=== PATIENT | male | born 1950 | race Caucasian/White ===

== ENCOUNTER 2020-06-23 00:47 | Outpatient (CLI) | payer MEDICARE, SELFPAY ==
[2020-06-23 18:42] LABS: SARS-CoV-2 RNA PCR Negative
== END 2020-06-23 00:48 | disposition home or self-care (01) ==
LOC: ANHCOVIDDT 00:50
PROVIDERS: PCP Family Medicine; Visit Provider Internal Medicine Gastroenterology
DX: Z01.812 Encounter for preprocedural laboratory examination (principal); Z20.828 Contact with and (suspected) exposure to other viral communicable diseases
CPT/HCPCS: 87635; C9803; U0003

== ENCOUNTER 2020-06-25 02:02 | Day surgery (SDC) | payer MEDICARE, SELFPAY ==
[2020-06-17 14:07] VITALS: BMI 29.1
[2020-06-25 09:10] VITALS: BP 118/88; PULSE 55; RESP 18; TEMP 37.1; O2SAT 96
[2020-06-25] MEDS: LACTATED RINGERS 1,000 ML 150 ML IV CONT (09:23)
[2020-06-25 09:28] LABS: Glucose Point of Care 97 (65-105)
--- NOTE | 2020-06-25 09:38 | WPDGICN ---
Assessment and Plan Assessment and plan (1) History of colon polyps: Code(s): Z86.010 - Personal history of colonic polyps Status: Acute Assessment and Plan: Patient has a history of colon polyps. Last colonoscopy 2017. He has had large colon polyps recurring partial colon resection the past. Plan is for surveillance colonoscopy at this time perhaps every 3-5 years in the future. High-fiber diet advised. (2) Diarrhea: Code(s): R19.7 - Diarrhea, unspecified Status: Acute Assessment and Plan: Patient reports intermittent diarrhea off and on over the last 1 year. With no bleeding or weight loss. He denies associated abdominal pain. He has had no specific therapy at today. Plan is to encourage high-fiber diet. Further recommendations may be given after colonoscopy. If diarrhea were to return stool cultures may be beneficial at that time. GI Consult Note Consult date/time: 06/25/20 09:38 HPI: Carlos Ortiz is a 70 year old male seen in evaluation at the request of Dr Haynes. Patient has a history of tubular adenomatous colon polyps. He has a history of a colon resection for large colon polyp in 2017. He presents today for follow-up colonoscopy. He reports over the last 1 year has had intermittent diarrhea. When it occurred it would be soft with no bleeding no pain. Typically lasting for several days to a week. He he has had no recent stool cultures or evaluation or therapy for this. His family history is noncontributory. Review of Systems Review of Systems: All systems reviewed & are unremarkable except as noted in HPI and below PMFSH Surgical History Surgical History H/O arthroscopic knee surgery H/O hernia repair H/O partial resection of colon History of cardiac cath History of carpal tunnel release History of knee replacement Hx of cholecystectomy Family History Family History Father Hypertension Family history of throat cancer, Onset Age: 67 Patient's father is , Onset Age: 67 Sibling Hypertension, Onset Age: 39 Family history of primary malignant neoplasm of liver Family history of malignant neoplasm of breast in first degree relative, Onset Age: 47 Family history of throat cancer, Onset Age: 52 Family history of malignant neoplasm of breast Mother Hypertension Social History Social History Smoking packs per day: 1.5 Smoking cigarettes per day: 30.0 Years smoked: 35 Smoking pack-years: 52.50 Smoking status: Former smoker Tobacco type: cigarettes Smoking end date: 11/12/97 Alcohol intake: never Meds Home Medications and Allergies Home Medications Medication Instructions Recorded Confirmed Type hydrochlorothiazide 12.5 mg tablet 12.5 mg PO DAILY #90 tablet 10/10/19 06/25/20 Rx irbesartan 300 mg tablet 300 mg PO DAILY #90 tablet 10/24/19 06/25/20 Rx albuterol sulfate 90 mcg/actuation 2 inhalation INHALATION Q4H #18 gm 11/19/19 06/25/20 Rx aerosol inhaler nebulizers #1 each 12/11/19 06/25/20 Rx amlodipine 10 mg tablet 10 mg PO DAILY 01/09/20 06/25/20 History ipratropium 0.5 mg-albuterol 3 mg 3 ml INHALATION Q6H PRN #180 ml 03/24/20 06/25/20 Rx (2.5 mg base)/3 mL nebulization soln metformin 1,000 mg tablet 1,000 mg PO BID #60 tablet 04/23/20 06/25/20 Rx levothyroxine 50 mcg capsule 50 mcg PO DAILY #90 cap 04/26/20 06/25/20 Rx oxymetazoline 0.05 % nasal mist 2 spray NASAL Q12H PRN 05/10/20 06/25/20 History blood sugar diagnostic #100 each 05/18/20 06/25/20 Rx blood-glucose meter #1 each 05/18/20 06/25/20 Rx budesonide-formoterol HFA 160 2 puff INHALATION Q12H #6 gm 06/17/20 06/25/20 Rx mcg-4.5 mcg/actuation aerosol inhaler atorvastatin 20 mg tablet 20 mg PO DAILY #90 tablet 06/23/20 06/25/20 Rx Allergies Allergy/AdvReac Ty
--- NOTE | 2020-06-25 09:45 | WPDANESEPPF ---
Anes - Initial Pre Proc Eval Procedure: Operation Date: 06/25/20 10:00 Proposed Procedures p Colonoscopy - Vel Bruno MD Date/Time: 06/25/20 09:45 Surgeon: Vel Bruno MD Pre Op Diagnosis: Diarrhea/ Hx Colon Polyps Patient Data Age: 70 Gender: M Height: 5 ft 5 in Weight: 74.6 kg Last Vital Signs Temp 98.8 F 06/25/20 09:10 Pulse 55 L 06/25/20 09:10 Resp 18 06/25/20 09:10 BP 118/88 06/25/20 09:10 Pulse Ox 96 06/25/20 09:10 Allergies Allergy/AdvReac Type Severity Reaction Status Date / Time cephalexin Allergy Unknown Skin Verified 06/25/20 09:09 Reaction clarithromycin Allergy Unknown Skin Verified 06/25/20 09:09 Reaction lisinopril Allergy Unknown cough Verified 06/25/20 09:09 Penicillins Allergy Unknown Skin Verified 06/25/20 09:09 Reaction morphine AdvReac Intermediate Nausea and Verified 06/25/20 09:09 Vomiting Home Medications Medication Instructions Recorded Confirmed Type hydrochlorothiazide 12.5 mg tablet 12.5 mg PO DAILY #90 tablet 10/10/19 06/25/20 Rx irbesartan 300 mg tablet 300 mg PO DAILY #90 tablet 10/24/19 06/25/20 Rx albuterol sulfate 90 mcg/actuation 2 inhalation INHALATION Q4H #18 gm 11/19/19 06/25/20 Rx aerosol inhaler nebulizers #1 each 12/11/19 06/25/20 Rx amlodipine 10 mg tablet 10 mg PO DAILY 01/09/20 06/25/20 History ipratropium 0.5 mg-albuterol 3 mg 3 ml INHALATION Q6H PRN #180 ml 03/24/20 06/25/20 Rx (2.5 mg base)/3 mL nebulization soln metformin 1,000 mg tablet 1,000 mg PO BID #60 tablet 04/23/20 06/25/20 Rx levothyroxine 50 mcg capsule 50 mcg PO DAILY #90 cap 04/26/20 06/25/20 Rx oxymetazoline 0.05 % nasal mist 2 spray NASAL Q12H PRN 05/10/20 06/25/20 History blood sugar diagnostic #100 each 05/18/20 06/25/20 Rx blood-glucose meter #1 each 05/18/20 06/25/20 Rx budesonide-formoterol HFA 160 2 puff INHALATION Q12H #6 gm 06/17/20 06/25/20 Rx mcg-4.5 mcg/actuation aerosol inhaler atorvastatin 20 mg tablet 20 mg PO DAILY #90 tablet 06/23/20 06/25/20 Rx Laboratory Tests 06/25/20 09:26 POC Capillary Glucose 97 mg/dl mg/dl (65-105) Patient hx anesthesia problems: none Family hx anesthesia problems: none PMFSH Past Medical History Medical History (Updated 06/25/20 @ 09:45 by Richy Sam MD) COPD with asthma Essential (primary) hypertension Hypothyroidism (acquired) Obstructive sleep apnea (adult) (pediatric) Type 2 diabetes mellitus with unspecified complications Surgical History Surgical History H/O arthroscopic knee surgery H/O hernia repair H/O partial resection of colon History of cardiac cath History of carpal tunnel release History of knee replacement Hx of cholecystectomy Family History Family History Father Hypertension Family history of throat cancer, Onset Age: 67 Patient's father is , Onset Age: 67 Sibling Hypertension, Onset Age: 39 Family history of primary malignant neoplasm of liver Family history of malignant neoplasm of breast in first degree relative, Onset Age: 47 Family history of throat cancer, Onset Age: 52 Family history of malignant neoplasm of breast Mother Hypertension Social History Social History Smoking packs per day: 1.5 Smoking cigarettes per day: 30.0 Years smoked: 35 Smoking pack-years: 52.50 Smoking status: Former smoker Tobacco type: cigarettes Smoking end date: 11/12/97 Alcohol intake: never Anes - Eval Final PreProcedure Day of Procedure 06/25/20 09:45 Patient weight: normal Heart: regular rate and rhythm Lungs: clear to auscultation Airway: Mallampati scale class II Neurological: alert and oriented Last oral intake: >/= 8 hours ASA classification: III Emergent: no Anesthetic plan: proceed Anesthesia type and monito
[2020-06-25] MEDS: SIMETHICONE ORAL SUSPENSION 20 MG/0.3 ML 30 ML BOTTLE 0.6 ML IRRIGATION ×2 (09:55→09:56)
[2020-06-25 10:07] VITALS: BP 118/76; PULSE 63; RESP 14; O2SAT 96
[2020-06-25 10:17] VITALS: BP 148/78; PULSE 55; RESP 14; O2SAT 96
[2020-06-25 10:27] VITALS: BP 145/87; PULSE 77; RESP 14; O2SAT 99
== END 2020-06-25 10:40 | disposition home or self-care (01) ==
PROVIDERS: PCP Family Medicine; Visit Provider Internal Medicine Gastroenterology
PROC: 0DJD8ZZ Inspection of Lower Intestinal Tract, Via Natural or Artificial Opening Endoscopic (ICD-10-PCS; CPT 45378; principal; 2020-06-25 10:00)
DX: Z12.11 Encounter for screening for malignant neoplasm of colon (principal); D12.3 Benign neoplasm of transverse colon; K63.5 Polyp of colon; K64.8 Other hemorrhoids; R19.7 Diarrhea, unspecified; K57.30 Diverticulosis of large intestine without perforation or abscess without bleeding; J44.9 Chronic obstructive pulmonary disease, unspecified; I10 Essential (primary) hypertension; E03.9 Hypothyroidism, unspecified; G47.33 Obstructive sleep apnea (adult) (pediatric); E11.9 Type 2 diabetes mellitus without complications; Z79.84 Long term (current) use of oral hypoglycemic drugs; Z87.891 Personal history of nicotine dependence
CPT/HCPCS: 45385; 88305; J2704; J7120

== ENCOUNTER 2020-11-08 06:56 | Outpatient (NON) | payer MEDICARE, SELFPAY ==
[2020-11-08 17:11] LABS: SARS-CoV-2 RNA PCR Negative
== END 2020-11-08 06:57 ==
LOC: ANHCOVIDDT 06:58
PROVIDERS: PCP Family Medicine; Visit Provider Physician Assistant
DX: Z20.828 Contact with and (suspected) exposure to other viral communicable diseases (principal); R09.81 Nasal congestion
CPT/HCPCS: 87635; C9803; U0003

== ENCOUNTER 2020-11-17 09:02 | Outpatient (CLI) | payer MEDICARE, SELFPAY ==
--- NOTE | ~2020-11-17 | CT_ITS ---
EXAMINATION:CT lung screening DATE: 11/17/2020 09:29 INDICATION: Personal history of nicotine dependence. Smoker who quit 14 years ago with 52 pack year h istory. TECHNIQUE: Computed tomography (CT) of the chest was performed without intravenous contrast. Automate d exposure control and iterative reconstruction technique were employed. The dose-length product (DLP ) was 147.67 mGy-cm. COMPARISON: Chest CT 11/03/2019, 02/15/17, 02/10/16 FINDINGS: There is moderate emphysema. Calcified pulmonary nodules and calcified hilar and mediastina l lymph nodes are consistent with old granulomatous disease. There is recurrent partial collapse of l eft lung lower lobe. There is bronchiectasis in left lower lobe. No pleural effusion. The heart size is normal. There are coronary artery calcifications. No pericardial effusion. There is diffuse hepati c steatosis. There are changes of cholecystectomy. Calcifications in the liver and spleen are consist ent with old granulomatous disease. There is mild thoracic spondylosis. IMPRESSION: 1. Lung-RADS category 4A: Suspicious. Bronchoscopy is recommended for recurrent partial collapse of l eft lung lower lobe. Reviewed, dictated and finalized at location A. GER MATERIAL IMPRESSION: 1. Lung-RADS category 4A: Suspicious. Bronchoscopy is recommended for recurrent partial collapse of left lung lower lobe.
== END 2020-11-17 09:03 | disposition home or self-care (01) ==
PROVIDERS: PCP Family Medicine; Visit Provider Family Medicine
DX: Z12.2 Encounter for screening for malignant neoplasm of respiratory organs (principal); Z87.891 Personal history of nicotine dependence
CPT/HCPCS: 71271

== ENCOUNTER 2020-11-23 03:05 | Outpatient (CLI) | payer MEDICARE, SELFPAY ==
[2020-11-23 19:22] LABS: SARS-CoV-2 RNA PCR Negative
== END 2020-11-23 03:06 | disposition home or self-care (01) ==
LOC: ANHCOVIDDT 03:06
PROVIDERS: PCP Family Medicine; Visit Provider Internal Medicine Critical Care Medicine
DX: Z01.812 Encounter for preprocedural laboratory examination (principal); Z20.822 Contact with and (suspected) exposure to COVID-19
CPT/HCPCS: C9803; U0003; U0005

== ENCOUNTER 2020-11-26 02:11 | Day surgery (SDC) | payer MEDICARE, SELFPAY ==
[2020-11-19 16:26] VITALS: BMI 29.0
[2020-11-26] VITALS (10 sets, daily range): BP systolic 118–165; BP diastolic 67–81; PULSE 56–106; RESP 12–21; TEMP 36.2–37.1; O2SAT 95–100
--- NOTE | ~2020-11-26 | XR_ITS ---
EXAMINATION: XR chest 1V portable DATE: 11/26/2020 14:39 INDICATION: Shortness of breath. TECHNIQUE: A single frontal view of the chest was obtained. COMPARISON: Chest 2 views 11/19/2019, chest CT 11/17/2020 FINDINGS: Calcified lung nodules and calcified hilar and mediastinal lymph nodes are consistent with old granulomatous disease. There are mild airspace opacities in the lower lung zones. No pleural effu oliver or pneumothorax. The heart size is normal. IMPRESSION: 1. Mild airspace opacities in the lower lung zones, consistent with atelectasis versus pneumonia. Reviewed, dictated and finalized at location A. ERY CHARGER TESTER
--- NOTE | 2020-11-26 11:19 | WPDANESEPPF ---
Anes - Initial Pre Proc Eval Procedure: Operation Date: 11/26/20 12:30 Proposed Procedures p Flexible Bronchoscopy - Natasha Cloud MD Date/Time: 11/26/20 11:19 Surgeon: Natasha Cloud MD Pre Op Diagnosis: Recurrent Partial Collapse Of Left Lower Lung Lobe Patient Data Age: 70 Gender: M Height: 5 ft 5 in Weight: 79 kg Allergies Allergy/AdvReac Type Severity Reaction Status Date / Time Penicillins Allergy Unknown Skin Verified 11/26/20 12:02 Reaction morphine AdvReac Intermediate Nausea and Verified 11/26/20 12:02 Vomiting lisinopril AdvReac Unknown cough Verified 11/26/20 12:02 Home Medications Medication Instructions Recorded Confirmed Type albuterol sulfate 90 mcg/actuation 2 inhalation INHALATION Q4H #18 gm 11/19/19 11/19/20 Rx aerosol inhaler nebulizers #1 each 12/11/19 08/12/20 Rx ipratropium 0.5 mg-albuterol 3 mg 3 ml INHALATION Q6H PRN #180 ml 03/24/20 11/19/20 Rx (2.5 mg base)/3 mL nebulization soln levothyroxine 50 mcg capsule 50 mcg PO DAILY #90 cap 04/26/20 11/26/20 Rx oxymetazoline 0.05 % nasal mist 2 spray NASAL Q12H PRN 05/10/20 11/19/20 History blood sugar diagnostic #100 each 05/18/20 08/12/20 Rx blood-glucose meter #1 each 05/18/20 08/12/20 Rx atorvastatin 20 mg tablet 20 mg PO DAILY #90 tablet 06/23/20 11/19/20 Rx amlodipine 10 mg tablet 10 mg PO DAILY #90 tablet 08/16/20 11/19/20 Rx hydrochlorothiazide 12.5 mg tablet 12.5 mg PO DAILY #90 tablet 10/18/20 11/19/20 Rx irbesartan 300 mg tablet 300 mg PO DAILY #90 tablet 10/20/20 11/19/20 Rx metformin 1,000 mg tablet See Rx Instructions .ROUTE 10/22/20 11/19/20 Rx .COMPLEX #60 tablet sulfamethoxazole 800 1 tablet PO Q12H #20 tablet 11/19/20 11/19/20 Rx mg-trimethoprim 160 mg tablet budesonide-formoterol HFA 160 See Rx Instructions .ROUTE 11/22/20 Rx mcg-4.5 mcg/actuation aerosol .COMPLEX #10.2 g inhaler Patient hx anesthesia problems: none Family hx anesthesia problems: none PMFSH Past Medical History Medical History (Updated 11/19/20 @ 14:42 by Natasha Cloud MD) COPD with asthma Essential (primary) hypertension Hypothyroidism (acquired) Obstructive sleep apnea (adult) (pediatric) Type 2 diabetes mellitus with unspecified complications Surgical History Surgical History (Reviewed 07/15/20 @ 09:46 by Sheila Coe [facility]) H/O arthroscopic knee surgery H/O hernia repair H/O partial resection of colon History of cardiac cath History of carpal tunnel release History of knee replacement Hx of cholecystectomy Family History Family History (Reviewed 07/15/20 @ 09:46 by Sheila Coe [facility]) Father Hypertension Family history of throat cancer, Onset Age: 67 Patient's father is , Onset Age: 67 Sibling Hypertension, Onset Age: 39 Family history of primary malignant neoplasm of liver Family history of malignant neoplasm of breast in first degree relative, Onset Age: 47 Family history of throat cancer, Onset Age: 52 Family history of malignant neoplasm of breast Mother Hypertension Social History Social History (Reviewed 07/15/20 @ 09:46 by Sheila Coe [facility]) Smoking packs per day: 1.5 Smoking cigarettes per day: 30.0 Years smoked: 35 Smoking pack-years: 52.50 Smoking status: Never smoker Tobacco type: cigarettes Smoking end date: 11/12/97 Alcohol intake: never Substance use type: does not use Living arrangements: with family Spiritual care concerns: No Anes - Eval Final PreProcedure Day of Procedure 11/26/20 11:19 Patient weight: obese Heart: regular rate and rhythm Lungs: clear to auscultation Airway: Mallampati scale class II Neurological: alert and oriented Last oral intake: >/= 8 hours ASA classification: III Emergent: no Anesthetic plan: proceed Anesthesia type and monitoring: general ETT (or LMA) and standard monitoring Informed Consent: The patient's anesthetic plan and its attendant risks
--- NOTE | 2020-11-26 11:50 | ECG_ITS ---
Measurements Intervals [place] Rate: 63 P: 78 IN: 144 QRS: -21 QRSD: 108 T: 48 QT: 444 QTc: 455 Interpretive Statements SINUS RHYTHM INCOMPLETE RIGHT BUNDLE BRANCH BLOCK BORDERLINE R WAVE PROGRESSION, ANTERIOR LEADS BORDERLINE ST-T WAVE ABNORMALITY- HIGH LATERAL LEADS BASELINE ARTIFACT- I, II, III, AVR, V1-V3 BORDERLINE ECG Electronically Signed On 11-26-2020 13:07:03 SENIOR PRINCIPAL SOFTWARE ENGINEER by Aries Hogue D.O.
[2020-11-26 12:37] LABS: Glucose Point of Care 114 (65-105)
[2020-11-26] MEDS: LACTATED RINGERS 1,000 ML 150 ML IV CONT (12:37)
--- NOTE | 2020-11-26 12:51 | PM.CNPUL ---
Assessment and Plan Assessment and plan (1) Lung mass: Code(s): R91.8 - Other nonspecific abnormal finding of lung field Status: Acute Assessment and Plan: LLL recurrent collapse of the left lower lobe with left lower lobe bronchiectasis. This was found incidentally on a CT of the chest which was performed for his aortic aneurysm screening. Patient has not had fever, chills, weight loss, chest discomfort hemoptysis or difficulty swallowing. His normal weight is 177, was 180 most recently. He agrees with bronchoscopy to determine if there is an endobronchial mass that could be biopsied or brush. CT was reviewed and there are calcified lymph nodes in the mediastinum and subcarinal area so this will likely not be a good place to biopsy. He may need a PET scan after this bronchoscopy. (2) Chronic obstructive pulmonary disease, unspecified: Qualifiers: COPD type: unspecified COPD Qualified Code(s): J44.9 - Chronic obstructive pulmonary disease, unspecified Code(s): J44.9 - Chronic obstructive pulmonary disease, unspecified Status: Acute Assessment and Plan: His COPD is well controlled with Symbicort 2 puffs twice a day. He does not have frequent exacerbations. His main problem the sinus infections which he gets at least once per year and he is currently at the end of an infection. He was on a prednisone taper and antibiotics. History of Present Illness History of Present Illness Consult date: 11/26/20 Requesting physician: Oscar Haynes MD Reason for consult: abnormal CXR/CT Chief complaint: Recurrent Partial Collapse Of Left Lower Lung Lobe Narrative: This is an H&P prior to bronchoscopy. NEW: Carlos Ortiz is a 70 year old man with COPd, quit tobacco 15 years ago. His COPD is managed with Symbicort. He an annual CT of the chest for of aortic aneurysm. This year his CT showed an abnormality in the left lower lobe on 11/17/2020: There is moderate emphysema. Calcified pulmonary nodules and calcified hilar and mediastinal lymph nodes are consistent with old granulomatous disease. There is recurrent partial collapse of left lung lower lobe. There is bronchiectasis in left lower lobe. No pleural effusion. The heart size is normal. There are coronary artery calcifications. No pericardial effusion. There is diffuse hepatic steatosis. There are changes of cholecystectomy. Calcifications in the liver and spleen are consistent with old granulomatous disease. There is mild thoracic spondylosis. he denies any significant change in his weight. He has a sinus infection about once per year. He has started having 1 about 2 weeks ago, was on a prednisone taper and just finished an antibiotic yesterday. He does not have sputum production normally, only has secretions on coughing while he has a sinus infection. 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 He had some prior exposure to birds. He used to have recurrent bronchitis but since retiring has not had that any longer. He has not had pleuritic chest discomfort, hemoptysis, sputum production. I spoke with him about the risks and benefits of bronchoscopy. He agrees to proceed with the bronchoscopy for diagnosis of the left lower lobe collapse with suspected mass. Review of Systems Review of Systems: All systems reviewed & are unremarkable except as noted in HPI and below PMFSH Past Medical History Medical History COPD with asthma Essential (primary) hypertension Hypothyroidism (acquired) Obstructive sleep apnea (adult) (pediatric) Type 2 diabetes mellitus with unspecified complications Surgical History Surgical History H/O arthroscopic knee surgery H/O hernia repair H/O partial resection of colon History of cardiac c
[2020-11-26] MEDS: LIDOCAINE HCL 2% LOCAL INJ 20 ML VIAL 4 ML INFILTRATE (13:44)
--- NOTE | 2020-11-26 14:42 | SUR.PHASEII ---
Pt. continues to complain of nasal congestion, both nares. Pt. has bilateral expiratory wheezing. Dr. Cloud updated. Orders received for Chest xray and Nebulizer breathing treatment.
[2020-11-26] MEDS: ALBUTEROL SULFATE NEB 2.5 MG/0.5 ML INH INHALATION (15:02)
--- NOTE | 2020-11-26 15:05 | SUR.PHASEII ---
11/26/20 1500: RT at bedside for neb treatment.
== END 2020-11-26 15:31 | disposition home or self-care (01) ==
PROVIDERS: PCP Family Medicine; Visit Provider Internal Medicine Critical Care Medicine
PROC: 0BJ08ZZ Inspection of Tracheobronchial Tree, Via Natural or Artificial Opening Endoscopic (ICD-10-PCS; CPT 31622; principal; 2020-11-26 12:30)
DX: J98.11 Atelectasis (principal); Z79.51 Long term (current) use of inhaled steroids; J44.9 Chronic obstructive pulmonary disease, unspecified; E03.9 Hypothyroidism, unspecified; E11.9 Type 2 diabetes mellitus without complications; G47.33 Obstructive sleep apnea (adult) (pediatric); I10 Essential (primary) hypertension; Z96.649 Presence of unspecified artificial hip joint; E66.9 Obesity, unspecified; Z68.36 Body mass index [BMI] 36.0-36.9, adult; I45.10 Unspecified right bundle-branch block; F17.210 Nicotine dependence, cigarettes, uncomplicated
CPT/HCPCS: 31625; 31623; 71045; 88104; 88108; 88160; 88305; 93005; 94640; C9803; J0330; J2370; J2704; J7040; J7120; U0003; U0005

== ENCOUNTER 2020-12-23 09:36 | Outpatient (CLI) | payer MEDICARE, SELFPAY ==
--- NOTE | ~2020-12-23 | CT_ITS ---
EXAMINATION: CT sinus wo con DATE: 12/23/2020 09:58 INDICATION: Chronic sinusitis. TECHNIQUE: Computed tomography (CT) of the paranasal sinuses was performed without intravenous contra st. The dose-length product was 276.23 mGy-cm. Automated exposure control and iterative reconstructio n technique were employed. COMPARISON: CT dated 12/10/2018 FINDINGS: There is mild mucosal thickening of the ethmoid sinuses. The left ostiomeatal unit is parti ally occluded by soft tissue. There is leftward nasal septal deviation. No air-fluid levels. No mucop eriosteal reaction. There are small mastoid effusions. IMPRESSION: 1. Mild ethmoid sinus disease with partial occlusion left ostiomeatal unit. 2: Small mastoid effusions. Reviewed, dictated and finalized at location B. Y CATTLE FARM MANAGER
== END 2020-12-23 09:37 | disposition home or self-care (01) ==
PROVIDERS: PCP Family Medicine; Visit Provider Otolaryngology
DX: J32.9 Chronic sinusitis, unspecified (principal)
CPT/HCPCS: 70486

== ENCOUNTER 2021-01-25 09:56 | Outpatient (CLI) | payer MEDICARE, SELFPAY ==
--- NOTE | ~2021-01-25 | PE_ITS ---
EXAMINATION: PET skull to mid thigh DATE: 01/25/2021 12:01 INDICATION: Suspicious finding on prior screening chest CT with recurrent partial collapse of the lef t lower lobe. TECHNIQUE: Blood glucose level was 132 mg/dL. 12.463 mCi of 18-fluorodeoxyglucose (18-FDG) was admini stered i.v. Low dose computed tomography (CT) images were acquired from the base of the brain to the proximal thighs for attenuation correction and anatomic localization. Positron emission tomography (P ET) images were acquired in the same distribution beginning 58 minutes after injection. Images includ ing fused PET/CT images were reconstructed in axial, coronal, and sagittal planes. Automated exposure control technique was employed. The dose-length product was 570.28mGy-cm. COMPARISON: Chest CT dated 11/17/2020 FINDINGS: Head/neck: There is symmetric increased activity in the nasal and oral cavities, laryngeal muscles and ocular mu scles without CT correlate, likely physiologic. No pathologically enlarged cervical lymphadenopathy o r suspicious foci of increased FDG uptake in the visualized head or neck. Chest: Interval progression of now complete collapse of the left lower lobe with occlusion of the left lower lobe bronchus now beginning approximately at the origin. No discrete obstructing lesion or abnormal FDG uptake at the left lower lobe or left lower lobar bronchus. There are several scattered bilateral calcified pulmonary nodules along with numerous calcified mediastinal and bilateral hilar lymph node s consistent with old granulomatous disease. Mild discoid atelectasis in the right middle lobe. Incid entally noted azygos lobe and fissure. Mild to moderate bilateral paraseptal emphysema. No pleural ef fusion. Heart size is normal. Mild scattered atherosclerotic coronary artery calcifications. No peric ardial effusion. Atherosclerotic aorta with fusiform aneurysm of the proximal descending thoracic aor ta which measures up to 4.2 x 4.0 cm measured orthogonal to the axis flow on coronal and sagittal josi ges respectively. No pathologically enlarged or FDG avid thoracic lymphadenopathy. Abdomen/pelvis/proximal thighs: Physiologic renal accumulation and excretion of FDG activity in the kidneys, bladder and along portio ns of ureters. Diffuse hepatic steatosis. Normal degree and heterogenous pattern of increased uptake throughout the liver without radiologic correlate or dominant FDG avid lesion. Multiple splenic calci fications consistent with old granulomatous disease. The gallbladder, pancreas and bilateral adrenal glands are normal. Extensive scattered, in places prominent uptake throughout the bowels without radi ologic correlate, also likely physiologic. No other abnormal foci of increased FDG uptake or patholog ically enlarged lymphadenopathy in the abdomen, pelvis or proximal thighs. Musculoskeletal: Relatively symmetric synovial uptake at the bilateral shoulders. Additional asymmetric synovial uptak e at the bilateral trochanteric bursae, significantly more prominent on the left consistent with left trochanteric bursitis. No suspicious lytic, blastic or FDG avid bone lesions. IMPRESSION: 1. No obstructing lesion or abnormal FDG uptake at the opacified left lower lobe bronchus to suggest a malignant etiology for the now complete collapse of the left lower lobe. Given the multiple calcifi ed pulmonary nodules and numerous calcified bilateral hilar and mediastinal lymph nodes which may be due to mediastinal fibrosis. If not previously performed would recommend bronchoscopy for further david luation. 2. 4.2 x 4.0 cm fusiform aneurysm of the proximal descending thoracic aorta. 3. Mild to moderate emphysema. Reviewed, dictated and finalized at location B. IMPRESSION: 1. No obstru
[2021-01-25 10:37] LABS: Glucose Point of Care 132 (65-105)
== END 2021-01-25 09:57 | disposition home or self-care (01) ==
PROVIDERS: PCP Family Medicine; Visit Provider Nurse Practitioner Family
DX: R91.8 Other nonspecific abnormal finding of lung field (principal); Z51.81 Encounter for therapeutic drug level monitoring; Z79.899 Other long term (current) drug therapy
CPT/HCPCS: 78815; 82948; A9552

== ENCOUNTER 2021-08-30 07:20 | Outpatient (CLI) | payer MEDICARE, SELFPAY ==
--- NOTE | ~2021-08-30 | CT_ITS ---
EXAMINATION: CT diagnostic chest wo con DATE: 08/30/2021 07:54 INDICATION: Atelectasis and shortness of breath TECHNIQUE: Computed tomography (CT) of the chest was performed without intravenous contrast. The dose -length product was 270.15 mGy-cm. Automated exposure control and iterative reconstruction technique were employed. COMPARISON: CT dated 11/17/2020 FINDINGS: Multiple densely calcified mediastinal lymph nodes. There are calcified granulomas in the l iver and spleen. There are a few calcified pulmonary nodules bilaterally. No significant pleural or p ericardial effusion. Small hiatal hernia. No significant axillary lymphadenopathy. There is atheroscl erosis. There is a fusiform descending thoracic aortic aneurysm measuring 4.3 cm maximum dimension tr ansversely. There is improved left lower lobe atelectasis. There is left lower lobe bronchiectasis. M ild emphysema. IMPRESSION: 1. Improved left lower lobe atelectasis with underlying bronchiectasis. 2: Chronic granulomatous disease with densely calcified mediastinal and hilar lymph nodes. 3: Stable fusiform descending thoracic aortic aneurysm measuring 4.3 cm. Reviewed, dictated and finalized at location B. IMPRESSION: 1. Improved left lower lobe atelectasis with underlying bronchiectasis. 2: Chronic granulomatous disease with densely calcified mediastinal and hilar l ymph nodes. 3: Stable fusiform descending thoracic aortic aneurysm measuring 4.3 cm.
== END 2021-08-30 07:21 | disposition home or self-care (01) ==
LOC: ANHIMG 07:25
PROVIDERS: PCP Family Medicine; Visit Provider Internal Medicine Pulmonary Disease
DX: J98.11 Atelectasis (principal); I71.4 Abdominal aortic aneurysm, without rupture
CPT/HCPCS: 71250

== ENCOUNTER → 2021-12-23 03:45 | Outpatient (CLI) | payer MEDICARE, SELFPAY ==
[2021-12-23 17:17] LABS: SARS-CoV-2 RNA PCR Negative
== END ==
PROVIDERS: PCP Family Medicine; Visit Provider Physician Assistant
DX: R68.89 Other general symptoms and signs (principal); Z20.822 Contact with and (suspected) exposure to COVID-19
CPT/HCPCS: C9803; U0003; U0005

== ENCOUNTER 2022-08-07 09:33 | Outpatient (CLI) | payer MEDICARE, SELFPAY ==
--- NOTE | ~2022-08-07 | CT_ITS ---
EXAMINATION:CT diagnostic chest wo con DATE: 08/07/2022 10:03 INDICATION: Thoracic aortic aneurysm without rupture. TECHNIQUE: Computed tomography (CT) of the chest was performed without intravenous contrast. Automate d exposure control and iterative reconstruction technique were employed. The dose-length product (DLP ) was 249.85 mGy-cm. COMPARISON: Chest CT 08/30/2021 FINDINGS: There is mild emphysema. Calcified pulmonary nodules and calcified hilar and mediastinal ly mph nodes are consistent with old granulomatous disease. There are patchy airspace and groundglass op acities in left upper lobe. There is total collapse of left lower lobe. There is material in the left lower lobe bronchi. No pleural effusion. The heart size is normal. There are coronary artery calcifi cations. No pericardial effusion. The thoracic aorta measures 3.9 cm at the sinuses of Valsalva, 3.4 cm at the sinotubular junction, 4.0 cm in mid ascending aorta, 3.4 cm at the isthmus, and 3.9 cm in m id descending aorta. Calcifications in the liver and spleen are consistent with old granulomatous dis ease. There is diffuse hepatic steatosis. There are changes of cholecystectomy. There is mild thoraci c spondylosis. IMPRESSION: 1. Patchy airspace and groundglass opacities in left upper lobe, consistent with pneumonia. 2. Worsened total collapse of left lower lobe. Material in the left lower lobe bronchi is most likely mucus. Consider bronchoscopy. 3. Mild emphysema. 4. Ectasia of thoracic aorta measuring up to 4.0 cm. Reviewed, dictated and finalized at location A. IMPRESSION: 1. Patchy airspace and groundglass opacities in left upper lobe, consistent wit h pneumonia. 2. Worsened total collapse of left lower lobe. Material in the left lower lobe bronchi is most likely mucus. Consider bronchoscopy. 3. Mild emphysema. 4. Ectasia of thoracic aorta measuring up to 4.0 cm.
== END 2022-08-07 09:34 | disposition home or self-care (01) ==
PROVIDERS: PCP Emergency Medicine; Visit Provider Emergency Medicine
DX: I71.2 Thoracic aortic aneurysm, without rupture (principal); J43.9 Emphysema, unspecified; R91.8 Other nonspecific abnormal finding of lung field
CPT/HCPCS: 71250

== ENCOUNTER 2022-09-29 18:55 | Outpatient (NON) | payer MEDICARE, SELFPAY | END 2022-09-29 18:56 | disposition home or self-care (01) | LOC: ANHLAB 18:57 | PROVIDERS: PCP Emergency Medicine; Visit Provider Nurse Practitioner Family | DX: L02.512 Cutaneous abscess of left hand (principal) | CPT/HCPCS: 87070; 87077; 87186; 87205 ==

== ENCOUNTER 2023-06-15 07:35 | Outpatient (CLI) | payer MEDICARE, SELFPAY ==
--- NOTE | ~2023-06-15 | CT_ITS ---
Clinical Indication: Thoracic aortic aneurysm CT Scan of the Chest with Contrast: Technique: Contiguous sections were acquired throughout the chest after intravenous administration of 75 cc of Omnipaque 350. Dose reduction technique was used on this scan by utilizing automated exposu re control and iterative reconstruction technique. The dose-length product (DLP) was 299.59 mGy-cm. COMPARISON: 08/07/2022 Findings: There are numerous calcified mediastinal and hilar lymph nodes.. There is no filling defect in the pu lmonary arterial tree to suggest pulmonary embolus. Thoracic aorta measures up to maximum of 4 cm in diameter, essentially unchanged. There are atherosclerotic calcifications of the aorta There is no evidence of pleural or pericardial effusion. There is chronic left lower lobe atelectasis/collapse, unchanged. Calcified pulmonary granulomas are present. There is mild emphysema.. Images through the upper abdomen reveal calcified splenic granulomas. Impression: Ascending thoracic aorta again measures up to maximum of 4 cm in diameter, unchanged. Chronic left lower lobe atelectasis/collapse, unchanged. Mild emphysema. Evidence of prior granulomatous disease. Reviewed, dictated and finalized at [facility]. Impression: Ascending thoracic aorta again measures up to maximum of 4 cm in diameter, unch anged. Chronic left lower lobe atelectasis/collapse, unchanged. Mild emphysema. Evidence of prior granulomatous disease.
[2023-06-15 07:56] LABS: Estimated Glomerular Filt Rate > 60
== END 2023-06-15 07:36 | disposition home or self-care (01) ==
PROVIDERS: PCP Emergency Medicine; Visit Provider Emergency Medicine
DX: I71.20 Thoracic aortic aneurysm, without rupture, unspecified (principal); J43.9 Emphysema, unspecified; J98.11 Atelectasis
CPT/HCPCS: 71260; Q9967

== ENCOUNTER 2023-07-02 01:15 | Day surgery (SDC) | payer MEDICARE, SELFPAY ==
[2023-06-14 12:35] VITALS: BMI 31.5
--- NOTE | 2023-07-02 08:00 | WPDANESEPPF ---
Anes - Initial Pre Proc Eval Procedure: Operation Date: 07/02/23 09:00 Proposed Procedures p Colonoscopy - Vel Bruno MD Date/Time: 07/02/23 08:00 Surgeon: Vel Bruno MD Pre Op Diagnosis: hx of colon polyps Patient Data Age: 73 Gender: M Height: 1.65 m Weight: 81.3 kg Allergies Allergy/AdvReac Type Severity Reaction Status Date / Time Penicillins Allergy Unknown Skin Verified 07/02/23 07:41 Reaction lisinopril AdvReac Intermediate cough Verified 07/02/23 07:41 morphine AdvReac Intermediate Nausea and Verified 07/02/23 07:41 Vomiting Home Medications Medication Instructions Recorded Confirmed Type nebulizers #1 ea 12/11/19 05/18/23 Rx blood-glucose meter #1 ea 05/18/20 05/18/23 Rx lancets 30 gauge (OneTouch Delica See Rx Instructions .Route 07/31/22 05/18/23 Rx Plus Lancet) .COMPLEX #200 ea blood sugar diagnostic (OneTouch See Rx Instructions .Route 08/07/22 05/18/23 Rx Verio test strips) .COMPLEX #200 strips amlodipine 10 mg tablet 10 mg PO DAILY #90 tabs 10/17/22 06/14/23 Rx hydrochlorothiazide 25 mg tablet 25 mg PO DAILY #90 tabs 12/04/22 06/14/23 Rx glipizide 5 mg tablet, extended 5 mg PO DAILY #30 tabs 05/09/23 06/14/23 Rx release 24 hr sodium,potassium,mag sulfates 17.5 See Rx Instructions PO .COMPLEX 05/30/23 Rx gram-3.13 gram-1.6 gram oral soln #354 mL (Suprep Bowel Prep Kit) metoprolol tartrate 25 mg tablet 25 mg PO DAILY #90 tabs 06/11/23 06/14/23 Rx ipratropium 0.5 mg-albuterol 3 mg 3 ml inhalation Q6H PRN shortness 06/12/23 06/14/23 Rx (2.5 mg base)/3 mL nebulization of breath or wheezing #180 mL soln budesonide-formoterol HFA 160 2 inh inhalation Q12H 06/14/23 06/14/23 History mcg-4.5 mcg/actuation aerosol inhaler (Symbicort) irbesartan 300 mg tablet 300 mg PO DAILY 06/14/23 06/14/23 History levothyroxine 50 mcg tablet 50 mcg PO DAILY 06/14/23 06/14/23 History potassium chloride 20 mEq 20 meq PO DAILY 06/14/23 06/14/23 History tablet,extended release(part/cryst) (Klor-Con M) atorvastatin 20 mg tablet 20 mg PO DAILY #90 tabs 06/24/23 Rx Patient hx anesthesia problems: none Family hx anesthesia problems: none Results Review: All pre-operative results and documents have been reviewed as part of the pre-operative evaluation. [facility] Past Medical History Medical History Collapsed lung COPD with asthma CTS (carpal tunnel syndrome) Essential (primary) hypertension Hypothyroidism (acquired) Obstructive sleep apnea (adult) (pediatric) Type 2 diabetes mellitus with unspecified complications Surgical History Surgical History H/O arthroscopic knee surgery H/O hernia repair H/O partial resection of colon History of cardiac cath History of carpal tunnel release History of knee replacement Hx of cholecystectomy Family History Family History Father Hypertension Family history of throat cancer, Onset Age: 67 Patient's father is , Onset Age: 67 Sibling , recovered from throat cancer Hypertension, Onset Age: 39 Family history of primary malignant neoplasm of liver Family history of malignant neoplasm of breast in first degree relative, Onset Age: 47 Family history of throat cancer, Onset Age: 52 Family history of malignant neoplasm of breast Mother Hypertension Social History Social History Smoking packs per day: 1.5 Smoking cigarettes per day: 30.0 Years smoked: 35 Smoking pack-years: 52.50 Smoking status: Former smoker Tobacco type: cigarettes Smoking end date: 11/12/97 Alcohol intake: never Substance use type: does not use Lack of Transportation: No Lack of Food: Never True Current Housing: I Have Housing Concerned About Future Housing: No Difficu
[2023-07-02] MEDS: LACTATED RINGERS 1,000 ML 150 ML IV CONT (08:02)
--- NOTE | 2023-07-02 08:03 | PM.HPGS ---
History of Present Illness History of Present Illness Consent: Risks, benefits, and alternatives have been discussed and questions answered. Patient agrees to proceed with procedure. Chief complaint: hx of colon polyps Narrative: Carlos Ortiz is a 73 year old male Presents for screening colonoscopy. Patient's current weight appetite and bowel movements are normal. Patient denies abdominal pain. He has had no bleeding. Family history noncontributory. Patient does have a history of colon polyps in 2016 and did require surgical resection. Apparently this was benign. Patient reports current bowel habits are normal. Patient presents today for neoplasia screening. Review of Systems Review of Systems: Review of systems noncontributory. [facility] Past Medical History Medical History Collapsed lung COPD with asthma CTS (carpal tunnel syndrome) Essential (primary) hypertension Hypothyroidism (acquired) Obstructive sleep apnea (adult) (pediatric) Type 2 diabetes mellitus with unspecified complications Surgical History Surgical History H/O arthroscopic knee surgery H/O hernia repair H/O partial resection of colon History of cardiac cath History of carpal tunnel release History of knee replacement Hx of cholecystectomy Family History Family History Father Hypertension Family history of throat cancer, Onset Age: 67 Patient's father is , Onset Age: 67 Sibling , recovered from throat cancer Hypertension, Onset Age: 39 Family history of primary malignant neoplasm of liver Family history of malignant neoplasm of breast in first degree relative, Onset Age: 47 Family history of throat cancer, Onset Age: 52 Family history of malignant neoplasm of breast Mother Hypertension Social History Social History Smoking packs per day: 1.5 Smoking cigarettes per day: 30.0 Years smoked: 35 Smoking pack-years: 52.50 Smoking status: Former smoker Tobacco type: cigarettes Smoking end date: 11/12/97 Alcohol intake: never Substance use type: does not use Lack of Transportation: No Lack of Food: Never True Current Housing: I Have Housing Concerned About Future Housing: No Difficulty Paying Gas/Electric Bills: No Difficulty Paying for Meds: YES Currently Unemployed: No Education: Grade School Difficulty w/ Childcare or Family Care: No Living arrangements: with family Additional living arrangements comments: Occupation/Education: retired Spiritual care concerns: No Meds Home Medications and Allergies Home Medications Medication Instructions Recorded Confirmed Type nebulizers #1 ea 12/11/19 05/18/23 Rx blood-glucose meter #1 ea 05/18/20 05/18/23 Rx lancets 30 gauge (OneTouch Delica See Rx Instructions .Route 07/31/22 05/18/23 Rx Plus Lancet) .COMPLEX #200 ea blood sugar diagnostic (OneTouch See Rx Instructions .Route 08/07/22 05/18/23 Rx Verio test strips) .COMPLEX #200 strips amlodipine 10 mg tablet 10 mg PO DAILY #90 tabs 10/17/22 06/14/23 Rx hydrochlorothiazide 25 mg tablet 25 mg PO DAILY #90 tabs 12/04/22 06/14/23 Rx glipizide 5 mg tablet, extended 5 mg PO DAILY #30 tabs 05/09/23 06/14/23 Rx release 24 hr sodium,potassium,mag sulfates 17.5 See Rx Instructions PO .COMPLEX 05/30/23 Rx gram-3.13 gram-1.6 gram oral soln #354 mL (Suprep Bowel Prep Kit) metoprolol tartrate 25 mg tablet 25 mg PO DAILY #90 tabs 06/11/23 06/14/23 Rx ipratropium 0.5 mg-albuterol 3 mg 3 ml inhalation Q6H PRN shortness 06/12/23 06/14/23 Rx (2.5 mg base)/3 mL nebulization of breath or wheezing #180 mL soln budesonide-formoterol HFA 160 2 inh inhalation Q12H 06/14/23 06/14/23 History mcg-4.5 mcg/actuation aerosol inhaler (Symbico
[2023-07-02] MEDS: SIMETHICONE ORAL SUSPENSION 20 MG/0.3 ML 30 ML BOTTLE 0.6 ML IRRIGATION (08:50)
[2023-07-02 09:05] VITALS: BP 122/66; PULSE 65; RESP 19; O2SAT 97
--- NOTE | 2023-07-02 09:05 | SUR.OPER ---
DR RIOS AWARE ONLY 2 OF 3 POLYPS RETRIEVED. Kourtney ROQUE RN & Lashell CONLEY RN
[2023-07-02 09:15] VITALS: BP 123/80; PULSE 57; RESP 14; O2SAT 97
[2023-07-02 09:25] VITALS: BP 144/81; PULSE 56; RESP 15; O2SAT 96
[2023-07-03 14:17] LABS: Glucose Point of Care 120 mg/dl (65-105)
== END 2023-07-02 09:33 | disposition home or self-care (01) ==
PROVIDERS: PCP Emergency Medicine; Visit Provider Internal Medicine Gastroenterology
PROC: 0DJD8ZZ Inspection of Lower Intestinal Tract, Via Natural or Artificial Opening Endoscopic (ICD-10-PCS; CPT 45378; principal; 2023-07-02 09:00)
DX: Z12.11 Encounter for screening for malignant neoplasm of colon (principal); D12.3 Benign neoplasm of transverse colon; K63.5 Polyp of colon; K57.30 Diverticulosis of large intestine without perforation or abscess without bleeding; K64.8 Other hemorrhoids; Z98.0 Intestinal bypass and anastomosis status; Z90.49 Acquired absence of other specified parts of digestive tract; J44.9 Chronic obstructive pulmonary disease, unspecified; I10 Essential (primary) hypertension; E03.9 Hypothyroidism, unspecified; E11.9 Type 2 diabetes mellitus without complications; G47.33 Obstructive sleep apnea (adult) (pediatric); Z87.891 Personal history of nicotine dependence; Z79.84 Long term (current) use of oral hypoglycemic drugs; Z79.51 Long term (current) use of inhaled steroids
CPT/HCPCS: 45385; 82948; 88305; J7120

== ENCOUNTER → 2023-08-22 09:28 | Outpatient (CLI) | payer MEDICARE, SELFPAY ==
--- NOTE | ~2023-08-22 | XR_ITS ---
Left Shoulder Technique: AP and axillary views were obtained. Clinical History: Osteoarthritis Findings: No fracture or dislocation is seen. Osseous alignment is anatomic. There is mild degenerati ve change of the AC joint. There is minimal degenerative change of the glenohumeral joint. Soft tissu es are unremarkable. Impression: Mild degenerative changes, as above. Reviewed, dictated and finalized at location . Impression: Mild degenerative changes, as above.
== END ==
PROVIDERS: PCP Emergency Medicine; Visit Provider Emergency Medicine
DX: M19.012 Primary osteoarthritis, left shoulder (principal)
CPT/HCPCS: 73030

== ENCOUNTER 2024-02-15 11:33 | Emergency (ER) | payer MEDICARE, SELFPAY ==
--- NOTE | ~2024-02-15 | XR_ITS ---
EXAMINATION: XR foot LT min 3V DATE: 02/15/2024 13:00 INDICATION: Left foot injury and pain. TECHNIQUE: 4 views of left foot were obtained. COMPARISON: None. FINDINGS: Bone alignment is normal. No fracture. There is moderate osteoarthritis of first metatarsop halangeal joint and severe osteoarthritis of second metatarsophalangeal joint. There is mild osteoart hritis of some of the midfoot joints and interphalangeal joints. There are enthesophytes at the poste rior and plantar aspects of calcaneal tuberosity. IMPRESSION: 1. Polyarticular osteoarthritis. Reviewed, dictated and finalized at location A.
[2024-02-15 11:38] VITALS: BP 151/66; PULSE 74; RESP 18; TEMP 36.6; O2SAT 94
--- NOTE | 2024-02-15 13:21 | ED.LOWEXIN ---
HPI - Extremity Injury (Lower) General Chief Complaint: Extremity Injury, Lower Stated Complaint: Left foot pain Time Seen by Provider: 02/15/24 13:16 Source: patient Mode of arrival: ambulatory Limitations: no limitations History of Present Illness HPI Narrative: Carlos is a 73-year-old male patient presenting to the ER today with complaints of pain to the arch of his foot that started this morning. He reports when he stepped down this morning he felt a ripping sensation flash pop to the arch of his foot. States that has had a history of plantar fasciitis in the past. Related Data Allergies Allergy/AdvReac Type Severity Reaction Status Date / Time Penicillins Allergy Unknown Skin Verified 10/17/23 08:14 Reaction lisinopril AdvReac Intermediate cough Verified 10/17/23 08:14 morphine AdvReac Intermediate Nausea and Verified 10/17/23 08:14 Vomiting Review of Systems Review of Systems: Pertinent positives per HPI. Patient denies any fever, chills, rash, headache, visual changes, dizziness, cough, runny nose, sore throat, shortness of breath, chest pain, palpitations, nausea, vomiting, diarrhea, constipation, abdominal pain, or any urinary issues. [facility] Past Medical History Medical History Collapsed lung COPD with asthma CTS (carpal tunnel syndrome) Essential (primary) hypertension Hypothyroidism (acquired) Obstructive sleep apnea (adult) (pediatric) Type 2 diabetes mellitus with unspecified complications Surgical History Surgical History H/O arthroscopic knee surgery H/O hernia repair H/O partial resection of colon History of cardiac cath History of carpal tunnel release History of knee replacement Hx of cholecystectomy Family History Family History Father Hypertension Family history of throat cancer, Onset Age: 67 Patient's father is , Onset Age: 67 Sibling , recovered from throat cancer Hypertension, Onset Age: 39 Family history of primary malignant neoplasm of liver Family history of malignant neoplasm of breast in first degree relative, Onset Age: 47 Family history of throat cancer, Onset Age: 52 Family history of malignant neoplasm of breast Mother Hypertension Social History Social History (Reviewed 02/15/24 @ 13:28 by DIONNE Gray Smoking packs per day: 1.5 Smoking cigarettes per day: 30.0 Years smoked: 35 Smoking pack-years: 52.50 Smoking status: Former smoker Tobacco type: cigarettes Smoking end date: 11/12/97 Alcohol intake: never Substance use type: does not use Lack of Transportation: No Lack of Food: Never True Current Housing: I Have Housing Concerned About Future Housing: No Difficulty Paying Gas/Electric Bills: No Difficulty Paying for Meds: YES Currently Unemployed: No Education: Grade School Difficulty w/ Childcare or Family Care: No Living arrangements: with family Additional living arrangements comments: Occupation/Education: retired Spiritual care concerns: No Comments At the time of my signature, I reviewed and agree with the nursing past medical, surgical, social, and family history. There is no relevant family history pertinent to the patient complaint. Exam Narrative: General: Well-developed, well nourished, in no apparent distress Head: Normocephalic, atraumatic. Cardio: Regular rate and rhythm, s1 and s2 normal, no murmur appreciated. Resp: Clear to auscultation bilaterally, no rhonchi, rales, wheezing or rubs. Musculoskeletal: No deformity, tender to palpation over the arch of the foot, nontender to palpation over the heel or the mid foot, pain with dorsal flexion against resistance over the arch pain, no pain with plantar flexion, grossly normal range of motion, muscle strength s
[2024-02-15 13:37] VITALS: BP 150/70; PULSE 75; RESP 18; TEMP 36.5; O2SAT 96
== END 2024-02-15 13:43 | disposition home or self-care (01) ==
PROVIDERS: Emergency Provider Nurse Practitioner Family; PCP Emergency Medicine
DX: M72.2 Plantar fascial fibromatosis (principal); I10 Essential (primary) hypertension; E03.9 Hypothyroidism, unspecified; E11.9 Type 2 diabetes mellitus without complications; G47.33 Obstructive sleep apnea (adult) (pediatric); J44.89 Other specified chronic obstructive pulmonary disease; Z96.659 Presence of unspecified artificial knee joint; Z87.891 Personal history of nicotine dependence
CPT/HCPCS: 73630; 99283

== ENCOUNTER 2024-05-02 09:48 | Outpatient (CLI) | payer MEDICARE, SELFPAY ==
--- NOTE | ~2024-05-02 | XR_ITS ---
XR chest 2V 05/02/2024 10:02 Indication: Cough. COPD. Procedure: 2 view chest Comparison: Comparison to multiple prior studies sequentially, with oldest reviewed study dated 06/2013. Findings: There calcified granulomas of the lungs and mediastinum. Heart size normal. No focal air sp lynnette disease, pulmonary edema, pleural effusion or suspected pneumothorax. No acute osseous abnormalit y. Impression: 1: No acute cardiopulmonary disease. Reviewed, dictated and finalized at location B. Impression: 1: No acute cardiopulmonary disease.
== END 2024-05-02 09:49 | disposition home or self-care (01) ==
PROVIDERS: PCP Emergency Medicine; Visit Provider Nurse Practitioner Family
DX: R05.9 Cough, unspecified (principal)
CPT/HCPCS: 71046

== ENCOUNTER 2024-10-27 08:54 | Outpatient (CLI) | payer MEDICARE, SELFPAY ==
--- NOTE | ~2024-10-27 | CT_ITS ---
CT Scan of the Chest without Contrast: Clinical Indication: Lung cancer screening, nicotine dependence Technique: Contiguous sections were acquired throughout the chest without intravenous contrast. Dose reduction technique was used on this scan by utilizing automated exposure control and iterative recon struction technique. The dose-length product (DLP) was 159.70 mGy-cm. COMPARISON: 06/15/2023 Findings: Extensive calcified mediastinal and hilar lymph nodes are present. Mild coronary artery calcification present.. There is no evidence of pleural or pericardial effusion. There is mild upper lobe emphysema. Multiple calcified granulomas are present. There is left basilar scarring or atelectasis. 9 mm left basilar pulmonary nodule present (axial image 96). Images through the upper abdomen reveal stable small left adrenal nodule. Impression: Lung RADS 4A: Suspicious. 3 month follow-up screening CT advised. Reviewed, dictated and finalized at [facility]. [employer] Impression: Lung RADS 4A: Suspicious. 3 month follow-up screening CT advised.
--- OUTSIDE RECORDS SUMMARY | 2024-11-02 20:52 | XMS_ITS | Encounter Summary ---
Author Organization [facility] Address [address] [place] [address] Phone Care Team Providers Care Drilling Engineering Manager Name Role Phone Unknown, Notinfile Primary Care Provider Unavail able Liza Haynes MD Primary Care Provider [phone] Encounter Details Date Type Department Care Team (Latest Contact Info) Description 01/25/2021 Orders Only [facility] Scanning, Provider Social History Tobacco Use Types Packs/Day Years Used Date Smoking Tobacco: Former Sex and Gender Information Value Date Recorded Sex Assigned at Not on file 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 Gender Identity Not on file Sexual Orientation Not on file documented as of this encounter Plan of Treatment Not on file documented as of this encounter Procedures Procedure Name Priority Date/Time Associated Diagnosis Comments SCAN - RADIOLOGY/IMAGING 01/25/2021 documented in this encounter Results * SCAN - RADIOLOGY/IMAGING (01/25/2021) Anatomical Region Laterality Modality Other us Provider Scanning Final Result documented in this encounter Visit Diagnoses Not on filedocumented in this encounter Care Teams Drilling Engineering Manager Relationship Specialty Start Date End Date Unknown, Notinfsreekanth PCP - General 11/21/20 03/14/21 Liza Haynes MD [address] [place] [address] PCP - General 03/15/21 documented as of this encounter
--- OUTSIDE RECORDS SUMMARY | 2024-11-02 20:52 | XMS_ITS | Encounter Summary ---
Author Organization [facility] Address [address] [place] [address] Phone Care Team Providers Care Bleacher Sulfite Pulp Name Role Phone Unknown, Notinfile Primary Care Provider Unavail able Reason for Referral * Procedure (Routine) - Canceled Specialty Diagnoses / Procedures Referred By Misael castano Referred To Contact Diagnoses Atelectasis Procedures Bronchoscopy -[facility] Interventional Pulm; Bronchoscopy Ruperto Forde Chi, MD [address] [place] [address] Phone: tel: fax: [facility] (All Locations) Referral ID Status Reason Start Date Expiration Date V isits Requested Visits Authorized [id number] Canceled 03/08/2021 04/07/2022 1 1 Encounter Details Date Type Department Care Team (Late st Contact Info) Description 03/08/2021 Orders Only [facility] Pulmonary [address] [facility] Advanced Medicine 8th [place] [address] [place] [id number] Michele Martinez RMA Atelectasis (Primary Dx) Social History Tobacco Use Types Packs/Day Years Used Date Smoking Tobacco: Former Sex and Gender Information Value Date Recorded Sex Assigned at Not on file 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 Gender Identity Not on file Sexual Orientation Not on file documented as of this encounter Plan of Treatment Not on file documented as of this encounter Results * Bronchoscopy -[facility] Interventional Pulm; Bronchoscopy (03/18/2021 10:13 AM CDT) Anatomical Region Laterality Modality Other Narrative Procedure Note Ruperto Forde Chi, MD - 03/18/2021 10:13 AM CDT [facility] Interventional Pulmonary Patient Name: Carlos Ortiz Procedure Date: 03/18/2021 10:13 AM Date of : 1950 Admit Type: Outpatient Age: 70 Room: ROOM 1 Gender: Male Note Status: Finalized Procedure: Bronchoscopy, Aspiration of secretions,Endobronchial biopsy Indications: Atelectasis of the left lower lobe Providers: Ruperto Forde M.D. Referring MD: Dilan Berry M.D. Medicines: Lidocaine 1% applied to cords 10 mL, Lidocaine 1% subglottic space 20 mL, Midazolam 7 mg IV, Fentanyl 175 mcg IV Complications: No immediate complications Procedure: Pre-Anesthesia Assessment: - The risks and benefits of the procedure and the sedation options and risks were discussed with the patient. All questions were answered and informed consent was obtained. After obtaining informed consent, the Diagnostic Bronchoscope [id number] was introduced through the mouth, via laryngeal mask airway and advancedto the tracheobronchial tree of both lungs. Theprocedure was accomplished without difficulty. The patient tolerated the procedure well. Estimated Blood Loss: Estimated blood loss was minimal. Findings: 1. Airway inspection and therapeutic aspiration of secretions The laryngeal mask airway is in good position. The vocal cords appear normal. The subglottic space is normal. The trachea is of normal caliber. The carlos is sharp. The tracheobronchial tree was examinedto at least the first subsegmental level. Bronchial mucosa and anatomyon the right side is normal; there are no endobronchial lesions. Copious amounts of thick secretions were suctioned from the right and left bronchial trees. Within the left bronchial tree, copious amounts were suctioned from the superior basilar segment of the left lowerlobe. Some of the suctioned material was sent for culture. Left Lung: The left upper lobe was grossly normal in appearance.Within the superior basilar segment of the left lower lobe, the bronchi were all patent, though as above, copious secretions were suctioned. Some very mild nodularity of the basilar segments within the left lowerlobe was noted, though all segments were ultimately found to be grossly patent. A small band like piece of what appeared to be granulation tissue was noted in the distal left mainstem bronchus. Otherwise, noendobronchial lesions were identifed. 2. Endobronchial biopsy Endobronchial biopsies were performed in the left lower lobe at thearea of nodularity as well as in the distal left mainstem bronchus using a forceps and sent for histopathology examination. Two samples were obtained. Impression: - Copious thick secretions were suctioned from the bronchial tree, primarily from the left lowerlobe - No obvious endobronchial lesions or stenoticareas were identifed which would account for theatelectasis identifed on chest imaging - Endobronchial biopsies were performed within the left lower lobe Recommendation: - Await biopsy and culture results. Attending Participation: I was present and participated. Electronically signed by Dr. Forde Ruperto Forde M.D. 03/18/2021 11:34:48 AM Number of Addenda: 0 Note Initiated On: 03/18/2021 10:13 AM us Ruperto Forde MD BRONCH ORDERABLES Final Re sult documented in this encounter Visit Diagnoses Diagnosis Atelectasis- Primary Pulmonary collapse Atelectasis Pulmonary collapse documented in this encounter Care Teams Bleacher Sulfite Pulp Relationship Specialty Start Date End Date Unknown, Notinfile PCP - General 11/21/20 03/14/21 documented as of this encounter
--- OUTSIDE RECORDS SUMMARY | 2024-11-02 20:52 | XMS_ITS | Encounter Summary ---
Author Organization [facility] Address [address] [place] [address] Phone Care Team Providers Care Commercial Census Taker Name Role Phone Unknown, Sumanth Primary Care Provider Unavail able Encounter Details Date Type Department Care Team (Late st Contact Info) Description 02/18/2021 Telephone [facility] Pulmonary [address] 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 Pt will need a call with new date and time. Thanks. documented in this encounter Plan of Treatment Not on file documented as of this encounter Visit Diagnoses Not on filedocumented in this encounter Care Teams Commercial Census Taker Relationship Specialty Start Date End Date Unknown, Sumanth PCP - General 11/21/20 03/14/21 documented as of this encounter
--- OUTSIDE RECORDS SUMMARY | 2024-11-02 20:52 | XMS_ITS | Encounter Summary ---
Author Organization [facility] Address [address] [place] [address] Phone Care Team Providers Care Extension Service Agent Name Role Phone Unknown, Notinfile Primary Care Provider Unavail able Reason for Visit * Reason Onset Date Comments Unsuccessful Phone Call 1 02/24/[address] [facility] (3rd) time to get imaging sent over to our PACS system. Rep states that they will send JUANCHO. Will call patient with recommedations once we get imaging. Encounter Details Date Type Department Care Team (Late st Contact Info) Description 02/24/2021 Documentation [facility] Pulmonary [address] [facility] Advanced Medicine 8th [place] [address] [place] [address] Michele Martinez RMA Unsuccessful Phone Call 1 (Called [facility] (3rd) time to get imaging sent over to our PACS system. Rep states that they will send JUANCHO. Will call patient with recommedations once we get imaging. 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 (3rd) time to get imaging sent over to our PACS system. Rep states that they will send JUANCHO. Will call patient with recommedations once we get imaging documented in this encounter Plan of Treatment Not on file documented as of this encounter Visit Diagnoses Not on filedocumented in this encounter Care Teams Extension Service Agent Relationship Specialty Start Date End Date Unknown, Notinfile PCP - General 11/21/20 03/14/21 documented as of this encounter
--- OUTSIDE RECORDS SUMMARY | 2024-11-02 20:52 | XMS_ITS | CONTINUITY OF CARE DOCUMENT ---
Author Name chad bonilla Address Unknown Organization [facility] Office Address [address] [place] [address] [address] [place] [address] Phone [phone] Care Team Providers Care National Park Ranger Name Role Phone YULISA BEASLEY MD Unavailable [phone] YULISA BEASLEY MD Unavailable [phone] INSURANCE PROVIDERS Payer name Policy type / Coverage type [place] red democrat [place] [employer] [facility] Commercial insurance co [facility] [id number]
--- OUTSIDE RECORDS SUMMARY | 2024-11-02 20:52 | XMS_ITS | Clinical Summary ---
Author Organization [facility] Address [address] [place] [address] Care Team Providers Care Tier Lift Truck Operator Name Role Phone Liza Haynes MD Primary Care Provider Allergies Active Allergy Reactions Criticality Noted Date Comments Penicillins Unknown 11/21/2020 Medications amLODIPine (NORVASC) 10 mg tablet Take 10 mg by mouth daily 1 Active atorvastatin (LIPITOR) 20 mg tablet Take 20 mg by mouth daily 0 Active Symbicort 160-4.5 mcg/actuation inhaler INHALE 2 PUFFS PO Q 12 H 0 Active hydroCHLOROthia zide (HYDRODIURIL) 12.5 mg tablet Take 12.5 mg by mouth daily 0 Active metFORMIN (GLUCOPHAGE) 1,000 mg tablet Take 1,000 mg by mouth 2 (two) times a day 0 Active sulfamethoxazol e-trimethoprim (BACTRIM DS) 800-160 mg per tablet 1 Active irbesartan (AVAPRO) 300 mg tablet Take 300 mg by mouth nightly Active levothyroxine (SYNTHROID) 50 mcg tablet Take 50 mcg by mouth sinker puller before breakfast Active Active Problems Problem Noted Date Diagnosed Date Atelectasis 03/08/2021 Surgical History Surgery Date Site/Laterality Comments ABDOMINAL SURGERY COLON SURGERY HERNIA REPAIR umbilical JOINT REPLACEMENT right knee Medical History Medical History Date Comments AAA (abdominal aortic aneurysm) (HCC) Diabetes mellitus (HCC) Hypertension COPD (chronic obstructive pulmonary disease) (HC C) Cancer (CMS/HCC) (HCC) left leg Thyroid disease Sleep apnea uses CPAP Social History Tobacco Use Types Packs/Day Years Used Date Smoking Tobacco: Former Cigarettes Q uit: 1999 Smokeless Tobacco: Never Tobacco Cessation:Counseling Given: No AUDIT-C Answer Date Recorded Q1: How often do you have a drink containing alc ohol? 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 Gender Identity Not on file Sexual Orientation Not on file Obstetrics History Last Filed Vital Signs Vital Sign Reading Time Taken Comments Blood Pressure 133/66 03/18/2021 12:10 PM CDT Pulse 65 03/18/2021 12:10 PM CDT Temperature 36.6 ??C (97.8 ??F) 03/18/2021 9:09 AM CD T Respiratory Rate 12 03/18/2021 12:10 PM CDT Oxygen Saturation 92% 03/18/2021 12:10 PM CDT Inhaled Oxygen Concentration - - Weight 78 kg (172 lb) 03/18/2021 8:52 AM CDT Height 165.1 cm (5' 5 ) 03/18/2021 8:52 AM CDT Body Mass Index 28.62 03/18/2021 8:52 AM CDT Plan of Treatment Not on file Insurance [employer] HMO [facility] Address: [facility] [address] [place] [address] Care Teams Tier Lift Truck Operator Relationship Specialty Start Date End Date Liza Haynes MD [address] [place] [address] PCP - General 03/15/21
--- OUTSIDE RECORDS SUMMARY | 2024-11-02 20:52 | XMS_ITS | Encounter Summary ---
Author Organization [facility] Address [address] [place] [address] Phone Care Team Providers Care Assembly Machine Tender Name Role Phone Unknown, Notinisha Primary Care Provider Unavail able Encounter Details Date Type Department Care Team (Late st Contact Info) Description 03/07/2021 Telephone [facility] [address] [facility] 8th [place] [address] [place] [address] Michele Martinez RMA Social History Tobacco Use Types Packs/Day Years Used Date Smoking Tobacco: Former Sex and Gender Information Value Date Recorded Sex Assigned at Not on file 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 documented in this encounter Plan of Treatment Not on file documented as of this encounter Visit Diagnoses Not on filedocumented in this encounter Care Teams Assembly Machine Tender Relationship Specialty Start Date End Date Unknown, Sumanth PCP - General 11/21/20 03/14/21 documented as of this encounter
--- OUTSIDE RECORDS SUMMARY | 2024-11-02 20:52 | XMS_ITS | Encounter Summary ---
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 Gender Identity Not on file Sexual Orientation Not on file documented as of this encounter Plan of Treatment Not on file documented as of this encounter Procedures Procedure Name Priority Date/Time Associated Diagnosis Comments SCAN - PATHOLOGY 02/14/2021 10:58 AM CDT documented in this encounter Results * SCAN - PATHOLOGY (02/14/2021 10:58 AM CDT) us Provider Scanning Edited Result - Final documented in this encounter Visit Diagnoses Not on filedocumented in this encounter Care Teams Photographer'S Assistant Relationship Specialty Start Date End Date UnknownSumanth PCP - General 11/21/20 03/14/21 documented as of this encounter
--- OUTSIDE RECORDS SUMMARY | 2024-11-02 20:52 | XMS_ITS | Encounter Summary ---
Author Organization [facility] Address [address] [place] [address] Phone Care Team Providers Care Muleser Name Role Phone Unknown, Notinfile Primary Care Provider Unavail able Reason for Visit * Consultation (Routine) - Closed Specialty Diagnoses / Procedures Referred By Misael castano Referred To Contact Pulmonary Disease / Pulmonology Diagnoses Fibrosing mediastinitis Yannick Caceres MD Phone: tel: fax: Ruperto Forde Chi, MD [address] [place] [address] Phone: tel: fax: Referral ID Status Reason Start Date Expiration Date V isits Requested Visits Authorized [id number] Closed Specialty Services Required 02/16/2021 03/01/2021 3 3 Encounter Details Date Type Department Care Team (Latest Contact Info) Description 02/22/2021 8:40 AM CDT Office Visit [facility] [facility] Pulmonary [address] [facility] 8th [place] [address] [place] [address] Dilan Berry MD [address] [place] [address] Fibrosing mediastinitis Social History Tobacco Use Types Packs/Day Years Used Date Smoking Tobacco: Former AUDIT-C Answer Date Recorded Q1: How often do you have a drink containing alc ohol? 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 Gender Identity Not on file Sexual Orientation Not on file documented as of this encounter Last Filed Vital Signs Vital Sign Reading Time Taken Comments Blood Pressure 158/75 02/22/2021 8:22 AM CDT Pulse 78 02/22/2021 8:22 AM CDT Temperature 36.8 ??C (98.2 ??F) 02/22/2021 8:22 AM CD T Respiratory Rate - - Oxygen Saturation 94% 02/22/2021 8:22 AM CDT Inhaled Oxygen Concentration - - Weight 80.6 kg (177 lb 9.6 oz) 02/22/2021 8:22 A M CDT Height 167.6 cm (5' 6 ) 02/22/2021 8:22 AM CDT Body Mass Index 28.67 02/22/2021 8:22 AM CDT documented in this encounter Progress Notes * Ruth Carrillo MD - 02/22/2021 8:40 AM CDT Interventional Pul[facility] Subjective/Objective REASON FOR CONSULTATION: Recurrent left lower lobe collapse HISTORY OF PRESENT ILLNESS: Mr. Ortiz is a 70 y.o. male with history of hypertension, hyperlipidemia, an allergic rhinosinusitis, thoracic aortic aneurysm, and remote tobacco use who presents for evaluation of abnormal imaging,left-sided chest discomfort and increased shortness of breath. He has a 30 pack-year history of tobacco use but quit in 2000. He does not have significant symptoms of respiratory disease prior to approximately 4 months ago, when he had onset of left-sided chest discomfort while on vacation contacting. He says completely notes he has had progressive increase incough and exertional shortness of breath. 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 There is no endobronchial lesion noted and both transbronchial biopsies, brushings and cytology on BAL fluid returned benign. He subsequently underwent PET imaging that did not show any PET avid lesions that could be responsible for the left lower lobe collapse that was still seen. He has lived in this part [place] the [place] his entire life. 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 He has no known history of coronary disease and denies chest pain, orthopnea or lower extremity swelling. He uses symbicort inhaler daily but does not use albuterol daily. Recentlyhe was referred to ENT for severe sinus congestion and is being treated for allergic rhinosinusitiswith nasal steroid inhaler and Zyrtec. PAST MEDICAL HISTORY: 1. Hypertension 2. Thoracic aortic aneurysm 3. Diabetes mellitus 2 4. History of tobacco use (30 pack year) 5. Allergic rhinosinusitis ALLERGIES: Allergies Allergen Reactions ??? Penicillins Unknown MEDICATIONS: Current Outpatient Medications: ??? amLODIPine (NORVASC) 10 mg tablet, Take 10 mg by mouth daily, Disp: , Rfl: ??? atorvastatin (LIPITOR) 20 mg tablet, Take 20 mg by mouth daily, Disp: , Rfl: ??? hydroCHLOROthiazide (HYDRODIURIL) 12.5 mg tablet, Take 12.5 mg by mouth daily, Disp: , Rfl: ??? metFORMIN (GLUCOPHAGE) 1,000 mg tablet, Take 1,000 mg by mouth 2 (two) times a day, Disp: , Rfl: ??? sulfamethoxazole-trimethoprim (BACTRIM DS) 800-160 mg per tablet, , Disp: , Rfl: ??? Symbicort 160-4.5 mcg/actuation inhaler, INHALE 2 PUFFS PO Q 12 H, Disp: , Rfl: FAMILY HISTORY: Notable for 2 brothers both with liver malignancy. Father with likely emphysema. Otherwise no known pulmonary disease SOCIAL HISTORY: . 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 REVIEW OF SYSTEMS: All systems reviewed and otherwise negative other than per HPI. PHYSICAL EXAM: Vitals BP 158/75 Pulse 78 Temp 36.8 ??C (98.2 ??F) (Oral) Ht 167.6 cm (5' 6 ) Wt 80.6 kg (177 lb 9.6 oz) SpO2 94% BMI 28.67 kg/m?? GEN: NAD HEENT: anicteric, MMM NECK: supple CV: NRRR, no LE edema RESP: bilateral scattered expiratory wheeze, decreased bs bilateral bases GI: Soft, nontender NEURO: A&Ox3, no focal deficits EXT: no clubbing SKIN: no rash on exposed areas DATA: Chest radiograph: Streaky opacities in the left lower lung likely represent atelectasis or scarring. Biapical hazy opacities likely represent pleural- parenchymal thickening/scarring. Multiple scattered calcified granulomas are seen throughout both lungs, in addition to multiple calcified mediastinal and hilar lymph nodes. Lab Results Component Value Date SODIUM 142 11/21/2020 POTASSIUM 3.0 (L) 11/21/2020 CO2 30 11/21/2020 CHLORIDE 102 11/21/2020 BUNSER 8 11/21/2020 CREATININE 1.27 11/21/2020 GLUCOSE 141 11/21/2020 CALCIUM 9.5 11/21/2020 ALT 33 11/21/2020 AST 30 11/21/2020 ALKPHOS 77 11/21/2020 BILITOT 1.1 11/21/2020 Lab Results Component Value Date WBC 5.4 11/21/2020 HGB 14.4 11/21/2020 HCT 44.3 11/21/2020 MCV 87.2 11/21/2020 LABPLAT 162 11/21/2020 Assessment/Plan IMPRESSION: 1. Recurrent left lower lobe atelectasis 2. Left-sided chest pain, non-exertional 3. Dyspnea on exertion 4. Chronic granulomatous disease 5. History of 30 pack year tobacco use. RECOMMENDATIONS: 1. Plan to request outside imaging to evaluate if there is any anatomical indication for repeat bronchoscopy with biopsies or other abnormality to suggest need for repeat imaging. 2. Shortness of breath likely multifactorial in setting of possible emphysema/COPD and allergic rhinosinusitis. 3. Follow-up visit timing and additional testing to be determined after review of cross-sectioning imaging. Cosigned by Dilan Berry MD at 02/23/2021 9:42 AM CDT Associated attestation - Dlian Berry MD - 02/23/2021 9:42 AM CDT I have seen and examined the patient. I agree with the findings and plan of care as documented in the resident/fellow's note and as discussed with the resident/fellow. My total encounter time on 02/22/2021 was 45 minutes which was spent in the activities documented in the note. This includes time spent prior to the visit and after the visit in direct care of the patient. This time does not includetime spent in any separately reportable services. documented in this encounter Plan of Treatment Not on file documented as of this encounter Visit Diagnoses Diagnosis Fibrosing mediastinitis Mediastinitis documented in this encounter Orders Outpatient Referral Count Last Ordered Date Fir st Ordered Date AMB REFERRAL TO PULMONOLOGY 1 02/22/2021 documented in this encounter Care Teams Muleser Relationship Specialty Start Date End Date Unknown, Notinfile PCP - General 11/21/20 03/14/21 documented as of this encounter
--- OUTSIDE RECORDS SUMMARY | 2024-11-02 20:52 | XMS_ITS | Referral Summary ---
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
--- OUTSIDE RECORDS SUMMARY | 2024-11-02 20:52 | XMS_ITS | Encounter Summary ---
Author Organization [facility] Address [address] [place] [address] Phone Care Team Providers Care Early Childhood Education Specialist Name Role Phone Unknown, Notinfsreekanth Primary Care Provider Unavail able Encounter Details Date Type Department Care Team (Late st Contact Info) Description 02/23/2021 Telephone [facility] Pulmonary [address] [facility] 8th [place] [address] [place] [address] Michele Martinez RMA Social History Tobacco Use Types Packs/Day Years Used Date Smoking Tobacco: Former Sex and Gender Information Value Date Recorded Sex Assigned at Not on file 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 Instructed that we were unable to get imaging and if he could possibly go and pick them up and drop them off or mail them to us. Pt states that he will speak with his and getback with me. documented in this encounter Plan of Treatment Not on file documented as of this encounter Visit Diagnoses Not on filedocumented in this encounter Care Teams Early Childhood Education Specialist Relationship Specialty Start Date End Date Unknown, Sumanth PCP - General 11/21/20 03/14/21 documented as of this encounter
--- OUTSIDE RECORDS SUMMARY | 2024-11-02 20:52 | XMS_ITS | Encounter Summary ---
Author Organization [facility] Healthcare Address [address] [place] [address] Care Team Providers Care Fine Unhairer Name Role Phone Liza Haynes MD Primary Care Provider [phone] Reason for Referral * Procedure (Routine) - Canceled Specialty Diagnoses / Procedures Referred By Misael castano Referred To Contact Diagnoses Atelectasis Procedures Bronchoscopy -[facility] Interventional Pulm; Bronchoscopy Ruperto Forde Chi, MD [address] [place] [address] Phone: tel: fax: [facility] (All Locations) Referral ID Status Reason Start Date Expiration Date V isits Requested Visits Authorized [id number] Canceled 03/08/2021 04/07/2022 1 1 Reason for Visit * Reason Comments Bronchoscopy * Procedure (Routine) - Canceled Specialty Diagnoses / Procedures Referred By Misael castano Referred To Contact Diagnoses Atelectasis Procedures Bronchoscopy -[facility] Interventional Pulm; Bronchoscopy Ruperto Forde Chi, MD [address] [place] [address] Phone: tel: fax: [facility] (All Locations) Referral ID Status Reason Start Date Expiration Date V isits Requested Visits Authorized [id number] Canceled 03/08/2021 04/07/2022 1 1 Encounter Details Date Type Department Care Team (Latest Contact Info) Description 03/18/2021 8:12 AM CDT - 03/18/2021 11:59 PM CDT Hospital Encounter [facility] Interventional Pulmonology [address] [place] [address] Ruperto Forde Chi, MD [address] [place] [address] Atelectasis Discharge Disposition: Discharge to home or self care Social History Tobacco Use Types Packs/Day Years [...] on file 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 The sedation medicine you received today can stay in your body for up to 24 hours You may have: ?? Short-term memory loss, such as loss of memory from the procedure or things that happen shortly afterwards. ?? Feeling drowsy or sleepy ?? Feeling dizzy or lightheaded ?? Nausea (sick to your stomach) ?? Headache For the next 24 hours after your procedure ?? Do NOT drive a car or operate heavy machinery. You will need someone to drive you home today ?? Do NOT drink alcohol ?? Do NOT smoke ?? Do NOT make important decisions or sign any legal papers ?? Do NOT stay by yourself. Stay with a responsible adult tonight ?? Do NOT bathe or shower until tomorrow ?? Be careful when standing, walking, changing positions, or using steps ?? Slowly ease into regular activities. You may resume work or exercise as directed by your doctor. ?? When you start eating, try liquids first and slowly progress to a light meal ?? You may resume your current medications as diected by your doctor The following symptoms are common 24 to 48 hours after a bronchoscopy ??? You may cough up small amounts of dark red, old blood ??? Your throat may be sore for 2 or more days. Try soups, Jell-O, and ice-cream until it feels better ??? You may develop a fever. Use Tylenol (acetaminophen) as directed on the bottle or as directed by your primary care provider for fever. Please call the [facility] Interventional Pulmonology Department at , Sunday through Sunday 8:30am to 4:30pm Or, go to the nearest emergemcy department if you have. ??? Fever that lasts more than 2 days or is over 100 degrees Fahrenheit ??? Any shortness of breath ??? Chest pain or tightness in the chest ??? Coughing up large amounts of blood meaning more than 1-2 teaspoons If you had fluid or tissue samples sent today for testing, you should receive a call from our medical team about your results. Please call if you have not been contacted within 5 business days. If this is an emergency, call [phone]. If you are unable to speak to the staff during normal business hours, please call and ask for the Family Coach stone setter apprentice. I have received and understand these instructions and my questions were answered. / / ____: Date Time Signature of Patient OR Person Authorized to Sign/Relationship Printed Name / / ____: Date Time Nurse Signature Printed Name documented in this encounter Medications at Time of Discharge amLODIPine (NORVASC) 10 mg tablet Take 10 mg by mouth daily 11/12/2020 atorvastatin (LIPITOR) 20 mg tablet Take 20 mg by mouth daily 09/23/2020 hydroCHLOROthiaz sterling (HYDRODIURIL) 12.5 mg tablet Take 12.5 mg by mouth daily 10/18/2020 irbesartan (AVAPRO) 300 mg tablet Take 300 mg by mouth nightly levothyroxine (SYNTHROID) 50 mcg tablet Take 50 mcg by mouth executive asst before breakfast metFORMIN (GLUCOPHAGE) 1,000 mg tablet Take 1,000 mg by mouth 2 (two) times a day 10/22/2020 sulfamethoxazole -trimethoprim (BACTRIM DS) 800-160 mg per tablet 11/19/2020 Symbicort 160-4.5 mcg/actuation inhaler INHALE 2 PUFFS PO Q 12 H 10/14/2020 documented as of this encounter Discharge Disposition Disposition Code Departure Means Destination Discharge to home or self care documented in this encounter Progress Notes * Concepcion Deng RN - 03/18/2021 10:00 AM CDT patient contacted at 03/17/2021 for a diagnostic at 03/18/21. I asked the patient the following screening questions prior to the pre-procedure instructions: 1. In the past 10 days have you had any of the following symptoms? Fever, Cough, Shortness of Breath, Sore Throat, Loss of Taste and/or Smell, Diarrhea, or Vomiting? No 2. Have you traveled within the past 10 days? No 3. Have you had a known exposure to someone with coronavirus within the past 10 days? No 4. Do you live or work in a congregate living facility such as a assisted living or [facility] or longterm? No 5. Are you currently waiting on the results of a COVID test? No Pre-procedure instructions: 1. Instructed the patient to arrive at [facility] Admitting/Registration Office on [facility] at 03/18/21 at 0900 2. If the patient uses home oxygen, they are to bring enough home oxygen supply to get themselves to and from [facility]. 3. Patient stated that they do use a CPAP or BIPAP device. Instructed patient, if they use a CPAP or BIPAP, to bring in their device or bring documentation of their CPAP/BIPAP settings with them to their appointment. 4. The patient will need a tractor driver teamster or will need to arrange their own transportation home after theirprocedure. Emphasized that departmental staff will confirm transportation prior to the procedure. Further emphasized that the patient will not be able to drive themselves home after their procedure if they receive any sedation and/or opioids. Instructed patient/family that if a transportation service is used for this appointment that the patient/family need to provide the Interventional Pulmonology staff with the name and the phone number of the transportation service used. 5. Confirmed that the patient does have some one who will stay with them for at least 24 hours postdischarge. Emphasized that, for their safety, the patient may have to be admitted for 23 hours postprocedure if they do not have some one who will stay with them for at least 24 hours post discharge. 6. The patient will need to bring a list of their current home medications including all herbal andall non-prescription/over the counter medications. 7. Confirmed that the patient does not take anticoagulants. If the patient stated they do take anticoagulants, 8. Patient stated that they are diabetic. If insulin dependent diabetic, the patient may take 1/2 of their PM insulin dose the evening prior to their procedure. If non-insulin dependent, they are to hold their oral diabetic medications the day of their procedure. The patient is also to check their f wes stick blood glucose the morning of their procedure if they are diabetic. 9. Confirmed that the patient and their family are familiar on the location of the [facility] Admitting Office for pre-procedure registration and any lab work that may be ordered. Discussed that the patient is not to go to the [facility] for their appointment. Confirmed they are aware of what time to arrive at the [facility] Admitting Office. 10. I reviewed the following [facility] Visitor Policy: A. Each patient is only allowed one visitor for an outpatient procedure/appointment.If the patient is admitted, no visitors will be allowed in the inpatient areas. B. Visitors will be screened upon arrival to the hospital with the aforementioned coronavirus questions. Any yes answer to questions will result in the visitor being denied entrance to this facility. C. All visitors are expected to remain in the Surgical Registration and Waiting Area the entire time they are waiting on the patient and will not be allowed in the procedure area. D. All visitors are expected to follow posted hand hygeine protocols. E. Instructed patient that effective 03/17/20 all patients and visitors must wear a face covering upon entrance to [facility]. If you or your visitors do not have a face covering upon arrival, one will be provided during the screening process. F. patient verbalized understanding of visitor policy and verbalized understanding that failure to comply with aforementioned policy or if their visitor/family does not pass the coronavirus screeningquestions, the visitor/family will be asked to leave the hospital immediately. 11 patient verbalized understanding that they will call and notify us if they are having any fever, cough, shortness of breath, sore throat, lost of taste or smell, diarrhea, vomiting,or are waiting on a COVID test result between the time of this call and the time of their procedure. 12. patient verbalized confirmation and understanding of above instructions & I answered all questions from the patient/family. 13. Call ended 03/17/21 at 1000 * Concepcion Deng RN - 03/18/2021 10:00 AM CDT Bronchoscopy performed. Therapeutic aspiration and LLL endobronchial biopsy performed. See providernote. Amount of sedation given: 175mcg fentanyl and 7mg versed. Amount of fluids given: 225mls NSPatient able to open eyes and follow commands. LMA out at 1122. No xray needed per MD Forde. Report given to Lashell Green RN documented in this encounter Procedure Notes * Ruperto Forde Chi, MD - 03/18/2021 10:13 AM CDTAssociated Order(s): BRONCHOSCOPY [facility] Interventional Pulmonary Patient Name: Carmella Garcia Procedure Date: 03/18/2021 10:13 AM Date of : 1950 Admit Type: Outpatient Age: 70 Room: ROOM 1 Gender: Male Note Status: Finalized Procedure: Bronchoscopy, Aspiration of secretions, Endobronchial biopsy Indications: Atelectasis of the left lower [...] After obtaining informed consent, the Diagnostic Bronchoscope [id number] was introduced through the mouth, via laryngeal mask airway and advanced to the tracheobronchial tree of both lungs. The procedure was accomplished without difficulty. The patient tolerated the procedure well. Estimated Blood Loss: Estimated blood loss was minimal. Findings: 1. Airway inspection and therapeutic aspiration of secretions The laryngeal mask airway is in good position. The vocal cords appear normal. The subglottic space is normal. The trachea is of normal caliber. The carlos is sharp. The tracheobronchial tree was examined to at least the first subsegmental level. Bronchial mucosa and anatomy on the right side is normal; there are no endobronchial lesions. Copious amounts of thick secretions were suctioned from the right and left bronchial trees. Within the left bronchial tree, copious amounts were suctioned from the superior basilar segment of the left lower lobe. Some of the suctioned material was sent for culture. Left Lung: The left upper lobe was grossly normal in appearance. Within the superior basilar segment of the left lower lobe, the bronchi were all patent, though as above, copious secretions were suctioned. Some very mild nodularity of the basilar segments within the left lower lobe was noted, though all segments were ultimately found to be grossly patent. A small band like piece of what appeared to be granulation tissue was noted in the distal left mainstem bronchus. Otherwise, no endobronchial lesions were identifed. 2. Endobronchial biopsy Endobronchial biopsies were performed in the left lower lobe at the area of nodularity as well as in the distal left mainstem bronchus using a forceps and sent for histopathology examination. Two samples were obtained. Impression: - Copious thick secretions were suctioned from the bronchial tree, primarily from the left lower lobe - No obvious endobronchial lesions or stenotic areas were identifed which would account for the atelectasis identifed on chest imaging - Endobronchial biopsies were performed within the left lower lobe Recommendation: - Await biopsy and culture results. Attending Participation: I was present and participated. Electronically signed by Dr. Forde Ruperto Forde M.D. 03/18/2021 11:34:48 AM Number of Addenda: 0 Note Initiated On: 03/18/2021 10:13 AM documented in this encounter Nursing Notes * Jacinta Tony RN - 03/18/2021 11:53 AM CDT Report received from Rojas DE LUNA. VS per flow sheet * Rojas Alfaro RN - 03/18/2021 11:43 AM CDT Patient provided with water post procedure. Tolerated swallowing well. documented in this encounter Miscellaneous Notes * Sedation Documentation - Thomas Bradford MD - 03/18/2021 10:00 AM CDT Pre-Procedure/Pre-Sedation Assessment Vitals: 03/18/21 1045 BP: 166/72 Pulse: 54 Resp: 12 Temp: SpO2: 99% Planned Procedure: Bronchoscopy Reason for Procedure: Lung Mass/LAD The patient has been NPO for the appropriate amount of time. Past medical history per consultation/office notes. Prescribed use of blood thinner: NO Prescribed use of antiplatelet agent: NO History of thrombocytopenia or bleeding disorder: NO Physical Exam: General: No acute distress Airway Mallampati Score: 2 HEENT: NC/AT, MMM, conjunctiva pink, sclera clear CV: RRR, normal S1 and S2, no M/R/G; JVD flat LUNGS: LCTAB, normal work of breathing GI: soft, NT/ND, BS+ EXT: warm; no clubbing, cyanosis, or edema SKIN: no rashes NEURO: AOx4 Labs (if pertinent). 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 Patient has tolerated sedation in the past without complication. Post Procedure Monitoring Plan: Recovery Cosigned by Ruperto Forde Chi, MD at 03/28/2021 11:04 AM CDT documented in this encounter Plan of Treatment Not on file documented as of this encounter Procedures Procedure Name Priority Date/Time Associated Diagnosis Comments AEROBIC CULTURE AND GRAM STAIN Routine 03/18/2021 11:31 AM CDT MYCOLOGY (FUNGAL) CULTURE Routine 03/18/2021 11:31 AM CDT MYCOBACTERIOLOGY AFB CULTURE AND ACID-FAST STAIN Routine 03/18/2021 11:31 AM CDT SURGICAL PATHOLOGY Routine 03/18/2021 11 :20 AM CDT BRONCHOSCOPY Routine 03/18/2021 10:13 AM CDT Atelectasis documented in this encounter Results * (ABNORMAL) Mycology (fungal) culture Bronchial washing (03/18/2021 11:31 AM CDT) Report Final Report: Rare Yeast Kelsey pneumonia is very rare and requires a histopathological diagnosis. ??The recovery of these organisms in routine culture, in most cases, only represents overgrowth of the organism secondary to antimicrobial therapy. Please contact the microbiology laboratory at [phone] if identification or susceptibility testing is clinically indicated. (.) [facility] Organism YEAST [facility] Bronchial washing 03/18/2021 11:31 AM CDT 03/18/2021 1:30 PM CDT [facility]ative [facility] - 04/15/2021 8:11 AM CDT Collection date/time has been modified to:03/18/2021 11:31. Previous Collection date/time: 11/12/2020 11:31. Testing performed by [facility] Microbiology Laboratory ([phone]). us Ruperto Forde MD LAB MICROBIOLOGY - GENERAL ORDERABLES Final Result [facility] Department [place] [address] * Mycobacteriology (AFB) culture and acid-fast stain Bronchial washing Bronchus main stem (111:31 AM CDT) Direct Specimen Exam Stain: No Acid-fast bacilli seen [facility] Report Final Report: No growth of acid-fast bacilli [facility] Bronchial washing (Bronchus main stem) 03/18/2021 11:31 AM CDT 03/18/2021 1:30 PM CDT Narrative [facility] - 05/15/2021 10:42 AM CDT Testing performed by [facility]biology [facility] ([phone]). us Ruperto Forde MD LAB MICROBIOLOGY - GENERAL ORDERABLES Final Result Performing Organization Address [facility] de Phone Number [facility] Department [place] [address] * Aerobic culture and gram stain Bronchial washing Bronchus main stem (03/18/2021 11:31 AM CDT) Direct Specimen Exam Stain: Cytospin Gram stain shows: Rare polymorphonuclear leukocytes seen. Few squamous epithelial cells seen. Rare mixed bacterial maral seen on Gram stain. [facility] Report Final Report: Growth indicates upper respiratory maral. [facility] Organism GROWTH INDICATES UPPER RESPIRATORY MARAL. [facility] Bronchial washing (Bronchus main stem) 03/18/2021 11:31 AM CDT 03/18/2021 1:30 PM CDT Narrative [facility] - 03/20/2021 8:55 AM CDT Testing performed by [facility] ([phone]) Specimens submitted from normally sterile body sites will have all bacterial morphotypes identified. ??Specimens that contain grossly mixed maral and/or are from body sites that are not normally sterile will be examined for Staphylococcus aureus, Pseudomonas aeruginosa, beta-hemolytic strep, vancomycin-resistant Enterococcus and fungus. ??If any of these are isolated, the organism will be reported. Current interpretive data was last revised on 2017. Ruperto Forde MD LAB MICROBIOLOGY - GENERAL ORDERABLES Final Result Performing Organization Address [facility] de Phone Number [facility] Department [place] [address] * Surgical pathology (03/18/2021 11:20 AM CDT) Tissue (Bronchus biopsy) 03/18/2021 11:20 AM CDT 03/18/2021 1:29 PM CDT Narrative PATHOLOGY [facility] - 03/22/2021 1:14 PM CDT EPIC results best viewed via link to PDF [facility] Pathology [facility] [place] [address] SURGICAL PATHOLOGY REPORT FINAL Patient Name: ?? CARMELLA GARCIA Gender: ??M : ??1950 (Age: 70) Address: ??[address] [place], [place] ??[address] Hospital #: ??[id number] Taken:03/18/2021 Received:03/18/2021 Reported: 03/22/2021 Patient Type: [facility] SDS ?? Service: Pulmonary Location: [facility] Physician(s): ??Yi Nazario M.D. Diagnosis: Lung, left lower lobe, endobronchial biopsy ? - Bronchial mucosa with increased eosinophils and thickened basement membrane ? - GMS stain negative for fungal organisms ? - Negative for malignancy amxw/03/20/2021 18:59 By this signature, I attest that the above diagnosis is based upon my personal examination of the slides(and/or other material indicated in the diagnosis). Maria Victoria Tena MD PhD Report Electronically Reviewed and Signed Out By ??Maria Victoria Tena MD PhD 03/22/2021 13:14:40 Microscopic Description and Comment: Microscopic examination substantiates the above cited diagnosis. The GMS stain was performed with proper controls. Samantha Yarbrough M.D., PhD History: The patient is a 70-year-old man with a history of smoking who presents with left lower lobe atelectasis. ??Operative procedure: Endobronchial biopsy Specimen(s) Received: A: Left lower lobe Gross Description: Received in formalin, labeled with the patient's name and EBBX LLL tissue are two negron-yellow soft tissue fragments measuring 0.2 cm each in greatest dimension. ??Filtered and labeled A1. ??Jar 0. axxm/03/18/2021 16:20 PA(s): AJI Zel[facility] By this signature, I attest that the above diagnosis is based upon my personal examination of the slides(and/or other material). Addenda/Procedures The performance characteristics of some immunohistochemical stains, fluorescence in-situ hybridization tests and immunophenotyping by flow cytometry cited in this report (if any) were determined by the Surgical Pathology Department at [facility] as part of an ongoing quality control expert program and in compliance with federally mandated regulations drawn from the Clinical Laboratory Improvement Act of 1988 (CLIA '88). ??Some of these tests rely on the use of analyte specific reagents and are subject to specific labeling requirements by the US Food and Drug Administration. ??Such diagnostic tests may only be performed in a facility that is certified by the Department of Health and Human Services as a high complexity laboratory under CLIA '88. ??The FDA has determined that such clearance or approval is not necessary. ??This test is used for clinical purposes. ??It should not be regarded as investigational or for research. ??Nevertheless, federal rules concerning the medical use of analyte specific reagents require that the following disclaimer be attached to the report: This test was developed and its performance characteristics determined by the Surgical Pathology Department of [facility]. ??It has not been cleared or approved by the U. S. Food and Drug Administration. IMAGES AND SCANNED DOCUMENTS, IF INCLUDED, ONLY VIEWABLE IN PDF VERSION OF REPORT us Ruperto Forde MD LAB PATHOLOGY ORDERABLES F inal Result PATHOLOGY [facility] [address] Floor [place], [place] [phone] * Bronchoscopy -[facility] Interventional Pulm; Bronchoscopy (03/18/2021 10:13 AM CDT) Anatomical Region Laterality Modality Other Narrative Procedure Note Ruperto Forde Chi, MD - 03/18/2021 10:13 AM CDT [facility] Interventional Pulmonary Patient Name: Carmella Garcia Procedure Date: 03/18/2021 10:13 AM Date of [...] After obtaining informed consent, the Diagnostic Bronchoscope [id number] was introduced through the mouth, via laryngeal [...] 0 Note Initiated On: 03/18/2021 10:13 AM Ruperto Forde MD BRONCH ORDERABLES Final Re sult documented in this encounter Visit Diagnoses Diagnosis Atelectasis Pulmonary collapse documented in this encounter Administered Medications Inactive Administered Medications - up to 3 most recent administrations Medication Order MAR Action Action Date Dose Rate Site fentaNYL (SUBLIMAZE) preservative free injection 50 mcg 50 mcg, intravenous, Every 5 min PRN, 1st line for pain, Starting on Sun03/18/21 at 1049 Given 03/18/2021 11:13 AM CDT 25 mcg Given 03/18/2021 11:01 AM CDT 50 mcg Given 03/18/2021 10:57 AM CDT 50 mcg midazolam (VERSED) 1 mg/mL injection 2 mg 2 mg, intravenous, Every 5 min PRN, sedation, Starting on Sun03/18/21 at 1049 Given 03/18/2021 11:13 AM CDT 1 mg Given 03/18/2021 11:01 AM CDT 2 mg Given 03/18/2021 10:57 AM CDT 2 mg sodium chloride 0.9% infusion Code/trauma/sedation continuous med, Starting on Sun03/18/21 at 1025 New Bag 03/18/2021 10:25 AM CDT 30 mL/hr 30 mL/hr documented in this encounter Historical Medications * This list may reflect changes made after this encounter. levothyroxine (SYNTHROID) 50 mcg tablet Take 50 mcg by mouth executive asst before breakfast irbesartan (AVAPRO) 300 mg tablet Take 300 mg by mouth nightly added in this encounter Care Teams Fine Unhairer Relationship Specialty Start Date End Date Liza Haynes MD [address] [place] [address] PCP - General 03/15/21 documented as of this encounter
--- OUTSIDE RECORDS SUMMARY | 2024-11-02 20:52 | XMS_ITS | Encounter Summary ---
Author Organization [facility] Address [address] [place] [address] Phone Care Team Providers Care Farm Crops Teacher Name Role Phone Unknown, Notinfile Primary Care Provider Unavail able Liza Haynes MD Primary Care Provider [phone] Encounter Details Date Type Department Care Team (Latest Contact Info) Description 12/23/2020 Orders Only [facility] Scanning, Provider Social History Tobacco Use Types Packs/Day Years Used Date Smoking Tobacco: Former Sex and Gender Information Value Date Recorded Sex Assigned at Not on file Legal 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 Gender Identity Not on file Sexual Orientation Not on file documented as of this encounter Plan of Treatment Not on file documented as of this encounter Procedures Procedure Name Priority Date/Time Associated Diagnosis Comments SCAN - RADIOLOGY/IMAGING 12/23/2020 documented in this encounter Results * SCAN - RADIOLOGY/IMAGING (12/23/2020) Anatomical Region Laterality Modality Other us Provider Scanning Final Result documented in this encounter Visit Diagnoses Not on filedocumented in this encounter Care Teams Farm Crops Teacher Relationship Specialty Start Date End Date Unknown, Notinfsreekanth PCP - General 11/21/20 03/14/21 Liza Haynes MD [address] [place] [address] PCP - General 03/15/21 documented as of this encounter
--- OUTSIDE RECORDS SUMMARY | 2024-11-02 20:53 | XMS_ITS | Encounter Summary ---
Author Organization [facility] Address [address] [place] [address] Phone Care Team Providers Care Fire Hydrant Mechanic Name Role Phone Unknown, Notinfile Primary Care Provider Unavail able Liza Haynes MD Primary Care Provider [phone] Encounter Details Date Type Department Care Team (Latest Contact Info) Description 11/03/2019 Orders Only [facility] Scanning, Provider Social History Tobacco Use Types Packs/Day Years Used Date Smoking Tobacco: Never Assessed Sex and Gender Information Value Date Recorded Sex Assigned at Not on file Legal 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 Gender Identity Not on file Sexual Orientation Not on file documented as of this encounter Plan of Treatment Not on file documented as of this encounter Procedures Procedure Name Priority Date/Time Associated Diagnosis Comments SCAN - RADIOLOGY/IMAGING 11/03/2019 documented in this encounter Results * SCAN - RADIOLOGY/IMAGING (11/03/2019) Anatomical Region Laterality Modality Other us Provider Scanning Final Result documented in this encounter Visit Diagnoses Not on filedocumented in this encounter Additional Health Concerns Infection Onset Date Last Indicated Resolved Time COVID: Suspected 11/21/2020 11/21/2020 11/22/2020 2:21 AM SCREEN MAKING TECHNICIAN Respiratory Infection (BONI), contact + droplet Comment:Automatically added due to negative COVID-19 result. Patient classified as Low Risk for COVID-19 and has one negative COVID-19 test. Patient meets criteria for COVID-19 isolation discontinuation Maribell Marmolejo RN 11/24/2020 11/22/2020 11/22/2020 11/24/2020 7:39 AM SCREEN MAKING TECHNICIAN documented as of this encounter Care Teams Fire Hydrant Mechanic Relationship Specialty Start Date End Date Unknown, Notinfile PCP - General 11/21/20 03/14/21 Liza Haynes MD [address] [place] [address] PCP - General 03/15/21 documented as of this encounter
--- OUTSIDE RECORDS SUMMARY | 2024-11-02 20:53 | XMS_ITS | Encounter Summary ---
Author Organization [facility] Address [address] [place] [address] Phone Care Team Providers Care Water Supply Engineer Name Role Phone Unknown, Notinfile Primary Care Provider Unavail able Liza Haynes MD Primary Care Provider [phone] Encounter Details Date Type Department Care Team (Latest Contact Info) Description 11/17/2020 Orders Only [facility] Scanning, Provider Social History Tobacco Use Types Packs/Day Years Used Date Smoking Tobacco: Never Assessed Sex and Gender Information Value Date Recorded Sex Assigned at Not on file 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 Gender Identity Not on file Sexual Orientation Not on file documented as of this encounter Plan of Treatment Not on file documented as of this encounter Procedures Procedure Name Priority Date/Time Associated Diagnosis Comments SCAN - RADIOLOGY/IMAGING 11/17/2020 documented in this encounter Results * SCAN - RADIOLOGY/IMAGING (11/17/2020) Anatomical Region Laterality Modality Other Provider Scanning Final Result documented in this encounter Visit Diagnoses Not on filedocumented in this encounter Additional Health Concerns Infection Onset Date Last Indicated Resolved Time COVID: Suspected 11/21/2020 11/21/2020 11/22/2020 2:21 AM INSTRUMENT ASSEMBLER Respiratory Infection (BONI), contact + droplet Comment:Automatically added due to negative COVID-19 result. Patient classified as Low Risk for COVID-19 and has one negative COVID-19 test. Patient meets criteria for COVID-19 isolation discontinuation Maribell Marmolejo RN 11/24/2020 11/22/2020 11/22/2020 11/24/2020 7:39 AM INSTRUMENT ASSEMBLER documented as of this encounter Care Teams Water Supply Engineer Relationship Specialty Start Date End Date Unknown, Notinfile PCP - General 11/21/20 03/14/21 Liza Haynes MD [address] [place] [place] [address] PCP - General 03/15/21 documented as of this encounter
--- OUTSIDE RECORDS SUMMARY | 2024-11-02 20:53 | XMS_ITS | Encounter Summary ---
Author Organization [facility] Healthcare Address [address] [place] [address] Care Team Providers Care Mounter Hand Name Role Phone Unknown, Notinfile Primary Care Provider Unavail able Reason for Visit * Reason Comments Shortness of Breath Encounter Details Date Type Department Care Team (Late st Contact Info) Description 11/21/2020 11:33 AM AVIONICS ELECTRONICS TECHNICIAN - 11/21/2020 2:09 PM AVIONICS ELECTRONICS TECHNICIAN Emergency [facility] [address] [place] [address] Lilibeth Beth MD [address] [facility] [address] [place] [address] Shortness of breath (Primary Dx) Discharge Disposition: Discharge to home or self care Social History Tobacco Use Types Packs/Day Years Used Date Smoking Tobacco: Former Sex and Gender Information Value Date Recorded Sex Assigned at Not on file Legal Sex Male 11:16 AM AVIONICS ELECTRONICS TECHNICIAN Gender Identity Not on file Sexual Orientation Not on file documented as of this encounter Last Filed Vital Signs Vital Sign Reading Time Taken Comments Blood Pressure 143/79 11/21/2020 1:30 PM AVIONICS ELECTRONICS TECHNICIAN Pulse 64 11/21/2020 1:30 PM AVIONICS ELECTRONICS TECHNICIAN Temperature 36.5 ??C (97.7 ??F) 11/21/2020 11:[address] Respiratory Rate 11 11/21/2020 1:30 PM AVIONICS ELECTRONICS TECHNICIAN Oxygen Saturation 94% 11/21/2020 1:30 PM AVIONICS ELECTRONICS TECHNICIAN Inhaled Oxygen Concentration - - Weight 80.3 kg (177 lb) 11/21/2020 11:27 AM AVIONICS ELECTRONICS TECHNICIAN Height 167.6 cm (5' 6 ) 11/21/2020 11:27 AM AVIONICS ELECTRONICS TECHNICIAN Body Mass Index 28.57 11/21/2020 11:27 AM AVIONICS ELECTRONICS TECHNICIAN documented in this encounter Discharge Diagnoses Diagnosis Chronic obstructive pulmonary disease, unspecified (HCC) - CHRONIC OBSTRUCTIVE PULMONARY DISEASE, UNSPECIFIED Contact with and (suspected) exposure to covid-19 - CONTACT WITH AND (SUSPECTED) EXPOSURE TO COVID-19 Personal history of nicotine dependence - PERSONAL HISTORY OF NICOTINE DEPENDENCE Type 2 diabetes mellitus without complications (CMS/HCC) (HCC) - TYPE 2 DIABETES MELLITUS WITHOUT COMPLICATIONS Essential (primary) hypertension - ESSENTIAL (PRIMARY) HYPERTENSION Unspecified essential hypertension terminal 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 Your being followed up with physicians for a bronchoscope which is a camera test of your airways on . Please ensure you follow-up with this. If they find a suspicious mass or lesion, please have them refer you to physicians at [facility] if you would like to be seen here. If you have any severe worsening shortness of breath, chest pain, high fevers, coughing up blood, or any other concerning symptoms please return to the closest emergency department. NICS ELECTRONICS TECHNICIAN NICS ELECTRONICS TECHNICIAN * Attachments The following attachments cannot be sent through Care Everywhere. * Shortness of Breath (Laydown Machine Operator) (Yi) documented in this encounter Medications at Time of Discharge amLODIPine (NORVASC) 10 mg tablet Take 10 mg by mouth daily 11/12/2020 atorvastatin (LIPITOR) 20 mg tablet Take 20 mg by mouth daily 09/23/2020 hydroCHLOROthiazi de (HYDRODIURIL) 12.5 mg tablet Take 12.5 mg by mouth daily 10/18/2020 metFORMIN (GLUCOPHAGE) 1,000 mg tablet Take 1,000 mg by mouth 2 (two) times a day 10/22/2020 sulfamethoxazole- trimethoprim (BACTRIM DS) 800-160 mg per tablet 11/19/2020 Symbicort 160-4.5 mcg/actuation inhaler INHALE 2 PUFFS PO Q 12 H 10/14/2020 documented as of this encounter Discharge Disposition Disposition Code Departure Means Destination Discharge to home or self care documented in this encounter ED Notes * Lilibeth Beth MD - 11/21/2020 2:09 PM CST HPI Chief Complaint Patient presents with ??? Shortness of Breath HPI Carlos Ortiz is a 70 y.o. male w/ PMH of Hypertension, COPD who p/w worsening shortness of breath.Patient states he has had chronically worsening shortness of breath with cough and sinus drainage. Denies fevers or chills. Denies loss of taste or smell. No chest pain. No abdominal pain, nausea or vomiting. Uses inhalers p.r.n.. Patient states he feels the symptoms are stable however his feels as they are worsening. Patient had a screening CT scan on the , was told he has intermittent collapse of his long and is due to have a camera test of his lung on . 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 Past Medical History: Diagnosis Date ??? AAA (abdominal aortic aneurysm) ([facility]) ??? Cancer ([facility]) ??? COPD (chronic obstructive pulmonary disease) ([facility]) ??? Diabetes mellitus ([facility]) ??? Hypertension History reviewed. No pertinent surgical history. History reviewed. No pertinent family history. Social History Tobacco Use ??? Smoking status: Former Smoker Substance Use Topics ??? Alcohol use: Not on file ??? Drug use: Not on file Social History Social History Narrative ??? Not on file MEDS & ALLERGIES: No current facility-administered medications on file prior to encounter. Current Outpatient Medications on File Prior to Encounter Medication Sig Dispense Refill ??? amLODIPine (NORVASC) 10 mg tablet Take 10 mg by mouth daily ??? atorvastatin (LIPITOR) 20 mg tablet Take 20 mg by mouth daily ??? hydroCHLOROthiazide (HYDRODIURIL) 12.5 mg tablet Take 12.5 mg by mouth daily ??? metFORMIN (GLUCOPHAGE) 1,000 mg tablet Take 1,000 mg by mouth 2 (two) times a day ??? sulfamethoxazole-trimethoprim (BACTRIM DS) 800-160 mg per tablet ??? Symbicort 160-4.5 mcg/actuation inhaler INHALE 2 PUFFS PO Q 12 H Allergies Allergen Reactions ??? Penicillins Unknown Review of Systems REVIEW OF SYSTEMS: ROS: Denies fevers. All others negative except as mentioned in the HPI Physical Exam Vitals: 11/21/20 1330 BP: 143/79 Pulse: 64 Resp: 11 Temp: SpO2: 94% Physical Exam - CONSTITUTIONAL: Well-developed, well-nourished. - HEAD: Normocephalic, atraumatic. - EYES: EOMI, no conjunctival injection. - CARDS: Regular rate and rhythm, no murmurs appreciated. - RESP: Breath sounds clear b/l. Breathing unlabored. - ABD: Soft, non-tender w/o guarding or rebound. - EXT: no lower extremity edema. no obvious deformities - SKIN: Warm and dry. No rashes. - NEURO: Alert, CN intact. Motor grossly intact w no focal abnormality Clinical lab tests: reviewed Tests in the radiology section of CPT??: reviewed Nursing notes reviewed MDM MDM Carlos Ortiz is a 70 y.o. male with above PMH p/w progressively worsening shortness of breath withintermittent cough and sinus congestion. Vitals within normal limits, lungs clear on exam saturating well on room air. Has reportedly lung collapse on outside hospital CT scan. Was due to get what sounds like a bronchoscopy this . Has good breath sounds does not appear to have a pneumothorax. Will send labs and obtain chest x-ray to eval for other etiologies of shortness of breath including pulmonary, cardiac etiologies. Will work to obtain outside hospital imaging. If workup unremarkable, plan to have patient continue follow-up with his current pulmonology doctors for bronchoscopy, and if malignancy is detected, would be able to be seen by our oncologists here via referral. Huey Galindo MD Portions of the record may have been created with voice recognition software. Occasional wrong-word or '[id number]' substitutions may have occurred due to the inherent limitations of voice recognition software. Read the chart carefully and recognize, using context, where substitutions have occurred. Attending Summary of Care ED Course as of Nov 21 1616 Time: 11/21 1222 Comment: Call to [facility], will try to fax over recent reports By: Huey Galindo MD Time: 11/21 1242 Comment: [facility] CT report - chest CT 11/17/20 Mod emphysema, calcified pulm nodules and calcified hilar/mediastinal lymph nodes c/w granulomatousdisease, recurrent partial collapse of lower lobe collapse, no pleural effusion. Impression: category 4A suspicious, bronchoscopy is recommended, for recurrent partial collapse of left lung lower lobe By: Huey Galindo MD Time: 11/21 1336 Comment: ED workup with mild hypokalemia otherwise unremarkable. Reviewing outside imaging, patientis to be worked up as an outpatient for possible bronchogenic obstruction. He scheduled to have a bronchoscopy on . We have discussed workup for possible obstructive lesion with differentials including a cancerous lesion. It is unlikely that we would be able to get him more rapid outpatientbronchoscoped from the ED, encourage continue follow-up with his current scheduled appointment and if the biopsy does come back concerning for underlying malignancy or other lesion requiring further workup and he wishes to be seen by physicians at [facility], he can be referred by his treating physician. Patient was agreeable with this plan. I have given him strict return precautions. All questions were answered, okay for discharge By: Huey Galindo MD Time: 11/21 1357 Comment: Attending MDM: 70M with hx DM, HTN, COPD, AAA p/w concern for lung obstruction. He is being worked up outpatient through [facility] but presented here today for a 2nd opinion and 's concern that he was breathing differently, though patient comfortable and reports feeling at baseline. He is set-up for bronch this week at [place]. Discussed that we will evaluate for acute pathology such as PNA, PTX, ACS that could be making dyspnea worse or require intervention. If no acute process, will give follow-up resources but [facility] further oncologic or pulmonologic treatment as needed. Patient in agreement. Dispo pending diagnostics. By: Lilibeth Beth MD 1. Shortness of breath Huey Galindo MD Resident 11/21/20 1550 I have seen and examined the patient on 11/21/2020. I agree with the findings and plan of care as documented in the resident's note. Lilibeth Beth MD 11/21/20 1617 NICS ELECTRONICS TECHNICIAN NICS ELECTRONICS TECHNICIAN * Sheila Saleh RN - 11/21/2020 11:33 AM CST Bed: [facility] Expected date: Expected time: Means of arrival: Car Comments: Sheila Saleh RN 11/21/20 1133 NICS ELECTRONICS TECHNICIAN * Florida Woodward RN - 11/21/2020 11:32 AM CST Pt reports to ED with SOB, reports he has a partially collapsed left lung. Pt scheduled for bronchoscopy on 11/25/2020 but is having worsening SOB and increased work of breathing. NICS ELECTRONICS TECHNICIAN documented in this encounter Miscellaneous Notes * Result Encounter Note - Berta Benitez RN - 11/21/2020 2:09 PM AVIONICS ELECTRONICS TECHNICIAN Results negative, will notify patient by phone call or mychart, if active. NICS ELECTRONICS TECHNICIAN * ED Procedure Note - Lilibeth Beth MD - 11/21/2020 11:44 AM AVIONICS ELECTRONICS TECHNICIAN Associated Order(s): ECG 12 lead Procedure ECG 12 lead Date/Time: 11/21/2020 11:44 AM Performed by: Lilibeth Beth MD Authorized by: Lilibeth Beth MD Rate: ECG rate: 82 ECG rate assessment: normal Rhythm: Rhythm: sinus rhythm Ectopy: Ectopy: none QRS: QRS axis: Normal QRS intervals: Normal Conduction: Conduction: abnormal Abnormal conduction: incomplete RBBB and LAFB ST segments: ST segments: Normal Previous ECG: Previous ECG: Unavailable Interpretation: Interpretation: non-specific Recommended Follow-up: Recommended follow up: further workup in the ED Note: Reason for EKG: Shortness of breath Lilibeth Beth MD 11/21/20 1145 Lilibeth Beth MD 12/16/203 NICS ELECTRONICS TECHNICIAN NICS ELECTRONICS TECHNICIAN documented in this encounter Plan of Treatment Not on file documented as of this encounter Procedures Procedure Name Priority Date/Time Associated Diagnosis Comments XR CHEST 1 VIEW ED 11/21/2020 12:12 PM AVIONICS ELECTRONICS TECHNICIAN TROPONIN I HIGH-SENSITIVITY Routine 11/21/2020 11:49 AM AVIONICS ELECTRONICS TECHNICIAN COVID-19 CORONAVIRUS RNA Routine 11/21/2020 11:49 AM AVIONICS ELECTRONICS TECHNICIAN DIFFERENTIAL AUTO STAT 11/21/2020 11: 49 AM AVIONICS ELECTRONICS TECHNICIAN PRO B-TYPE NATRIURETIC PEPTIDE STAT 11/21/2020 11:49 AM AVIONICS ELECTRONICS TECHNICIAN CBC WITH AUTO DIFFERENTIAL STAT 11/21/2020 11:49 AM AVIONICS ELECTRONICS TECHNICIAN APTT STAT 11/21/2020 11:49 AM AVIONICS ELECTRONICS TECHNICIAN PROTIME-INR STAT 11/21/2020 11:49 AM AVIONICS ELECTRONICS TECHNICIAN COMPREHENSIVE METABOLIC PANEL STAT 11/21/2020 11:49 AM AVIONICS ELECTRONICS TECHNICIAN ECG 12-LEAD STAT 11/21/2020 11:44 AM AVIONICS ELECTRONICS TECHNICIAN POCT GLUCOSE DEVICE Routine 11/21/2020 1 1:27 AM AVIONICS ELECTRONICS TECHNICIAN documented in this encounter Results * XR Chest 1 Vw Portable (11/21/2020 12:12 PM AVIONICS ELECTRONICS TECHNICIAN) Anatomical Region Laterality Modality Body, Chest N/A Computed Radiogr aphy 11/21/2020 12:5 7 PM AVIONICS ELECTRONICS TECHNICIAN Impressions 11/21/2020 1:03 PM AVIONICS ELECTRONICS TECHNICIAN No prior exam is available for comparison. Streaky opacities in the left lower lung likely represent atelectasis or scarring. Biapical hazy opacities likely represent pleural-parenchymal thickening/scarring. No focal consolidation or pulmonary edema. No pneumothorax or pleural effusion. Multiple scattered calcified granulomas are seen throughout both lungs, in addition to multiple calcified mediastinal and hilar lymph nodes. Cardiac size and mediastinal contours are normal. Dictated by: Nori Mallory M.D. The radiology attending physician has personally reviewed this study, and had reviewed and/or edited this written report and agrees with it. Electronically signed by: Guanakito Butt M.D. Narrative 11/21/2020 1:03 PM AVIONICS ELECTRONICS TECHNICIAN EXAMINATION: 1 view chest radiograph Procedure Note Guanakito Butt MD - 11/21/2020 EXAMINATION: 1 view chest radiograph IMPRESSION: No prior exam is available for comparison. Streaky opacities in the left lower lung likely represent atelectasis or scarring. Biapical hazy opacities likely represent pleural-parenchymal thickening/scarring. No focal consolidation or pulmonary edema. No pneumothorax or pleural effusion. Multiple scattered calcified granulomas are seen throughout both lungs, in addition to multiple calcified mediastinal and hilar lymph nodes. Cardiac size and mediastinal contours are normal. Dictated by: Nori Mallory M.D. The radiology attending physician has personally reviewed this study, and had reviewed and/or edited this written report and agrees with it. Electronically signed by: Guanakito Butt M.D. us Huey Galindo MD IMG XR PROCEDURES Final Resu lt * Differential, auto (11/21/2020 11:49 AM AVIONICS ELECTRONICS TECHNICIAN) Neutrophil abs 3.5 1.7 - 6.5 K/cumm [facility] Imm gran abs 0.0 0.0 - 0.1 K/cumm [facility] Lymphocyte abs 1.2 0.8 - 3.3 K/cumm [facility] Monocyte abs 0.5 0.2 - 0.8 K/cumm [facility] Eosinophil abs 0.2 0.0 - 0.5 K/cumm [facility] Basophil abs 0.0 0.0 - 0.1 K/cumm [facility] Neutrophil pct 65.1 % [facility] Comment: Interpretive Data Percent cell count reference ranges are not reported, since discordance with absolute values may lead to misinterpretation of CBC data. Current Interpretive Data was last revised on 2018. Imm gran pct 0.2 % [facility] Comment: Interpretive Data Percent cell count reference ranges are not reported, since discordance with absolute values may lead to misinterpretation of CBC data. Current Interpretive Data was last revised on 2018. Lymphocyte pct 21.4 % [facility] Comment: Interpretive Data Percent cell count reference ranges are not reported, since discordance with absolute values may lead to misinterpretation of CBC data. Current Interpretive Data was last revised on 2018. Monocyte pct 9.2 % [facility] Comment: Interpretive Data Percent cell count reference ranges are not reported, since discordance with absolute values may lead to misinterpretation of CBC data. Current Interpretive Data was last revised on 2018. Eosinophil pct 3.7 % [facility] Comment: Interpretive Data Percent cell count reference ranges are not reported, since discordance with absolute values may lead to misinterpretation of CBC data. Current Interpretive Data was last revised on 2018. Basophil pct 0.4 % [facility] Comment: Interpretive Data Percent cell count reference ranges are not reported, since discordance with absolute values may lead to misinterpretation of CBC data. Current Interpretive Data was last revised on 2018. Blood specimen (specimen) 11/21/2020 11:49 AM AVIONICS ELECTRONICS TECHNICIAN 11/21/2020 11:56 AM AVIONICS ELECTRONICS TECHNICIAN us Huey Galindo MD LAB BLOOD ORDERABLES Final R esult [facility] Department [place] [address] * COVID-19 Coronavirus RNA Nasopharyngeal (11/21/2020 11:49 AM AVIONICS ELECTRONICS TECHNICIAN) COVID-19 RNA Not Detected [facility] Comment: Interpretive Data Testing performed at [facility] Molecular Infectious Disease Laboratory. The 2018-Novel Coronavirus Assay (COVID-19) Real Time RT-PCR assay is for in vitro diagnostic use under FDA emergency use authorization only. A negative RT-PCR result does not preclude infection with COVID-19 and should not be used as the sole basis for treatment or other patient management decisions. Additional sample types have been validated according to CLIA regulations. ?? Current Interpretive Data was last revised on 2020. First COVID-19 test? Unknown [facility] Employeed in healthcare? No [facility] status? No [facility] Group care resident? No [facility] Hospitalized? No [facility] Is patient in ICU? No [facility] Symptomatic as defined by CDC? Yes [facility] Nasopharyngeal 11/21/2020 11 :49 AM AVIONICS ELECTRONICS TECHNICIAN 11/21/2020 3:18 PM AVIONICS ELECTRONICS TECHNICIAN Narrative [facility] - 11/22/2020 2:20 AM AVIONICS ELECTRONICS TECHNICIAN What is the reason for testing?->Likely to be discharged Date of symptom onset->11/19/20 us Huey Galindo MD LAB MICROBIOLOGY - GENERAL O RDERABLES Final Result Performing Organization Address [facility] de Phone Number [facility] [place] [address] * Troponin I high-sensitivity (11/21/2020 11:49 AM AVIONICS ELECTRONICS TECHNICIAN) Trop I hs 10 <=35 ng/L [facility] Comment: Interpretive Data For further hscTnI resources including the diagnostic algorithm and an aid in interpretation, copy and paste this link: https://bjab.testcatalog.org/show/[email or web address] Current Interpretive Data last revised 2020. Blood specimen (specimen) 11/21/2020 11:49 AM AVIONICS ELECTRONICS TECHNICIAN 11/21/2020 11:56 AM AVIONICS ELECTRONICS TECHNICIAN Narrative [facility] - 11/21/2020 12:32 PM AVIONICS ELECTRONICS TECHNICIAN THE COLLECTION LOCATION IS [address] us Huey Galindo MD LAB BLOOD ORDERABLES Final R esult Performing Organization Address [facility] de Phone Number [facility] Department [place] [address] * aPTT (11/21/2020 11:49 AM AVIONICS ELECTRONICS TECHNICIAN) aPTT 30 25 - 37 sec [facility] Comment: Interpretive data Heparin therapeutic range: 60-90 seconds Range based on correlation with therapeutic heparin activity range of 0.3-0.7 units/ml. Current interpretive data was last revised on 2019. Blood specimen (specimen) 11/21/2020 11:49 AM AVIONICS ELECTRONICS TECHNICIAN 11/21/2020 12:04 PM AVIONICS ELECTRONICS TECHNICIAN Narrative [facility] - 11/21/2020 12:26 PM AVIONICS ELECTRONICS TECHNICIAN THE [facility] COLLECTION LOCATION IS [address] Huey Galindo MD LAB BLOOD ORDERABLES Final R esult Performing Organization Address [facility] Co de Phone Number [facility] [place] [address] * Protime-INR (11/21/2020 11:49 AM AVIONICS ELECTRONICS TECHNICIAN) PT 11.4 8.6 - 13.0 sec [facility] INR 1.1 0.8 - 1.2 [facility] Comment: Interpretive data Oral anticoagulant therapeutic ranges: Venous thromboembolism prophylaxis or treatment: 2.0-3.0 CARDIOLOGY Standard range: 2.0-3.0 High-intensity range: 2.5-3.5 Refer to indication-specific guidelines for appropriate target ranges for prosthetic heart valve replacement. Current interpretive data was last revised on 2019. Blood specimen (specimen) 11/21/2020 11:49 AM AVIONICS ELECTRONICS TECHNICIAN 11/21/2020 12:04 PM AVIONICS ELECTRONICS TECHNICIAN Narrative [facility] - 11/21/2020 12:26 PM AVIONICS ELECTRONICS TECHNICIAN THE [facility] COLLECTION LOCATION IS [address] Huey Galindo MD LAB BLOOD ORDERABLES Final R esult Performing Organization Address [facility] de Phone Number [facility] [place] [address] * Pro B-type natriuretic peptide (11/21/2020 11:49 AM AVIONICS ELECTRONICS TECHNICIAN) NT-proBNP <50 <=300 pg/mL [facility] Comment: Interpretive Comments: A. Dyspnea in Acute Care Setting All Ages: ?< 300 pg/ml, acute heart failure unlikely. < 50 yrs: ?300 - 450 pg/ml, further investigation warranted. ? > 450 pg/ml, acute heart failure likely. 50 - 74 yrs: ? 300 - 900 pg/ml, further investigation warranted. ? > 900 pg/ml, acute heart failure likely . > or = 75 yrs: ? 450 - 1800 pg/ml, further investigation warranted. ? > 1800 pg/ml, acute heart failure likely. B. Non-acute Setting < 75 yrs ? < 125 pg/ml, rules out heart failure. ? > or = 125 pg/ml, further investigation warranted. > or = 75 yrs ?< 450 pg/ml, rules out heart failure. ? > or = 450 pg/ml, further investigation warranted. - Knowledge of each individual patient's NT-proBNP range may be more useful than using similar cut-points for every patient. Please note that marked elevations in NT-proBNP levels may be observed in state other than Left Ventricular Congestive Failure, including: acute coronary syndromes, right heart strain/failure (including pulmonary embolism and cor pulmonale), critical illness, renal failure, as well as advanced age. - References: 1. Ayaka UREÑA et.al. Eur Heart J. 2006:27:330-337. 2. Tara RW, Andrew AM. J. AM Kim Cardiol: Cardiovasc Imag. 2009;2: 216- 225. Interpretive Data Last Revised Date: 2018. Blood specimen (specimen) 11/21/2020 11:49 AM AVIONICS ELECTRONICS TECHNICIAN 11/21/2020 11:56 AM AVIONICS ELECTRONICS TECHNICIAN Narrative [facility] - 11/21/2020 2:13 PM AVIONICS ELECTRONICS TECHNICIAN THE COLLECTION LOCATION IS [address] us Huey Galindo MD LAB BLOOD ORDERABLES Final R esult [facility] Department of Laboratories [place], [place] [id number] * (ABNORMAL) Comprehensive metabolic panel (11/21/2020 11:49 AM AVIONICS ELECTRONICS TECHNICIAN) Sodium 142 135 - 145 mmol/L [facility] Potassium, pl 3.0(L) 3.3 - 4.9 mmol/L [facility] Chloride 102 97 - 110 mmol/L [facility] CO2 30 22 - 32 mmol/L [facility] Anion gap 10 2 - 15 mmol/L [facility] BUN 8 8 - 25 mg/dL [facility] Creatinine 1.27 0.80 - 1.30 mg/dL [facility] Glucose 141 70 - 199 mg/dL [facility] Comment: Interpretive Data Fasting glucose >/= 126 mg/dl is diagnostic for diabetes. ?? Fasting is defined as no caloric intake for at least 8 hours. Fasting glucose between 100 mg/dl to 125 mg/dl is diagnostic of prediabetes. In a patient with classic symptoms of hyperglycemia or hyperglycemic crisis, a random glucose >/= 200 mg/dl is diagnostic for diabetes. In the absence of unequivocal hyperglycemia, results should be confirmed by repeat testing. The classification and Diagnosis of Diabetes Diabetes Care 2017;40 (Suppl. 1):S11. Current interpretive data was last revised 2017. Calcium 9.5 8.5 - 10.3 mg/dL [facility] Bilirubin, total 1.1 0.1 - 1.2 mg/dL [facility] Protein, pl 7.2 6.5 - 8.5 g/dL [facility] Albumin 4.6 3.5 - 5.0 g/dL [facility] Alk phos 77 40 - 130 Units/L [facility] ALT 33 7 - 55 Units/L [facility] AST 30 10 - 50 Units/L [facility] Blood specimen (specimen) 11/21/2020 11:49 AM AVIONICS ELECTRONICS TECHNICIAN 11/21/2020 11:56 AM AVIONICS ELECTRONICS TECHNICIAN Narrative [facility] - 11/21/2020 12:22 PM AVIONICS ELECTRONICS TECHNICIAN THE COLLECTION LOCATION IS [address] us Huey Galindo MD LAB BLOOD ORDERABLES Final R esult [facility] [place] [address] * CBC with auto differential (11/21/2020 11:49 AM AVIONICS ELECTRONICS TECHNICIAN) [facility] WBC 5.4 3.8 - 9.9 K/cumm [facility] Hgb 14.4 13.0 - 17.5 g/dL [facility] Hct 44.3 38.9 - 50.3 % [facility] Plt 162 150 - 400 K/cumm [facility] MPV 10.5 9.1 - 12.3 fL [facility] RBC 5.08 4.30 - 5.80 M/cumm [facility] MCV 87.2 81.3 - 96.4 fL [facility] MCH 28.3 27.1 - 33.3 pg [facility] MCHC 32.5 32.3 - 35.7 g/dL [facility] RDW CV 14.2 11.1 - 14.9 % [facility] RDW SD 45.5 35.7 - 48.1 fL [facility] NRBC abs 0.00 0.00 - 0.01 K/cumm [facility] Blood specimen (specimen) 11/21/2020 11:49 AM AVIONICS ELECTRONICS TECHNICIAN 11/21/2020 11:56 AM AVIONICS ELECTRONICS TECHNICIAN Narrative [facility] - 11/21/2020 12:03 PM AVIONICS ELECTRONICS TECHNICIAN THE COLLECTION LOCATION IS [address] us Huey Galindo MD LAB BLOOD ORDERABLES Final R esult [facility] Department [place] [address] * ECG 12-LEAD (11/21/2020 11:44 AM AVIONICS ELECTRONICS TECHNICIAN) Narrative [facility] - 11/21/2020 11:44 AM AVIONICS ELECTRONICS TECHNICIAN Lilibeth Beth MD ? 12/16/2020 ??9:23 PM ECG 12 lead Date/Time: 11/21/2020 11:44 AM Performed by: Lilibeth Beth MD Authorized by: Lilibeth Beth MD Rate: ??ECG rate: ??82 ??ECG rate assessment: normal ?? Rhythm: ??Rhythm: sinus rhythm ?? Ectopy: ??Ectopy: none ?? QRS: ??QRS axis: ??Normal ??QRS intervals: ??Normal Conduction: ??Conduction: abnormal ?Abnormal conduction: incomplete RBBB and LAFB ?? ST segments: ??ST segments: ??Normal Previous ECG: ??Previous ECG: ??Unavailable Interpretation: ??Interpretation: non-specific ?? Recommended Follow-up: ??Recommended follow up: further workup in the ED ?? us Lilibeth Beth MD ECG ORDERABLES Edited Re sult - Final Performing Organization Address [facility] Co de Phone Number [facility] * POCT glucose (11/21/2020 11:27 AM AVIONICS ELECTRONICS TECHNICIAN) [facility] Glucose, POC 127 70 - 199 mg/dL [facility] Blood specimen (specimen) 11/21/2020 11:27 AM AVIONICS ELECTRONICS TECHNICIAN 11/21/2020 11:27 AM AVIONICS ELECTRONICS TECHNICIAN Notinfile Unknown LAB POCT ORDERABLES - DEVICE F inal Result Performing Organization Address [facility] Phone Number [facility] [place] [address] documented in this encounter Visit Diagnoses Diagnosis Shortness of breath- Primary documented in this encounter Historical Medications * This list may reflect changes made after this encounter. sulfamethoxazole- trimethoprim (BACTRIM DS) 800-160 mg per tablet 11/19/2020 metFORMIN (GLUCOPHAGE) 1,000 mg tablet Take 1,000 mg by mouth 2 (two) times a day 10/22/2020 hydroCHLOROthiazi de (HYDRODIURIL) 12.5 mg tablet Take 12.5 mg by mouth daily 10/18/2020 Symbicort 160-4.5 mcg/actuation inhaler INHALE 2 PUFFS PO Q 12 H 10/14/2020 atorvastatin (LIPITOR) 20 mg tablet Take 20 mg by mouth daily 09/23/2020 amLODIPine (NORVASC) 10 mg tablet Take 10 mg by mouth daily 11/12/2020 added in this encounter Orders Lab Orders Without Results Count Last Ordered D ate First Ordered Date POCT GLUCOSE DEVICE 1 11/21/2020 documented in this encounter Additional Health Concerns Infection Onset Date Last Indicated Resolved Time COVID: Suspected 11/21/2020 11/21/2020 11/22/2020 2:21 AM AVIONICS ELECTRONICS TECHNICIAN documented as of this encounter Care Teams Mounter Hand Relationship Specialty Start Date End Date Unknown, Notinfile PCP - General 11/21/20 03/14/21 documented as of this encounter
--- OUTSIDE RECORDS SUMMARY | 2024-11-02 20:53 | XMS_ITS | Encounter Summary ---
Author Organization [facility] Address [address] [place] [address] Phone Care Team Providers Care Cotton Jammer Name Role Phone Unknown, Notinfile Primary Care Provider Unavail able Liza Haynes MD Primary Care Provider [phone] Encounter Details Date Type Department Care Team (Latest Contact Info) Description 05/10/2016 Orders Only [facility] Scanning, Provider Social History Tobacco Use Types Packs/Day Years Used Date Smoking Tobacco: Never Assessed Sex and Gender Information Value Date Recorded Sex Assigned at Not on file Legal Sex Male 11:16 AM AERIAL SPRAYER Gender Identity Not on file Sexual Orientation Not on file documented as of this encounter Plan of Treatment Not on file documented as of this encounter Procedures Procedure Name Priority Date/Time Associated Diagnosis Comments PULMONARY - RESULT SCAN 05/10/2016 documented in this encounter Results * PULMONARY - RESULT SCAN (05/10/2016) Anatomical Region Laterality Modality Other us Provider Scanning Final Result documented in this encounter Visit Diagnoses Not on filedocumented in this encounter Additional Health Concerns Infection Onset Date Last Indicated Resolved Time COVID: Suspected 11/21/2020 11/21/2020 11/22/2020 2:21 AM AERIAL SPRAYER Respiratory Infection (BONI), contact + droplet Comment:Automatically added due to negative COVID-19 result. Patient classified as Low Risk for COVID-19 and has one negative COVID-19 test. Patient meets criteria for COVID-19 isolation discontinuation Maribell Marmolejo RN 11/24/2020 11/22/2020 11/22/2020 11/24/2020 7:39 AM AERIAL SPRAYER documented as of this encounter Care Teams Cotton Jammer Relationship Specialty Start Date End Date Unknown, Notinfile PCP - General 11/21/20 03/14/21 Liza Haynes MD [address] [place] [address] PCP - General 03/15/21 documented as of this encounter
--- OUTSIDE RECORDS SUMMARY | 2024-11-02 20:53 | XMS_ITS | Encounter Summary ---
Author Organization [facility] Address [address] [place] [address] Phone Care Team Providers Care Strip Picker Name Role Phone Unknown, Notinfile Primary Care Provider Unavail able Liza Haynes MD Primary Care Provider [phone] Encounter Details Date Type Department Care Team (Latest Contact Info) Description 12/10/2018 Orders Only [facility] Scanning, Provider Social History Tobacco Use Types Packs/Day Years Used Date Smoking Tobacco: Never Assessed Sex and Gender Information Value Date Recorded Sex Assigned at Not on file Legal Sex Male 11:16 AM HELICOPTER MECHANIC Gender Identity Not on file Sexual Orientation Not on file documented as of this encounter Plan of Treatment Not on file documented as of this encounter Procedures Procedure Name Priority Date/Time Associated Diagnosis Comments SCAN - RADIOLOGY/IMAGING 12/10/2018 documented in this encounter Results * SCAN - RADIOLOGY/IMAGING (12/10/2018) Anatomical Region Laterality Modality Other us Provider Scanning Final Result documented in this encounter Visit Diagnoses Not on filedocumented in this encounter Additional Health Concerns Infection Onset Date Last Indicated Resolved Time COVID: Suspected 11/21/2020 11/21/2020 11/22/2020 2:21 AM HELICOPTER MECHANIC Respiratory Infection (BONI), contact + droplet Comment:Automatically added due to negative COVID-19 result. Patient classified as Low Risk for COVID-19 and has one negative COVID-19 test. Patient meets criteria for COVID-19 isolation discontinuation Maribell Marmolejo RN 11/24/2020 11/22/2020 11/22/2020 11/24/2020 7:39 AM HELICOPTER MECHANIC documented as of this encounter Care Teams Strip Picker Relationship Specialty Start Date End Date Unknown, Notinfile PCP - General 11/21/20 03/14/21 Liza Haynes MD [address] [place] [address] PCP - General 03/15/21 documented as of this encounter
--- OUTSIDE RECORDS SUMMARY | 2024-11-02 20:53 | XMS_ITS | Encounter Summary ---
Author Organization [facility] Healthcare Address [address] [place] [address] Care Team Providers Care Exceptional Needs Teacher Name Role Phone Unknown, Notinfile Primary Care Provider Unavail able Reason for Visit * Reason Onset Date Comments Test Results 11/22/2020 Encounter Details Date Type Department Care Team (Late st Contact Info) Description 11/22/2020 Telephone [facility] HealthCare/ Physicians [address] [place] [address] Berta Benitez RN Test Results Social History Tobacco Use Types Packs/Day Years Used Date Smoking Tobacco: Former Sex and Gender Information Value Date Recorded Sex Assigned at Not on file Legal Sex Male 11:16 AM HOSTEL PARENT Gender Identity Not on file Sexual Orientation Not on file documented as of this encounter Miscellaneous Notes * Telephone Encounter - Berta Benitez RN - 11/22/2020 8:47 AM HOSTEL PARENT Unsuccessful attempt made to contact patient regarding Negative COVID-19 results. Phone number is disconnected. Will send letter to patients address on file. EL PARENT documented in this encounter Plan of Treatment Not on file documented as of this encounter Visit Diagnoses Not on filedocumented in this encounter Additional Health Concerns Infection Onset Date Last Indicated Resolved Time COVID: Suspected 11/21/2020 11/21/2020 11/22/2020 2:21 AM HOSTEL PARENT Respiratory Infection (BONI), contact + droplet Comment:Automatically added due to negative COVID-19 result. Patient classified as Low Risk for COVID-19 and has one negative COVID-19 test. Patient meets criteria for COVID-19 isolation discontinuation Maribell Marmolejo RN 11/24/2020 11/22/2020 11/22/2020 11/24/2020 7:39 AM HOSTEL PARENT documented as of this encounter Care Teams Exceptional Needs Teacher Relationship Specialty Start Date End Date Unknown, Notinfile PCP - General 11/21/20 03/14/21 documented as of this encounter
--- OUTSIDE RECORDS SUMMARY | 2024-11-02 20:53 | XMS_ITS | Encounter Summary ---
Author Organization [facility] Address [address] [place] [address] Phone Care Team Providers Care Slot Supervisor Name Role Phone Unknown, Notinfile Primary Care Provider Unavail able Liza Haynes MD Primary Care Provider [phone] Encounter Details Date Type Department Care Team (Latest Contact Info) Description 08/22/2019 Orders Only [facility] Scanning, Provider Social History Tobacco Use Types Packs/Day Years Used Date Smoking Tobacco: Never Assessed Sex and Gender Information Value Date Recorded Sex Assigned at Not on file Legal Sex Male 11:16 AM STUDENT SUCCESS ADVISOR Gender Identity Not on file Sexual Orientation Not on file documented as of this encounter Plan of Treatment Not on file documented as of this encounter Procedures Procedure Name Priority Date/Time Associated Diagnosis Comments SCAN - RADIOLOGY/IMAGING 08/22/2019 documented in this encounter Results * SCAN - RADIOLOGY/IMAGING (08/22/2019) Anatomical Region Laterality Modality Other us Provider Scanning Final Result documented in this encounter Visit Diagnoses Not on filedocumented in this encounter Additional Health Concerns Infection Onset Date Last Indicated Resolved Time COVID: Suspected 11/21/2020 11/21/2020 11/22/2020 2:21 AM STUDENT SUCCESS ADVISOR Respiratory Infection (BONI), contact + droplet Comment:Automatically added due to negative COVID-19 result. Patient classified as Low Risk for COVID-19 and has one negative COVID-19 test. Patient meets criteria for COVID-19 isolation discontinuation Maribell Marmolejo RN 11/24/2020 11/22/2020 11/22/2020 11/24/2020 7:39 AM STUDENT SUCCESS ADVISOR documented as of this encounter Care Teams Slot Supervisor Relationship Specialty Start Date End Date Unknown, Notinfile PCP - General 11/21/20 03/14/21 Liza Haynes MD [address] [place] [address] PCP - General 03/15/21 documented as of this encounter
--- OUTSIDE RECORDS SUMMARY | 2024-11-02 20:53 | XMS_ITS | Encounter Summary ---
Author Organization [facility] Address [address] [place] [address] Phone Care Team Providers Care Truck Rental Clerk Name Role Phone Unknown, Notinfile Primary Care Provider Unavail able Liza Haynes MD Primary Care Provider [phone] Encounter Details Date Type Department Care Team (Latest Contact Info) Description 11/19/2019 Orders Only [facility] Scanning, Provider Social History Tobacco Use Types Packs/Day Years Used Date Smoking Tobacco: Never Assessed Sex and Gender Information Value Date Recorded Sex Assigned at Not on file Legal Sex Male 11:16 AM SLICE CUTTING MACHINE OPERATOR Gender Identity Not on file Sexual Orientation Not on file documented as of this encounter Plan of Treatment Not on file documented as of this encounter Procedures Procedure Name Priority Date/Time Associated Diagnosis Comments SCAN - RADIOLOGY/IMAGING 11/19/2019 documented in this encounter Results * SCAN - RADIOLOGY/IMAGING (11/19/2019) Anatomical Region Laterality Modality Other us Provider Scanning Final Result documented in this encounter Visit Diagnoses Not on filedocumented in this encounter Additional Health Concerns Infection Onset Date Last Indicated Resolved Time COVID: Suspected 11/21/2020 11/21/2020 11/22/2020 2:21 AM SLICE CUTTING MACHINE OPERATOR Respiratory Infection (BONI), contact + droplet Comment:Automatically added due to negative COVID-19 result. Patient classified as Low Risk for COVID-19 and has one negative COVID-19 test. Patient meets criteria for COVID-19 isolation discontinuation Maribell Marmolejo RN 11/24/2020 11/22/2020 11/22/2020 11/24/2020 7:39 AM SLICE CUTTING MACHINE OPERATOR documented as of this encounter Care Teams Truck Rental Clerk Relationship Specialty Start Date End Date Unknown, Notinfile PCP - General 11/21/20 03/14/21 Liza Haynes MD [address] [place] [address] PCP - General 03/15/21 documented as of this encounter
--- OUTSIDE RECORDS SUMMARY | 2024-11-02 20:55 | XMS_ITS | Continuity of Care Document ---
Author Organization [facility] Address [address] [place] [address] Phone Care Team Providers Care Montessori Lead Teacher Name Role Phone Arcadio Zepeda MD Unavailable [...] OFFICE/OUTPAT IENT VISIT EST [facility] , [address] [facility] [address], [place], [address], tel:[phone] [facility] right knee (chief complaint) Knee joint replacement Feb-2 2-201 [address] [place], [place], [id number] . tel:[phone] Referring Provider: Oscar Oconnell, [address], [place], [address] . tel:[phone] OFFICE/OUTPAT IENT VISIT EST [facility] , [address] [facility] [address] [facility], [place], [address], [place] [phone] [facility] bilateral knee (chief complaint) Hypertension, UnspecifiedOs teoarthrosis, unspecified whether generalized or localized, involving lower legKnee joint replacement [address]. [address], [place], [place], [id number] . tel: [phone] Family History Family Member Type Diagnosis Age At Onset Problem (finding) Family history of Cance r Payers Payer name Insurance type Covered libertarian ID Authoriza tion(s) No Information Social History [...]
== END 2024-10-27 08:55 | disposition home or self-care (01) ==
PROVIDERS: PCP Internal Medicine; Visit Provider Nurse Practitioner Family
DX: Z12.2 Encounter for screening for malignant neoplasm of respiratory organs (principal); Z87.891 Personal history of nicotine dependence
CPT/HCPCS: 71271

== ENCOUNTER 2024-11-14 08:00 | Outpatient (CLI) | payer MEDICARE, SELFPAY ==
--- NOTE | ~2024-11-14 | CT_ITS ---
Clinical Indication: Pulmonary nodule CT Scan of the Chest with Contrast: Technique: Contiguous sections were acquired throughout the chest after intravenous administration of 75 cc of Omnipaque 350. Dose reduction technique was used on this scan by utilizing automated exposu re control and iterative reconstruction technique. The dose-length product (DLP) was 278.14 mGy-cm. COMPARISON: 10/27/2024 Findings: Extensive calcified mediastinal/hilar lymphadenopathy present. There is no filling defect in the pulm onary arterial tree to suggest pulmonary embolus. There is no evidence of aortic dissection or aneury sm. There is no evidence of pleural or pericardial effusion. Stable 9 mm left basilar pulmonary nodule, possibly impacted airway. There is discoid scarring or ate lectasis left lower lobe. Stable emphysematous change in the upper lobes. Images through the upper abdomen reveal diffuse hepatic steatosis. Impression: Stable 9 mm left basilar pulmonary nodule. Continued follow up to document two-years stability recomm ended. Stable probable emphysematous change. Reviewed, dictated and finalized at [facility]. RTMENT MGR Impression: Stable 9 mm left basilar pulmonary nodule. Continued follow up to document two- years stability recommended. Stable probable emphysematous change.
== END 2024-11-14 08:01 | disposition home or self-care (01) ==
PROVIDERS: PCP Internal Medicine; Visit Provider Internal Medicine
DX: R91.1 Solitary pulmonary nodule (principal)
CPT/HCPCS: 71260; Q9967

== ENCOUNTER 2024-11-18 07:48 | Outpatient (CLI) | payer MEDICARE, SELFPAY ==
[2024-11-18 08:12] LABS: Basophils Percent Auto 0.7 % (0.2-1.2); Eosinophils Absolute Auto 0.2 K/mm3 (0-0.3); Eosinophils Percent Auto 4.1 % (0-4.4); Hematocrit 44.1 % (42.0-52.0); Hemoglobin 14.8 g/dL (14.0-18.0); Immature Granulocyte Absolute 0.02 K/mm3 (0.00-0.031); Immature Granulocyte Percent A 0.5 % (0-0.5); Lymphocytes Absolute Auto 1.29 K/mm3 (0.9-3.2); Lymphocytes Percent Auto 29.5 % (18.3-44.2); Mean Corpuscular HGB Conc 33.6 g/dl (32-36); Mean Corpuscular Hemoglobin 29.5 pg (26-34); Mean Platelet Volume 9.7 fl (7.4-10.4); Monocytes Absolute Auto 0.4 K/mm3 (0.1-0.6); Monocytes Percent Auto 9.1 % (2.6-8.5); Neutrophils Absolute Auto 2.5 K/mm3 (1.3-6.7); Neutrophils Percent Auto 56.1 % (45.5-73.1); Platelet Count Result 153 k/mm3 (150-375); Red Blood Count 5.01 M/mm3 (4.6-6.20); Red Cell Distribution Width 14.6 % (11.5-14.5); White Blood Count 4.4 K/mm3 (4.5-10.0)
--- NOTE | 2024-11-18 15:19 | WPDPFTINT ---
PFT Procedure Performed PFT Procedure Performed Plethysmography (Lung Vol) Diffusing Cap (DLCO) Flow Vol Loop Spirometry w/o Bronchodil PFT Interpretation This is a pulmonary function test with spirometry, plethysmography and diffusing capacity. The test was performed and results interpreted in accordance with the 2019 and 2005 ATS/ERS Task Force guidelines respectively using the Global Lung Function Initiative-2012 reference equations. Patient demonstrated good effort and cooperation. Reproducibility criteria were met. The quality of the spirometry maneuver was Grade A. Findings: Spirometry: There is decreased maximal expiratory airflow at low lung volumes with concave expiratory flow tracing. The contour the inspiratory flow tracing is normal. The FVC is 3.39 L, 99% predicted. The FEV1 is 2.14 L, 82% predicted. The FEV1: FVC ratio 63%. Plethysmography: The total lung capacity is 5.93 L, 98% predicted. The functional residual capacity is 3.00 L, 95% predicted. The residual volume is 1.97 L, 87% predicted. Diffusing capacity: The diffusing capacity unadjusted for hemoglobin and carboxyhemoglobin is 17.3, 75% predicted. The diffusing capacity adjusted for alveolar volume is 3.66, 89% predicted. In comparison to prior pulmonary function testing on 03/17/2016, the pre bronchodilator FVC is unchanged from 3.33 L to 3.39 L. The pre bronchodilator FEV1 is unchanged from 2.26 L to 2.14 L. The total lung capacity is unchanged from 5.51 L to 5.93 L. The functional residual capacity is increased from 2.33 L to 3.00 L. The residual volume is unchanged from 1.75 L to 1.97 L. The diffusing capacity unadjusted for hemoglobin and carboxyhemoglobin is unchanged from 17.2 to 17.3. The diffusing capacity adjusted for alveolar volume is unchanged from 3.57 to 3.66. Impression: The spirometry is normal without evidence of an obstructive abnormality. The lung volumes are normal. The diffusing capacity is normal. In comparison to previous pulmonary function testing on 03/17/2016 there has been a greater than anticipated time dependent increase in the functional residual capacity with no significant change in the FVC, FEV1, total lung capacity, residual volume or diffusing capacity. Clinical correlation is recommended.
--- OUTSIDE RECORDS SUMMARY | 2024-11-24 18:09 | XMS_ITS | CONTINUITY OF CARE DOCUMENT ---
Author Name chad bonilla Address Unknown Organization [facility] Office Address [address] [place] [address] [address] [place] [address] Phone [phone] Care Team Providers Care District Representative Name Role Phone YULISA BEASLEY MD Unavailable [phone] YULISA BEASLEY MD Unavailable [phone] INSURANCE PROVIDERS Payer name Policy type / Coverage type [place] red green party ID [employer] [facility] Commercial insurance [facility] [id number]
--- OUTSIDE RECORDS SUMMARY | 2024-11-24 18:10 | XMS_ITS | Encounter Summary ---
Author Organization [facility] Address [address] [place] [address] Phone Care Team Providers Care Filing Clerk Name Role Phone Unknown, Sumanth Primary Care Provider Unavail able Encounter Details Date Type Department Care Team (Latest Contact Info) Description 02/14/2021 Orders Only [facility] Scanning, Provider Social History Tobacco Use Types Packs/Day Years Used Date Smoking Tobacco: Former Sex and Gender Information Value Date Recorded Sex Assigned at Not on file Legal Sex Male 11:16 AM CERTIFIED RESIDENTIAL MEDICATION AIDE Gender Identity Not on file Sexual [...] on filedocumented in this encounter Care Teams Filing Clerk Relationship Specialty Start Date End Date UnknownSumanth PCP - General 11/21/20 03/14/21 documented as of this encounter
--- OUTSIDE RECORDS SUMMARY | 2024-11-24 18:10 | XMS_ITS | Encounter Summary ---
Author Organization [facility] Address [address] [place] [address] Phone Care Team Providers Care Motorcycle Tester Name Role Phone Unknown, Sumanth Primary Care Provider Unavail able Encounter Details Date Type Department Care Team (Late st Contact Info) Description 02/18/2021 Telephone [facility] Pulmonary [address] [place] [address] [place] [address] Edwin Dodd CPhT Social History Tobacco Use Types Packs/Day Years Used Date Smoking Tobacco: Former Sex and Gender Information Value Date Recorded Sex Assigned at Not on file Legal Sex Male 11:16 AM UNLOAD ASSOCIATE Gender Identity Not on file Sexual Orientation [...] on filedocumented in this encounter Care Teams Motorcycle Tester Relationship Specialty Start Date End Date Unknown, Sumanth PCP - General 11/21/20 03/14/21 documented as of this encounter
--- OUTSIDE RECORDS SUMMARY | 2024-11-24 18:10 | XMS_ITS | Continuity of Care Document ---
Author Organization [facility] Address [address] [facility] [address] [place] [address] Phone Care Team Providers Care Battery Mechanic Name Role Phone Arcadio Zepeda MD Unavailable [...] OFFICE/OUTPAT IENT VISIT EST [facility] , [address] [facility] [address], [place], [address], tel:[phone] [facility] right knee (chief complaint) Knee joint replacement Feb-2 2-201 3 Kately[address]. [address] [facility] [address] [place], [place], [id number] . tel:[phone] Referring Provider: Oscar Oconnell, [address], [place], [address] . tel:[phone] OFFICE/OUTPAT IENT VISIT EST [facility] , [address] [facility] [address], [place], [address], [place] [phone] [facility] bilateral knee (chief complaint) Hypertension, UnspecifiedOs teoarthrosis, unspecified whether generalized or localized, involving lower legKnee joint replacement 2 Kately[address]. [address], [place], [place], [id number] . tel: [phone] Family History Family Member Type Diagnosis Age At Onset Problem (finding) Family history of Cance r Payers Payer name Insurance type Covered republican ID Authoriza tion(s) No Information Social History [...]
--- OUTSIDE RECORDS SUMMARY | 2024-11-24 18:10 | XMS_ITS | Encounter Summary ---
Author Organization [facility] Healthcare Address [address] [place] [address] Care Team Providers Care Flight Crew Ordnanceman Name Role Phone Unknown, Notinfile Primary Care Provider Unavail able Reason for Visit * Reason Comments Shortness of Breath Encounter Details Date Type Department Care Team (Late st Contact Info) Description 11/21/2020 11:33 AM BOX SEALING INSPECTOR - 11/21/2020 2:09 PM BOX SEALING INSPECTOR Emergency [facility] Emergency Department [address] [place] [address] Lilibeth Beth MD [address] [facility] [address] [place] [address] Shortness of breath (Primary Dx) Discharge Disposition: Discharge to home or self care Social History Tobacco Use Types Packs/Day Years Used Date Smoking Tobacco: Former Sex and Gender Information Value Date Recorded Sex Assigned at Not on file Legal Sex Male 11:16 AM BOX SEALING INSPECTOR Gender Identity Not on file Sexual Orientation Not on file documented as of this encounter Last Filed Vital Signs Vital Sign Reading Time Taken Comments Blood Pressure 143/79 11/21/2020 1:30 PM BOX SEALING INSPECTOR Pulse 64 11/21/2020 1:30 PM BOX SEALING INSPECTOR Temperature 36.5 ??C (97.7 ??F) 11/21/2020 11:[address] Respiratory Rate 11 11/21/2020 1:30 PM BOX SEALING INSPECTOR Oxygen Saturation 94% 11/21/2020 1:30 PM BOX SEALING INSPECTOR Inhaled Oxygen Concentration - - Weight 80.3 kg (177 lb) 11/21/2020 11:27 AM BOX SEALING INSPECTOR Height 167.6 cm (5' 6 ) 11/21/2020 11:27 AM BOX SEALING INSPECTOR Body Mass Index 28.57 11/21/2020 11:27 AM BOX SEALING INSPECTOR documented in this encounter Discharge Diagnoses Diagnosis [...] - ESSENTIAL (PRIMARY) HYPERTENSION Unspecified essential hypertension 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 Your being followed up with physicians for a bronchoscope which is a camera test of your airways on . Please ensure you follow-up with this. If they find a suspicious mass or lesion, please have them refer you to physicians at [facility] if you would like to be seen here. If you have any severe worsening shortness of breath, chest pain, high fevers, coughing up blood, or any other concerning symptoms please return to the closest emergency department. SEALING INSPECTOR SEALING INSPECTOR * Attachments The following attachments cannot be sent through Care Everywhere. 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 Past Medical History: Diagnosis Date ??? AAA (abdominal aortic aneurysm) ([facility]) ??? Cancer ([facility]) ??? COPD (chronic obstructive pulmonary disease) ([facility]) ??? Diabetes mellitus ([facility]) ??? Hypertension History reviewed. No pertinent surgical [...] with voice recognition software. Occasional wrong-word or '[id number]' substitutions may have occurred due to the inherent limitations of voice recognition software. Read the chart carefully and recognize, using context, where substitutions have occurred. Attending Summary of Care ED Course as of Nov 21 1616 Time: 11/21 1222 Comment: Call to [facility], will try to fax over recent reports By: Huey Galindo MD Time: 11/21 1242 Comment: [facility] CT report - chest CT 11/17/20 Mod emphysema, calcified pulm nodules and calcified hilar/mediastinal lymph nodes c/w granulomatousdisease, recurrent partial collapse of lower lobe collapse, no pleural effusion. Impression: category 4A suspicious, bronchoscopy is recommended, for recurrent partial collapse of left lung lower lobe By: Huey Galindo MD Time: 11/21 7016 Comment: ED workup with mild hypokalemia otherwise [...] to be seen by physicians at [facility], he can be referred by his treating physician. Patient was agreeable with this plan. I have given him strict return precautions. All questions were answered, okay for discharge By: Huey Galindo MD Time: 11/21 1357 Comment: Attending MDM: 70M with hx DM, HTN, COPD, AAA p/w concern for lung obstruction. He is being worked up outpatient through [facility] but presented here today for a 2nd opinion and 's concern that he was breathing differently, though patient comfortable and reports feeling at baseline. He is set-up for bronch this week at [facility]. Discussed that we will evaluate for acute pathology such as PNA, PTX, ACS that could be making dyspnea worse or require intervention. If no acute process, will give follow-up resources but [facility] further oncologic or pulmonologic treatment as needed. Patient in agreement. Dispo pending diagnostics. By: Lilibeth Beth MD 1. Shortness of breath Huey Galindo MD Resident 11/21/20 1550 I have seen and examined the patient on 11/21/2020. I agree with the findings and plan of care as documented in the resident's note. Lilibeth Beth MD 11/21/20 1617 SEALING INSPECTOR SEALING INSPECTOR * Sheila Saleh RN - 11/21/2020 11:33 AM CST Bed: [facility] Expected date: Expected time: Means of arrival: Car Comments: Sheila Saleh RN 11/21/20 1133 SEALING INSPECTOR * Florida Woodward RN - 11/21/2020 11:32 AM CST Pt reports to ED with SOB, reports he has a partially collapsed left lung. Pt scheduled for bronchoscopy on 11/25/2020 but is having worsening SOB and increased work of breathing. SEALING INSPECTOR documented in this encounter Miscellaneous Notes * Result Encounter Note - Berta Benitez RN - 11/21/2020 2:09 PM BOX SEALING INSPECTOR Results negative, will notify patient by phone call or mychart, if active. SEALING INSPECTOR * ED Procedure Note - Lilibeth Beth MD - 11/21/2020 11:44 AM BOX SEALING INSPECTOR Associated Order(s): ECG 12 lead Procedure ECG [...] MD 11/21/20 1145 Lilibeth Beth MD 12/16/203 SEALING INSPECTOR SEALING INSPECTOR documented in this encounter Plan of Treatment Not on file documented as of this encounter Procedures Procedure Name Priority Date/Time Associated Diagnosis Comments XR CHEST 1 VIEW ED 11/21/2020 12:12 PM BOX SEALING INSPECTOR TROPONIN I HIGH-SENSITIVITY Routine 11/21/2020 11:49 AM BOX SEALING INSPECTOR COVID-19 CORONAVIRUS RNA Routine 11/21/2020 11:49 AM BOX SEALING INSPECTOR DIFFERENTIAL AUTO STAT 11/21/2020 11: 49 AM BOX SEALING INSPECTOR PRO B-TYPE NATRIURETIC PEPTIDE STAT 11/21/2020 11:49 AM BOX SEALING INSPECTOR CBC WITH AUTO DIFFERENTIAL STAT 11/21/2020 11:49 AM BOX SEALING INSPECTOR APTT STAT 11/21/2020 11:49 AM BOX SEALING INSPECTOR PROTIME-INR STAT 11/21/2020 11:49 AM BOX SEALING INSPECTOR COMPREHENSIVE METABOLIC PANEL STAT 11/21/2020 11:49 AM BOX SEALING INSPECTOR ECG 12-LEAD STAT 11/21/2020 11:44 AM BOX SEALING INSPECTOR POCT GLUCOSE DEVICE Routine 11/21/2020 1 1:27 AM BOX SEALING INSPECTOR documented in this encounter Results * XR Chest 1 Vw Portable (11/21/2020 12:12 PM BOX SEALING INSPECTOR) Anatomical Region Laterality Modality Body, Chest N/A Computed Radiogr aphy 11/21/2020 12:5 7 PM BOX SEALING INSPECTOR Impressions 11/21/2020 1:03 PM BOX SEALING INSPECTOR No prior exam is available for comparison. [...] Guanakito Butt M.D. Narrative 11/21/2020 1:03 PM BOX SEALING INSPECTOR EXAMINATION: 1 view chest radiograph Procedure Note [...] lt * Differential, auto (11/21/2020 11:49 AM BOX SEALING INSPECTOR) Neutrophil abs 3.5 1.7 - 6.5 K/cumm [facility] Imm gran abs 0.0 0.0 - 0.1 K/cumm [facility] Lymphocyte abs 1.2 0.8 - 3.3 K/cumm [facility] Monocyte abs 0.5 0.2 - 0.8 K/cumm [facility] Eosinophil abs 0.2 0.0 - 0.5 K/cumm [facility] Basophil abs 0.0 0.0 - 0.1 K/cumm [facility] Neutrophil pct 65.1 % [facility] Comment: Interpretive Data Percent cell count reference ranges are not reported, since discordance with absolute values may lead to misinterpretation of CBC data. Current Interpretive Data was last revised on 2018. Imm gran pct 0.2 % [facility] Comment: Interpretive Data Percent cell count reference ranges are not reported, since discordance with absolute values may lead to misinterpretation of CBC data. Current Interpretive Data was last revised on 2018. Lymphocyte pct 21.4 % [facility] Comment: Interpretive Data Percent cell count reference ranges are not reported, since discordance with absolute values may lead to misinterpretation of CBC data. Current Interpretive Data was last revised on 2018. Monocyte pct 9.2 % [facility] Comment: Interpretive Data Percent cell count reference ranges are not reported, since discordance with absolute values may lead to misinterpretation of CBC data. Current Interpretive Data was last revised on 2018. Eosinophil pct 3.7 % [facility] Comment: Interpretive Data Percent cell count reference ranges are not reported, since discordance with absolute values may lead to misinterpretation of CBC data. Current Interpretive Data was last revised on 2018. Basophil pct 0.4 % [facility] Comment: Interpretive Data Percent cell count reference ranges are not reported, since discordance with absolute values may lead to misinterpretation of CBC data. Current Interpretive Data was last revised on 2018. Blood specimen (specimen) 11/21/2020 11:49 AM BOX SEALING INSPECTOR 11/21/2020 11:56 AM BOX SEALING INSPECTOR us Huey Galindo MD LAB BLOOD ORDERABLES Final R esult [facility] Department [place] [address] * COVID-19 Coronavirus RNA Nasopharyngeal (11/21/2020 11:49 AM BOX SEALING INSPECTOR) COVID-19 RNA Not Detected [facility] Comment: Interpretive Data Testing performed at [facility] Infectious Disease [facility]. The 2018-Novel Coronavirus [...] revised on 2020. First COVID-19 test? Unknown [facility] Employeed in healthcare? No [facility] status? No [facility] Group care resident? No [facility] Hospitalized? No [facility] Is patient in ICU? No [facility] Symptomatic as defined by CDC? Yes [facility] Nasopharyngeal 11/21/2020 11 :49 AM BOX SEALING INSPECTOR 11/21/2020 3:18 PM BOX SEALING INSPECTOR Narrative [facility] - 11/22/2020 2:20 AM BOX SEALING INSPECTOR What is the reason for testing?->Likely to be discharged Date of symptom onset->11/19/20 us Huey Galindo MD LAB MICROBIOLOGY - GENERAL O RDERABLES Final Result Performing Organization Address [facility] de Phone Number [facility] [place] [address] * Troponin I high-sensitivity (11/21/2020 11:49 AM BOX SEALING INSPECTOR) Trop I hs 10 <=35 ng/L [facility] Comment: Interpretive Data For further hscTnI resources including the diagnostic algorithm and an aid in interpretation, copy and paste this link: https://bjab.testcatalog.org/show/hsTrop-1 Current Interpretive Data last revised 2020. Blood specimen (specimen) 11/21/2020 11:49 AM BOX SEALING INSPECTOR 11/21/2020 11:56 AM BOX SEALING INSPECTOR Narrative [facility] - 11/21/2020 12:32 PM BOX SEALING INSPECTOR THE COLLECTION LOCATION IS [address] us Huey Galindo MD LAB BLOOD ORDERABLES Final R esult Performing Organization Address [facility] de Phone Number [facility] Department [place] [address] * aPTT (11/21/2020 11:49 AM BOX SEALING INSPECTOR) aPTT 30 25 - 37 sec [facility] Comment: Interpretive data Heparin therapeutic range: 60-90 seconds Range based on correlation with therapeutic heparin activity range of 0.3-0.7 units/ml. Current interpretive data was last revised on 2019. Blood specimen (specimen) 11/21/2020 11:49 AM BOX SEALING INSPECTOR 11/21/2020 12:04 PM BOX SEALING INSPECTOR Narrative [facility] - 11/21/2020 12:26 PM BOX SEALING INSPECTOR THE [facility] COLLECTION LOCATION IS [address] Huey Galindo MD LAB BLOOD ORDERABLES Final R esult Performing Organization Address [facility] Co de Phone Number [facility] [place] [address] * Protime-INR (11/21/2020 11:49 AM BOX SEALING INSPECTOR) PT 11.4 8.6 - 13.0 sec [facility] INR 1.1 0.8 - 1.2 [facility] Comment: Interpretive data Oral anticoagulant therapeutic ranges: Venous thromboembolism prophylaxis or treatment: 2.0-3.0 CARDIOLOGY Standard range: 2.0-3.0 High-intensity range: 2.5-3.5 Refer to indication-specific guidelines for appropriate target ranges for prosthetic heart valve replacement. Current interpretive data was last revised on 2019. Blood specimen (specimen) 11/21/2020 11:49 AM BOX SEALING INSPECTOR 11/21/2020 12:04 PM BOX SEALING INSPECTOR Narrative [facility] - 11/21/2020 12:26 PM BOX SEALING INSPECTOR THE [facility] COLLECTION LOCATION IS [address] Huey Galindo MD LAB BLOOD ORDERABLES Final R esult Performing Organization Address [facility] de Phone Number [facility] [place] [employer] [place] [address] * Pro B-type natriuretic peptide (11/21/2020 11:49 AM BOX SEALING INSPECTOR) NT-proBNP <50 <=300 pg/mL [facility] Comment: Interpretive Comments: A. Dyspnea in [...] 2018. Blood specimen (specimen) 11/21/2020 11:49 AM BOX SEALING INSPECTOR 11/21/2020 11:56 AM BOX SEALING INSPECTOR Narrative [facility] - 11/21/2020 2:13 PM BOX SEALING INSPECTOR THE COLLECTION LOCATION IS [address] us Huey Galindo MD LAB BLOOD ORDERABLES Final R esult [facility] Department of Laboratories [place], [place] [id number] * (ABNORMAL) Comprehensive metabolic panel (11/21/2020 11:49 AM BOX SEALING INSPECTOR) Sodium 142 135 - 145 mmol/L [facility] Potassium, pl 3.0(L) 3.3 - 4.9 mmol/L [facility] Chloride 102 97 - 110 mmol/L [facility] CO2 30 22 - 32 mmol/L [facility] Anion gap 10 2 - 15 mmol/L [facility] BUN 8 8 - 25 mg/dL [facility] Creatinine 1.27 0.80 - 1.30 mg/dL [facility] Glucose 141 70 - 199 mg/dL [facility] Comment: Interpretive Data Fasting glucose >/= [...] 2017. Calcium 9.5 8.5 - 10.3 mg/dL [facility] Bilirubin, total 1.1 0.1 - 1.2 mg/dL [facility] Protein, pl 7.2 6.5 - 8.5 g/dL [facility] Albumin 4.6 3.5 - 5.0 g/dL [facility] Alk phos 77 40 - 130 Units/L [facility] ALT 33 7 - 55 Units/L [facility] AST 30 10 - 50 Units/L [facility] Blood specimen (specimen) 11/21/2020 11:49 AM BOX SEALING INSPECTOR 11/21/2020 11:56 AM BOX SEALING INSPECTOR Narrative [facility] - 11/21/2020 12:22 PM BOX SEALING INSPECTOR THE COLLECTION LOCATION IS [address] us Huey Galindo MD LAB BLOOD ORDERABLES Final R esult [facility] Department [place] [address] * CBC with auto differential (11/21/2020 11:49 AM BOX SEALING INSPECTOR) [facility] WBC 5.4 3.8 - 9.9 K/cumm [facility] Hgb 14.4 13.0 - 17.5 g/dL [facility] Hct 44.3 38.9 - 50.3 % [facility] Plt 162 150 - 400 K/cumm [facility] MPV 10.5 9.1 - 12.3 fL [facility] RBC 5.08 4.30 - 5.80 M/cumm [facility] MCV 87.2 81.3 - 96.4 fL [facility] MCH 28.3 27.1 - 33.3 pg [facility] MCHC 32.5 32.3 - 35.7 g/dL [facility] RDW CV 14.2 11.1 - 14.9 % [facility] RDW SD 45.5 35.7 - 48.1 fL [facility] NRBC abs 0.00 0.00 - 0.01 K/cumm [facility] Blood specimen (specimen) 11/21/2020 11:49 AM BOX SEALING INSPECTOR 11/21/2020 11:56 AM BOX SEALING INSPECTOR Narrative [facility] - 11/21/2020 12:03 PM BOX SEALING INSPECTOR THE COLLECTION LOCATION IS [address] us Huey Galindo MD LAB BLOOD ORDERABLES Final R esult [facility] Department [place] [address] * ECG 12-LEAD (11/21/2020 11:44 AM BOX SEALING INSPECTOR) Narrative [facility] - 11/21/2020 11:44 AM BOX SEALING INSPECTOR Lilibeth Beth MD ? 12/16/2020 ??9:23 PM [...] Re sult - Final Performing Organization Address [facility] Co de Phone Number [facility] * POCT glucose (11/21/2020 11:27 AM BOX SEALING INSPECTOR) [facility] Glucose, POC 127 70 - 199 mg/dL [facility] Blood specimen (specimen) 11/21/2020 11:27 AM BOX SEALING INSPECTOR 11/21/2020 11:27 AM BOX SEALING INSPECTOR Notinfile Unknown LAB POCT ORDERABLES - DEVICE F inal Result Performing Organization Address [facility] Phone Number [facility] Department [place] [address] documented in this encounter Visit Diagnoses Diagnosis [...] COVID: Suspected 11/21/2020 11/21/2020 11/22/2020 2:21 AM BOX SEALING INSPECTOR documented as of this encounter Care Teams Flight Crew Ordnanceman Relationship Specialty Start Date End Date Unknown, Notinfile PCP - General 11/21/20 03/14/21 documented as of this encounter
--- OUTSIDE RECORDS SUMMARY | 2024-11-24 18:10 | XMS_ITS | Encounter Summary ---
Author Organization [facility] Address [address] [place] [address] Phone Care Team Providers Care Medical Coding Auditor Name Role Phone Unknown, Notinisha Primary Care Provider Unavail able Encounter Details Date Type Department Care Team (Late st Contact Info) Description 03/07/2021 Telephone [facility] Pulmonary [address] [facility] [address] [place] [address] [place] [address] Michele Martinez RMA Social History Tobacco Use Types Packs/Day Years Used Date Smoking Tobacco: Former Sex and Gender Information Value Date Recorded Sex Assigned at Not on file Legal Sex Male 11:16 AM PRODUCT 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 documented in this encounter Plan of Treatment Not on file documented as of this encounter Visit Diagnoses Not on filedocumented in this encounter Care Teams Medical Coding Auditor Relationship Specialty Start Date End Date Unknown, Sumanth PCP - General 11/21/20 03/14/21 documented as of this encounter
--- OUTSIDE RECORDS SUMMARY | 2024-11-24 18:10 | XMS_ITS | Clinical Summary ---
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
--- OUTSIDE RECORDS SUMMARY | 2024-11-24 18:10 | XMS_ITS | Encounter Summary ---
Author Organization [facility] Healthcare Address [address] [place] [address] Care Team Providers Care Analytical Consultant Name Role Phone Liza Haynes MD Primary Care Provider [phone] Reason for Referral * Procedure (Routine) - Canceled Specialty Diagnoses / Procedures Referred By Misael castano Referred To Contact Diagnoses Atelectasis Procedures Bronchoscopy -[facility] Interventional Pulm; Bronchoscopy Ruperto Forde Chi, MD [address] [place] [address] Phone: tel: fax: [facility] (All Locations) Referral ID Status Reason Start Date Expiration Date V isits Requested Visits Authorized [id number] Canceled 03/08/2021 04/07/2022 1 1 Reason for Visit * Reason Comments Bronchoscopy * Procedure (Routine) - Canceled Specialty Diagnoses / Procedures Referred By Misael castano Referred To Contact Diagnoses Atelectasis Procedures Bronchoscopy -[facility] Interventional Pulm; Bronchoscopy Ruperto Forde Chi, MD [address] [place] [address] Phone: tel: fax: [facility] (All Locations) Referral ID Status Reason Start Date Expiration Date V isits Requested Visits Authorized [id number] Canceled 03/08/2021 04/07/2022 1 1 Encounter Details Date Type Department Care Team (Latest Contact Info) Description 03/18/2021 8:12 AM CDT - 03/18/2021 11:59 PM CDT Hospital Encounter [facility] Interventional Pulmonology [address] [place] [address] Ruperto Forde Chi, MD [address] [place] [address] Atelectasis Discharge Disposition: Discharge to home or [...] on file Legal 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 Please call the [facility] Interventional Pulmonology Department at , Sunday through [...] days. If this is an emergency, call [phone]. If you are unable to speak to the staff during normal business hours, please call and ask for the Courtroom Reporter stone polisher. I have received and understand these instructions [...] mcg tablet Take 50 mcg by mouth ground service equipment mechanic before breakfast metFORMIN (GLUCOPHAGE) 1,000 mg tablet [...] such as a assisted [facility] or shelter? No 5. Are you currently waiting on the results of a COVID test? No Pre-procedure instructions: 1. Instructed the patient to arrive at [facility] Admitting/Registration Office on [facility] at 03/18/21 at 0900 2. If the patient uses home oxygen, they are to bring enough home oxygen supply to get themselves to and from [facility]. 3. Patient stated that they do use a CPAP or BIPAP device. Instructed patient, if they use a CPAP or BIPAP, to bring in their device or bring documentation of their CPAP/BIPAP settings with them to their appointment. 4. The patient will need a mechanic welder truck driver or will need to arrange their own [...] are familiar on the location of the [facility] Admitting Office for pre-procedure registration and any lab work that may be ordered. Discussed that the patient is not to go to the [facility] for their appointment. Confirmed they are aware of what time to arrive at the [facility] Admitting Office. 10. I reviewed the following [facility] Visitor Policy: A. Each patient is only [...] wear a face covering upon entrance to [facility]. If you or your visitors do not [...] - 03/18/2021 10:13 AM CDTAssociated Order(s): BRONCHOSCOPY [facility] Interventional Pulmonary Patient Name: Carmella Garcia Procedure [...] After obtaining informed consent, the Diagnostic Bronchoscope [id number] was introduced through the mouth, via laryngeal [...] sedation Informed Consent: Benefits, risks, alternatives discussed; patient/call center support representative accepts/agrees tosedation/anesthesia plan and to the [...] therapy. Please contact the microbiology laboratory at [phone] if identification or susceptibility testing is clinically indicated. (.) [facility] Organism [facility] Bronchial washing 03/18/2021 11:31 AM CDT 03/18/2021 1:30 PM CDT Narrative [facility] - 04/15/2021 8:11 AM CDT Collection date/time has been modified to:03/18/2021 11:31. Previous Collection date/time: 11/12/2020 11:31. Testing performed by [facility] Microbiology Laboratory ([phone]). us Ruperto Forde MD LAB MICROBIOLOGY - GENERAL ORDERABLES Final Result [facility] Department [place] [address] * Mycobacteriology (AFB) culture and acid-fast stain Bronchial washing Bronchus main stem (111:31 AM CDT) Direct Specimen Exam Stain: No Acid-fast bacilli seen [facility] Report Final Report: No growth of acid-fast bacilli [facility] Bronchial washing (Bronchus main stem) 03/18/2021 11:31 AM CDT 03/18/2021 1:30 PM CDT Narrative JOAQUIM [facility] - 05/15/2021 10:42 AM CDT Testing performed by [facility] Microbiology Laboratory ([phone]). us Ruperto Forde MD LAB MICROBIOLOGY - GENERAL ORDERABLES Final Result Performing Organization Address [facility] de Phone Number [facility] Department [place] [address] * Aerobic culture and gram stain Bronchial washing Bronchus main stem (03/18/2021 11:31 AM CDT) Direct Specimen Exam Stain: Cytospin Gram stain shows: Rare polymorphonuclear leukocytes seen. Few squamous epithelial cells seen. Rare mixed bacterial maral seen on Gram stain. [facility] Report Final Report: Growth indicates upper respiratory maral. [facility] Organism GROWTH INDICATES UPPER RESPIRATORY MARAL. [facility] Bronchial washing (Bronchus main stem) 03/18/2021 11:31 AM CDT 03/18/2021 1:30 PM CDT Narrative [facility] - 03/20/2021 8:55 AM CDT Testing performed by [facility] Microbiology Laboratory ([phone]) Specimens submitted from normally sterile body sites [...] GENERAL ORDERABLES Final Result Performing Organization Address [facility] de Phone Number [facility] Department [place] [address] * Surgical pathology (03/18/2021 11:20 AM CDT) Tissue (Bronchus biopsy) 03/18/2021 11:20 AM CDT 03/18/2021 1:29 PM CDT Narrative PATHOLOGY [facility] - 03/22/2021 1:14 PM CDT EPIC results best viewed via link to PDF [facility] [place] [address] SURGICAL PATHOLOGY REPORT FINAL Patient Name: ?? CARMELLA GARCIA Gender: ??M : ??1950 (Age: 70) Address: ??[address] [place], [place] ??[address] Hospital #: ??[id number] Taken:03/18/2021 Received:03/18/2021 Reported: 03/22/2021 Patient Type: [facility] SDS ?? Service: Pulmonary Location: [facility] Physician(s): ??Yi Nazario M.D. Diagnosis: Lung, [...] labeled A1. ??Jar 0. axxm/03/18/2021 16:20 PA(s): [facility] Zel[facility] By this signature, I attest that the above diagnosis is based upon my personal examination of the slides(and/or other material). Addenda/Procedures The performance characteristics of some immunohistochemical stains, fluorescence in-situ hybridization tests and immunophenotyping by flow cytometry cited in this report (if any) were determined by the Surgical Pathology Department at [facility] as part of an ongoing quality assurance/r&d lab technician program and in compliance with federally mandated [...] determined by the Surgical Pathology Department of [facility]. ??It has not been cleared or approved by the U. S. Food and Drug Administration. IMAGES AND SCANNED DOCUMENTS, IF INCLUDED, ONLY VIEWABLE IN PDF VERSION OF REPORT us Ruperto Forde MD LAB PATHOLOGY ORDERABLES F inal Result PATHOLOGY [facility] 3rd Floor [place], [place] [phone] * Bronchoscopy -[facility] Interventional Pulm; Bronchoscopy (03/18/2021 10:13 AM CDT) Anatomical Region Laterality Modality Other Narrative Procedure Note Ruperto Forde Chi, MD - 03/18/2021 10:13 AM CDT [facility] Interventional Pulmonary Patient Name: Carmella Garcia Procedure [...] After obtaining informed consent, the Diagnostic Bronchoscope [id number] was introduced through the mouth, via laryngeal [...] mcg tablet Take 50 mcg by mouth ground service equipment mechanic before breakfast irbesartan (AVAPRO) 300 mg tablet Take 300 mg by mouth nightly added in this encounter Care Teams Analytical Consultant Relationship Specialty Start Date End Date Liza Haynes MD [address] [place] [address] PCP - General 03/15/21 documented as of this encounter
--- OUTSIDE RECORDS SUMMARY | 2024-11-24 18:10 | XMS_ITS | Encounter Summary ---
Author Organization [facility] Address [address] [place] [address] Phone Care Team Providers Care Cell Manager Name Role Phone Unknown, Notinfile Primary Care Provider Unavail able Liza Haynes MD Primary Care Provider [phone] Encounter Details Date Type Department Care Team (Latest Contact Info) Description 12/23/2020 Orders Only [facility] Scanning, Provider Social History Tobacco Use Types Packs/Day Years Used Date Smoking Tobacco: Former Sex and Gender Information Value Date Recorded Sex Assigned at Not on file 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
--- OUTSIDE RECORDS SUMMARY | 2024-11-24 18:10 | XMS_ITS | Referral Summary ---
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
--- OUTSIDE RECORDS SUMMARY | 2024-11-24 18:10 | XMS_ITS | Encounter Summary ---
Author Organization [facility] Address [address] [place] [address] Phone Care Team Providers Care Botany Technician Name Role Phone Unknown, Notinfsreekanth Primary Care Provider Unavail able Encounter Details Date Type Department Care Team (Late st Contact Info) Description 02/23/2021 Telephone [facility] Pulmonary [address] [facility] 8[address] [place] [address] [place] [address] Michele Martinez RMA Social History Tobacco Use Types Packs/Day Years Used Date Smoking Tobacco: Former Sex and Gender Information Value Date Recorded Sex Assigned at Not on file 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
--- OUTSIDE RECORDS SUMMARY | 2024-11-24 18:10 | XMS_ITS | Encounter Summary ---
Author Organization [facility] Address [address] [place] [address] Phone Care Team Providers Care Dispute Resolution Specialist Name Role Phone Unknown, Notinfile Primary Care Provider Unavail able Liza Haynes MD Primary Care Provider [phone] Encounter Details Date Type Department Care Team (Latest Contact Info) Description 11/26/2020 Orders Only [facility] Scanning, Provider Social History Tobacco Use Types Packs/Day Years Used Date Smoking Tobacco: Former Sex and Gender Information Value Date Recorded Sex Assigned at Not on file 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 Gender Identity Not on file Sexual Orientation Not on file documented as of this encounter Plan of Treatment Not on file documented as of this encounter Procedures Procedure Name Priority Date/Time Associated Diagnosis Comments SCAN - RADIOLOGY/IMAGING 11/26/2020 documented in this encounter Results * SCAN - RADIOLOGY/IMAGING (11/26/2020) Anatomical Region Laterality Modality Other us Provider Scanning Final Result documented in this encounter Visit Diagnoses Not on filedocumented in this encounter Care Teams Dispute Resolution Specialist Relationship Specialty Start Date End Date Unknown, Notinfsreekanth PCP - General 11/21/20 03/14/21 Liza Haynes MD [address] [place] [address] PCP - General 03/15/21 documented as of this encounter
--- OUTSIDE RECORDS SUMMARY | 2024-11-24 18:10 | XMS_ITS | Encounter Summary ---
Author Organization [facility] Address [address] [place] [address] Phone Care Team Providers Care Planning Management It Specialist Name Role Phone Unknown, Notinfile Primary Care Provider Unavail able Liza Haynes MD Primary Care Provider [phone] Encounter Details Date Type Department Care Team (Latest Contact Info) Description 11/19/2019 Orders Only [facility] Scanning, Provider Social History Tobacco Use Types Packs/Day Years Used Date Smoking Tobacco: Never Assessed Sex and Gender Information Value Date Recorded Sex Assigned at Not on file 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 Patient classified as Low Risk for COVID-19 and has one negative COVID-19 test. Patient meets criteria for COVID-19 isolation discontinuation Maribell Marmolejo RN 11/24/2020 11/22/2020 11/22/2020 11/24/2020 7:39 AM DISC PAD KNOCKOUT WORKER documented as of this encounter Care Teams Planning Management It Specialist Relationship Specialty Start Date End Date Unknown, Notinfile PCP - General 11/21/20 03/14/21 Liza Haynes MD [address] [place] [address] PCP - General 03/15/21 documented as of this encounter
--- OUTSIDE RECORDS SUMMARY | 2024-11-24 18:10 | XMS_ITS | Encounter Summary ---
Author Organization [facility] Healthcare Address [address] [place] [address] Care Team Providers Care Production Service Manager Name Role Phone Unknown, Notinfile Primary Care Provider Unavail able Reason for Visit * Reason Onset Date Comments Test Results 11/22/2020 Encounter Details Date Type Department Care Team (Late st Contact Info) Description 11/22/2020 Telephone [facility] HealthCare/ Physicians [address] [place] [address] Berta Benitez RN Test Results Social History Tobacco Use Types Packs/Day Years Used Date Smoking Tobacco: Former Sex and Gender Information Value Date Recorded Sex Assigned at Not on file Legal Sex Male 11:16 AM CHECK PILOT Gender Identity Not on file Sexual Orientation Not on file documented as of this encounter Miscellaneous Notes * Telephone Encounter - Berta Benitez RN - 11/22/2020 8:47 AM CHECK PILOT Unsuccessful attempt made to contact patient regarding Negative COVID-19 results. Phone number is disconnected. Will send letter to patients address on file. K PILOT documented in this encounter Plan of Treatment Not on file documented as of this encounter Visit Diagnoses Not on filedocumented in this encounter Additional Health Concerns Infection Onset Date Last Indicated Resolved Time COVID: Suspected 11/21/2020 11/21/2020 11/22/2020 2:21 AM CHECK PILOT Respiratory Infection (BONI), contact + droplet Comment:Automatically added due to negative COVID-19 result. Patient classified as Low Risk for COVID-19 and has one negative COVID-19 test. Patient meets criteria for COVID-19 isolation discontinuation Maribell Marmolejo RN 11/24/2020 11/22/2020 11/22/2020 11/24/2020 7:39 AM CHECK PILOT documented as of this encounter Care Teams Production Service Manager Relationship Specialty Start Date End Date Unknown, Notinfile PCP - General 11/21/20 03/14/21 documented as of this encounter
--- OUTSIDE RECORDS SUMMARY | 2024-11-24 18:10 | XMS_ITS | Encounter Summary ---
Author Organization [facility] Address [address] [place] [address] Phone Care Team Providers Care Library Cataloging Technician Name Role Phone Unknown, Notinfile Primary Care Provider Unavail able Reason for Visit * Reason Onset Date Comments Unsuccessful Phone Call 1 02/24/2021 Called [facility] (3rd) time to get imaging sent over to our PACS system. Rep states that they will send JUANCHO. Will call patient with recommedations once we get imaging. Encounter Details Date Type Department Care Team (Late st Contact Info) Description 02/24/2021 Documentation [facility] Pulmonary [address] [facility] 8th [place] [address] [place] [address] Michele Martinez RMA Unsuccessful Phone Call 1 (Called [facility] (3rd) time to get imaging sent over to our PACS system. Rep states that they will send JUANCHO. Will call patient with recommedations once we get imaging. 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 (3rd) time to get imaging sent over to our PACS system. Rep states that they will send JUANCHO. Will call patient with recommedations once we get imaging documented in this encounter Plan of Treatment Not on file documented as of this encounter Visit Diagnoses Not on filedocumented in this encounter Care Teams Library Cataloging Technician Relationship Specialty Start Date End Date Unknown, Notinfile PCP - General 11/21/20 03/14/21 documented as of this encounter
--- OUTSIDE RECORDS SUMMARY | 2024-11-24 18:10 | XMS_ITS | Encounter Summary ---
Author Organization [facility] Address [address] [place] [address] Phone Care Team Providers Care Beveling Machine Operator Name Role Phone Unknown, Notinfile Primary Care Provider Unavail able Liza Haynes MD Primary Care Provider [phone] Encounter Details Date Type Department Care Team (Latest Contact Info) Description 11/17/2020 Orders Only [facility] Scanning, Provider Social History Tobacco Use Types Packs/Day Years Used Date Smoking Tobacco: Never Assessed Sex and Gender Information Value Date Recorded Sex Assigned at Not on file Legal Sex Male 11:16 AM 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 Patient classified as Low Risk for COVID-19 and has one negative COVID-19 test. Patient meets criteria for COVID-19 isolation discontinuation Maribell Marmolejo RN 11/24/2020 11/22/2020 11/22/2020 11/24/2020 7:39 AM CONFERENCE CENTER COORDINATOR documented as of this encounter Care Teams Beveling Machine Operator Relationship Specialty Start Date End Date Unknown, Notinfile PCP - General 11/21/20 03/14/21 Liza Haynes MD [address] [place] [address] PCP - General 03/15/21 documented as of this encounter
--- OUTSIDE RECORDS SUMMARY | 2024-11-24 18:10 | XMS_ITS | Encounter Summary ---
Author Organization [facility] Address [address] [place] [address] Phone Care Team Providers Care Page Technician Name Role Phone Unknown, Notinfile Primary Care Provider Unavail able Reason for Referral * Procedure (Routine) - Canceled Specialty Diagnoses / Procedures Referred By Misael castano Referred To Contact Diagnoses Atelectasis Procedures Bronchoscopy -[facility] Interventional Pulm; Bronchoscopy Ruperto Forde Chi, MD [address] [place] [address] Phone: tel: fax: [facility] (All Locations) Referral ID Status Reason Start Date Expiration Date V isits Requested Visits Authorized [id number] Canceled 03/08/2021 04/07/2022 1 1 Encounter Details Date Type Department Care Team (Late st Contact Info) Description 03/08/2021 Orders Only [facility] Pulmonary [address] [facility] 8th [place] [address] [place] [address] Michele Martinez RMA Atelectasis (Primary Dx) Social History Tobacco Use Types Packs/Day Years Used Date Smoking Tobacco: Former Sex and Gender Information Value Date Recorded Sex Assigned at Not on file 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 Gender Identity Not on file Sexual Orientation Not on file documented as of this encounter Plan of Treatment Not on file documented as of this encounter Results * Bronchoscopy -[facility] Interventional Pulm; Bronchoscopy (03/18/2021 10:13 AM CDT) Anatomical Region Laterality Modality Other Narrative Procedure Note Ruperto Forde Chi, MD - 03/18/2021 10:13 AM CDT [facility] Interventional Pulmonary Patient Name: Carlos Ortiz Procedure [...] After obtaining informed consent, the Diagnostic Bronchoscope [id number] was introduced through the mouth, via laryngeal [...] collapse documented in this encounter Care Teams Page Technician Relationship Specialty Start Date End Date Unknown, Notinfile PCP - General 11/21/20 03/14/21 documented as of this encounter
--- OUTSIDE RECORDS SUMMARY | 2024-11-24 18:10 | XMS_ITS | Encounter Summary ---
Author Organization [facility] Address [address] [place] [address] Phone Care Team Providers Care Axle Bearing Polisher Name Role Phone Unknown, Notinfile Primary Care Provider Unavail able Liza Haynes MD Primary Care Provider [phone] Encounter Details Date Type Department Care Team (Latest Contact Info) Description 01/25/2021 Orders Only [facility] Scanning, Provider Social History Tobacco Use Types Packs/Day Years Used Date Smoking Tobacco: Former Sex and Gender Information Value Date Recorded Sex Assigned at Not on file Legal Sex Male 11:16 AM MEDICAL ADVISOR Gender Identity Not on file Sexual [...] on filedocumented in this encounter Care Teams Axle Bearing Polisher Relationship Specialty Start Date End Date Unknown, Notinfsreekanth PCP - General 11/21/20 03/14/21 Liza Haynes MD [address] [place] [place] [address] PCP - General 03/15/21 documented as of this encounter
--- OUTSIDE RECORDS SUMMARY | 2024-11-24 18:10 | XMS_ITS | Encounter Summary ---
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 Yannick Caceres MD Phone: tel: fax: Ruperto Forde Chi, MD [address] [place] [address] Phone: tel: fax: Referral ID Status Reason Start Date Expiration Date V isits Requested Visits Authorized [id number] Closed Specialty Services Required 02/16/2021 03/01/2021 3 3 Encounter Details Date Type Department Care Team (Latest Contact Info) Description 02/22/2021 8:40 AM CDT Office Visit [facility] [address] [facility] [address]th [place] [address] [place] [address] Dilan Berry MD [address] [place] [address] Fibrosing mediastinitis Social History Tobacco [...] on file Legal Sex Male 11: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 REVIEW OF SYSTEMS: All systems reviewed [...] 02/23/2021 9:42 AM CDT Associated attestation - Dilan Berry MD - 02/23/2021 9:42 AM CDT [...] 02/22/2021 documented in this encounter Care Teams Railroad Switchman Relationship Specialty Start Date End Date Unknown, Notinfile PCP - General 11/21/20 03/14/21 documented as of this encounter
--- OUTSIDE RECORDS SUMMARY | 2024-11-24 18:11 | XMS_ITS | Encounter Summary ---
Author Organization [facility] Address [address] [place] [address] Phone Care Team Providers Care Naphthol Soaping Machine Operator Name Role Phone Unknown, Notinfile Primary Care Provider Unavail able Liza Haynes MD Primary Care Provider [phone] Encounter Details Date Type Department Care Team (Latest Contact Info) Description 08/22/2019 Orders Only [facility] Scanning, Provider Social History Tobacco Use Types Packs/Day Years Used Date Smoking Tobacco: Never Assessed Sex and Gender Information Value Date Recorded Sex Assigned at Not on file Legal Sex Male 11:16 AM CIRCULAR SAWYER HELPER Gender Identity Not on file Sexual [...] COVID: Suspected 11/21/2020 11/21/2020 11/22/2020 2:21 AM CIRCULAR SAWYER HELPER Respiratory Infection (BONI), contact + droplet Comment:Automatically added due to negative COVID-19 result. Patient classified as Low Risk for COVID-19 and has one negative COVID-19 test. Patient meets criteria for COVID-19 isolation discontinuation Maribell Marmolejo RN 11/24/2020 11/22/2020 11/22/2020 11/24/2020 7:39 AM CIRCULAR SAWYER HELPER documented as of this encounter Care Teams Naphthol Soaping Machine Operator Relationship Specialty Start Date End Date Unknown, Notinfile PCP - General 11/21/20 03/14/21 Liza Haynes MD [address] [place] [address] PCP - General 03/15/21 documented as of this encounter
--- OUTSIDE RECORDS SUMMARY | 2024-11-24 18:11 | XMS_ITS | Encounter Summary ---
Author Organization [facility] Address [address] [place] [address] Phone Care Team Providers Care Route Specialist Name Role Phone Unknown, Notinfile Primary Care Provider Unavail able Liza Haynes MD Primary Care Provider Encounter Details Date Type Department Care Team (Latest Contact Info) Description 11/03/2019 Orders Only [facility] Scanning, Provider Social History Tobacco Use Types Packs/Day Years Used Date Smoking Tobacco: Never Assessed Sex and Gender Information Value Date Recorded Sex Assigned at Not on file Legal Sex Male 11:16 AM INTEGRATION AIDE Gender Identity Not on file Sexual [...] COVID: Suspected 11/21/2020 11/21/2020 11/22/2020 2:21 AM INTEGRATION AIDE Respiratory Infection (BONI), contact + droplet Comment:Automatically added due to negative COVID-19 result. Patient classified as Low Risk for COVID-19 and has one negative COVID-19 test. Patient meets criteria for COVID-19 isolation discontinuation Maribell Marmolejo RN 11/24/2020 11/22/2020 11/22/2020 11/24/2020 7:39 AM INTEGRATION AIDE documented as of this encounter Care Teams Route Specialist Relationship Specialty Start Date End Date Unknown, Notinfile PCP - General 11/21/20 03/14/21 Liza Haynes MD [address] [place] [address] PCP - General 03/15/21 documented as of this encounter
--- OUTSIDE RECORDS SUMMARY | 2024-11-24 18:11 | XMS_ITS | Encounter Summary ---
Author Organization [facility] Address [address] [place] [address] Phone Care Team Providers Care Eye Glass Frame Polisher Name Role Phone Unknown, Notinfile Primary Care Provider Unavail able Liza Haynes MD Primary Care Provider [phone] Encounter Details Date Type Department Care Team (Latest Contact Info) Description 05/10/2016 Orders Only [facility] Scanning, Provider Social History Tobacco Use Types Packs/Day Years Used Date Smoking Tobacco: Never Assessed Sex and Gender Information Value Date Recorded Sex Assigned at Not on file Legal Sex Male 11:16 AM FILM PROCESSING UTILITY WORKER Gender Identity Not on file Sexual [...] COVID: Suspected 11/21/2020 11/21/2020 11/22/2020 2:21 AM FILM PROCESSING UTILITY WORKER Respiratory Infection (BONI), contact + droplet Comment:Automatically added due to negative COVID-19 result. Patient classified as Low Risk for COVID-19 and has one negative COVID-19 test. Patient meets criteria for COVID-19 isolation discontinuation Maribell Marmolejo RN 11/24/2020 11/22/2020 11/22/2020 11/24/2020 7:39 AM FILM PROCESSING UTILITY WORKER documented as of this encounter Care Teams Eye Glass Frame Polisher Relationship Specialty Start Date End Date Unknown, Notinfile PCP - General 11/21/20 03/14/21 Liza Haynes MD [address] [place] [address] PCP - General 03/15/21 documented as of this encounter
--- OUTSIDE RECORDS SUMMARY | 2024-11-24 18:11 | XMS_ITS | Encounter Summary ---
Author Organization [facility] Address [address] [place] [address] Phone Care Team Providers Care Driver Sales Name Role Phone Unknown, Notinfile Primary Care Provider Unavail able Liza Haynes MD Primary Care Provider [phone] Encounter Details Date Type Department Care Team (Latest Contact Info) Description 12/10/2018 Orders Only [facility] Scanning, Provider Social History Tobacco Use Types Packs/Day Years Used Date Smoking Tobacco: Never Assessed Sex and Gender Information Value Date Recorded Sex Assigned at Not on file Legal Sex Male 11:16 AM FIELD STAFF Gender Identity Not on file Sexual Orientation [...] COVID: Suspected 11/21/2020 11/21/2020 11/22/2020 2:21 AM FIELD STAFF Respiratory Infection (BONI), contact + droplet Comment:Automatically added due to negative COVID-19 result. Patient classified as Low Risk for COVID-19 and has one negative COVID-19 test. Patient meets criteria for COVID-19 isolation discontinuation Maribell Marmolejo RN 11/24/2020 11/22/2020 11/22/2020 11/24/2020 7:39 AM FIELD STAFF documented as of this encounter Care Teams Driver Sales Relationship Specialty Start Date End Date Unknown, Notinfile PCP - General 11/21/20 03/14/21 Liza Haynes MD [address] [place] [address] PCP - General 03/15/21 documented as of this encounter
== END 2024-11-18 07:49 | disposition home or self-care (01) ==
PROVIDERS: PCP Internal Medicine; Visit Provider Internal Medicine
DX: J44.9 Chronic obstructive pulmonary disease, unspecified (principal); E11.8 Type 2 diabetes mellitus with unspecified complications; E11.65 Type 2 diabetes mellitus with hyperglycemia; E03.9 Hypothyroidism, unspecified; I10 Essential (primary) hypertension; R91.1 Solitary pulmonary nodule
CPT/HCPCS: 36415; 85025; 94375; 94726; 94729

== ENCOUNTER 2025-03-06 09:46 | Emergency (ER) | payer MEDICARE, SELFPAY ==
[2025-03-06 09:55] VITALS: BP 123/70; PULSE 67; RESP 16; TEMP 36.1; O2SAT 96
--- NOTE | 2025-03-06 09:55 | ED_ITS ---
HPI - URI/Sore Throat General Chief Complaint: Upper Respiratory Infection Stated Complaint: SINUS Time Seen by Provider: 03/06/25 10:07 Source: patient and RN notes reviewed Mode of arrival: ambulatory Limitations: no limitations History of Present Illness HPI Narrative: 74-year-old male with history of COPD presents with concern for nasal congestion and postnasal drainage for 1 day. He denies fever, body aches, chills, sweats. Reports his cough has increased because of the drainage. He has been using his regular inhaler. He last used yesterday. MD elicited complaint: nasal congestion Related Data Allergies Allergy/AdvReac Type Severity Reaction Status Date / Time Penicillins Allergy Unknown Skin Verified 03/06/25 09:55 Reaction lisinopril AdvReac Intermediate cough Verified 03/06/25 09:55 morphine AdvReac Intermediate Nausea and Verified 03/06/25 09:55 Vomiting Review of Systems Review of Systems: CONSTITUTIONAL: Denies malaise, chills, sweats, or fever. EYES: Denies visual changes, redness, or discharge. ENT: Reports rhinorrhea, congestion. Denies otalgia and sore throat. CARDIOVASCULAR: Denies chest pain, palpitations, or edema. RESPIRATORY: Reports cough. Denies dyspnea. GASTROINTESTINAL: Denies abdominal pain, nausea, vomiting, diarrhea SKIN: Denies rash or itching. MUSCULOSKELETAL: Denies myalgia. NEUROLOGIC: Denies headache. All systems reviewed & are unremarkable except as noted in HPI and below PMFSH Past Medical History Medical History (Updated 03/06/25 @ 10:17 by Cindy Merrill NP) Chronic sinusitis Nodule of lower lobe of left lung Collapsed lung CTS (carpal tunnel syndrome) COPD with asthma Essential (primary) hypertension Hypothyroidism (acquired) Obstructive sleep apnea (adult) (pediatric) Type 2 diabetes mellitus with unspecified complications Surgical History Surgical History Hx of cholecystectomy History of carpal tunnel release H/O hernia repair H/O arthroscopic knee surgery History of knee replacement H/O partial resection of colon History of cardiac cath Family History Family History Father Hypertension Family history of throat cancer, Onset Age: 67 Patient's father is , Onset Age: 67 Sibling , recovered from throat cancer Hypertension, Onset Age: 39 Family history of primary malignant neoplasm of liver Family history of malignant neoplasm of breast in first degree relative, Onset Age: 47 Family history of throat cancer, Onset Age: 52 Family history of malignant neoplasm of breast Mother Hypertension Social History Social History Smoking packs per day: 1.5 Smoking cigarettes per day: 30.0 Years smoked: 35 Smoking pack-years: 52.50 Smoking status: Former smoker Tobacco type: cigarettes Smoking end date: 11/12/97 Alcohol intake: never Substance use type: does not use Lack of Transportation: No Lack of Food: Never True Current Housing: I Have Housing Concerned About Future Housing: No Difficulty Paying Gas/Electric Bills: No Difficulty Paying for Meds: YES Currently Unemployed: No Education: Grade School Difficulty w/ Childcare or Family Care: No Living arrangements: with family Additional living arrangements comments: Occupation/Education: retired Spiritual care concerns: No Comments At time of signature, agree with nursing past medical, surgical, social and family history. There is no relevant family history pertinent to the presenting complaint Exam Narrative: GENERAL: Well-appearing, well-nourished, and in no acute distress. HEAD: Normocephalic EYES: PERRLA, conjunctivae clear ENT: Nares clear, turbinates edematous and erythematous, clear discharge. Mucous membranes moist. TM pearly sands with dull light reflex bilaterally, chronic TM disruption on the right side; no tragal tenderness. Oropharynx not erythematous without lesions. Tonsils not enlarged and without exudate, no drooling, no hoarseness, no trismus, uvula midline. NECK: Supple. No lymphadenopathy CHEST: Mild scattered wheeze, otherwise Clear to auscultation, breath sounds equal. No wheezing, rhonchi, rales, or stridor. No respiratory distress, speaks in full sentences. Cough noted HEART: Regular rate and rhythm. No murmur heard. SKIN: Warm, dry, no rash. NEURO: Alert and oriented x3. PSYCH: Normal mood and affect Course Course Emergency Course: Patient is aware of diagnosis, understands and agrees to treatment plan. Anticipatory guidance given. Patient agrees to follow-up as directed and is aware of reasons to seek care at the emergency department. Portions of this record may have been created with voice recognition software Level of Care: Express Care Visit Vital Signs Vital signs: Reviewed. MDM - URI/Sore Throat MDM Narrative Medical decision making narrative: Differential diagnosis considered: Dawkins virus, strep pharyngitis, allergic rhinitis, upper respiratory tract infection, sinusitis, rhinosinusitis, nasopharyngitis. viral pharyngitis, otitis media, otitis externa, pneumonia, bronchitis, viral cough syndrome, viral syndrome, and influenza. Exam findings show no acute concerns or changes; patient is non-toxic appearing and is in no distress. Patient is appropriate for outpatient treatment and follow-up. Lab Data Attestation: I reviewed the patient's lab results. Critical Care Time Critical Care Time Critical Care Time: No Discharge Plan Discharge Clinical Impression: Upper respiratory infection with cough and congestion Patient Disposition: Home Condition: Stable Instructions: Upper Respiratory Infection (ED) Additional Instructions: Take medications as prescribed Viral illness may last between 7-21 days; antibiotics do not cure viral illness and are NOT recommended at this time. Recommend antihistamine such as Benadryl at night time and Zyrtec or Wilda during the day Use inhaler as needed for cough, wheezing, shortness of breath or chest tightness. Also, recommend symptomatic treatment includes: rest, fluids, and increase humidity of the air at home. Recommend Acetaminophen as directed on the bottle to reduce fever, pain, headache. Avoid smoking/second-hand smoke. Please schedule a follow-up visit with your personal physician for further evaluation and treatment within 3-5days.If your symptoms persist, change or worsen significantly before you can contact your personal physician then please, without delay, go to the emergency department for further evaluation. Patient Language: Bulgarian Prescriptions: New methylprednisolone [Medrol (Raul)] 4 mg tablets,dose pack See Rx Instructions .ROUTE .COMPLEX Qty: 21 0RF Rx Instructions: orally per package directions ipratropium bromide 21 mcg (0.03 %) spray,non-aerosol 2 spray NASAL TID PRN (Reason: nasal drainage) Qty: 30 0RF Rx Instructions: administer into each nostril No Action potassium chloride [Klor-Con M20] 20 mEq tablet,ER particles/crystals 20 meq PO BID Qty: 180 2RF metoprolol tartrate 25 mg tablet 25 mg PO DAILY Qty: 180 1RF pravastatin 20 mg tablet 20 mg PO DAILY Qty: 90 2RF glipizide 2.5 mg tablet extended release 24hr 2.5 mg PO DAILY Qty: 90 1RF Rx Instructions: Take with the 5 mg dose once daily (DME) blood-glucose meter Kit See Rx Instructions .ROUTE .MEDSUPPLY Qty: 1 0RF Rx Instructions: one touch glucose meter test twice daily ipratropium-albuterol 0.5 mg-3 mg(2.5 mg base)/3 mL solution for nebulization 3 ml INHALATION Q6H PRN (Reason: shortness of breath or wheezing) Qty: 180 3RF OneTouch Verio test strips Strip See Rx Instructions .ROUTE .COMPLEX Qty: 200 3RF Dose Instruction: TEST TWICE DAILY Rx Instructions: TEST TWICE DAILY lancets [OneTouch Delica Plus Lancet] 30 gauge misc See Rx Instructions .ROUTE .COMPLEX Qty: 200 3RF Dose Instruction: TEST TWICE DAILY Rx Instructions: TEST TWICE DAILY spironolactone 25 mg tablet See Rx Instructions .ROUTE .COMPLEX Qty: 90 1RF Dose Instruction: TAKE 1 TABLET BY MOUTH EVERY DAY Rx Instructions: TAKE 1 TABLET BY MOUTH EVERY DAY levothyroxine 50 mcg tablet See Rx Instructions .ROUTE .COMPLEX Qty: 90 1RF Dose Instruction: TAKE 1 TABLET BY MOUTH EVERY DAY Rx Instructions: TAKE 1 TABLET BY MOUTH EVERY DAY glipizide 5 mg tablet extended release 24hr See Rx Instructions .ROUTE .COMPLEX Qty: 90 1RF Dose Instruction: TAKE 1 TABLET BY MOUTH EVERY DAY WITH FOOD Rx Instructions: TAKE 1 TABLET BY MOUTH EVERY DAY WITH FOOD irbesartan 300 mg tablet See Rx Instructions .ROUTE .COMPLEX Qty: 90 1RF Dose Instruction: TAKE 1 TABLET BY MOUTH EVERY DAY Rx Instructions: TAKE 1 TABLET BY MOUTH EVERY DAY amlodipine 10 mg tablet See Rx Instructions .ROUTE .COMPLEX Qty: 90 1RF Dose Instruction: TAKE 1 TABLET BY MOUTH EVERY DAY Rx Instructions: TAKE 1 TABLET BY MOUTH EVERY DAY budesonide-formoterol [Symbicort] 160-4.5 mcg/actuation HFA aerosol inhaler 2 inh inhalation Q12H Qty: 10.2 2RF Rx Instructions: INHALE 2 PUFFS BY MOUTH EVERY 12 HOURS Follow-up/Referrals: Nghia Reed DO [Primary Care Provider] - Time of Disposition: 10:18
== END 2025-03-06 10:30 | disposition home or self-care (01) ==
PROVIDERS: Emergency Provider Nurse Practitioner; PCP Internal Medicine
DX: J06.9 Acute upper respiratory infection, unspecified (principal); J44.9 Chronic obstructive pulmonary disease, unspecified; E11.9 Type 2 diabetes mellitus without complications; E03.9 Hypothyroidism, unspecified; I10 Essential (primary) hypertension; Z87.891 Personal history of nicotine dependence
CPT/HCPCS: 99213; G0463

== ENCOUNTER 2025-03-20 08:41 | Outpatient (CLI) | payer MEDICARE, SELFPAY ==
--- OUTSIDE RECORDS SUMMARY | 2025-03-20 08:44 | XMS_ITS | Encounter Summary ---
Author Organization [facility] Address [address] [place] [address] Phone Care Team Providers Care Horizontal Drill Operator Name Role Phone Unknown, Notinfile Primary Care Provider Unavail able Liza Haynes MD Primary Care Provider [phone] Encounter Details Date Type Department Care Team (Latest Contact Info) Description 11/19/2019 Orders Only [facility] Scanning, Provider Social History Tobacco Use Types Packs/Day Years Used Date Smoking Tobacco: Never Assessed Sex and Gender Information Value Date Recorded Sex Assigned at Not on file Legal Sex Male 11:16 AM UROLOGIST MD Gender Identity Not on file Sexual Orientation [...] COVID: Suspected 11/21/2020 11/21/2020 11/22/2020 2:21 AM UROLOGIST MD Respiratory Infection (BONI), contact + droplet Comment:Automatically added due to negative COVID-19 result. Patient classified as Low Risk for COVID-19 and has one negative COVID-19 test. Patient meets criteria for COVID-19 isolation discontinuation Maribell Marmolejo RN 11/24/2020 11/22/2020 11/22/2020 11/24/2020 7:39 AM UROLOGIST MD documented as of this encounter Care Teams Horizontal Drill Operator Relationship Specialty Start Date End Date Unknown, Notinfile PCP - General 11/21/20 03/14/21 Liza Haynes MD [address] [place] [address] PCP - General 03/15/21 documented as of this encounter
--- OUTSIDE RECORDS SUMMARY | 2025-03-20 08:44 | XMS_ITS | Encounter Summary ---
Author Organization [facility] Address [address] [place] [address] Phone Care Team Providers Care Associate Chief Nurse Name Role Phone Unknown, Notinfile Primary Care Provider Unavail able Liza Haynes MD Primary Care Provider [phone] Encounter Details Date Type Department Care Team (Latest Contact Info) Description 05/10/2016 Orders Only [facility] Scanning, Provider Social History Tobacco Use Types Packs/Day Years Used Date Smoking Tobacco: Never Assessed Sex and Gender Information Value Date Recorded Sex Assigned at Not on file Legal Sex Male 11:16 AM BALANCE AND HAIRSPRING ASSEMBLER Gender Identity Not on file Sexual [...] COVID: Suspected 11/21/2020 11/21/2020 11/22/2020 2:21 AM BALANCE AND HAIRSPRING ASSEMBLER Respiratory Infection (BONI), contact + droplet Comment:Automatically added due to negative COVID-19 result. Patient classified as Low Risk for COVID-19 and has one negative COVID-19 test. Patient meets criteria for COVID-19 isolation discontinuation Maribell Marmolejo RN 11/24/2020 11/22/2020 11/22/2020 11/24/2020 7:39 AM BALANCE AND HAIRSPRING ASSEMBLER documented as of this encounter Care Teams Associate Chief Nurse Relationship Specialty Start Date End Date Unknown, Notinfile PCP - General 11/21/20 03/14/21 Liza Haynes MD [address] [place] [address] PCP - General 03/15/21 documented as of this encounter
--- OUTSIDE RECORDS SUMMARY | 2025-03-20 08:44 | XMS_ITS | Encounter Summary ---
Author Organization [facility] Address [address] [place] [address] Phone Care Team Providers Care Liquor Inspector Name Role Phone Unknown, Notinfile Primary Care Provider Unavail able Liza Haynes MD Primary Care Provider [phone] Encounter Details Date Type Department Care Team (Latest Contact Info) Description 12/10/2018 Orders Only [facility] Scanning, Provider Social History Tobacco Use Types Packs/Day Years Used Date Smoking Tobacco: Never Assessed Sex and Gender Information Value Date Recorded Sex Assigned at Not on file Legal Sex Male 11:16 AM CLOTH BLEACHING SUPERVISOR Gender Identity Not on file Sexual [...] COVID: Suspected 11/21/2020 11/21/2020 11/22/2020 2:21 AM CLOTH BLEACHING SUPERVISOR Respiratory Infection (BONI), contact + droplet Comment:Automatically added due to negative COVID-19 result. Patient classified as Low Risk for COVID-19 and has one negative COVID-19 test. Patient meets criteria for COVID-19 isolation discontinuation Maribell Marmolejo RN 11/24/2020 11/22/2020 11/22/2020 11/24/2020 7:39 AM CLOTH BLEACHING SUPERVISOR documented as of this encounter Care Teams Liquor Inspector Relationship Specialty Start Date End Date Unknown, Notinfile PCP - General 11/21/20 03/14/21 Liza Haynes MD [address] [place] [address] PCP - General 03/15/21 documented as of this encounter
--- OUTSIDE RECORDS SUMMARY | 2025-03-20 08:44 | XMS_ITS | Encounter Summary ---
Author Organization [facility] Address [address] [place] [address] Phone Care Team Providers Care Implementation Coordinator Name Role Phone Unknown, Notinfile Primary Care Provider Unavail able Liza Haynes MD Primary Care Provider [phone] Encounter Details Date Type Department Care Team (Latest Contact Info) Description 01/25/2021 Orders Only [facility] Scanning, Provider Social History Tobacco Use Types Packs/Day Years Used Date Smoking Tobacco: Former Sex and Gender Information Value Date Recorded Sex Assigned at Not on file Legal Sex Male 11:16 AM CREDIT CARD CONTROL CLERK Gender Identity Not on file Sexual Orientation [...] on filedocumented in this encounter Care Teams Implementation Coordinator Relationship Specialty Start Date End Date Unknown, Notinfsreekanth PCP - General 11/21/20 03/14/21 Liza Haynes MD [address] [place] [address] PCP - General 03/15/21 documented as of this encounter
--- OUTSIDE RECORDS SUMMARY | 2025-03-20 08:44 | XMS_ITS | Encounter Summary ---
Author Organization [facility] Address [address] [place] [address] Phone Care Team Providers Care Company Secretary Name Role Phone Unknown, Notinfile Primary Care Provider Unavail able Liza Haynes MD Primary Care Provider [phone] Encounter Details Date Type Department Care Team (Latest Contact Info) Description 12/23/2020 Orders Only [facility] Scanning, Provider Social History Tobacco Use Types Packs/Day Years Used Date Smoking Tobacco: Former Sex and Gender Information Value Date Recorded Sex Assigned at Not on file Legal Sex Male 11:16 AM CITY DETECTIVE Gender Identity Not on file Sexual Orientation [...] on filedocumented in this encounter Care Teams Company Secretary Relationship Specialty Start Date End Date Unknown, Notinfsreekanth PCP - General 11/21/20 03/14/21 Liza Haynes MD [address] [place] [address] PCP - General 03/15/21 documented as of this encounter
--- OUTSIDE RECORDS SUMMARY | 2025-03-20 08:44 | XMS_ITS | Encounter Summary ---
Author Organization [facility] Address [address] [place] [address] Phone Care Team Providers Care Teachers Assistant Name Role Phone Unknown, Notinfile Primary Care Provider Unavail able Liza Haynes MD Primary Care Provider [phone] Encounter Details Date Type Department Care Team (Latest Contact Info) Description 08/22/2019 Orders Only [facility] Scanning, Provider Social History Tobacco Use Types Packs/Day Years Used Date Smoking Tobacco: Never Assessed Sex and Gender Information Value Date Recorded Sex Assigned at Not on file Legal Sex Male 11:16 AM ADVERTISING ASSISTANT Gender Identity Not on file Sexual [...] COVID: Suspected 11/21/2020 11/21/2020 11/22/2020 2:21 AM ADVERTISING ASSISTANT Respiratory Infection (BONI), contact + droplet Comment:Automatically added due to negative COVID-19 result. Patient classified as Low Risk for COVID-19 and has one negative COVID-19 test. Patient meets criteria for COVID-19 isolation discontinuation Maribell Marmolejo RN 11/24/2020 11/22/2020 11/22/2020 11/24/2020 7:39 AM ADVERTISING ASSISTANT documented as of this encounter Care Teams Teachers Assistant Relationship Specialty Start Date End Date Unknown, Notinfile PCP - General 11/21/20 03/14/21 Liza Haynes MD [address] [place] [address] PCP - General 03/15/21 documented as of this encounter
--- OUTSIDE RECORDS SUMMARY | 2025-03-20 08:44 | XMS_ITS | Encounter Summary ---
Author Organization [facility] Address [address] [place] [address] Phone Care Team Providers Care Firewall Engineer Name Role Phone Unknown, Notinfile Primary Care Provider Unavail able Liza Haynes MD Primary Care Provider [phone] Encounter Details Date Type Department Care Team (Latest Contact Info) Description 11/03/2019 Orders Only [facility] Scanning, Provider Social History Tobacco Use Types Packs/Day Years Used Date Smoking Tobacco: Never Assessed Sex and Gender Information Value Date Recorded Sex Assigned at Not on file Legal Sex Male 11:16 AM WASTEWATER SUPERINTENDENT Gender Identity Not on file Sexual Orientation [...] COVID: Suspected 11/21/2020 11/21/2020 11/22/2020 2:21 AM WASTEWATER SUPERINTENDENT Respiratory Infection (BONI), contact + droplet Comment:Automatically added due to negative COVID-19 result. Patient classified as Low Risk for COVID-19 and has one negative COVID-19 test. Patient meets criteria for COVID-19 isolation discontinuation Maribell Marmolejo RN 11/24/2020 11/22/2020 11/22/2020 11/24/2020 7:39 AM WASTEWATER SUPERINTENDENT documented as of this encounter Care Teams Firewall Engineer Relationship Specialty Start Date End Date Unknown, Notinfile PCP - General 11/21/20 03/14/21 Liza Haynes MD [address] [place] [address] PCP - General 03/15/21 documented as of this encounter
--- OUTSIDE RECORDS SUMMARY | 2025-03-20 08:44 | XMS_ITS | CONTINUITY OF CARE DOCUMENT ---
Author Name chad bonilla Address Unknown Organization [facility] Office Address [address] [place] [address] [address] [place] [address] Phone [phone] Care Team Providers Care Garbage Collection Supervisor Name Role Phone YULISA BEASLEY MD Unavailable [phone] YULISA BEASLEY MD Unavailable [phone] INSURANCE PROVIDERS Payer name Policy type / Coverage type [place] red republican ID [facility] Commercial insurance co [facility] [id number]
--- OUTSIDE RECORDS SUMMARY | 2025-03-20 08:44 | XMS_ITS | Encounter Summary ---
Author Organization [facility] Address [address] [place] [address] Phone Care Team Providers Care Laster Hand Name Role Phone Unknown, Notinfile Primary Care Provider Unavail able Liza Haynes MD Primary Care Provider [phone] Encounter Details Date Type Department Care Team (Latest Contact Info) Description 11/17/2020 Orders Only [facility] Scanning, Provider Social History Tobacco Use Types Packs/Day Years Used Date Smoking Tobacco: Never Assessed Sex and Gender Information Value Date Recorded Sex Assigned at Not on file Legal Sex Male 11:16 AM SOCIAL SCIENTIST Gender Identity Not on file Sexual Orientation [...] COVID: Suspected 11/21/2020 11/21/2020 11/22/2020 2:21 AM SOCIAL SCIENTIST Respiratory Infection (BONI), contact + droplet Comment:Automatically added due to negative COVID-19 result. Patient classified as Low Risk for COVID-19 and has one negative COVID-19 test. Patient meets criteria for COVID-19 isolation discontinuation Maribell Marmolejo RN 11/24/2020 11/22/2020 11/22/2020 11/24/2020 7:39 AM SOCIAL SCIENTIST documented as of this encounter Care Teams Laster Hand Relationship Specialty Start Date End Date Unknown, Notinfile PCP - General 11/21/20 03/14/21 Liza Haynes MD [address] [place] [address] PCP - General 03/15/21 documented as of this encounter
--- OUTSIDE RECORDS SUMMARY | 2025-03-20 08:44 | XMS_ITS | Continuity of Care Document ---
Author Organization [facility] Address [address] [place] [address] Phone Care Team Providers Care Rotor Balancer Name Role Phone Arcadio Zepeda MD Unavailable [...] OFFICE/OUTPAT IENT VISIT EST [facility] , [address] [facility], [place], [address], tel:[phone] [facility] right knee (chief complaint) Knee joint replacement Feb-2 2-201 [address] [facility] [address] [place], [place], [address] . tel:[phone] Referring Provider: Oscar Oconnell, [address], [place], [address] . tel:[phone] OFFICE/OUTPAT IENT VISIT EST [facility] , [address] [facility] [address], [place], [address], [place] [phone] [facility] bilateral knee (chief complaint) Hypertension, UnspecifiedOs teoarthrosis, unspecified whether generalized or localized, involving lower legKnee joint replacement [address], [place], [place], [address] . tel: [phone] Family History Family Member Type Diagnosis Age [...]
--- OUTSIDE RECORDS SUMMARY | 2025-03-20 08:45 | XMS_ITS | Encounter Summary ---
Author Organization [facility] Address [address] [place] [address] Phone Care Team Providers Care Therapeutic Consultant Name Role Phone Unknown, Notinfile Primary Care Provider Unavail able Liza Haynes MD Primary Care Provider [phone] Encounter Details Date Type Department Care Team (Latest Contact Info) Description 11/26/2020 Orders Only [facility] Scanning, Provider Social History Tobacco Use Types Packs/Day Years Used Date Smoking Tobacco: Former Sex and Gender Information Value Date Recorded Sex Assigned at Not on file Legal Sex Male 11:16 AM SKEIN 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
--- OUTSIDE RECORDS SUMMARY | 2025-03-20 08:45 | XMS_ITS | Patient Health Record ---
Author Organization [facility] Address [address] [place], [place] [address] Care Team Providers Care Dyno Technician Name Role Phone [place] GIANG Oscar Primary Care Provider [address] [phone] ALLERGIES Allergen (clinical drug ingredient) Drug/Non Drug Allergy documented on EMR Reaction Allergy Type Onset Date Status Penicillin Unknown Drug Allergy Active REASON FOR REFERRAL No Information SOCIAL HISTORY Tobacco Use: Social History Observation Description Date Details (start date - stop date) Former Smoker NA - NA Sex Assigned At : Social History Observation Description Sex Assigned At Unknown Tobacco Use/Smoking Question Answer Notes Are you a former smoker PROBLEMS Problem Type ICD Code Onset Dates Problem Status W/U Status Risk SNOMED Code Notes Problem Diabetes (E11.9) Active confirmed Type II diabetes mellitus without complication (229187086) Problem Primary osteoarthritis of left knee (M17.12) Active confirmed 219098861548368 Problem History of arthroplasty of right knee (Z96.651) Active confirmed History of arthroplasty of right knee (5619952979536629) PLAN OF TREATMENT Pending Test Test Name Order Date X ray : Knee, left 4 views 05/02/2023 X ray : Knee, left 3 views 12/13/2021 Insurance Providers Payer Name Payer Address Payer Phone Subscriber Number Group Number Insured Name Patient Relationship to Insured Coverage Start Date Coverage End Date [facility] [address] [address] [place] [address] [id number] Shagufta Ortiz Self - patient is the insured MEDICATIONS ADMINISTERED Medication Instructions Date of Administration Dosage Notes Betamethasone/ sodium phosphate 6mg 01/24/2022 Betamethasone/ sodium phosphate 6mg 10/02/2022 Betamethasone/ sodium phosphate 6mg 01/31/2024 MEDICAL (GENERAL) HISTORY Medical History History ICD Code Diabetes E11.9 Lung Disease Surgical History Surgery Date(Month/Year)
--- OUTSIDE RECORDS SUMMARY | 2025-03-20 08:45 | XMS_ITS | Referral Summary ---
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 Gender Identity Not on file Sexual Orientation Not on file Last Filed Vital Signs Vital Sign Reading Time Taken Comments Blood Pressure 133/66 03/18/2021 12:10 PM CDT Pulse 65 03/18/2021 12:10 PM CDT Temperature 36.6 C (97.8 F) 03/18/2021 9:09 AM CDT Respiratory Rate 12 03/18/2021 12:10 PM CDT Oxygen Saturation 92% 03/18/2021 12:10 PM CDT Inhaled Oxygen Concentration - - Weight 78 kg (172 lb) 03/18/2021 8:52 AM CDT Height 165.1 cm (5' 5 ) 03/18/2021 8:52 AM CDT Body Mass Index 28.62 03/18/2021 8:52 AM CDT Plan of Treatment Not on file Insurance MDCR HMO REF Care Teams Wheel Truing Machine Tender Relationship Specialty Start Date End Date Liza Haynes MD [address] [place] [address] [facility] - General 03/15/21
--- OUTSIDE RECORDS SUMMARY | 2025-03-20 08:45 | XMS_ITS | Clinical Summary ---
Author Organization [facility] Address [address] [place] [address] Care Team Providers Care Service Desk Technician Name Role Phone Liza Haynes MD Primary Care Provider [phone] Allergies Active Allergy Reactions Criticality Noted Date [...] mcg tablet Take 50 mcg by mouth ui application developer before breakfast Active Active Problems Problem Noted Date Diagnosed Date Atelectasis 03/08/2021 Surgical History Surgery Date Site/Laterality Comments ABDOMINAL SURGERY COLON SURGERY HERNIA REPAIR umbilical JOINT REPLACEMENT right knee Medical History Medical History Date Comments AAA (abdominal aortic aneurysm) Diabetes mellitus (HCC) Hypertension COPD (chronic obstructive pulmonary disease) (HC C) Cancer (HCC) left leg Thyroid disease Sleep apnea [...] on file Legal Sex Male 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 MEDICARE Address: [facility] [address] [place] [address] Care Teams Service Desk Technician Relationship Specialty Start Date End Date Liza Haynes MD [address] [place] [address] PCP - General 03/15/21
--- OUTSIDE RECORDS SUMMARY | 2025-03-20 08:45 | XMS_ITS ---
Author Organization [facility] Orthopedics [facility] Address [address] [place], [place] [address] Care Team Providers Care Neuroscience Specialist Name Role Phone Burt Haynes MDneth Primary Care Provider [address] [phone] ALLERGIES Allergen (clinical drug ingredient) Drug/Non Drug Allergy documented on EMR Reaction Allergy Type Onset Date Status Penicillin Unknown Drug Allergy Active REASON FOR VISIT L knee inj, LARISSA: Betamethasone Left knee SOCIAL HISTORY Tobacco Use: Social History Observation Description Date Details (start date - stop date) Former Smoker NA - NA Sex Assigned At : Social History Observation Description Sex Assigned At Unknown Tobacco Use/Smoking Question Answer Notes Are you a former smoker VITAL SIGNS BMI 29.95 kg/m2 01/31/2024 Blood pressure systolic 135 mm Hg 01/31/20 24 Blood pressure diastolic 70 mm Hg 024 Height 65 in 01/31/2024 Weight 180 lbs 01/31/2024 Encounters Encounter Location Date Provider Diagnosis [facility] [address] [place], [place] [address] 01/31/[address] Primary osteoarthritis of left knee M17.12 ASSESSMENTS Encounter Date Diagnosis Assessment Notes Treatment Notes Treatment Clinical Notes 01/31/2024 Primary osteoarthritis of left knee (ICD-10 - M17.12) PLAN OF TREATMENT Next Appt Details Follow Up: prn, Reason: MEDICATIONS ADMINISTERED Medication Instructions Date of Administration Dosage Notes Betamethasone/ sodium phosphate 6mg 01/31/2024 Procedure Notes * Category Sub-Category Detail Notes Injection - Knee Location: left knee Dosage: 6mg of Betamethasone and 2cc of 0.5% bupivacaine Prep: The risks and benefi ts of cortisone injection was described to the patient in detail. The patient agreed to proceed. A sterile prep was performed and the joint was injected Post Procedure: Patient tolerated pr ocedure well. There were no complications. Patient was told if they experienced any soreness or swelling to put ice on the affected area
== END 2025-03-20 08:42 | disposition home or self-care (01) ==
LOC: ANHAUDIO 08:42
PROVIDERS: PCP Internal Medicine; Visit Provider Otolaryngology
DX: H90.71 Mixed conductive and sensorineural hearing loss, unilateral, right ear, with unrestricted hearing on the contralateral side (principal); H72.91 Unspecified perforation of tympanic membrane, right ear
CPT/HCPCS: 92557; 92567

== ENCOUNTER 2025-06-07 10:47 | Emergency (ER) | payer MEDICARE, SELFPAY ==
[2025-06-07] VITALS (7 sets, daily range): BP systolic 134–142; BP diastolic 70–82; PULSE 56–75; RESP 13–18; TEMP 36.6; O2SAT 94–95
--- NOTE | ~2025-06-07 | XR_ITS ---
EXAMINATION: XR chest 1V portable Exam Date/Time: 06/07/2025 12:55 CDT HISTORY: dizziness, neuro; vision issues Comparison: 05/02/2024; CT chest 11/14/2024. RESULT: Lines, tubes, and devices: None. Lungs and pleura: Left lower lobe scar/atelectasis. The known left lower lobe pulmonary nodule is no t well visualized in this study. Azygos lobe. Granulomatous calcifications. Cardiomediastinal silhouette: Stable. Extensive granulomatous calcifications Other: No acute osseous or upper abdominal finding. IMPRESSION: No acute cardiopulmonary process. Prior recommendation for left lower lobe nodule follow-up unchanged . Reviewed, dictated and finalized at location K. IMPRESSION: No acute cardiopulmonary process. Prior recommendation for left lower lobe nodu le follow-up unchanged.
--- NOTE | ~2025-06-07 | CT_ITS ---
EXAMINATION: CT brain wo con DATE: 06/07/2025 13:35 INDICATION: eye pain,balance/dizzy/lighthead; diplopia/blurred . TECHNIQUE: Computed tomography (CT) of the head was performed without intravenous contrast. The mA wa s adjusted according to patient size. Iterative reconstruction technique was employed. The dose-lengt h product was 605.33 mGy-cm. COMPARISON: 12/10/2018; MRI brain 12/11/2018; MRA brain 12/12/2018. FINDINGS: No acute intracranial hemorrhage or extra-axial fluid collection. No hydrocephalus, mass, or herniation. No acute ischemic infarct. Unremarkable dural venous sinus attenuation. No acute osseous abnormality. Bilateral mastoid fluid, the remaining aerated spaces are clear. Mild atrophy and chronic white matter change. Atherosclerotic intracranial calcification. Bilateral l ens replacements. IMPRESSION: No acute intracranial process. Reviewed, dictated and finalized at location K.
--- NOTE | ~2025-06-07 | CT_ITS ---
EXAMINATION: CTA brain carotid DATE: 06/07/2025 13:45 INDICATION: eye pain,balance/dizzy/lighthead; diplopia/blurred TECHNIQUE: Computed tomographic angiography (CTA) of the head and neck was performed with 100 mL Omni paque-350 intravenous contrast. Automated exposure control and iterative reconstruction technique wer e employed. The dose-length product was 1194.11 mGy-cm. Maximum intensity projection and volume rende red 3D-reconstructions were created by the technologist on a separate workstation. COMPARISON: CT brain, same date; MRI brain 12/11/2018; MRA brain 12/12/2018. FINDINGS: CTA HEAD: No large vessel occlusion, aneurysm, high flow vascular malformation, nidus or extravasation. Symmetr ic parenchymal enhancement. Patent cerebral veins. CTA NECK: Aortic arch and proximal great vessels: Normal arch anatomy. Atherosclerotic calcifications at the vi sualized aortic arch and proximal great vessels. Right common carotid, carotid bifurcation, and internal carotid artery: Calcified atherosclerotic stefan que at the carotid bifurcation.There is 0% stenosis of the proximal right internal carotid artery rel ative to normal distal artery lumen diameter (NASCET criteria). Left common carotid, carotid bifurcation, and internal carotid artery: Calcified atherosclerotic plaq ue at the carotid bifurcation.There is 0% stenosis of the proximal left internal carotid artery relat laexa to normal distal artery lumen diameter (NASCET criteria). Vertebral arteries: No significant plaque or stenosis. Vertebral arteries co-dominant. Other findings: Dilation of the descending thoracic aorta measuring up to 4.0 cm. Dilated central pul monary arteries as can be seen with pulmonary hypertension. Numerous pulmonary granulomas and calcifi ed mediastinal lymph nodes. Azygos lobe. Paraseptal emphysematous change. Cervical spine degenerative disc disease and facet arthropathy. Multilevel severe lower cervical spinal canal narrowing secondar y to degenerative changes. IMPRESSION: No large vessel intracranial occlusion, high-grade intracranial stenosis, or aneurysm. No carotid or vertebral artery occlusion, dissection, or significant stenosis. 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 Paraseptal emphysema. Multilevel severe lower cervical spinal canal narrowing secondary to degenerative changes. Reviewed, dictated and finalized at location K. IMPRESSION: No large vessel intracranial occlusion, high-grade intracranial stenosis, or an eurysm. No carotid or vertebral artery occlusion, dissection, or significant stenosis. 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 Paraseptal emphysema. Multilevel severe lower cervical spinal canal narrowing secondary to degenerati ve changes.
--- OUTSIDE RECORDS SUMMARY | 2025-06-07 10:50 | XMS_ITS | Encounter Summary ---
Author Organization [facility] Address [address] [place] [address] Phone Care Team Providers Care Insurance Healthcare Representative Name Role Phone Unknown, Notinfile Primary Care Provider Unavail able Liza Haynes MD Primary Care Provider [phone] Encounter Details Date Type Department Care Team (Latest Contact Info) Description 12/23/2020 Orders Only [facility] Scanning, Provider Social History Tobacco Use Types Packs/Day Years Used Date Smoking Tobacco: Former Sex and Gender Information Value Date Recorded Sex Assigned at Not on file Legal Sex Male 11:16 AM DOG DAY CARE ATTENDANT Gender Identity Not on file Sexual Orientation [...] on filedocumented in this encounter Care Teams Insurance Healthcare Representative Relationship Specialty Start Date End Date Unknown, Notinfsreekanth PCP - General 11/21/20 03/14/21 Liza Haynes MD [address] [place] [address] PCP - General 03/15/21 documented as of this encounter
--- OUTSIDE RECORDS SUMMARY | 2025-06-07 10:50 | XMS_ITS | Clinical Summary ---
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
--- OUTSIDE RECORDS SUMMARY | 2025-06-07 10:50 | XMS_ITS ---
Author Organization [facility] Orthopedics [facility] Address [address] [place], [place] [address] Care Team Providers Care Assembly Hand Name Role Phone Burt Haynes MDneth Primary Care Provider [phone] [phone] ALLERGIES Allergen (clinical drug ingredient) Drug/Non Drug [...] 01/31/2024 Encounters Encounter Location Date Provider Diagnosis [facility] Orthoped[facility] [address] [place], [place] [address] 01/31/[address] Primary osteoarthritis of left [...]
--- OUTSIDE RECORDS SUMMARY | 2025-06-07 10:50 | XMS_ITS | Patient Health Record ---
Author Organization [facility] Orthopedics [facility] Address [address] [place], [place] [address] Care Team Providers Care Job Foreman Name Role Phone Dallas GIANG Oscar Primary Care Provider [address] [phone] ALLERGIES Allergen (clinical drug ingredient) Drug/Non Drug [...] Code Notes Problem Diabetes (E11.9) Active confirmed Problem Primary osteoarthritis of left knee (M17.12) Active confirmed 387953237856014 Problem History of arthroplasty of right knee (Z96.651) Active confirmed History of arthroplasty of right knee ([id number]) PLAN OF TREATMENT Pending Test Test Name Order Date X ray : Knee, left 4 views 05/02/2023 X ray : Knee, left 3 views 12/13/2021 Insurance Providers Payer Name Payer Address Payer Phone Subscriber Number Group Number Insured Name Patient Relationship to Insured Coverage Start Date Coverage End Date [facility] [address] [address] [place] [address] [id number] Shagufta Ortiz Self - patient is the insured MEDICATIONS ADMINISTERED Medication Instructions Date of Administration Dosage Notes Betamethasone/ sodium phosphate 6mg 01/24/2022 Betamethasone/ sodium phosphate 6mg 10/02/2022 Betamethasone/ sodium phosphate 6mg 01/31/2024 MEDICAL (GENERAL) HISTORY Medical History History ICD Code Diabetes E11.9 Lung Disease Surgical History Surgery Date(Month/Year)
--- OUTSIDE RECORDS SUMMARY | 2025-06-07 10:50 | XMS_ITS | Continuity of Care Document ---
Author Organization [facility] Address [address] [place] [address] Phone Care Team Providers Care Vibrating Screen Operator Name Role Phone Arcadio Zepeda MD Unavailable Unavailable Allergies, Adverse Reactions, Alerts Substance Reaction Status Criticality Penicillins Active No Information Medications Medication Instructions Dosage Effective Dates (start - stop) Status Comments METFORMIN HCL (unknown strength) Not Available - Active LISINOPRIL (unknown strength) Not Available - Active ATENOLOL (unknown strength) Not Available - Active Procedures [...] OFFICE/OUTPAT IENT VISIT EST [facility] , [address] [facility] [address], [place], [address], tel:[phone] [facility] right knee (chief complaint) Knee joint replacement Feb-2 2-201 [address] [place], [place], [address] . tel:[phone] Referring Provider: Oscar Oconnell, [address], [place], [address] . tel:[phone] OFFICE/OUTPAT IENT VISIT EST [facility] , [address], [place], [address], [place] [phone] [facility] bilateral knee (chief complaint) Hypertension, UnspecifiedOs teoarthrosis, unspecified whether generalized or localized, involving lower legKnee joint replacement [address]. [address], [place], [place], [address] . tel: [phone] Family History Family Member Type Diagnosis Age [...]
--- OUTSIDE RECORDS SUMMARY | 2025-06-07 10:50 | XMS_ITS | Encounter Summary ---
Author Organization [facility] Address [address] [place] [address] Phone Care Team Providers Care Damper Worker Name Role Phone Unknown, Notinfile Primary Care Provider Unavail able Liza Haynes MD Primary Care Provider [phone] Encounter Details Date Type Department Care Team (Latest Contact Info) Description 11/26/2020 Orders Only [facility] Scanning, Provider Social History Tobacco Use Types Packs/Day Years Used Date Smoking Tobacco: Former Sex and Gender Information Value Date Recorded Sex Assigned at Not on file Legal Sex Male 11: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
--- OUTSIDE RECORDS SUMMARY | 2025-06-07 10:50 | XMS_ITS | Encounter Summary ---
Author Organization [facility] Address [address] [place] [address] Phone Care Team Providers Care Medical Imaging Director Name Role Phone Unknown, Notinfile Primary Care Provider Unavail able Liza Haynes MD Primary Care Provider [phone] Encounter Details Date Type Department Care Team (Latest Contact Info) Description 08/22/2019 Orders Only [facility] Scanning, Provider Social History Tobacco Use Types Packs/Day Years Used Date Smoking Tobacco: Never Assessed Sex and Gender Information Value Date Recorded Sex Assigned at Not on file Legal Sex Male 11:16 AM CABLE OPERATOR Gender Identity Not on file Sexual [...] COVID: Suspected 11/21/2020 11/21/2020 11/22/2020 2:21 AM CABLE OPERATOR Respiratory Infection (BONI), contact + droplet Comment:Automatically added due to negative COVID-19 result. Patient classified as Low Risk for COVID-19 and has one negative COVID-19 test. Patient meets criteria for COVID-19 isolation discontinuation Maribell Marmolejo RN 11/24/2020 11/22/2020 11/22/2020 11/24/2020 7:39 AM CABLE OPERATOR documented as of this encounter Care Teams Medical Imaging Director Relationship Specialty Start Date End Date Unknown, Notinfile PCP - General 11/21/20 03/14/21 Liza Haynes MD [address] [place] [address] PCP - General 03/15/21 documented as of this encounter
--- OUTSIDE RECORDS SUMMARY | 2025-06-07 10:50 | XMS_ITS | Encounter Summary ---
Author Organization [facility] Address [address] [place] [address] Phone Care Team Providers Care Service Desk Agent Name Role Phone Unknown, Notinfile Primary Care Provider Unavail able Liza Haynes MD Primary Care Provider [phone] Encounter Details Date Type Department Care Team (Latest Contact Info) Description 11/03/2019 Orders Only [facility] Scanning, Provider Social History Tobacco Use Types Packs/Day Years Used Date Smoking Tobacco: Never Assessed Sex and Gender Information Value Date Recorded Sex Assigned at Not on file Legal Sex Male 11:16 AM LAPPING MACHINE TENDER Gender Identity Not on file Sexual Orientation [...] COVID: Suspected 11/21/2020 11/21/2020 11/22/2020 2:21 AM LAPPING MACHINE TENDER Respiratory Infection (BONI), contact + droplet Comment:Automatically added due to negative COVID-19 result. Patient classified as Low Risk for COVID-19 and has one negative COVID-19 test. Patient meets criteria for COVID-19 isolation discontinuation Maribell Marmolejo RN 11/24/2020 11/22/2020 11/22/2020 11/24/2020 7:39 AM LAPPING MACHINE TENDER documented as of this encounter Care Teams Service Desk Agent Relationship Specialty Start Date End Date Unknown, Notinfile PCP - General 11/21/20 03/14/21 Liza Haynes MD [address] [place] [address] PCP - General 03/15/21 documented as of this encounter
--- OUTSIDE RECORDS SUMMARY | 2025-06-07 10:50 | XMS_ITS | Encounter Summary ---
Author Organization [facility] Address [address] [place] [address] Phone Care Team Providers Care Prevention Coordinator Name Role Phone Unknown, Notinfile Primary Care Provider Unavail able Liza Haynes MD Primary Care Provider [phone] Encounter Details Date Type Department Care Team (Latest Contact Info) Description 12/10/2018 Orders Only [facility] Scanning, Provider Social History Tobacco Use Types Packs/Day Years Used Date Smoking Tobacco: Never Assessed Sex and Gender Information Value Date Recorded Sex Assigned at Not on file Legal Sex Male 11:16 AM MACHINE II ENGRAVER Gender Identity Not on file Sexual Orientation [...] COVID: Suspected 11/21/2020 11/21/2020 11/22/2020 2:21 AM MACHINE II ENGRAVER Respiratory Infection (BONI), contact + droplet Comment:Automatically added due to negative COVID-19 result. Patient classified as Low Risk for COVID-19 and has one negative COVID-19 test. Patient meets criteria for COVID-19 isolation discontinuation Maribell Marmolejo RN 11/24/2020 11/22/2020 11/22/2020 11/24/2020 7:39 AM MACHINE II ENGRAVER documented as of this encounter Care Teams Prevention Coordinator Relationship Specialty Start Date End Date Unknown, Notinfile PCP - General 11/21/20 03/14/21 Liza Haynes MD [address] [place] [address] PCP - General 03/15/21 documented as of this encounter
--- OUTSIDE RECORDS SUMMARY | 2025-06-07 10:50 | XMS_ITS | Referral Summary ---
Author Organization [facility] Address [address] [place] [address] Care Team Providers Care Software Quality Tester Name Role Phone Liza Haynes MD Primary Care Provider [phone] Allergies Active Allergy Reactions Criticality Noted Date [...] tablet Take 50 mcg by mouth early education teacher before breakfast Active Active Problems Problem Noted [...] file Legal Sex Male 11:16 AM SALES CONTRACTOR Gender Identity Not on file Sexual Orientation [...] file Insurance MDCR HMO REF Care Teams Software Quality Tester Relationship Specialty Start Date End Date Liza Haynes MD [address] [place] [address] [facility] - General 03/15/21
--- OUTSIDE RECORDS SUMMARY | 2025-06-07 10:50 | XMS_ITS | Encounter Summary ---
Author Organization [facility] Address [address] [place] [address] Phone Care Team Providers Care Waste Handling Technician Name Role Phone Unknown, Notinfile Primary Care Provider Unavail able Liza Haynes MD Primary Care Provider [phone] Encounter Details Date Type Department Care Team (Latest Contact Info) Description 05/10/2016 Orders Only [facility] Scanning, Provider Social History Tobacco Use Types Packs/Day Years Used Date Smoking Tobacco: Never Assessed Sex and Gender Information Value Date Recorded Sex Assigned at Not on file Legal Sex Male 11:16 AM HONING MACHINE SET UP OPERATOR TOOL Gender Identity Not on file Sexual Orientation [...] COVID: Suspected 11/21/2020 11/21/2020 11/22/2020 2:21 AM HONING MACHINE SET UP OPERATOR TOOL Respiratory Infection (BONI), contact + droplet Comment:Automatically added due to negative COVID-19 result. Patient classified as Low Risk for COVID-19 and has one negative COVID-19 test. Patient meets criteria for COVID-19 isolation discontinuation Maribell Marmolejo RN 11/24/2020 11/22/2020 11/22/2020 11/24/2020 7:39 AM HONING MACHINE SET UP OPERATOR TOOL documented as of this encounter Care Teams Waste Handling Technician Relationship Specialty Start Date End Date Unknown, Notinfile PCP - General 11/21/20 03/14/21 Liza Haynes MD [address] [place] [address] PCP - General 03/15/21 documented as of this encounter
--- OUTSIDE RECORDS SUMMARY | 2025-06-07 10:50 | XMS_ITS | Encounter Summary ---
Author Organization [facility] Address [address] [place] [address] Phone Care Team Providers Care Law Tutor Name Role Phone Unknown, Notinfile Primary Care Provider Unavail able Liza Haynes MD Primary Care Provider [phone] Encounter Details Date Type Department Care Team (Latest Contact Info) Description 01/25/2021 Orders Only [facility] Scanning, Provider Social History Tobacco Use Types Packs/Day Years Used Date Smoking Tobacco: Former Sex and Gender Information Value Date Recorded Sex Assigned at Not on file Legal Sex Male 11:16 AM BRUSH OPERATOR Gender Identity Not on file Sexual [...] on filedocumented in this encounter Care Teams Law Tutor Relationship Specialty Start Date End Date Unknown, Notinfsreekanth PCP - General 11/21/20 03/14/21 Liza Haynes MD [address] [place] [address] PCP - General 03/15/21 documented as of this encounter
--- OUTSIDE RECORDS SUMMARY | 2025-06-07 10:50 | XMS_ITS | Encounter Summary ---
Author Organization [facility] Address [address] [place] [address] Phone Care Team Providers Care Transport Operations Inspector Name Role Phone Unknown, Notinfile Primary Care Provider Unavail able Liza Haynes MD Primary Care Provider [phone] Encounter Details Date Type Department Care Team (Latest Contact Info) Description 11/19/2019 Orders Only [facility] Scanning, Provider Social History Tobacco Use Types Packs/Day Years Used Date Smoking Tobacco: Never Assessed Sex and Gender Information Value Date Recorded Sex Assigned at Not on file Legal Sex Male 11:16 AM METAL CUTTER Gender Identity Not on file Sexual Orientation [...] COVID: Suspected 11/21/2020 11/21/2020 11/22/2020 2:21 AM METAL CUTTER Respiratory Infection (BONI), contact + droplet Comment:Automatically added due to negative COVID-19 result. Patient classified as Low Risk for COVID-19 and has one negative COVID-19 test. Patient meets criteria for COVID-19 isolation discontinuation Maribell Marmolejo RN 11/24/2020 11/22/2020 11/22/2020 11/24/2020 7:39 AM METAL CUTTER documented as of this encounter Care Teams Transport Operations Inspector Relationship Specialty Start Date End Date Unknown, Notinfile PCP - General 11/21/20 03/14/21 Liza Haynes MD [address] [place] [address] PCP - General 03/15/21 documented as of this encounter
--- OUTSIDE RECORDS SUMMARY | 2025-06-07 10:50 | XMS_ITS | Encounter Summary ---
Author Organization [facility] Address [address] [place] [address] Phone Care Team Providers Care Millwright Name Role Phone Unknown, Notinfile Primary Care Provider Unavail able Liza Haynes MD Primary Care Provider [phone] Encounter Details Date Type Department Care Team (Latest Contact Info) Description 11/17/2020 Orders Only [facility] Scanning, Provider Social History Tobacco Use Types Packs/Day Years Used Date Smoking Tobacco: Never Assessed Sex and Gender Information Value Date Recorded Sex Assigned at Not on file Legal Sex Male 11:16 AM CASTING ROOM HELPER Gender Identity Not on file Sexual [...] COVID: Suspected 11/21/2020 11/21/2020 11/22/2020 2:21 AM CASTING ROOM HELPER Respiratory Infection (BONI), contact + droplet Comment:Automatically added due to negative COVID-19 result. Patient classified as Low Risk for COVID-19 and has one negative COVID-19 test. Patient meets criteria for COVID-19 isolation discontinuation Maribell Marmolejo RN 11/24/2020 11/22/2020 11/22/2020 11/24/2020 7:39 AM CASTING ROOM HELPER documented as of this encounter Care Teams Millwright Relationship Specialty Start Date End Date Unknown, Notinfile PCP - General 11/21/20 03/14/21 Liza Haynes MD [address] [place] [address] PCP - General 03/15/21 documented as of this encounter
--- OUTSIDE RECORDS SUMMARY | 2025-06-07 11:30 | XMS_ITS | Encounter Summary ---
Author Organization [facility] Address [address] [place] [address] Phone Care Team Providers Care Basketball Referee Name Role Phone Unknown, Notinfile Primary Care Provider Unavail able Liza Haynes MD Primary Care Provider [phone] Encounter Details Date Type Department Care Team (Latest Contact Info) Description 11/19/2019 Orders Only [facility] Scanning, Provider Social History Tobacco Use Types Packs/Day Years Used Date Smoking Tobacco: Never Assessed Sex and Gender Information Value Date Recorded Sex Assigned at Not on file Legal Sex Male 11:16 AM INSPECTOR MULTIFOCAL LENS Gender Identity Not on file Sexual Orientation [...] COVID: Suspected 11/21/2020 11/21/2020 11/22/2020 2:21 AM INSPECTOR MULTIFOCAL LENS Respiratory Infection (BONI), contact + droplet Comment:Automatically added due to negative COVID-19 result. Patient classified as Low Risk for COVID-19 and has one negative COVID-19 test. Patient meets criteria for COVID-19 isolation discontinuation Maribell Marmolejo RN 11/24/2020 11/22/2020 11/22/2020 11/24/2020 7:39 AM INSPECTOR MULTIFOCAL LENS documented as of this encounter Care Teams Basketball Referee Relationship Specialty Start Date End Date Unknown, Notinfile PCP - General 11/21/20 03/14/21 Liza Haynes MD [address] [place] [address] PCP - General 03/15/21 documented as of this encounter
--- OUTSIDE RECORDS SUMMARY | 2025-06-07 11:30 | XMS_ITS | Encounter Summary ---
Author Organization [facility] Address [address] [place] [address] Phone Care Team Providers Care Unionmelt Operator Name Role Phone Unknown, Notinfile Primary Care Provider Unavail able Liza Haynes MD Primary Care Provider [phone] Encounter Details Date Type Department Care Team (Latest Contact Info) Description 11/03/2019 Orders Only [facility] Scanning, Provider Social History Tobacco Use Types Packs/Day Years Used Date Smoking Tobacco: Never Assessed Sex and Gender Information Value Date Recorded Sex Assigned at Not on file Legal Sex Male 11:16 AM FURNACE FILLER Gender Identity Not on file Sexual Orientation [...] COVID: Suspected 11/21/2020 11/21/2020 11/22/2020 2:21 AM FURNACE FILLER Respiratory Infection (BONI), contact + droplet Comment:Automatically added due to negative COVID-19 result. Patient classified as Low Risk for COVID-19 and has one negative COVID-19 test. Patient meets criteria for COVID-19 isolation discontinuation Maribell Marmolejo RN 11/24/2020 11/22/2020 11/22/2020 11/24/2020 7:39 AM FURNACE FILLER documented as of this encounter Care Teams Unionmelt Operator Relationship Specialty Start Date End Date Unknown, Notinfile PCP - General 11/21/20 03/14/21 Liza Haynes MD [address] [place] [address] PCP - General 03/15/21 documented as of this encounter
--- OUTSIDE RECORDS SUMMARY | 2025-06-07 11:30 | XMS_ITS | Encounter Summary ---
Author Organization [facility] Address [address] [place] [address] Phone Care Team Providers Care Manager Production Name Role Phone Unknown, Notinfile Primary Care Provider Unavail able Liza Haynes MD Primary Care Provider [phone] Encounter Details Date Type Department Care Team (Latest Contact Info) Description 05/10/2016 Orders Only [facility] Scanning, Provider Social History Tobacco Use Types Packs/Day Years Used Date Smoking Tobacco: Never Assessed Sex and Gender Information Value Date Recorded Sex Assigned at Not on file Legal Sex Male 11:16 AM PARTY DIRECTOR Gender Identity Not on file Sexual [...] COVID: Suspected 11/21/2020 11/21/2020 11/22/2020 2:21 AM PARTY DIRECTOR Respiratory Infection (BONI), contact + droplet Comment:Automatically added due to negative COVID-19 result. Patient classified as Low Risk for COVID-19 and has one negative COVID-19 test. Patient meets criteria for COVID-19 isolation discontinuation Maribell Marmolejo RN 11/24/2020 11/22/2020 11/22/2020 11/24/2020 7:39 AM PARTY DIRECTOR documented as of this encounter Care Teams Manager Production Relationship Specialty Start Date End Date Unknown, Notinfile PCP - General 11/21/20 03/14/21 Liza Haynes MD [address] [place] [address] PCP - General 03/15/21 documented as of this encounter
--- OUTSIDE RECORDS SUMMARY | 2025-06-07 11:30 | XMS_ITS | Encounter Summary ---
Author Organization [facility] Address [address] [place] [address] Phone Care Team Providers Care Management Department Chair Name Role Phone Unknown, Notinfile Primary Care Provider Unavail able Liza Haynes MD Primary Care Provider [phone] Encounter Details Date Type Department Care Team (Latest Contact Info) Description 08/22/2019 Orders Only [facility] Scanning, Provider Social History Tobacco Use Types Packs/Day Years Used Date Smoking Tobacco: Never Assessed Sex and Gender Information Value Date Recorded Sex Assigned at Not on file Legal Sex Male 11:16 AM METAL CASKET ASSEMBLER Gender Identity Not on file Sexual [...] Suspected 11/21/2020 11/21/2020 11/22/2020 2:21 AM METAL CASKET ASSEMBLER Respiratory Infection (BONI), contact + droplet Comment:Automatically added due to negative COVID-19 result. Patient classified as Low Risk for COVID-19 and has one negative COVID-19 test. Patient meets criteria for COVID-19 isolation discontinuation Maribell Marmolejo RN 11/24/2020 11/22/2020 11/22/2020 11/24/2020 7:39 AM METAL CASKET ASSEMBLER documented as of this encounter Care Teams Management Department Chair Relationship Specialty Start Date End Date Unknown, Notinfile PCP - General 11/21/20 03/14/21 Liza Haynes MD [address] [place] [address] PCP - General 03/15/21 documented as of this encounter
--- OUTSIDE RECORDS SUMMARY | 2025-06-07 11:30 | XMS_ITS | Encounter Summary ---
Author Organization [facility] Address [address] [place] [address] Phone Care Team Providers Care Circular Gang Saw Operator Name Role Phone Unknown, Notinfile Primary Care Provider Unavail able Liza Haynes MD Primary Care Provider [phone] Encounter Details Date Type Department Care Team (Latest Contact Info) Description 01/25/2021 Orders Only [facility] Scanning, Provider Social History Tobacco Use Types Packs/Day Years Used Date Smoking Tobacco: Former Sex and Gender Information Value Date Recorded Sex Assigned at Not on file Legal Sex Male 11:16 AM DRAMA TEACHER Gender Identity Not on file Sexual Orientation [...] on filedocumented in this encounter Care Teams Circular Gang Saw Operator Relationship Specialty Start Date End Date Unknown, Notinfsreekanth PCP - General 11/21/20 03/14/21 Liza Haynes MD [address] [place] [address] PCP - General 03/15/21 documented as of this encounter
--- OUTSIDE RECORDS SUMMARY | 2025-06-07 11:30 | XMS_ITS | Encounter Summary ---
Author Organization [facility] Address [address] [place] [address] Phone Care Team Providers Care Material Reprocessing Associate Name Role Phone Unknown, Notinfile Primary Care Provider Unavail able Liza Haynes MD Primary Care Provider [phone] Encounter Details Date Type Department Care Team (Latest Contact Info) Description 11/17/2020 Orders Only [facility] Scanning, Provider Social History Tobacco Use Types Packs/Day Years Used Date Smoking Tobacco: Never Assessed Sex and Gender Information Value Date Recorded Sex Assigned at Not on file Legal Sex Male 11:16 AM DISTRIBUTION CENTER ADMINISTRATOR Gender Identity Not on file Sexual Orientation [...] COVID: Suspected 11/21/2020 11/21/2020 11/22/2020 2:21 AM DISTRIBUTION CENTER ADMINISTRATOR Respiratory Infection (BONI), contact + droplet Comment:Automatically added due to negative COVID-19 result. Patient classified as Low Risk for COVID-19 and has one negative COVID-19 test. Patient meets criteria for COVID-19 isolation discontinuation Maribell Marmolejo RN 11/24/2020 11/22/2020 11/22/2020 11/24/2020 7:39 AM DISTRIBUTION CENTER ADMINISTRATOR documented as of this encounter Care Teams Material Reprocessing Associate Relationship Specialty Start Date End Date Unknown, Notinfile PCP - General 11/21/20 03/14/21 Liza Haynes MD [address] [place] [address] PCP - General 03/15/21 documented as of this encounter
--- OUTSIDE RECORDS SUMMARY | 2025-06-07 11:30 | XMS_ITS | Clinical Summary ---
Author Organization [facility] Address [address] [place] [address] Care Team Providers Care Environmental Services Coordinator Name Role Phone Liza Haynes MD Primary Care Provider [phone] Allergies Active Allergy Reactions Criticality Noted Date [...] mcg tablet Take 50 mcg by mouth phlebotomist medical lab assistant before breakfast Active Active Problems Problem [...] on file Legal Sex Male 11:16 AM TECHNICIAN SUPPORT ASSOCIATION Gender Identity Not on file Sexual Orientation [...] file Insurance R HMO REF Care Teams Environmental Services Coordinator Relationship Specialty Start Date End Date Liza Haynes MD [address] [place] [address] PCP - General 03/15/21
--- OUTSIDE RECORDS SUMMARY | 2025-06-07 11:30 | XMS_ITS | Encounter Summary ---
Author Organization [facility] Address [address] [place] [address] Phone Care Team Providers Care Cyber Software Engineer Name Role Phone Unknown, Notinfile Primary Care Provider Unavail able Liza Haynes MD Primary Care Provider [phone] Encounter Details Date Type Department Care Team (Latest Contact Info) Description 12/10/2018 Orders Only [facility] Scanning, Provider Social History Tobacco Use Types Packs/Day Years Used Date Smoking Tobacco: Never Assessed Sex and Gender Information Value Date Recorded Sex Assigned at Not on file Legal Sex Male 11:16 AM DIRECTOR OF ACQUISITIONS Gender Identity Not on file Sexual Orientation [...] COVID: Suspected 11/21/2020 11/21/2020 11/22/2020 2:21 AM DIRECTOR OF ACQUISITIONS Respiratory Infection (BONI), contact + droplet Comment:Automatically added due to negative COVID-19 result. Patient classified as Low Risk for COVID-19 and has one negative COVID-19 test. Patient meets criteria for COVID-19 isolation discontinuation Maribell Marmolejo RN 11/24/2020 11/22/2020 11/22/2020 11/24/2020 7:39 AM DIRECTOR OF ACQUISITIONS documented as of this encounter Care Teams Cyber Software Engineer Relationship Specialty Start Date End Date Unknown, Notinfile PCP - General 11/21/20 03/14/21 Liza Haynes MD [address] [place] [address] PCP - General 03/15/21 documented as of this encounter
--- OUTSIDE RECORDS SUMMARY | 2025-06-07 11:30 | XMS_ITS | Referral Summary ---
Author Organization [facility] Address [address] [place] [address] Care Team Providers Care Inlayer Name Role Phone Liza Haynes MD Primary Care Provider [phone] Allergies Active Allergy Reactions Criticality Noted Date [...] mcg tablet Take 50 mcg by mouth oil mixer before breakfast Active Active Problems Problem Noted [...] on file Legal Sex Male 11:16 AM SCENE PAINTER Gender Identity Not on file Sexual Orientation [...] Not on file Insurance MDCR HMO REF [facility] MEDIC[facility] Address: [facility] [address] [place] [address] Care Teams Inlayer Relationship Specialty Start Date End Date Liza Haynes MD [address] [place] [place] [address] [facility] - General 03/15/21
--- OUTSIDE RECORDS SUMMARY | 2025-06-07 11:30 | XMS_ITS | Encounter Summary ---
Author Organization [facility] Address [address] [place] [address] Phone Care Team Providers Care Knot Tier Name Role Phone Unknown, Notinfile Primary Care Provider Unavail able Liza Haynes MD Primary Care Provider [phone] Encounter Details Date Type Department Care Team (Latest Contact Info) Description 12/23/2020 Orders Only [facility] Scanning, Provider Social History Tobacco Use Types Packs/Day Years Used Date Smoking Tobacco: Former Sex and Gender Information Value Date Recorded Sex Assigned at Not on file Legal Sex Male 11:16 AM COMPLIANCE SPECIALIST Gender Identity Not on file Sexual Orientation [...] on filedocumented in this encounter Care Teams Knot Tier Relationship Specialty Start Date End Date Unknown, Notinfsreekanth PCP - General 11/21/20 03/14/21 Liza Haynes MD [address] [place] [address] PCP - General 03/15/21 documented as of this encounter
--- OUTSIDE RECORDS SUMMARY | 2025-06-07 11:30 | XMS_ITS | Encounter Summary ---
Author Organization [facility] Address [address] [place] [address] Phone Care Team Providers Care Placement Assistant Name Role Phone Unknown, Notinfile Primary Care Provider Unavail able Liza Haynes MD Primary Care Provider [phone] Encounter Details Date Type Department Care Team (Latest Contact Info) Description 11/26/2020 Orders Only [facility] Scanning, Provider Social History Tobacco Use Types Packs/Day Years Used Date Smoking Tobacco: Former Sex and Gender Information Value Date Recorded Sex Assigned at Not on file Legal Sex Male 11:16 AM COACH PROFESSIONAL ATHLETES Gender Identity Not on file Sexual Orientation [...] on filedocumented in this encounter Care Teams Placement Assistant Relationship Specialty Start Date End Date Unknown, Notinfsreekanth PCP - General 11/21/20 03/14/21 Liza Haynes MD [address] [place] [address] PCP - General 03/15/21 documented as of this encounter
--- OUTSIDE RECORDS SUMMARY | 2025-06-07 11:30 | XMS_ITS | Continuity of Care Document ---
Author Organization [facility] Address [address] [facility] [address] [place] [address] Phone Care Team Providers Care Wire Spinner Name Role Phone Arcadio Zepeda MD Unavailable [...] OFFICE/OUTPAT IENT VISIT EST [facility] , [address] [facility] [address], [place], [address], tel:[phone] [facility] right knee (chief complaint) Knee joint replacement Feb-2 2-201 3 Katelyn Ervin. [address] [facility] [address] [place], [place], [id number] . tel:[phone] Referring Provider: Oscar Oconnell, [address], [place], [address] . tel:[phone] OFFICE/OUTPAT IENT VISIT EST [facility] , [address] [facility] [address], [place], [address], [place] [phone] [facility] bilateral knee (chief complaint) Hypertension, UnspecifiedOs teoarthrosis, unspecified whether generalized or localized, involving lower legKnee joint replacement 2 Katelyn Ervin. [address], [place], [place], [id number] . tel: [phone] Family History Family Member Type Diagnosis Age At Onset Problem (finding) Family history of Cance r Payers Payer name Insurance type Covered green party ID Authoriza tion(s) No Information Social [...]
--- NOTE | 2025-06-07 11:45 | ECG_ITS ---
Test Date: 2025-06-07 12:36:58 Measurements Intervals Red Level Rate: 64 P: 84 TN: 167 QRS: -42 QRSD: 106 T: 64 QT: 406 QTc: 421 Interpretive Statements SINUS RHYTHM LEFT AXIS DEVIATION [QRS AXIS < -30] No previous ECG available for comparison Electronically Signed On 06-07-2025 18:00:53 CDT by Donnell Simpson M.D.
--- NOTE | 2025-06-07 12:05 | ED.DIZZY ---
HPI - Dizziness General Chief Complaint: Dizziness Stated Complaint: eye pain, balance issues Time Seen by Provider: 06/07/25 11:23 Source: patient and family Mode of arrival: ambulatory Limitations: no limitations History of Present Illness HPI Narrative: Patient presents with report of a frontal headache. Was initially reported that patient had eye pain however he denies this only pressure around his forehead. Denies any temporal pain. No unilateral symptoms such as paresthesias or motor weakness. No slurred speech. His noticed issue balance earlier this morning. He states he was slightly dizzy lightheaded. Patient states the center of his vision was fine but he experienced some blurred peripheral vision. Was initially reported that he was having double vision in triage note however he denies this. He states he experienced something slightly from when he has all the years before. He had complete resolution after that. His symptoms started at 8:00 a.m. around breakfast but he had been up before that, did not wake up with these symptoms. Possible TIA approximately 10 years ago. No lingering neurological deficits. Non insulin-dependent type 2 diabetes mellitus. Watery eyes. Denies neck pain or limitations with range of movement. No fevers chills. Not on anticoagulation. Mild photophobia. No phonophobia. He wears prescription glasses at baseline although not currently wearing them. These are prescribed by an warehouse puller/threat analyst and he does note that he needs to see them again. Due for an ear procedure soon for an issue with his eardrum, otherwise no acute hearing changes. Denies tinnitus or ear pain. Denies family member with similar symptoms or concern for CO poisoning/exposure. Related Data Home Medications ?Medication ?Instructions ?Recorded ?Confirmed ?Last Taken ?Type hydrochlorothiazide 25 mg tablet 25 mg PO DAILY 03/09/25 05/18/25 Unknown History Allergies Allergy/AdvReac Type Severity Reaction Status Date / Time Penicillins Allergy Unknown Skin Verified 05/18/25 09:34 Reaction lisinopril AdvReac Intermediate cough Verified 05/18/25 09:34 morphine AdvReac Intermediate Nausea and Verified 05/18/25 09:34 Vomiting PMFSH Past Medical History Medical History Palsy Chronic sinusitis Nodule of lower lobe of left lung Collapsed lung CTS (carpal tunnel syndrome) COPD with asthma Essential (primary) hypertension Hypothyroidism (acquired) Obstructive sleep apnea (adult) (pediatric) Type 2 diabetes mellitus with unspecified complications Surgical History Surgical History Hx of cholecystectomy History of carpal tunnel release H/O hernia repair H/O arthroscopic knee surgery History of knee replacement H/O partial resection of colon History of cardiac cath Family History Family History Father Hypertension Family history of throat cancer, Onset Age: 67 Patient's father is , Onset Age: 67 Sibling , recovered from throat cancer Hypertension, Onset Age: 39 Family history of primary malignant neoplasm of liver Family history of malignant neoplasm of breast in first degree relative, Onset Age: 47 Family history of throat cancer, Onset Age: 52 Family history of malignant neoplasm of breast Mother Hypertension Social History Social History (Updated 06/07/25 @ 13:03 by Madelaine Limon MD) Social History: Smoking packs per day: 1.5 Smoking cigarettes per day: 30.0 Years smoked: 35 Smoking pack-years: 52.50 Smoking status: Former smoker Tobacco type: cigarettes Smoking end date: 11/12/97 Alcohol intake: never Substance use type: does not use Lack of Transportation: No Lack of Food: Never True Current Housing: I Have Housing Concerned About Future Housing: No Difficulty Paying Gas/Electric Bills: No Difficulty Paying for Meds: YES Currently Unemployed: No Education: Grade School Difficulty w/ Childcare or Family Care: No Living arrangements: with family Additional living arrangements comments: Occupation/Education: retired Spiritual care concerns: No Exam Narrative: GENERAL: Well-appearing, well-nourished, and in no acute distress. HEAD: Normocephalic, atraumatic. EYES: Non injected, non icteric. Extraocular movements intact. PERRL. No gaze palsy. Mild photophobia and tearing. Visual acuity 20/50 R and 20/70 L with glasses. ENT: Nares clear, no rhinorrhea or epistaxis. Gross auditory acuity intact. Bilateral tympanic membranes visualized without effusion bulging or erythema. NECK: Supple. No meningismus. CHEST: Speaking in full sentences. No respiratory distress. HEART: Regular rate and rhythm. . ABDOMEN: Soft, nondistended. No rigidity or guarding. Not peritoneal EXTREMITIES: Normal range of motion. No lower extremity edema. SKIN: Warm, dry, no rash. NEURO: No focal deficits. Alert and oriented. Answering questions. Following commands. Normal speech without aphasia or dysarthria. Ambulates with steady gait. No gaze palsy. No extinction. No ataxia on [id number]. Sensation intact to gross touch throughout. PSYCH: Normal mood and affect. Course Vital Signs Vital signs: Vital Signs Temperature 97.9 F 06/07/25 11:09 Temperature 97.9 F 06/07/25 11:09 Pulse Rate 75 06/07/25 14:32 Respiratory Rate 13 06/07/25 14:44 Blood Pressure 138/77 06/07/25 14:32 Pulse Oximetry 95 06/07/25 14:45 MDM - Dizziness MDM Narrative Medical decision making narrative: This is a 75 year old male who presents to the emergency department with concern for frontal headache and some dizziness/lightheaded and transient blurred peripheral vision. Last known well is 0800. The patient is protecting their airway which is patent. An IV is established by nursing staff blood work sent to the lab for evaluation. An EKG will be performed. NIHSS was evaluated per below. The patient was transported to CT scan for evaluation of acute intracranial bleed. In the emergency department he is afebrile with vital signs notable for bradycardia and borderline SpO2. After obtaining the patient's history and performing a physical exam, the headache is most likely due to benign etiology. The extensive neurological examination is non-focal, there are no high-risk features on history, vital signs are stable, and the patient is non-toxic appearing. The Ddx for the patient's headache is tension headache, migraine, or other headache of non-emergent etiology. Although migrane and cluster are typically unilateral. Unlikely SAH: headache is non-thunderclap. Unlikely subdural/epidural hematoma: no history of trauma, no anticoagulation Unlikely meningitis: afebrile, no meningismus, mild photophobia Unlikely temporal arteritis: No tenderness in temporal area Unlikely acute angle glaucoma: PERRL, no eye pain Unlikely carbon monoxide poisoning: no other house members with similar symptoms NIHSS Level Of consciousness:0 Month and age:0 Follows commands:0 Gaze palsy:0 Visual oliveros:0 Facial palsy:0 Left arm motor drift:0 Right arm motor drift:0 Left leg motor drift:0 Right leg motor drift:0 Limb ataxia:0 Sensation:0 Aphasia:0 Dysarthria:0 Extinction:0 Total: 0 DIFFERENTIAL DIAGNOSES Considered Stroke (CVA / TIA) as well as mimics including but not limited to: migraines, hypoglycemia, seizures/Andrew's paralysis, sepsis/severe infections in patients with prior strokes (e.g. recrudescence), syncope, brain masses, transient global amnesia, panic attack/hyperventilation, and conversion disorders. Does not sound like sulma vertigo but considered differential: Central causes: infection ( encephalitis, meningitis, cerebritis); vertebrobasilar arterial insufficiency, subclavian steal syndrome, cerebellar or brainstem hemorrhage or infarction, vertebrobasilar migraine, trauma ( temporal bone fracture, post concussive syndrome); tumor (brainstem or cerebellum); MS; temporal lobe epilepsy Peripheral causes: Foreign body, cerumen impaction, acute otitis media, labyrinthitis, benign paroxysmal positional vertigo, Meniere's disease, vestibular neuronitis, perilymphatic fistula, trauma, motion sickness, acoustic neuroma, ototoxic medications Will give meclizine and acetaminophen to start. He appears to have an SAMIR. 1 L IV fluids ordered. CT as below. Ortho stats are reviewed and acceptable. Labs are reviewed and acceptable including thyroid. Ketorolac, benadryl; compazine were ordered as well as oxygen to treat this patient's headache however on reassessment he states the head pressure is already gone. Initial plan was to discharged with strict return precautions and instructions; already has a previously scheduled appointment with his PCP this week. We discussed the incidental findings on him imaging and he states he was aware of both. Patient now complaining of diplopia whereas he had stated earlier this was not the case. I did reassess him at bedside. He states if he closes either eye this goes away but, with far away vision, when both eyes open, he sees a double image. DIFFERENTIAL DIAGNOSIS Diplopia <del>Monocular</del> <del>(1</del> <del>eye</del> <del>only,</del> <del>continues</del> <del>when</del> <del>other</del> <del>eye</del> <del>covered)</del> <del>=</del> <del>Astigmatism,</del> <del>cataracts,</del> <del>lens</del> <del>dislocation</del> Binocular (misalignment stops if other eye covered) = Entrapment, CN palsy, intracranial mass effect, thyroid disease, microvascular disease I did discuss with Dr Shoemaker, neurologist who concurred that reasonable to be admitted for MRI if patient desired versus follow up outpatient. Shared decision making with patient and both options presented to him. Ultimately, patient would like to be discharged and already has follow up with PCP this week who will be able to review note/labs/imaging/documentation). Also advised he follow up with optometry/ophthalmology as he states he has a new prescription but did not get new glasses. He was given strict ED return precautions and he verifies understanding. Also spoke with patient's family who was concerned he was leaving AMA but advised that this is not the case. Lab Data Attestation: I reviewed the patient's lab results. Lab results narrative: CBC unremarkable 06/07/25 12:36 06/07/25 12:36 Labs: Lab Results 06/07/25 06/07/25 Range/Units 12:20 12:36 WBC 6.2 (4.5-10.0) K/mm3 RBC 5.10 (4.6-6.20) M/mm3 Hgb 14.9 (14.0-18.0) g/dL Hct 44.5 (42.0-52.0) % MCV 87.3 (80-100) fl MCH 29.2 (26-34) pg MCHC 33.5 (32-36) g/dl RDW 14.3 (11.5-14.5) % Plt Count 156 (150-375) k/mm3 MPV 9.3 (7.4-10.4) fl Immature Gran % (Auto) 0.5 (0-0.5) % Neut % (Auto) 66.5 (45.5-73.1) % Lymph % (Auto) 20.6 (18.3-44.2) % Preble % (Auto) 8.4 (2.6-8.5) % Eos % (Auto) 3.4 (0-4.4) % Baso % (Auto) 0.6 (0.2-1.2) % Lymph # (Auto) 1.28 (0.9-3.2) K/mm3 Preble # (Auto) 0.5 (0.1-0.6) K/mm3 Eos # (Auto) 0.2 (0-0.3) K/mm3 Baso # (Auto) 0.0 (0.0-0.1) K/mm3 Abs Immat Gran (auto) 0.03 (0.00-0.031) K/mm3 Absolute Neuts (auto) 4.1 (1.3-6.7) K/mm3 Absolute Nucleated RBC 0.000 (0.0-0.012) K/mm3 Nucleated RBC % 0.0 (0.0-0.2) % ESR 12 (0-20) mm/hr Sodium 135 L (137-145) mmol/L Potassium 3.6 (3.4-5.0) mmol/L Chloride 100 (98-107) mmol/L Carbon Dioxide 27 (22-30) mmol/L Anion Gap 8 (4-12) mmol/L BUN 17 (9-20) mg/dL Creatinine 1.44 H (0.7-1.3) mg/dL Estim Creat Clear Calc Not Reportable Estimated GFR 48 L (59 - ) Glucose 116 H (65-110) mg/dL Calcium 9.7 (8.4-10.2) mg/dL Total Bilirubin 1.6 H (0.2-1.3) mg/dL AST 45 (17-59) U/L ALT 57 H (6-50) U/L Alkaline Phosphatase 65 (38-126) U/L Troponin I < 0.012 (0.000-0.034) ng/mL C-Reactive Protein < 0.5 (<1.0) mg/dL Total Protein 8.0 (6.3-8.2) g/dL Albumin 4.6 (3.5-5.1) g/dL TSH 4.120 (0.465-4.680) uIU/mL Urine Color Yellow (Yellow) Urine Appearance Clear (Clear) Urine pH 7.0 (5.0-9.0) Ur Specific [place] 1.013 (1.001-1.035) Urine Protein Negative (Negative) mg/dL Urine Glucose (UA) 3+ H (Negative) mg/dL Urine Ketones Negative (Negative) mg/dL Ur Blood (Man) Negative (Negative) Urine Nitrate Negative (Negative) Urine Bilirubin Negative (Negative) Urine Urobilinogen 0.2 (<2.0) mg/dL Leukocyte Esterase Rfl Negative (Negative) CLAUDETTE/UL Urine Opiates Screen Negative (Negative) Urine Methadone Screen Negative (Negative) Ur Barbiturates Screen Negative (Negative) Ur Phencyclidine Scrn Negative (Negative) Ur Amphetamine Screen Negative (Negative) U Benzodiazepines Scrn Negative (Negative) Urine Cocaine Screen Negative (Negative) U Cannabinoids Screen Negative (Negative) Imaging Data Radiologist's impression: Impressions Chest X-Ray 06/07/25 13:08 IMPRESSION: No acute cardiopulmonary process. Prior recommendation for left lower lobe nodule follow-up unchanged. Head CT 06/07/25 13:40 IMPRESSION: No acute intracranial process. Head/Neck CTA 06/07/25 13:50 IMPRESSION: No large vessel intracranial occlusion, high-grade intracranial stenosis, or aneurysm. No carotid or vertebral artery occlusion, dissection, or significant stenosis. 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 Paraseptal emphysema. Multilevel severe lower cervical spinal canal narrowing secondary to degenerative changes. ECG Data EKG #1: Attestation: I personally reviewed and interpreted this ECG as follows: ECG completion date: 06/07/25 ECG completion time: 12:36 Interpretation: Normal sinus rhythm at a rate of 64 beats per minute ME interval 167. QRS 106. QT/QTC 406/416. Poor R-wave progression across the precordial leads. Left axis deviation (QRS is positive with dominant R wave in Lead I; QRS is negative with dominant S wave in leads II, III, and aVF). No T-wave inversions. Incomplete RBBB given QRS less [id number]; RSR' M-shaped pattern in V1-V3; wide, slurred S wave in lateral leads (I, aVL, V5-6). Discharge Plan Discharge Clinical Impression: Frontal headache, Glucosuria, Left lower lobe pulmonary nodule, SAMIR (acute kidney injury), Aneurysm of descending thoracic aorta without rupture, Blurred vision, Paraseptal emphysema, Diplopia, Watery eyes Patient Disposition: Home Condition: Stable Instructions: Antibiotic Form, Acute Kidney Injury (DC), Emphysema (DC), Acute Headache (ED), Blurred Vision (ED), Pulmonary Nodules (ED), Diplopia (ED), Descending Thoracic Aortic Aneurysm (DC) Additional Instructions: Keep your upcoming appointment already scheduled for this week with your primary care physician. Also recommend you see your warehouse puller/threat analyst since you say you are due for an appointment. Return to the emergency department with any new, worsening or unmanaged symptoms. Acetaminophen/Tylenol (maximum 4000 mg per day) is safe to take for pain relief. Patient Language: Telugu Prescriptions: New acetaminophen 500 mg capsule 1,000 mg PO Q6H PRN (Reason: pain) Qty: 30 0RF No Action methylprednisolone [Medrol (Raul)] 4 mg tablets,dose pack See Rx Instructions .ROUTE .COMPLEX Qty: 21 0RF Rx Instructions: orally per package directions ipratropium bromide 21 mcg (0.03 %) spray,non-aerosol 2 spray NASAL TID PRN (Reason: nasal drainage) Qty: 30 0RF Rx Instructions: administer into each nostril potassium chloride [Klor-Con M20] 20 mEq tablet,ER particles/crystals 20 meq PO BID Qty: 180 2RF pravastatin 20 mg tablet 20 mg PO DAILY Qty: 90 2RF fluticasone propionate 50 mcg/actuation spray,suspension 1 spray intranasal DAILY 30 Days Qty: 16 2RF Rx Instructions: administer into each nostril glipizide 2.5 mg tablet extended release 24hr 2.5 mg PO DAILY Qty: 90 1RF Rx Instructions: Take with the 5 mg dose once daily hydrochlorothiazide 25 mg tablet 25 mg PO DAILY (DME) blood-glucose meter Kit See Rx Instructions .ROUTE .MEDSUPPLY Qty: 1 0RF Rx Instructions: one touch glucose meter test twice daily ipratropium-albuterol 0.5 mg-3 mg(2.5 mg base)/3 mL solution for nebulization 3 ml INHALATION Q6H PRN (Reason: shortness of breath or wheezing) Qty: 180 3RF OneTouch Verio test strips Strip See Rx Instructions .ROUTE .COMPLEX Qty: 200 3RF Dose Instruction: TEST TWICE DAILY Rx Instructions: TEST TWICE DAILY lancets [OneTouch Delica Plus Lancet] 30 gauge misc See Rx Instructions .ROUTE .COMPLEX Qty: 200 3RF Dose Instruction: TEST TWICE DAILY Rx Instructions: TEST TWICE DAILY glipizide 5 mg tablet extended release 24hr See Rx Instructions .ROUTE .COMPLEX Qty: 90 1RF Dose Instruction: TAKE 1 TABLET BY MOUTH EVERY DAY WITH FOOD Rx Instructions: TAKE 1 TABLET BY MOUTH EVERY DAY WITH FOOD irbesartan 300 mg tablet See Rx Instructions .ROUTE .COMPLEX Qty: 90 1RF Dose Instruction: TAKE 1 TABLET BY MOUTH EVERY DAY Rx Instructions: TAKE 1 TABLET BY MOUTH EVERY DAY amlodipine 10 mg tablet See Rx Instructions .ROUTE .COMPLEX Qty: 90 1RF Dose Instruction: TAKE 1 TABLET BY MOUTH EVERY DAY Rx Instructions: TAKE 1 TABLET BY MOUTH EVERY DAY budesonide-formoterol [Symbicort] 160-4.5 mcg/actuation HFA aerosol inhaler 2 inh inhalation Q12H Qty: 10.2 2RF Rx Instructions: INHALE 2 PUFFS BY MOUTH EVERY 12 HOURS spironolactone 25 mg tablet See Rx Instructions .ROUTE .COMPLEX Qty: 90 1RF Dose Instruction: TAKE 1 TABLET BY MOUTH EVERY DAY Rx Instructions: TAKE 1 TABLET BY MOUTH EVERY DAY metoprolol tartrate 25 mg tablet 25 mg PO DAILY Qty: 180 1RF levothyroxine 50 mcg tablet See Rx Instructions .ROUTE .COMPLEX Qty: 90 1RF Dose Instruction: TAKE 1 TABLET BY MOUTH EVERY DAY Rx Instructions: TAKE 1 TABLET BY MOUTH EVERY DAY Follow-up/Referrals: Nghia Reed, [Primary Care Provider] - Stand Alone Forms: Work/School Release IP Time of Disposition: 14:59
[2025-06-07 12:28] LABS: Add Urine Microscopic? NO; Appearance Urine Clear (Clear); Glucose Urine UA 3+ mg/dL (Negative); Leukocyte Esterase Ur Negative LEU/UL (Negative); Nitrate Urine Negative (Negative); Specific Grav Ur 1.013 (1.001-1.035)
[2025-06-07 12:43] LABS: Hematocrit 44.5 % (42.0-52.0); Hemoglobin 14.9 g/dL (14.0-18.0); Immature Granulocyte Percent A 0.5 % (0-0.5); Lymphocytes Absolute Auto 1.28 K/mm3 (0.9-3.2); Mean Corpuscular HGB Conc 33.5 g/dl (32-36); Mean Corpuscular Hemoglobin 29.2 pg (26-34); Mean Corpuscular Volume 87.3 fl (80-100); Nucleated Red Blood Cells Absolute Auto 0.000 K/mm3 (0.0-0.012); Nucleated Red Blood Cells Perc 0.0 % (0.0-0.2); Platelet Count Result 156 k/mm3 (150-375); Red Blood Count 5.10 M/mm3 (4.6-6.20); White Blood Count 6.2 K/mm3 (4.5-10.0)
[2025-06-07 12:51] LABS: Cannabinoid Screen Urine Negative (Negative)
[2025-06-07] MEDS: MECLIZINE HCL 25 MG TABLET PO (12:53)
[2025-06-07] MEDS: ACETAMINOPHEN 500 MG TABLET 1000 MG PO (12:53)
[2025-06-07 13:07] LABS: Alanine Aminotransferase 57 U/L (6-50); Albumin Level 4.6 g/dL (3.5-5.1); Alkaline Phosphatase 65 U/L (38-126); Aspartate Amino Transferase 45 U/L (17-59); Bilirubin,Total 1.6 mg/dL (0.2-1.3); Blood Urea Nitrogen 17 mg/dL (9-20); Calcium 9.7 mg/dL (8.4-10.2); Carbon Dioxide 27 mmol/L (22-30); Estimated Glomerular Filt Rate 48; Glucose 116 mg/dL (65-110); Potassium 3.6 mmol/L (3.4-5.0); Sodium 135 mmol/L (137-145); Total Protein 8.0 g/dL (6.3-8.2)
[2025-06-07 13:15] LABS: Anion Gap 8 mmol/L (4-12); Chloride 100 mmol/L (98-107)
[2025-06-07 13:18] LABS: Troponin I < 0.012 ng/mL (0.000-0.034)
[2025-06-07 13:31] LABS: CRP < 0.5 mg/dL (<1.0)
--- NOTE | 2025-06-07 14:47 | PC.NURSE ---
patient and family have questions about a patient update. dr cadena notified and at bedside at this time
[2025-06-07 16:05] LABS: Thyroid Stimulating Hormone 4.120 uIU/mL (0.465-4.680)
== END 2025-06-07 17:10 | disposition home or self-care (01) ==
PROVIDERS: Emergency Provider Student in an Organized Health Care Education/Training Program; PCP Internal Medicine
DX: N17.9 Acute kidney failure, unspecified (principal); R51.9 Headache, unspecified; R81 Glycosuria; R91.1 Solitary pulmonary nodule; I71.9 Aortic aneurysm of unspecified site, without rupture; H53.8 Other visual disturbances; J43.8 Other emphysema; Z87.891 Personal history of nicotine dependence; H53.2 Diplopia; Z79.899 Other long term (current) drug therapy
CPT/HCPCS: 36415; 70450; 70496; 70498; 71045; 80053; 80307; 81003; 84443; 84484; 85025; 85652; 86140; 93005; 99284; A9270; J7030; Q9967

== ENCOUNTER 2025-06-08 12:09 | Observation (INO) | payer MEDICARE, SELFPAY ==
--- NOTE | ~2025-06-08 | MR_ITS ---
EXAMINATION: MR brain/brain stem wo/w con DATE: 06/09/2025 12:07 INDICATION: Diplopia TECHNIQUE: Magnetic resonance imaging (MRI) of the brain and brainstem was performed without and with 17 mL Multihance intravenous contrast. Sequences included sagittal and axial T1-weighted SE, axial d iffusion-weighted FS SE, axial 3D SWAN, axial T2-weighted FLAIR, and axial T2-weighted FSE. Postcontr ast axial and coronal T1-weighted SE was obtained. Apparent diffusion coefficient (ADC) maps were cre ated. COMPARISON: Brain MR dated 12/11/[address] CT angiogram dated 06/07/2025 FINDINGS: There are no areas of restricted diffusion to suggest acute infarction. 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 No acute intracranial hemorrhage o r abnormal intracranial mass lesion. There are scattered areas of nonspecific increased T2-weighted s ignal intensity in the cerebral white matter, predominantly involving the deep and periventricular wh ite matter. There are no intraparenchymal signal abnormalities seen on the other pulse sequences. The ventricles are symmetric and normal in size. There are no abnormal extra-axial fluid collections. Fl ow voids are seen in the cerebral arteries on the T2-weighted sequences consistent with their expecte d patency. Mild mucoperiosteal thickening at the bilateral ethmoid sinuses. Visualized orbits and sof t tissues are unremarkable. There are no areas of abnormal enhancement on the post contrast images. IMPRESSION: 1. Unchanged small T2 hyperintense lesion in the left frontal lobe with prominent susceptibility tono fact most consistent with a cavernous malformation. No acute intracranial process. 2. Mild scattered nonspecific white matter T2 hyperintensity which is within normal limits for age an d likely sequela of chronic small vessel ischemic disease. Reviewed, dictated and finalized at location A. IMPRESSION: 1. Unchanged small T2 hyperintense lesion in the left frontal lobe with promine nt susceptibility artifact most consistent with a cavernous malformation. No ac niru intracranial process. 2. Mild scattered nonspecific white matter T2 hyperintensity which is within no rmal limits for age and likely sequela of chronic small vessel ischemic disease .
--- OUTSIDE RECORDS SUMMARY | 2025-06-08 12:11 | XMS_ITS | Encounter Summary ---
Author Organization [facility] Address [address] [place] [address] Phone Care Team Providers Care Materials And Processes Manager Name Role Phone Unknown, Notinfile Primary Care Provider Unavail able Liza Haynes MD Primary Care Provider [phone] Encounter Details Date Type Department Care Team (Latest Contact Info) Description 11/19/2019 Orders Only [facility] Scanning, Provider Social History Tobacco Use Types Packs/Day Years Used Date Smoking Tobacco: Never Assessed Sex and Gender Information Value Date Recorded Sex Assigned at Not on file Legal Sex Male 11:16 AM GRINDER HAND Gender Identity Not on file Sexual Orientation [...] COVID: Suspected 11/21/2020 11/21/2020 11/22/2020 2:21 AM GRINDER HAND Respiratory Infection (BONI), contact + droplet Comment:Automatically added due to negative COVID-19 result. Patient classified as Low Risk for COVID-19 and has one negative COVID-19 test. Patient meets criteria for COVID-19 isolation discontinuation Maribell Marmolejo RN 11/24/2020 11/22/2020 11/22/2020 11/24/2020 7:39 AM GRINDER HAND documented as of this encounter Care Teams Materials And Processes Manager Relationship Specialty Start Date End Date Unknown, Notinfile PCP - General 11/21/20 03/14/21 Liza Haynes MD [address] [place] [address] PCP - General 03/15/21 documented as of this encounter
--- OUTSIDE RECORDS SUMMARY | 2025-06-08 12:11 | XMS_ITS | Encounter Summary ---
Author Organization [facility] Address [address] [place] [address] Phone Care Team Providers Care Fuel Cell Repairer Name Role Phone Unknown, Notinfile Primary Care Provider Unavail able Liza Haynes MD Primary Care Provider [phone] Encounter Details Date Type Department Care Team (Latest Contact Info) Description 01/25/2021 Orders Only [facility] Scanning, Provider Social History Tobacco Use Types Packs/Day Years Used Date Smoking Tobacco: Former Sex and Gender Information Value Date Recorded Sex Assigned at Not on file Legal Sex Male 11:16 AM MANAGER FRENCH Gender Identity Not on file Sexual Orientation [...] on filedocumented in this encounter Care Teams Fuel Cell Repairer Relationship Specialty Start Date End Date Unknown, Notinfsreekanth PCP - General 11/21/20 03/14/21 Liza Haynes MD [address] [place] [address] PCP - General 03/15/21 documented as of this encounter
--- OUTSIDE RECORDS SUMMARY | 2025-06-08 12:11 | XMS_ITS | Encounter Summary ---
Author Organization [facility] Address [address] [place] [address] Phone Care Team Providers Care Golf Ball Cover Treater Name Role Phone Unknown, Notinfile Primary Care Provider Unavail able Liza Haynes MD Primary Care Provider [phone] Encounter Details Date Type Department Care Team (Latest Contact Info) Description 08/22/2019 Orders Only [facility] Scanning, Provider Social History Tobacco Use Types Packs/Day Years Used Date Smoking Tobacco: Never Assessed Sex and Gender Information Value Date Recorded Sex Assigned at Not on file Legal Sex Male 11:16 AM DIRECTOR OF COUNTERINTELLIGENCE Gender Identity Not on file Sexual Orientation [...] 11/21/2020 11/21/2020 11/22/2020 2:21 AM DIRECTOR OF COUNTERINTELLIGENCE Respiratory Infection (BONI), contact + droplet Comment:Automatically added due to negative COVID-19 result. Patient classified as Low Risk for COVID-19 and has one negative COVID-19 test. Patient meets criteria for COVID-19 isolation discontinuation Maribell Marmolejo RN 11/24/2020 11/22/2020 11/22/2020 11/24/2020 7:39 AM DIRECTOR OF COUNTERINTELLIGENCE documented as of this encounter Care Teams Golf Ball Cover Treater Relationship Specialty Start Date End Date Unknown, Notinfile PCP - General 11/21/20 03/14/21 Liza Haynes MD [address] [place] [address] PCP - General 03/15/21 documented as of this encounter
--- OUTSIDE RECORDS SUMMARY | 2025-06-08 12:11 | XMS_ITS | Encounter Summary ---
Author Organization [facility] Address [address] [place] [address] Phone Care Team Providers Care Criminal Legal Assistant Name Role Phone Unknown, Notinfile Primary Care Provider Unavail able Liza Haynes MD Primary Care Provider [phone] Encounter Details Date Type Department Care Team (Latest Contact Info) Description 12/23/2020 Orders Only [facility] Scanning, Provider Social History Tobacco Use Types Packs/Day Years Used Date Smoking Tobacco: Former Sex and Gender Information Value Date Recorded Sex Assigned at Not on file Legal Sex Male 11:16 AM ACCREDITATION SPECIALIST Gender Identity Not on file Sexual [...] on filedocumented in this encounter Care Teams Criminal Legal Assistant Relationship Specialty Start Date End Date Unknown, Notinfsreekanth PCP - General 11/21/20 03/14/21 Liza Haynes MD [address] [place] [address] PCP - General 03/15/21 documented as of this encounter
--- OUTSIDE RECORDS SUMMARY | 2025-06-08 12:11 | XMS_ITS | Referral Summary ---
Author Organization [facility] Address [address] [place] [address] Care Team Providers Care Belt Sander Name Role Phone Liza Haynes MD Primary Care Provider [phone] Allergies Active Allergy Reactions Criticality Noted Date [...] mcg tablet Take 50 mcg by mouth child watch attendant before breakfast Active Active Problems Problem Noted [...] on file Legal Sex Male 11:16 AM BLASTING CONTRACT MAN Gender Identity Not on file Sexual Orientation [...] on file Insurance [employer] HMO REF [facility] MEDIC[facility] Address: [facility] [address] [place] [address] Care Teams Belt Sander Relationship Specialty Start Date End Date Liza Haynes MD [address] [place] [address] [facility] - General 03/15/21
--- OUTSIDE RECORDS SUMMARY | 2025-06-08 12:11 | XMS_ITS ---
Author Organization [facility] Address [address] [place], [place] [address] Care Team Providers Care Embedded Systems Designer Name Role Phone Burt Haynes MDneth Primary Care Provider [address] [phone] ALLERGIES Allergen (clinical drug ingredient) Drug/Non Drug [...] 01/31/2024 Encounters Encounter Location Date Provider Diagnosis [facility] [address] [place], [place] [id number] 01/31/[address] Primary osteoarthritis of left [...]
--- OUTSIDE RECORDS SUMMARY | 2025-06-08 12:11 | XMS_ITS | Encounter Summary ---
Author Organization [facility] Address [address] [place] [address] Phone Care Team Providers Care Underground Drill Operator Name Role Phone Unknown, Notinfile Primary Care Provider Unavail able Liza Haynes MD Primary Care Provider [phone] Encounter Details Date Type Department Care Team (Latest Contact Info) Description 05/10/2016 Orders Only [facility] Scanning, Provider Social History Tobacco Use Types Packs/Day Years Used Date Smoking Tobacco: Never Assessed Sex and Gender Information Value Date Recorded Sex Assigned at Not on file Legal Sex Male 11:16 AM WHIPPED TOPPING MIXER Gender Identity Not on file Sexual Orientation [...] COVID: Suspected 11/21/2020 11/21/2020 11/22/2020 2:21 AM WHIPPED TOPPING MIXER Respiratory Infection (BONI), contact + droplet Comment:Automatically added due to negative COVID-19 result. Patient classified as Low Risk for COVID-19 and has one negative COVID-19 test. Patient meets criteria for COVID-19 isolation discontinuation Maribell Marmolejo RN 11/24/2020 11/22/2020 11/22/2020 11/24/2020 7:39 AM WHIPPED TOPPING MIXER documented as of this encounter Care Teams Underground Drill Operator Relationship Specialty Start Date End Date Unknown, Notinfile PCP - General 11/21/20 03/14/21 Liza Haynes MD [address] [place] [address] PCP - General 03/15/21 documented as of this encounter
--- OUTSIDE RECORDS SUMMARY | 2025-06-08 12:11 | XMS_ITS | Encounter Summary ---
Author Organization [facility] Address [address] [place] [address] Phone Care Team Providers Care Rehabilitation Consultant Name Role Phone Unknown, Notinfile Primary Care Provider Unavail able Liza Haynes MD Primary Care Provider [phone] Encounter Details Date Type Department Care Team (Latest Contact Info) Description 11/03/2019 Orders Only [facility] Scanning, Provider Social History Tobacco Use Types Packs/Day Years Used Date Smoking Tobacco: Never Assessed Sex and Gender Information Value Date Recorded Sex Assigned at Not on file Legal Sex Male 11:16 AM STEEL FABRICATING SUPERVISOR Gender Identity Not on file Sexual [...] COVID: Suspected 11/21/2020 11/21/2020 11/22/2020 2:21 AM STEEL FABRICATING SUPERVISOR Respiratory Infection (BONI), contact + droplet Comment:Automatically added due to negative COVID-19 result. Patient classified as Low Risk for COVID-19 and has one negative COVID-19 test. Patient meets criteria for COVID-19 isolation discontinuation Maribell Marmolejo RN 11/24/2020 11/22/2020 11/22/2020 11/24/2020 7:39 AM STEEL FABRICATING SUPERVISOR documented as of this encounter Care Teams Rehabilitation Consultant Relationship Specialty Start Date End Date Unknown, Notinfile PCP - General 11/21/20 03/14/21 Liza Haynes MD [address] [place] [address] PCP - General 03/15/21 documented as of this encounter
--- OUTSIDE RECORDS SUMMARY | 2025-06-08 12:11 | XMS_ITS | Continuity of Care Document ---
Author Organization [facility] Address [address] [place] [address] Phone Care Team Providers Care Construction Area Manager Name Role Phone Arcadio Zepeda MD Unavailable [...] OFFICE/OUTPAT IENT VISIT EST [facility] , [address] [facility] [address], [place], [address], tel:[phone] [facility] right knee (chief complaint) Knee joint replacement Feb-2 2-201 [address] [address] [facility] [address] [place], [place], [address] . tel:[phone] Referring Provider: Oscar Oconnell, [address], [place], [address] . tel:[phone] OFFICE/OUTPAT IENT VISIT EST [facility] , [address] [facility] [address], [place], [address], [place] [phone] [facility] bilateral knee (chief complaint) Hypertension, UnspecifiedOs teoarthrosis, unspecified whether generalized or localized, involving lower legKnee joint replacement [address], [place], [place], [id number] . tel: [phone] Family History Family Member Type Diagnosis Age [...]
--- OUTSIDE RECORDS SUMMARY | 2025-06-08 12:11 | XMS_ITS | Encounter Summary ---
Author Organization [facility] Address [address] [place] [address] Phone Care Team Providers Care Fiberglass Boat Maker Name Role Phone Unknown, Notinfile Primary Care Provider Unavail able Liza Haynes MD Primary Care Provider [phone] Encounter Details Date Type Department Care Team (Latest Contact Info) Description 11/26/2020 Orders Only [facility] Scanning, Provider Social History Tobacco Use Types Packs/Day Years Used Date Smoking Tobacco: Former Sex and Gender Information Value Date Recorded Sex Assigned at Not on file Legal Sex Male 11:16 AM ASSEMBLY AND PACKING SUPERVISOR Gender Identity Not on file Sexual [...] on filedocumented in this encounter Care Teams Fiberglass Boat Maker Relationship Specialty Start Date End Date Unknown, Notinfsreekanth PCP - General 11/21/20 03/14/21 Liza Haynes MD [address] [place] [address] PCP - General 03/15/21 documented as of this encounter
--- OUTSIDE RECORDS SUMMARY | 2025-06-08 12:11 | XMS_ITS | Encounter Summary ---
Author Organization [facility] Address [address] [place] [address] Phone Care Team Providers Care Crew Car Driver Name Role Phone Unknown, Notinfile Primary Care Provider Unavail able Liza Haynes MD Primary Care Provider [phone] Encounter Details Date Type Department Care Team (Latest Contact Info) Description 11/17/2020 Orders Only [facility] Scanning, Provider Social History Tobacco Use Types Packs/Day Years Used Date Smoking Tobacco: Never Assessed Sex and Gender Information Value Date Recorded Sex Assigned at Not on file Legal Sex Male 11:16 AM HOSPITAL SALES REPRESENTATIVE Gender Identity Not on file Sexual Orientation [...] COVID: Suspected 11/21/2020 11/21/2020 11/22/2020 2:21 AM HOSPITAL SALES REPRESENTATIVE Respiratory Infection (BONI), contact + droplet Comment:Automatically added due to negative COVID-19 result. Patient classified as Low Risk for COVID-19 and has one negative COVID-19 test. Patient meets criteria for COVID-19 isolation discontinuation Maribell Marmolejo RN 11/24/2020 11/22/2020 11/22/2020 11/24/2020 7:39 AM HOSPITAL SALES REPRESENTATIVE documented as of this encounter Care Teams Crew Car Driver Relationship Specialty Start Date End Date Unknown, Notinfile PCP - General 11/21/20 03/14/21 Liza Haynes MD [address] [place] [address] PCP - General 03/15/21 documented as of this encounter
--- OUTSIDE RECORDS SUMMARY | 2025-06-08 12:11 | XMS_ITS | Patient Health Record ---
Author Organization [facility] Address [address] [place], [place] [address] Care Team Providers Care Field Horticultural Specialty Grower Name Role Phone [place] GIANG Oscar Primary Care Provider [address] [phone] ALLERGIES Allergen (clinical drug ingredient) Drug/Non Drug [...] osteoarthritis of left knee (M17.12) Active confirmed [id number] Problem History of arthroplasty of right knee (Z96.651) Active confirmed History of arthroplasty of right knee ([id number]) PLAN OF TREATMENT Pending Test Test Name Order Date X ray : Knee, left 4 views 05/02/2023 X ray : Knee, left 3 views 12/13/2021 Insurance Providers Payer Name Payer Address Payer Phone Subscriber Number Group Number Insured Name Patient Relationship to Insured Coverage Start Date Coverage End Date [facility] [address] [address] [place] [address] [id number] Shagufta Ortiz Self - patient is the insured MEDICATIONS ADMINISTERED Medication Instructions Date of Administration Dosage Notes Betamethasone/ sodium phosphate 6mg 01/24/2022 Betamethasone/ sodium phosphate 6mg 10/02/2022 Betamethasone/ sodium phosphate 6mg 01/31/2024 MEDICAL (GENERAL) HISTORY Medical History History ICD Code Diabetes E11.9 Lung Disease Surgical History Surgery Date(Month/Year)
--- OUTSIDE RECORDS SUMMARY | 2025-06-08 12:11 | XMS_ITS | Clinical Summary ---
Author Organization [facility] Address [address] [place] [address] Care Team Providers Care Splunk Consultant Name Role Phone Liza Haynes MD Primary Care Provider [phone] Allergies Active Allergy Reactions Criticality Noted Date [...] mcg tablet Take 50 mcg by mouth legal referee before breakfast Active Active Problems Problem Noted [...] on file Legal Sex Male 11:16 AM SMALL EQUIPMENT OPERATOR Gender Identity Not on file Sexual [...] Not on file Insurance R HMO [facility] MEDIC[facility] Address: [facility] [address] [place] [address] Care Teams Splunk Consultant Relationship Specialty Start Date End Date Liza Haynes MD [address] [place] [address] PCP - General 03/15/21
--- OUTSIDE RECORDS SUMMARY | 2025-06-08 12:11 | XMS_ITS | Encounter Summary ---
Author Organization [facility] Address [address] [place] [address] Phone Care Team Providers Care Chain Machine Operator Name Role Phone Unknown, Notinfile Primary Care Provider Unavail able Liza Haynes MD Primary Care Provider [phone] Encounter Details Date Type Department Care Team (Latest Contact Info) Description 12/10/2018 Orders Only [facility] Scanning, Provider Social History Tobacco Use Types Packs/Day Years Used Date Smoking Tobacco: Never Assessed Sex and Gender Information Value Date Recorded Sex Assigned at Not on file Legal Sex Male 11:16 AM HOT DIE PRESS OPERATOR Gender Identity Not on file Sexual [...] COVID: Suspected 11/21/2020 11/21/2020 11/22/2020 2:21 AM HOT DIE PRESS OPERATOR Respiratory Infection (BONI), contact + droplet Comment:Automatically added due to negative COVID-19 result. Patient classified as Low Risk for COVID-19 and has one negative COVID-19 test. Patient meets criteria for COVID-19 isolation discontinuation Maribell Marmolejo RN 11/24/2020 11/22/2020 11/22/2020 11/24/2020 7:39 AM HOT DIE PRESS OPERATOR documented as of this encounter Care Teams Chain Machine Operator Relationship Specialty Start Date End Date Unknown, Notinfile PCP - General 11/21/20 03/14/21 Liza Haynes MD [address] [place] [address] PCP - General 03/15/21 documented as of this encounter
[2025-06-08 12:48] VITALS: BP 127/68; PULSE 64; RESP 20; TEMP 36.7; O2SAT 96
--- OUTSIDE RECORDS SUMMARY | 2025-06-08 14:23 | XMS_ITS | Encounter Summary ---
Author Organization [facility] Address [address] [place] [address] Phone Care Team Providers Care Mentally Retarded Teacher Name Role Phone Unknown, Notinfile Primary Care Provider Unavail able Liza Haynes MD Primary Care Provider [phone] Encounter Details Date Type Department Care Team (Latest Contact Info) Description 08/22/2019 Orders Only [facility] Scanning, Provider Social History Tobacco Use Types Packs/Day Years Used Date Smoking Tobacco: Never Assessed Sex and Gender Information Value Date Recorded Sex Assigned at Not on file Legal Sex Male 11:16 AM HEAD MEN'S GOLF COACH Gender Identity Not on file Sexual Orientation [...] COVID: Suspected 11/21/2020 11/21/2020 11/22/2020 2:21 AM HEAD MEN'S GOLF COACH Respiratory Infection (BONI), contact + droplet Comment:Automatically added due to negative COVID-19 result. Patient classified as Low Risk for COVID-19 and has one negative COVID-19 test. Patient meets criteria for COVID-19 isolation discontinuation Maribell Marmolejo RN 11/24/2020 11/22/2020 11/22/2020 11/24/2020 7:39 AM HEAD MEN'S GOLF COACH documented as of this encounter Care Teams Mentally Retarded Teacher Relationship Specialty Start Date End Date Unknown, Notinfile PCP - General 11/21/20 03/14/21 Liza Haynes MD [address] [place] [address] PCP - General 03/15/21 documented as of this encounter
--- OUTSIDE RECORDS SUMMARY | 2025-06-08 14:23 | XMS_ITS | Encounter Summary ---
Author Organization [facility] Address [address] [place] [address] Phone Care Team Providers Care Pocket And Pulley Machine Operator Name Role Phone Unknown, Notinfile Primary Care Provider Unavail able Liza Haynes MD Primary Care Provider [phone] Encounter Details Date Type Department Care Team (Latest Contact Info) Description 11/26/2020 Orders Only [facility] Scanning, Provider Social History Tobacco Use Types Packs/Day Years Used Date Smoking Tobacco: Former Sex and Gender Information Value Date Recorded Sex Assigned at Not on file Legal Sex Male 11:16 AM LEATHER STRIPPING MACHINE OPERATOR Gender Identity Not on file [...] on filedocumented in this encounter Care Teams Pocket And Pulley Machine Operator Relationship Specialty Start Date End Date Unknown, Notinfsreekanth PCP - General 11/21/20 03/14/21 Liza Haynes MD [address] [place] [address] PCP - General 03/15/21 documented as of this encounter
--- OUTSIDE RECORDS SUMMARY | 2025-06-08 14:23 | XMS_ITS | Encounter Summary ---
Author Organization [facility] Address [address] [place] [address] Phone Care Team Providers Care Testing Analyst Name Role Phone Unknown, Notinfile Primary Care Provider Unavail able Liza Haynes MD Primary Care Provider [phone] Encounter Details Date Type Department Care Team (Latest Contact Info) Description 11/03/2019 Orders Only [facility] Scanning, Provider Social History Tobacco Use Types Packs/Day Years Used Date Smoking Tobacco: Never Assessed Sex and Gender Information Value Date Recorded Sex Assigned at Not on file Legal Sex Male 11:16 AM PRESS SERVICE READER Gender Identity Not on file Sexual Orientation [...] COVID: Suspected 11/21/2020 11/21/2020 11/22/2020 2:21 AM PRESS SERVICE READER Respiratory Infection (BONI), contact + droplet Comment:Automatically added due to negative COVID-19 result. Patient classified as Low Risk for COVID-19 and has one negative COVID-19 test. Patient meets criteria for COVID-19 isolation discontinuation Maribell Marmolejo RN 11/24/2020 11/22/2020 11/22/2020 11/24/2020 7:39 AM PRESS SERVICE READER documented as of this encounter Care Teams Testing Analyst Relationship Specialty Start Date End Date Unknown, Notinfile PCP - General 11/21/20 03/14/21 Liza Haynes MD [address] [place] [address] PCP - General 03/15/21 documented as of this encounter
--- OUTSIDE RECORDS SUMMARY | 2025-06-08 14:23 | XMS_ITS | Encounter Summary ---
Author Organization [facility] Address [address] [place] [address] Phone Care Team Providers Care Perinatal Coordinator Name Role Phone Unknown, Notinfile Primary Care Provider Unavail able Liza Haynes MD Primary Care Provider [phone] Encounter Details Date Type Department Care Team (Latest Contact Info) Description 12/10/2018 Orders Only [facility] Scanning, Provider Social History Tobacco Use Types Packs/Day Years Used Date Smoking Tobacco: Never Assessed Sex and Gender Information Value Date Recorded Sex Assigned at Not on file Legal Sex Male 11:16 AM BOX SEALING MACHINE CATCHER Gender Identity Not on file Sexual Orientation [...] 11/21/2020 11/21/2020 11/22/2020 2:21 AM BOX SEALING MACHINE CATCHER Respiratory Infection (BONI), contact + droplet Comment:Automatically added due to negative COVID-19 result. Patient classified as Low Risk for COVID-19 and has one negative COVID-19 test. Patient meets criteria for COVID-19 isolation discontinuation Maribell Marmolejo RN 11/24/2020 11/22/2020 11/22/2020 11/24/2020 7:39 AM BOX SEALING MACHINE CATCHER documented as of this encounter Care Teams Perinatal Coordinator Relationship Specialty Start Date End Date Unknown, Notinfile PCP - General 11/21/20 03/14/21 Liza Haynes MD [address] [place] [address] PCP - General 03/15/21 documented as of this encounter
--- OUTSIDE RECORDS SUMMARY | 2025-06-08 14:23 | XMS_ITS | Encounter Summary ---
Author Organization [facility] Address [address] [place] [address] Phone Care Team Providers Care Social Media Manager Name Role Phone Unknown, Notinfile Primary Care Provider Unavail able Liza Haynes MD Primary Care Provider [phone] Encounter Details Date Type Department Care Team (Latest Contact Info) Description 12/23/2020 Orders Only [facility] Scanning, Provider Social History Tobacco Use Types Packs/Day Years Used Date Smoking Tobacco: Former Sex and Gender Information Value Date Recorded Sex Assigned at Not on file Legal Sex Male 11:16 AM BALL FRINGE MACHINE OPERATOR Gender Identity Not on file [...] on filedocumented in this encounter Care Teams Social Media Manager Relationship Specialty Start Date End Date Unknown, Notinfsreekanth PCP - General 11/21/20 03/14/21 Liza Haynes MD [address] [place] [address] PCP - General 03/15/21 documented as of this encounter
--- OUTSIDE RECORDS SUMMARY | 2025-06-08 14:23 | XMS_ITS | Encounter Summary ---
Author Organization [facility] Address [address] [place] [address] Phone Care Team Providers Care Plc Engineer Name Role Phone Unknown, Notinfile Primary Care Provider Unavail able Liza Haynes MD Primary Care Provider [phone] Encounter Details Date Type Department Care Team (Latest Contact Info) Description 11/19/2019 Orders Only [facility] Scanning, Provider Social History Tobacco Use Types Packs/Day Years Used Date Smoking Tobacco: Never Assessed Sex and Gender Information Value Date Recorded Sex Assigned at Not on file Legal Sex Male 11:16 AM SHADE BANDER Gender Identity Not on file Sexual Orientation [...] COVID: Suspected 11/21/2020 11/21/2020 11/22/2020 2:21 AM SHADE BANDER Respiratory Infection (BONI), contact + droplet Comment:Automatically added due to negative COVID-19 result. Patient classified as Low Risk for COVID-19 and has one negative COVID-19 test. Patient meets criteria for COVID-19 isolation discontinuation Maribell Marmolejo RN 11/24/2020 11/22/2020 11/22/2020 11/24/2020 7:39 AM SHADE BANDER documented as of this encounter Care Teams Plc Engineer Relationship Specialty Start Date End Date Unknown, Notinfile PCP - General 11/21/20 03/14/21 Liza Haynes MD [address] [place] [address] PCP - General 03/15/21 documented as of this encounter
--- OUTSIDE RECORDS SUMMARY | 2025-06-08 14:23 | XMS_ITS | Encounter Summary ---
Author Organization [facility] Address [address] [place] [address] Phone Care Team Providers Care Administrative Manager Name Role Phone Unknown, Notinfile Primary Care Provider Unavail able Liza Haynes MD Primary Care Provider [phone] Encounter Details Date Type Department Care Team (Latest Contact Info) Description 11/17/2020 Orders Only [facility] Scanning, Provider Social History Tobacco Use Types Packs/Day Years Used Date Smoking Tobacco: Never Assessed Sex and Gender Information Value Date Recorded Sex Assigned at Not on file Legal Sex Male 11:16 AM MEAT CUTTER APPRENTICE Gender Identity Not on file Sexual Orientation [...] COVID: Suspected 11/21/2020 11/21/2020 11/22/2020 2:21 AM MEAT CUTTER APPRENTICE Respiratory Infection (BONI), contact + droplet Comment:Automatically added due to negative COVID-19 result. Patient classified as Low Risk for COVID-19 and has one negative COVID-19 test. Patient meets criteria for COVID-19 isolation discontinuation Maribell Marmolejo RN 11/24/2020 11/22/2020 11/22/2020 11/24/2020 7:39 AM MEAT CUTTER APPRENTICE documented as of this encounter Care Teams Administrative Manager Relationship Specialty Start Date End Date Unknown, Notinfile PCP - General 11/21/20 03/14/21 Liza Haynes MD [address] [place] [address] PCP - General 03/15/21 documented as of this encounter
--- OUTSIDE RECORDS SUMMARY | 2025-06-08 14:23 | XMS_ITS | Encounter Summary ---
Author Organization [facility] Address [address] [place] [address] Phone Care Team Providers Care Outside Repairer Special Name Role Phone Unknown, Notinfile Primary Care Provider Unavail able Liza Haynes MD Primary Care Provider [phone] Encounter Details Date Type Department Care Team (Latest Contact Info) Description 05/10/2016 Orders Only [facility] Scanning, Provider Social History Tobacco Use Types Packs/Day Years Used Date Smoking Tobacco: Never Assessed Sex and Gender Information Value Date Recorded Sex Assigned at Not on file 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 Patient classified as Low Risk for COVID-19 and has one negative COVID-19 test. Patient meets criteria for COVID-19 isolation discontinuation Maribell Marmolejo RN 11/24/2020 11/22/2020 11/22/2020 11/24/2020 7:39 AM ENGRAVER SEALS documented as of this encounter Care Teams Outside Repairer Special Relationship Specialty Start Date End Date Unknown, Notinfile PCP - General 11/21/20 03/14/21 Liza Haynes MD [address] [place] [address] PCP - General 03/15/21 documented as of this encounter
--- OUTSIDE RECORDS SUMMARY | 2025-06-08 14:23 | XMS_ITS | Continuity of Care Document ---
Author Organization [facility] Address [address] [place] [address] Phone Care Team Providers Care Skein Yarn Dyer Name Role Phone Arcadio Zepeda MD Unavailable [...] OFFICE/OUTPAT IENT VISIT EST [facility] , [address] [facility] [address], [place], [address], tel:[phone] [facility] right knee (chief complaint) Knee joint replacement Feb-2 2-201 [address] [place], [place], [address] . tel:[phone] Referring Provider: Oscar Oconnell, [address], [place], [address] . tel:[phone] OFFICE/OUTPAT IENT VISIT EST [facility] , [address] [facility] [address], [place], [address], [place] [phone] [facility] bilateral knee (chief complaint) Hypertension, UnspecifiedOs teoarthrosis, unspecified whether generalized or localized, involving lower legKnee joint replacement [address]. [address], [place], [place], [id number] . tel: [phone] Family History Family Member Type Diagnosis Age [...]
--- OUTSIDE RECORDS SUMMARY | 2025-06-08 14:23 | XMS_ITS | Clinical Summary ---
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
--- OUTSIDE RECORDS SUMMARY | 2025-06-08 14:23 | XMS_ITS | Encounter Summary ---
Author Organization [facility] Address [address] [place] [address] Phone Care Team Providers Care Dictaphone Technician Name Role Phone Unknown, Notinfile Primary Care Provider Unavail able Liza Haynes MD Primary Care Provider [phone] Encounter Details Date Type Department Care Team (Latest Contact Info) Description 01/25/2021 Orders Only [facility] Scanning, Provider Social History Tobacco Use Types Packs/Day Years Used Date Smoking Tobacco: Former Sex and Gender Information Value Date Recorded Sex Assigned at Not on file 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
--- OUTSIDE RECORDS SUMMARY | 2025-06-08 14:23 | XMS_ITS | Referral Summary ---
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
--- NOTE | 2025-06-08 14:34 | ED_ITS ---
HPI - Eye Problem General Chief complaint: Eye Problems <Ashley Nieves APRN - Last Filed: 06/08/25 14:36> Stated complaint: double vision <Ashley Nieves APRN - Last Filed: 06/08/25 14:36> Time Seen by Provider: 06/08/25 14:35 <Ashley Nieves APRN - Last Filed: 06/08/25 14:36> Focused HPI: Patient is a 75-year-old male who presents to the ER with complaints of diplopia. He reports he was seen in the ER yesterday for ?shading over my eyes.It was advised patient remain in the hospital for further evaluation and treatment. Patient left AMA. This morning when he woke up he reports he is seeing double and that diplopia becomes worse the further away he is looking. Patient reports he has an appointment set up with Ophthalmology on , and 3 days. He endorses history of diabetes, high blood pressure, and COPD. GENERAL: Well-appearing, well-nourished, and in no acute distress. HEAD: Normocephalic, atraumatic. CHEST: Clear to auscultation. ?No respiratory distress. HEART: Regular rate and rhythm.? NEURO: ?Alert and oriented x3. Patient screened in triage and initial orders placed.? ?Additional care and disposition to be based upon?diagnostic testing and treatment. <Ashley Nieves APRN - Last Filed: 06/08/25 14:36> Related Data Home medications: Home Medications ?Medication ?Instructions ?Recorded ?Confirmed ?Last Taken ?Type glipizide 2.5 mg tablet, extended 2.5 mg PO PRN Increased Glucose 06/08/25 06/08/25 Unknown History release 24 hr <Ashley Nieves APRN - Last Filed: 06/08/25 14:36> Allergies/adverse reactions: Allergies Allergy/AdvReac Type Severity Reaction Status Date / Time Penicillins Allergy Unknown Skin Verified 06/08/25 19:56 Reaction lisinopril AdvReac Intermediate cough Verified 06/08/25 19:56 morphine AdvReac Intermediate Nausea and Verified 06/08/25 19:56 Vomiting <Ashley Nieves APRN - Last Filed: 06/08/25 14:36> Review of Systems 2 Review of Systems: All systems reviewed & are unremarkable except as noted in HPI and below <Krista Venegas PA-C - Last Filed: 06/09/25 02:40> [facility] Past Medical History Medical History: Medical History Palsy Chronic sinusitis Nodule of lower lobe of left lung Collapsed lung CTS (carpal tunnel syndrome) COPD with asthma Essential (primary) hypertension Hypothyroidism (acquired) Obstructive sleep apnea (adult) (pediatric) Type 2 diabetes mellitus with unspecified complications <Ashley Nieves, HOME THEATER EXPERT - Last Filed: 06/08/25 14:36> Surgical History Surgical History: Surgical History Hx of cholecystectomy History of carpal tunnel release H/O hernia repair H/O arthroscopic knee surgery History of knee replacement H/O partial resection of colon History of cardiac cath <Ashley Nieves, HOME THEATER EXPERT - Last Filed: 06/08/25 14:36> Family History Family History: Family History Father Hypertension Family history of throat cancer, Onset Age: 67 Patient's father is , Onset Age: 67 Sibling , recovered from throat cancer Hypertension, Onset Age: 39 Family history of primary malignant neoplasm of liver Family history of malignant neoplasm of breast in first degree relative, Onset Age: 47 Family history of throat cancer, Onset Age: 52 Family history of malignant neoplasm of breast Mother Hypertension <Ashley Nieves, HOME THEATER EXPERT - Last Filed: 06/08/25 14:36> Social History Social History: Social History (Updated 06/07/25 @ 13:03 by Madelaine Limon MD) Social History: Smoking packs per day: 1.5 Smoking cigarettes per day: 30.0 Years smoked: 35 Smoking pack-years: 52.50 Smoking status: Never smoker Tobacco type: cigarettes Smoking end date: 11/12/97 Alcohol intake: never Substance use: never Substance use type: does not use Lack of Transportation: No Lack of Food: Never True Current Housing: I Have Housing Concerned About Future Housing: No Difficulty Paying Gas/Electric Bills: No Difficulty Paying for Meds: No Currently Unemployed: No Education: Grade School Difficulty w/ Childcare or Family Care: No Living arrangements: with family Additional living arrangements comments: Occupation/Education: retired Spiritual care concerns: No <Ashley Hair Nieves APRN - Last Filed: 06/08/25 14:36> Exam 2 Narrative: GENERAL: Well-appearing, well-nourished, and in no acute distress. HEAD: Normocephalic, atraumatic. EYES: PERRLA and EOMI. ENT: Nares clear, no rhinorrhea or epistaxis. Mucous membranes moist. Oropharynx without tonsillar hypertrophy exudate or other lesions. Bilateral TMs pearly sands non-bulging NECK: Supple. No adenopathy or masses. No carotid bruits or JVD CHEST: Clear to auscultation. No respiratory distress. No wheezes rales or rhonchi HEART: Regular rate and rhythm. No murmur heard. Normal peripheral pulses. ABDOMEN: Soft, nontender, nondistended, normal active bowel sounds. EXTREMITIES: Normal range of motion. No edema. Strength equal in bilateral upper and lower extremities (5/5) SKIN: Warm, dry, no rash. NEURO: No focal deficits. Alert and oriented x3. Cranial nerves 2-12 grossly intact. Normal finger to nose. Normal heel to jesus. horizontal nystagmus PSYCH: Normal mood and affect <Krista Venegas PA-C - Last Filed: 06/09/25 02:40> Course Consultations Consultation #1: Spoke with hospitalist about patient and workup who accepts admission < Krista Venegas PA-C - Last Filed: 06/09/25 02:40> Date: 06/08/25 <Krista Venegas PA-C - Last Filed: 06/09/25 02:40> Vital Signs Vital signs: Vital Signs Temperature 98.0 F 06/08/25 12:48 Pulse Rate 64 06/08/25 12:48 Respiratory Rate 20 06/08/25 12:48 Blood Pressure 127/68 06/08/25 12:48 Pulse Oximetry 96 06/08/25 12:48 Oxygen Delivery Room Air 06/08/25 12:48 Temperature 97.3 F L 06/08/25 19:55 Pulse Rate 55 L 06/09/25 00:00 Respiratory Rate 18 06/08/25 19:55 Blood Pressure 141/65 H 06/08/25 19:55 Pulse Oximetry 93 06/08/25 19:55 Oxygen Delivery Room Air 06/08/25 20:00 <Ashleymatthew Nieves, HOME THEATER EXPERT - Last Filed: 06/08/25 14:36> Vital Signs Temperature 98.0 F 06/08/25 12:48 Pulse Rate 64 06/08/25 12:48 Respiratory Rate 20 06/08/25 12:48 Blood Pressure 127/68 06/08/25 12:48 Pulse Oximetry 96 06/08/25 12:48 Oxygen Delivery Room Air 06/08/25 12:48 Temperature 97.3 F L 06/08/25 19:55 Pulse Rate 55 L 06/09/25 00:00 Respiratory Rate 18 06/08/25 19:55 Blood Pressure 141/65 H 06/08/25 19:55 Pulse Oximetry 93 06/08/25 19:55 Oxygen Delivery Room Air 06/08/25 20:00 <Krista Venegas PA-C - Last Filed: 06/09/25 02:40> MDM - Eye Problem MDM Narrative Medical decision making narrative: Patient presents the emergency department for diplopia ongoing since yesterday. Was seen in the ER and advised to stay for further evaluation with MRI. Did not want to be admitted at that time. Woke up again with diplopia today and presented for further evaluation. spoke with hospitalist about patient and workup who accepts admission. Will place consult for Neurology < Krista Venegas PA-C - Last Filed: 06/09/25 02:40> Differential Diagnosis Differential diagnosis: Likely other (cranial nerve palsy) <Krista Venegas PA-C - Last Filed: 06/09/25 02:40> Medical Records Attestation: I reviewed the patient's medical records. <Krista Venegas PA-C - Last Filed: 06/09/25 02:40> Medical records narrative: CTA head/neck: IMPRESSION: No large vessel intracranial occlusion, high-grade intracranial stenosis, or aneurysm. No carotid or vertebral artery occlusion, dissection, or significant stenosis. 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 Paraseptal emphysema. Multilevel severe lower cervical spinal canal narrowing secondary to degenerative changes. <Krista Venegas PA-C - Last Filed: 06/09/25 02:40> Lab Data Attestation: I reviewed the patient's lab results. <Krista Venegas PA-C - Last Filed: 06/09/25 02:40> Result diagrams: 06/08/25 14:36 06/08/25 14:36 <Ashley Nieves APRN - Last Filed: 06/08/25 14:36> Labs: Lab Results 06/08/25 Range/Units 14:36 WBC 6.2 (4.5-10.0) K/mm3 RBC 5.08 (4.6-6.20) M/mm3 Hgb 14.6 (14.0-18.0) g/dL Hct 44.3 (42.0-52.0) % MCV 87.2 (80-100) fl MCH 28.7 (26-34) pg MCHC 33.0 (32-36) g/dl RDW 14.3 (11.5-14.5) % Plt Count 152 (150-375) k/mm3 MPV 9.4 (7.4-10.4) fl Immature Gran % (Auto) 0.3 (0-0.5) % Neut % (Auto) 64.4 (45.5-73.1) % Lymph % (Auto) 23.7 (18.3-44.2) % [place] % (Auto) 7.9 (2.6-8.5) % Eos % (Auto) 3.1 (0-4.4) % Baso % (Auto) 0.6 (0.2-1.2) % Lymph # (Auto) 1.47 (0.9-3.2) K/mm3 [place] # (Auto) 0.5 (0.1-0.6) K/mm3 Eos # (Auto) 0.2 (0-0.3) K/mm3 Baso # (Auto) 0.0 (0.0-0.1) K/mm3 Abs Immat Gran (auto) 0.02 (0.00-0.031) K/mm3 Absolute Neuts (auto) 4.0 (1.3-6.7) K/mm3 Absolute Nucleated RBC 0.000 (0.0-0.012) K/mm3 Nucleated RBC % 0.0 (0.0-0.2) % PT 13.7 (11.1-14.7) Seconds INR 1.0 APTT 28.5 (22.3-36.8) Seconds Sodium 136 L (137-145) mmol/L Potassium 3.6 (3.4-5.0) mmol/L Chloride 101 (98-107) mmol/L Carbon Dioxide 24 (22-30) mmol/L Anion Gap 11 (4-12) mmol/L BUN 19 (9-20) mg/dL Creatinine 1.08 (0.7-1.3) mg/dL Estim Creat Clear Calc 54 ml/min Estimated GFR > 60 (59 - ) Glucose 132 H (65-110) mg/dL Calcium 10.0 (8.4-10.2) mg/dL Total Bilirubin 1.7 H (0.2-1.3) mg/dL AST 40 (17-59) U/L ALT 53 H (6-50) U/L Alkaline Phosphatase 58 (38-126) U/L Total Protein 7.6 (6.3-8.2) g/dL Albumin 4.5 (3.5-5.1) g/dL <Ashley Nieves, HOME THEATER EXPERT - Last Filed: 06/08/25 14:36> Lab Results 06/08/25 Range/Units 14:36 WBC 6.2 (4.5-10.0) K/mm3 RBC 5.08 (4.6-6.20) M/mm3 Hgb 14.6 (14.0-18.0) g/dL Hct 44.3 (42.0-52.0) % MCV 87.2 (80-100) fl MCH 28.7 (26-34) pg MCHC 33.0 (32-36) g/dl RDW 14.3 (11.5-14.5) % Plt Count 152 (150-375) k/mm3 MPV 9.4 (7.4-10.4) fl Immature Gran % (Auto) 0.3 (0-0.5) % Neut % (Auto) 64.4 (45.5-73.1) % Lymph % (Auto) 23.7 (18.3-44.2) % [place] % (Auto) 7.9 (2.6-8.5) % Eos % (Auto) 3.1 (0-4.4) % Baso % (Auto) 0.6 (0.2-1.2) % Lymph # (Auto) 1.47 (0.9-3.2) K/mm3 [place] # (Auto) 0.5 (0.1-0.6) K/mm3 Eos # (Auto) 0.2 (0-0.3) K/mm3 Baso # (Auto) 0.0 (0.0-0.1) K/mm3 Abs Immat Gran (auto) 0.02 (0.00-0.031) K/mm3 Absolute Neuts (auto) 4.0 (1.3-6.7) K/mm3 Absolute Nucleated RBC 0.000 (0.0-0.012) K/mm3 Nucleated RBC % 0.0 (0.0-0.2) % PT 13.7 (11.1-14.7) Seconds INR 1.0 APTT 28.5 (22.3-36.8) Seconds Sodium 136 L (137-145) mmol/L Potassium 3.6 (3.4-5.0) mmol/L Chloride 101 (98-107) mmol/L Carbon Dioxide 24 (22-30) mmol/L Anion Gap 11 (4-12) mmol/L BUN 19 (9-20) mg/dL Creatinine 1.08 (0.7-1.3) mg/dL Estim Creat Clear Calc 54 ml/min Estimated GFR > 60 (59 - ) Glucose 132 H (65-110) mg/dL Calcium 10.0 (8.4-10.2) mg/dL Total Bilirubin 1.7 H (0.2-1.3) mg/dL AST 40 (17-59) U/L ALT 53 H (6-50) U/L Alkaline Phosphatase 58 (38-126) U/L Total Protein 7.6 (6.3-8.2) g/dL Albumin 4.5 (3.5-5.1) g/dL <Krista Venegas PA-C - Last Filed: 06/09/25 02:40> Critical Care Time Critical Care Time Critical Care Time: No <Krista Venegas PA-C - Last Filed: 06/09/25 02:40> Discharge Plan Discharge Clinical Impression: Diplopia <Ashley Nieves APRN - Last Filed: 06/08/25 14:36> Patient Disposition: Still a Patient <Ashley Nieves APRN - Last Filed: 06/08/25 14:36> Condition: Stable <Ashley Nieves APRN - Last Filed: 06/08/25 14:36>
[2025-06-08 14:45] LABS: Hematocrit 44.3 % (42.0-52.0); Hemoglobin 14.6 g/dL (14.0-18.0); Immature Granulocyte Percent A 0.3 % (0-0.5); Lymphocytes Absolute Auto 1.47 K/mm3 (0.9-3.2); Mean Corpuscular HGB Conc 33.0 g/dl (32-36); Mean Corpuscular Hemoglobin 28.7 pg (26-34); Mean Corpuscular Volume 87.2 fl (80-100); Nucleated Red Blood Cells Absolute Auto 0.000 K/mm3 (0.0-0.012); Nucleated Red Blood Cells Perc 0.0 % (0.0-0.2); Platelet Count Result 152 k/mm3 (150-375); Red Blood Count 5.08 M/mm3 (4.6-6.20); White Blood Count 6.2 K/mm3 (4.5-10.0)
[2025-06-08 14:56] LABS: INR 1.0; Prothrombin Time 13.7 Seconds (11.1-14.7)
[2025-06-08 14:57] LABS: Partial Thromboplastin Time 28.5 Seconds (22.3-36.8)
[2025-06-08 15:06] LABS: Alanine Aminotransferase 53 U/L (6-50); Albumin Level 4.5 g/dL (3.5-5.1); Alkaline Phosphatase 58 U/L (38-126); Anion Gap 11 mmol/L (4-12); Aspartate Amino Transferase 40 U/L (17-59); Bilirubin,Total 1.7 mg/dL (0.2-1.3); Blood Urea Nitrogen 19 mg/dL (9-20); Calcium 10.0 mg/dL (8.4-10.2); Carbon Dioxide 24 mmol/L (22-30); Chloride 101 mmol/L (98-107); Estimated CRCL calculation 54 ml/min; Estimated Glomerular Filt Rate > 60; Glucose 132 mg/dL (65-110); Potassium 3.6 mmol/L (3.4-5.0); Sodium 136 mmol/L (137-145); Total Protein 7.6 g/dL (6.3-8.2)
--- NOTE | 2025-06-08 19:12 | PC.NURSE ---
attempted to call report for room 252-1. This RN was told it is shift change and no one could take it. the floor was told to call down if they had any questions and pt would be up shortly.
[2025-06-08 19:17] VITALS: BP 126/85; PULSE 72; RESP 14; O2SAT 95
[2025-06-08 19:28] VITALS: BMI 31.4
--- NOTE | 2025-06-08 19:29 | ADMGEN ---
This patient, Carlos Ortiz, was admitted to Medical Room 252-. Patient/family oriented to hospital policies and general routines including ID bracelet, bed and alarms, visiting hours, pain management, procedures, bathroom and other care routines, personal items, smoking policy, room service/diet, and visiting hours. Information on how to activate the Rapid Response Team has been discussed. Patient/Family are encouraged to report perceived risks to care and to ask questions if they do not understand what they are told or what they should do.
[2025-06-08 19:55] VITALS: BP 141/65; PULSE 56; RESP 18; TEMP 36.3; O2SAT 93
[2025-06-08 20:00] VITALS: PULSE 59
[2025-06-09] VITALS (8 sets, daily range): BP systolic 128–139; BP diastolic 64–75; PULSE 49–66; RESP 16–18; TEMP 36.2–37.4; O2SAT 93–95
[2025-06-09] MEDS: ASPIRIN 325 MG TABLET PO (02:28)
--- NOTE | 2025-06-09 08:54 | PM.IMHP ---
H&P: HPI History of Present Illness Date/Time: 06/09/25 08:54 Chief Complaint: diplopia Narrative: 75 year old male with past medical history of COPD, hypertension, hypothyroidism, LEEANNA and type 2 DM presents to the hospital Review of Systems Review of Systems: All systems reviewed & are unremarkable except as noted in HPI and below [facility] Past Medical History Medical History Palsy Chronic sinusitis Nodule of lower lobe of left lung Collapsed lung CTS (carpal tunnel syndrome) COPD with asthma Essential (primary) hypertension Hypothyroidism (acquired) Obstructive sleep apnea (adult) (pediatric) Type 2 diabetes mellitus with unspecified complications Surgical History Surgical History Hx of cholecystectomy History of carpal tunnel release H/O hernia repair H/O arthroscopic knee surgery History of knee replacement H/O partial resection of colon History of cardiac cath Family History Family History Father Hypertension Family history of throat cancer, Onset Age: 67 Patient's father is , Onset Age: 67 Sibling , recovered from throat cancer Hypertension, Onset Age: 39 Family history of primary malignant neoplasm of liver Family history of malignant neoplasm of breast in first degree relative, Onset Age: 47 Family history of throat cancer, Onset Age: 52 Family history of malignant neoplasm of breast Mother Hypertension Social History Social History (Updated 06/07/25 @ 13:03 by Madelaine Limon MD) Social History: Smoking packs per day: 1.5 Smoking cigarettes per day: 30.0 Years smoked: 35 Smoking pack-years: 52.50 Smoking status: Never smoker Tobacco type: cigarettes Smoking end date: 11/12/97 Alcohol intake: never Substance use: never Substance use type: does not use Lack of Transportation: No Lack of Food: Never True Current Housing: I Have Housing Concerned About Future Housing: No Difficulty Paying Gas/Electric Bills: No Difficulty Paying for Meds: No Currently Unemployed: No Education: Grade School Difficulty w/ Childcare or Family Care: No Living arrangements: with family Additional living arrangements comments: Occupation/Education: retired Spiritual care concerns: No Meds Home Medications and Allergies Home Medications ?Medication ?Instructions ?Recorded ?Confirmed ?Type blood-glucose meter #1 ea 05/18/20 06/08/25 Rx ipratropium 0.5 mg-albuterol 3 mg 3 ml inhalation Q6H PRN shortness 06/12/23 06/08/25 Rx (2.5 mg base)/3 mL nebulization of breath or wheezing #180 mL soln blood sugar diagnostic (OneTouch See Rx Instructions .Route 07/21/24 06/08/25 Rx Verio test strips) .COMPLEX #200 strips lancets 30 gauge (OneTouch Delica See Rx Instructions .Route 07/21/24 06/08/25 Rx Plus Lancet) .COMPLEX #200 ea potassium chloride 20 mEq 20 meq PO BID #180 tabs 10/27/24 06/08/25 Rx tablet,extended release(part/cryst) (Klor-Con M) pravastatin 20 mg tablet 20 mg PO DAILY #90 tabs 11/03/24 06/08/25 Rx glipizide 5 mg tablet, extended See Rx Instructions .Route 02/10/25 06/08/25 Rx release 24 hr .COMPLEX #90 tabs amlodipine 10 mg tablet See Rx Instructions .Route 03/02/25 06/08/25 Rx .COMPLEX #90 tabs budesonide-formoterol HFA 160 2 inh inhalation Q12H #10.2 grams 03/02/25 06/08/25 Rx mcg-4.5 mcg/actuation aerosol inhaler (Symbicort) irbesartan 300 mg tablet See Rx Instructions .Route 03/02/25 06/08/25 Rx .COMPLEX #90 tabs spironolactone 25 mg tablet See Rx Instructions .Route 03/09/25 06/08/25 Rx .COMPLEX #90 tabs metoprolol tartrate 25 mg tablet 25 mg PO DAILY #180 tabs 04/20/25 06/08/25 Rx fluticasone propionate 50 1 spray intranasal DAILY 30 days 05/18/25 06/08/25 Rx mcg/actuation nasal #16 grams spray,suspension levothyroxine 50 mcg tablet See Rx Instructions .Route 06/01/25 06/08/25 Rx .COMPLEX #90 tabs glipizide 2.5 mg tablet, extended 2.5 mg PO PRN Increased Glucose 06/08/25 06/08/25 History release 24 hr Allergies Allergy/AdvReac Type Severity Reaction Status Date / Time Penicillins Allergy Unknown Skin Verified 06/08/25 19:56 Reaction lisinopril AdvReac Intermediate cough Verified 06/08/25 19:56 morphine AdvReac Intermediate Nausea and Verified 06/08/25 19:56 Vomiting Vital Signs Vital Signs - 24 hr 06/08/25 12:48 06/08/25 19:17 06/08/25 19:55 Temperature 98.0 F 97.3 F L Pulse Rate 64 72 56 L Respiratory Rate 20 14 18 Blood Pressure 127/68 126/85 141/65 H Pulse Oximetry 96 95 93 Oxygen Delivery Room Air 06/08/25 20:00 06/08/25 20:00 06/09/25 00:00 Temperature Pulse Rate 59 L 55 L Respiratory Rate Blood Pressure Pulse Oximetry Oxygen Delivery Room Air 06/09/25 04:00 06/09/25 05:35 Temperature 97.2 F L Pulse Rate 49 L 66 Respiratory Rate 16 Blood Pressure 138/75 Pulse Oximetry 93 Oxygen Delivery Exam Narrative: AF General: well nourished, well-developed male in no acute respiratory distress who is nontoxic appearing, lying semi recumbent in bed. HEENT: Normocephalic. Atraumatic. Pupils equal round reactive to light. Extraocular movement intact. Sclera clear and anicteric. Nares patent. No oral lesions. Moist mucous membranes. Tongue is midline. Palate alida symmetrically. No facial asymmetry. Neck: Neck was supple. No dominant adenopathy, thyromegaly or masses. 2+ carotid upstrokes without bruits. Chest: Lungs are clear to auscultation bilaterlly. No wheezes or crackles. CV: Heart was regular rate and rhythm. S1/S2. No murmurs, gallops, or rubs. Abd: Abdomen was soft. Nontender. Nondistended. Postive bowel sounds. No organomegaly or masses. Ext: No clubbing, cyanosis, or edema. 2+ DP pulses bilaterally. Neuro: Patient is alert and oriented x4. Strenth is 5/5 in both upper and lower extremities. Cranial nerves 2-12 are intact. Speech is clear. Psych: Normal nood and affect. Patient is pleasant and cooperative. Skin: Warm and dry. No rashes noted. H&P: Results Labs Labs: Short CBC 06/08/25 Range/Units 14:36 WBC 6.2 (4.5-10.0) K/mm3 Hgb 14.6 (14.0-18.0) g/dL Hct 44.3 (42.0-52.0) % Plt Count 152 (150-375) k/mm3 BMP 06/08/25 14:36 Sodium 136 L Potassium 3.6 Chloride 101 Carbon Dioxide 24 BUN 19 Creatinine 1.08 Glucose 132 H Calcium 10.0 Liver Function 06/08/25 Range/Units 14:36 Total Bilirubin 1.7 H (0.2-1.3) mg/dL AST 40 (17-59) U/L ALT 53 H (6-50) U/L Alkaline Phosphatase 58 (38-126) U/L Albumin 4.5 (3.5-5.1) g/dL Assessment and Plan Assessment and plan (1) Diplopia: Code(s): H53.2 - Diplopia Status: Acute Assessment and Plan: - Head CT: No acute intracranial process - Head/neck CTA: No large vessel intracranial occlusion, high-grade intracranial stenosis, or aneurysm. No carotid or vertebral artery occlusion, dissection, or significant stenosis. 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 Paraseptal emphysema.Multilevel severe lower cervical spinal canal narrowing secondary to degenerative changes. - MRI ordered - Continue pravastatin 20 mg daily - Initiate stroke protocol, NIH Stroke Scale, neuro's q.4 hours - Monitor CBC, CMP, magnesium, troponin, and lipid profile - Monitor blood pressure, allow for permissive hypertension. - Telemetry monitoring - Monitor blood glucose - Neurology consulted, appreciate assistance and recommendations (2) Type 2 diabetes mellitus with unspecified complications: Code(s): E11.8 - Type 2 diabetes mellitus with unspecified complications Status: Acute Assessment and Plan: - hypoglycemia protocol - POC blood glucose ACHS - home medication - glipizide 5 mg daily and 2.5 mg PRN - correct regimen ordered - low dose TIDWM - A1C 6.7 (3) Essential (primary) hypertension: Code(s): I10 - Essential (primary) hypertension Status: Acute Assessment and Plan: Chronic, continue home medications -amlodipine 10 mg daily -metoprolol 25 mg daily -spironolactone 25 mg daily -irbesartan 300 mg daily -blood pressures remain stable, continue to monitor (4) Hypothyroidism (acquired): Code(s): E03.9 - Hypothyroidism, unspecified Status: Acute Assessment and Plan: Chronic, continue levothyroxine 50mcg daily (5) Obstructive sleep apnea (adult) (pediatric): Code(s): G47.33 - Obstructive sleep apnea (adult) (pediatric) Status: Acute
[2025-06-09] MEDS: IRBESARTAN 150 MG TABLET 300 MG PO (09:29)
[2025-06-09] MEDS: FLUTICASONE PROPIONATE 0.05% NA SPR 16 GM BTL (*BKC) 1 SPRAY NASAL (09:29)
[2025-06-09] MEDS: SPIRONOLACTONE 25 MG TABLET PO (09:30)
[2025-06-09] MEDS: METOPROLOL TARTRATE 25 MG TABLET PO (09:30)
[2025-06-09] MEDS: PRAVASTATIN SODIUM 20 MG TABLET PO (09:33)
[2025-06-09] MEDS: POTASSIUM CHLORIDE 20 MEQ ER TABLET PO (09:33)
--- NOTE | 2025-06-09 13:59 | PC.NURSE ---
On 06/09/25, the RN, Ying, provided care and completed [employer] documentation on this patient. I have reviewed the RN's documentation and agree with the findings.
--- NOTE | 2025-06-09 15:38 | WPDNEURCNPN ---
Assessment and Plan Assessment and plan (1) Diplopia: Code(s): H53.2 - Diplopia Status: Acute (2) Cranial nerve palsy: Code(s): G52.9 - Cranial nerve disorder, unspecified Status: Acute Plan 1. Horizontal diplopia worse when he open his left eye most likely related to partial 6 nerve palsy. 2. Will benefit from the Ophthalmology consultation which can be obtained as an outpatient 3. Diabetes mellitus definitely needs better control of the diabetes. 4. At this stage TSH is normal 5. Abnormal hepatic enzymes with total bilirubin 1.7, ALT 53, needs further evaluation and follow-up. MRI has already been done without evidence of any intracranial lesion also negative CTA no evidence of aneurysm but mild please inform dilatation of the thoracic aorta for which he will definitely need follow-up. If any further questions arise please do not hesitate to contact me. Consult date: 06/09/25 HPI: Carlos Ortiz is a 75 year old male Admitted to the hospital through the emergency room where he presented with complaints of diplopia he was seen in the emergency room day before for the complaints of shading over his eyes, At that particular time he was advised to stay in the hospital but left against the medical advice. He complained of double vision becoming worse when he looks far He also mentions that he has an appointment with major donor coordinator in the next 3 days. He has known history of diabetes mellitus, hypertension and COPD. He has been taking glipizide 2.5mg tablet only on p.r.n. basis. He is allergic to penicillin, lisinopril, morphine. In the past she has ongoing history of 1. Hypertension 2. Hypothyroidism 3. Obstructive sleep apnea 4. Diabetes mellitus and 5. History of carpal tunnel syndrome. He has undergone 1. Cholecystectomy 2. Carpal tunnel release 3. Knee replacement 4. Partial resection of the colon and 5. Cardiac catheterization. He has history of smoking pack years per day 1.5 with 35 years smoked and smoking pack years of 52 though at present he is not drinking. 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 Head and neck CTA revealed no large vessel intracranial occlusion or aneurysm but mild fusiform aneurysmal dilatation of the thoracic aorta. Review of Systems Review of Systems: All systems reviewed & are unremarkable except as noted in HPI and below [facility] Past Medical History Medical History Palsy Chronic sinusitis Nodule of lower lobe of left lung Collapsed lung CTS (carpal tunnel syndrome) COPD with asthma Essential (primary) hypertension Hypothyroidism (acquired) Obstructive sleep apnea (adult) (pediatric) Type 2 diabetes mellitus with unspecified complications Surgical History Surgical History Hx of cholecystectomy History of carpal tunnel release H/O hernia repair H/O arthroscopic knee surgery History of knee replacement H/O partial resection of colon History of cardiac cath Family History Family History Father Hypertension Family history of throat cancer, Onset Age: 67 Patient's father is , Onset Age: 67 Sibling , recovered from throat cancer Hypertension, Onset Age: 39 Family history of primary malignant neoplasm of liver Family history of malignant neoplasm of breast in first degree relative, Onset Age: 47 Family history of throat cancer, Onset Age: 52 Family history of malignant neoplasm of breast Mother Hypertension Social History Social History Social History: Smoking packs per day: 1.5 Smoking cigarettes per day: 30.0 Years smoked: 35 Smoking pack-years: 52.50 Smoking status: Never smoker Tobacco type: cigarettes Smoking end date: 11/12/97 Alcohol intake: never Substance use: never Substance use type: does not use Lack of Transportation: No Lack of Food: Never True Current Housing: I Have Housing Concerned About Future Housing: No Difficulty Paying Gas/Electric Bills: No Difficulty Paying for Meds: No Currently Unemployed: No Education: Grade School Difficulty w/ Childcare or Family Care: No Living arrangements: with family Additional living arrangements comments: Occupation/Education: retired Spiritual care concerns: No Meds Home Medications and Allergies Home Medications ?Medication ?Instructions ?Recorded ?Confirmed ?Type blood-glucose meter #1 ea 05/18/20 06/08/25 Rx ipratropium 0.5 mg-albuterol 3 mg 3 ml inhalation Q6H PRN shortness 06/12/23 06/08/25 Rx (2.5 mg base)/3 mL nebulization of breath or wheezing #180 mL soln blood sugar diagnostic (OneTouch See Rx Instructions .Route 07/21/24 06/08/25 Rx Verio test strips) .COMPLEX #200 strips lancets 30 gauge (OneTouch Delica See Rx Instructions .Route 07/21/24 06/08/25 Rx Plus Lancet) .COMPLEX #200 ea potassium chloride 20 mEq 20 meq PO BID #180 tabs 10/27/24 06/08/25 Rx tablet,extended release(part/cryst) (Klor-Con M) pravastatin 20 mg tablet 20 mg PO DAILY #90 tabs 11/03/24 06/08/25 Rx glipizide 5 mg tablet, extended See Rx Instructions .Route 02/10/25 06/08/25 Rx release 24 hr .COMPLEX #90 tabs amlodipine 10 mg tablet See Rx Instructions .Route 03/02/25 06/08/25 Rx .COMPLEX #90 tabs budesonide-formoterol HFA 160 2 inh inhalation Q12H #10.2 grams 03/02/25 06/08/25 Rx mcg-4.5 mcg/actuation aerosol inhaler (Symbicort) irbesartan 300 mg tablet See Rx Instructions .Route 03/02/25 06/08/25 Rx .COMPLEX #90 tabs spironolactone 25 mg tablet See Rx Instructions .Route 03/09/25 06/08/25 Rx .COMPLEX #90 tabs metoprolol tartrate 25 mg tablet 25 mg PO DAILY #180 tabs 04/20/25 06/08/25 Rx fluticasone propionate 50 1 spray intranasal DAILY 30 days 05/18/25 06/08/25 Rx mcg/actuation nasal #16 grams spray,suspension levothyroxine 50 mcg tablet See Rx Instructions .Route 06/01/25 06/08/25 Rx .COMPLEX #90 tabs glipizide 2.5 mg tablet, extended 2.5 mg PO PRN Increased Glucose 06/08/25 06/08/25 History release 24 hr Allergies Allergy/AdvReac Type Severity Reaction Status Date / Time Penicillins Allergy Unknown Skin Verified 06/08/25 19:56 Reaction lisinopril AdvReac Intermediate cough Verified 06/08/25 19:56 morphine AdvReac Intermediate Nausea and Verified 06/08/25 19:56 Vomiting Vital Signs Vital Signs - 24 hr 06/08/25 19:17 06/08/25 19:55 06/08/25 20:00 Temperature 36.3 C L Pulse Rate 72 56 L Respiratory Rate 14 18 Blood Pressure 126/85 141/65 H Pulse Oximetry 95 93 Oxygen Delivery Room Air 06/08/25 20:00 06/09/25 00:00 06/09/25 04:00 Temperature Pulse Rate 59 L 55 L 49 L Respiratory Rate Blood Pressure Pulse Oximetry Oxygen Delivery 06/09/25 05:35 06/09/25 08:00 06/09/25 08:30 Temperature 36.2 C L Pulse Rate 66 56 L 63 Respiratory Rate 16 18 Blood Pressure 138/75 Pulse Oximetry 93 95 Oxygen Delivery Room Air 06/09/25 08:30 06/09/25 09:30 06/09/25 09:35 Temperature Pulse Rate 63 63 63 Respiratory Rate 18 Blood Pressure 139/75 Pulse Oximetry 95 Oxygen Delivery 06/09/25 10:07 06/09/25 14:00 Temperature 37.4 C Pulse Rate 60 Respiratory Rate 18 Blood Pressure 128/64 Pulse Oximetry 94 Oxygen Delivery Room Air Exam Narrative: Exam today revealed him to be awake alert cooperative no obvious acute distress. happened to be in the room. Head normocephalic with no bruit, ear nose throat examination normal, neck supple with no cervical bruit no thyromegaly no lymphadenopathy, heart regular with no murmur, lungs clear to auscultation with no rhonchi or crepitations, abdomen is soft protuberant with no organomegaly, neurologically he was awake alert oriented x3, his speech not dysphasic not dysarthric not dysphonic, extraocular movements were full with point nystagmus when he opened both eyes though he kept his left eye past during examination initially for the moment he took the patch of he complained of double vision, facial sensation was intact, face was symmetrical, tongue was in midline, uvula was midline, motor examination revealed him to fairly normal strength in upper and lower extremities with no evidence of any increased tone or rigidity reflexes were symmetrical plantar responses were downgoing he has somewhat decreased sensation distally in both lower extremities. There was no evidence of ataxia or dysmetria on [id number]-finger or heel to knee to jesus. Results Labs 06/08/25 14:36 06/08/25 14:36
[2025-06-09] MEDS: MECLIZINE HCL 12.5 MG TABLET PO (16:27)
--- NOTE | 2025-06-09 16:55 | P.SS_ITS ---
Same Day Admit/Disch: HPI History of Present Illness Chief complaint: Diplopia Narrative: 75 year old male with past medical history of COPD, hypertension, hypothyroidism, LEEANNA and type 2 DM presents to the hospital for diplopia for the past 3 days. Previously reported to the ED on 06/07 for the diplopia for which he received meclizine and the symptoms resolved prior to being discharged home. He states that he was feeling better and then woke up the following day and the diplopia had recurred. He states that this improves when covering his left eye. He denies any associated weakness, tingling, numbness, slurred speech, confusion, or headache. He denies any recent head trauma. He does state that a week ago he perforated his ear drum while at work. He has an appointment in June for a surgical repair. He denies any associated tinnitus or otalgia. He does note intermittent dizziness and feeling off balance since perforating his ear drum. He denies a history of diplopia. He has a history of hypertension and diabetes for which he follows with an credit review officer, last seen in april. He has no other complaints denying chest pain, palpitations, shortness of breath, palpitations, nausea/vomiting and abdominal pain. ED workup: CBC and CMP unremarkable. UA nonconcerning for infection. UDS negative. Chest XR showed no acute cardiopulmonary process. Head CT showed no acute intracranial process. Head/neck cta showed no large vessel intracranial occlusion, high grade stenosis or aneurysm, no carotid or vertebral artery occlusion, dissection, stenosis but did show a thoracic aortic aneurysm measuring 4 cm. Brain MRI obtained and showed Unchanged small T2 hyperintense lesion in the left frontal lobe with prominent susceptibility artifact most consistent with a cavernous malformation, No acute intracranial process, Mild scattered nonspecific white matter T2 hyperintensity which is within normal limits for age and likely sequela of chronic small vessel ischemic disease. [facility] Past Medical History Medical History Palsy Chronic sinusitis Nodule of lower lobe of left lung Collapsed lung CTS (carpal tunnel syndrome) COPD with asthma Essential (primary) hypertension Hypothyroidism (acquired) Obstructive sleep apnea (adult) (pediatric) Type 2 diabetes mellitus with unspecified complications Surgical History Surgical History Hx of cholecystectomy History of carpal tunnel release H/O hernia repair H/O arthroscopic knee surgery History of knee replacement H/O partial resection of colon History of cardiac cath Family History Family History Father Hypertension Family history of throat cancer, Onset Age: 67 Patient's father is , Onset Age: 67 Sibling , recovered from throat cancer Hypertension, Onset Age: 39 Family history of primary malignant neoplasm of liver Family history of malignant neoplasm of breast in first degree relative, Onset Age: 47 Family history of throat cancer, Onset Age: 52 Family history of malignant neoplasm of breast Mother Hypertension Social History Social History (Updated 06/09/25 @ 17:21 by Hansa Russell PA-C) Social History: . Lives at home with . Monica. Smoking packs per day: 1.5 Smoking cigarettes per day: 30.0 Years smoked: 35 Smoking pack-years: 52.50 Smoking status: Never smoker Tobacco type: cigarettes Smoking end date: 11/12/97 Alcohol intake: never Substance use: never Substance use type: does not use Lack of Transportation: No Lack of Food: Never True Current Housing: I Have Housing Concerned About Future Housing: No Difficulty Paying Gas/Electric Bills: No Difficulty Paying for Meds: No Currently Unemployed: No Education: Grade School Difficulty w/ Childcare or Family Care: No Living arrangements: with family Additional living arrangements comments: Occupation/Education: retired Spiritual care concerns: No Same Day Admit/Disch: Med Pre-admit Medications Home Medications ?Medication ?Instructions ?Recorded ?Confirmed ?Type blood-glucose meter #1 ea 05/18/20 06/08/25 Rx ipratropium 0.5 mg-albuterol 3 mg 3 ml inhalation Q6H PRN shortness 06/12/23 06/08/25 Rx (2.5 mg base)/3 mL nebulization of breath or wheezing #180 mL soln blood sugar diagnostic (VedantuTouch See Rx Instructions .Route 07/21/24 06/08/25 Rx Verio test strips) .COMPLEX #200 strips lancets 30 gauge (OneTouch Delica See Rx Instructions .Route 07/21/24 06/08/25 Rx Plus Lancet) .COMPLEX #200 ea potassium chloride 20 mEq 20 meq PO BID #180 tabs 10/27/24 06/08/25 Rx tablet,extended release(part/cryst) (Klor-Con M) pravastatin 20 mg tablet 20 mg PO DAILY #90 tabs 11/03/24 06/08/25 Rx glipizide 5 mg tablet, extended See Rx Instructions .Route 02/10/25 06/08/25 Rx release 24 hr .COMPLEX #90 tabs amlodipine 10 mg tablet See Rx Instructions .Route 03/02/25 06/08/25 Rx .COMPLEX #90 tabs budesonide-formoterol HFA 160 2 inh inhalation Q12H #10.2 grams 03/02/25 06/08/25 Rx mcg-4.5 mcg/actuation aerosol inhaler (Symbicort) irbesartan 300 mg tablet See Rx Instructions .Route 03/02/25 06/08/25 Rx .COMPLEX #90 tabs spironolactone 25 mg tablet See Rx Instructions .Route 03/09/25 06/08/25 Rx .COMPLEX #90 tabs metoprolol tartrate 25 mg tablet 25 mg PO DAILY #180 tabs 04/20/25 06/08/25 Rx fluticasone propionate 50 1 spray intranasal DAILY 30 days 05/18/25 06/08/25 Rx mcg/actuation nasal #16 grams spray,suspension levothyroxine 50 mcg tablet See Rx Instructions .Route 06/01/25 06/08/25 Rx .COMPLEX #90 tabs glipizide 2.5 mg tablet, extended 2.5 mg PO PRN Increased Glucose 06/08/25 06/08/25 History release 24 hr meclizine 12.5 mg tablet 12.5 mg PO BID #30 tabs 06/09/25 Rx Review of Systems Review of Systems All systems reviewed & are unremarkable except as noted in HPI and below Exam Narrative: AF HR 60 RR 18 SPO2 94 BP 128/64 General: male in no acute respiratory distress who is nontoxic appearing, sitting up in bed and ambulating around the room HEENT: Normocephalic. Atraumatic. PERRLA. No nystagmus. Extraocular movement intact. Sclera clear and anicteric. No facial asymmetry. Perforated tympanic membrane of the right ear. Chest: Lungs are clear to auscultation bilaterally. No wheezes or crackles. CV: Heart was regular rate and rhythm. S1/S2. No murmurs, gallops, or rubs. Abd: Abdomen was soft. Nontender. Nondistended. Positive bowel sounds. No organomegaly or masses. Ext: No clubbing, cyanosis, or edema. DP pulses bilaterally. Neuro: Patient is alert and oriented x4. Strength is 5/5 in both upper and lower extremities. Speech is clear. Psych: Normal mood and affect. Patient is pleasant and cooperative. Skin: Warm and dry. No rashes noted. DS: Data Data Completed and Pending Completed studies during hospitalization: Brain MRI Labs on day of discharge: Labs from last 24 hours 06/09/25 06/09/25 06/08/25 12:37 08:22 20:12 POC Capillary Glucose 102 181 H 156 H Impressions Brain MRI 06/09/25 14:01 IMPRESSION: 1. Unchanged small T2 hyperintense lesion in the left frontal lobe with prominent susceptibility artifact most consistent with a cavernous malformation. No acute intracranial process. 2. Mild scattered nonspecific white matter T2 hyperintensity which is within normal limits for age and likely sequela of chronic small vessel ischemic disease. DS: Summary Hospital Course Reason for hospitalization: Diplopia thoracic aortic aneurysm Type 2 DM HTN Hypothyroidism LEEANNA Hospital Course: 75 year old male with past medical history of COPD, hypertension, hy pothyroidism, LEEANNA and type 2 DM presents to the hospital for diplopia. Previously reported to the ED on 06/07 for the same symptoms for which he underwent imaging. Chest XR showed no acute cardiopulmonary process. Head CT showed no acute intracranial process. Head/neck cta showed no large vessel intracranial occlusion, high grade stenosis or aneurysm, no carotid or vertebral artery occlusion, dissection, stenosis but did show a thoracic aortic aneurysm measuring 4 cm. Patient to follow up with PCP in the outpatient for this to reassess on imaging. Patient was given meclizine at that time and the double vision resolved prior to being discharged back home. Patient returned to the hospital for recurrence of the diplopia. Brain MRI obtained and showed Unchanged small T2 hyperintense lesion in the left frontal lobe with prominent susceptibility artifact most consistent with a cavernous malformation, No acute intracranial process, Mild scattered nonspecific white matter T2 hyperintensity which is within normal limits for age and likely sequela of chronic small vessel ischemic disease. 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 Patient has an ophthalmology appointment scheduled for tomorrow. Prior to discharge he received a dose of meclizine and noted that the diplopia had significantly improved. Likely that the diplopia is also related to vertigo secondary to patients tympanic membrane perforation. At time of discharge patient denies any chest pain, palpitations, shortness of breath, nausea/vomiting, abdominal pain, dizziness/lightheadedness/weakness, or gait abnormalities. He was able to ambulate throughout the room. Patient stated that he was ready for discharge at this time. Patient discharged home with family in a stable condition. He is to follow-up with his primary care provider as scheduled on , keep his scheduled ophthalmology appointment for tomorrow, and keep his scheduled surgical appointment in June for the tympanic membrane perforation. Status at Discharge Functional status at discharge: independent ambulation Time Spent with Patient Time attestation: Total time spent providing and/or coordinating discharge services: Time spent: Greater than 30 minutes DS: Admitting Diagnosis Discharge Date 06/09/2025 Admitting Diagnosis Diplopia Thoracic aortic aneurysm Type 2 DM HTN Hypothyroidism LEEANNA DS: Discharge Diagnosis Discharge Diagnosis (1) Diplopia: Code(s): H53.2 - Diplopia Status: Acute (2) Thoracic aortic aneurysm: Code(s): I71.20 - Thoracic aortic aneurysm, without rupture, unspecified Status: Acute (3) Type 2 diabetes mellitus with unspecified complications: Code(s): E11.8 - Type 2 diabetes mellitus with unspecified complications Status: Acute (4) Essential (primary) hypertension: Code(s): I10 - Essential (primary) hypertension Status: Acute (5) Hypothyroidism (acquired): Code(s): E03.9 - Hypothyroidism, unspecified Status: Acute (6) Obstructive sleep apnea (adult) (pediatric): Code(s): G47.33 - Obstructive sleep apnea (adult) (pediatric) Status: Acute Discharge Plan Discharge Attending physician on discharge: Modesto Lomeli Consulting providers: Hansa Russell; Jean Carlos Sears Discharging Clinician: Hansa Russell Anticipated Discharge Date/Time: 06/09/25 16:42 Patient Disposition: Home Activity: as tolerated Diet: as tolerated Discharge Instructions: Discharge disposition: Patient admitted to the hospital for double vision Neurology evaluated and concern for 6 nerve palsy, follow up with neurology as needed in the outpatient setting. Attached is office information. Imaging unremarkable Started on meclizine for likely cocurrent vertigo given ear drum perforation, keep scheduled surgery appointment in June Do not drive or operate heavy machinery until diplopia completely resolves Keep your eye appointment for tomorrow Keep your blood pressure well controlled Continue to monitor your glucose levels, keep glucose well controlled. Dilation of the descending thoracic aorta measuring up to 4.0 cm on CTA Follow up with PCP in regards to reimaging Monitor blood pressures Take caution while standing, rising, or moving Change positions slowly taking a break between each position change If you standing feel dizzy sit back down and take a break Encouraged to continue with yearly vaccinations Return to the emergency department if he developed sudden shortness of breath, chest pain, nausea, vomiting, upset stomach or intractable diarrhea Return to the emergency department if you develop fever greater than 100.5 Follow-up with the primary care physician within 1-2 weeks Thank you for [facility] for your healthcare needs Patient Instructions: Meclizine (By mouth), Diplopia (DC) Patient Language: Emirati Stand Alone Forms: General Discharge Information Follow-up/Referrals: Jean Carlos Sears MD [Physician] - Call for Appointment Nghia Reed DO [Primary Care Provider] - Keep Reg. Scheduled Appt. Discharge Medications: New meclizine 12.5 mg Tablet 12.5 mg PO BID Qty: 30 0RF Continued potassium chloride [Klor-Con M20] 20 mEq tablet,ER particles/crystals 20 meq PO BID Qty: 180 2RF pravastatin 20 mg tablet 20 mg PO DAILY Qty: 90 2RF fluticasone propionate 50 mcg/actuation spray,suspension 1 spray intranasal DAILY 30 Days Qty: 16 2RF Rx Instructions: administer into each nostril glipizide 2.5 mg tablet extended release 24hr 2.5 mg PO PRN Patient Comments: Per Patient 2.5mg tablet is only taken PRN with increase glucose. Rx Instructions: Take with the 5 mg dose once daily (DME) blood-glucose meter Kit See Rx Instructions .ROUTE .MEDSUPPLY Qty: 1 0RF Rx Instructions: one touch glucose meter test twice daily ipratropium-albuterol 0.5 mg-3 mg(2.5 mg base)/3 mL solution for nebulization 3 ml INHALATION Q6H PRN (Reason: shortness of breath or wheezing) Qty: 180 3RF OneTouch Verio test strips Strip See Rx Instructions .ROUTE .COMPLEX Qty: 200 3RF Dose Instruction: TEST TWICE DAILY Rx Instructions: TEST TWICE DAILY lancets [OneTouch Delica Plus Lancet] 30 gauge misc See Rx Instructions .ROUTE .COMPLEX Qty: 200 3RF Dose Instruction: TEST TWICE DAILY Rx Instructions: TEST TWICE DAILY glipizide 5 mg tablet extended release 24hr See Rx Instructions .ROUTE .COMPLEX Qty: 90 1RF Dose Instruction: TAKE 1 TABLET BY MOUTH EVERY DAY WITH FOOD Rx Instructions: TAKE 1 TABLET BY MOUTH EVERY DAY WITH FOOD irbesartan 300 mg tablet See Rx Instructions .ROUTE .COMPLEX Qty: 90 1RF Dose Instruction: TAKE 1 TABLET BY MOUTH EVERY DAY Rx Instructions: TAKE 1 TABLET BY MOUTH EVERY DAY amlodipine 10 mg tablet See Rx Instructions .ROUTE .COMPLEX Qty: 90 1RF Dose Instruction: TAKE 1 TABLET BY MOUTH EVERY DAY Rx Instructions: TAKE 1 TABLET BY MOUTH EVERY DAY budesonide-formoterol [Symbicort] 160-4.5 mcg/actuation HFA aerosol inhaler 2 inh inhalation Q12H Qty: 10.2 2RF Rx Instructions: INHALE 2 PUFFS BY MOUTH EVERY 12 HOURS spironolactone 25 mg tablet See Rx Instructions .ROUTE .COMPLEX Qty: 90 1RF Dose Instruction: TAKE 1 TABLET BY MOUTH EVERY DAY Rx Instructions: TAKE 1 TABLET BY MOUTH EVERY DAY metoprolol tartrate 25 mg tablet 25 mg PO DAILY Qty: 180 1RF levothyroxine 50 mcg tablet See Rx Instructions .ROUTE .COMPLEX Qty: 90 1RF Dose Instruction: TAKE 1 TABLET BY MOUTH EVERY DAY Rx Instructions: TAKE 1 TABLET BY MOUTH EVERY DAY Date of admission: 06/08/25 17:44 Primary Care Provider: Nghia Reed Admitting Provider: Modesto Lomeli Attending physician on admission: Modesto Lomeli Condition: Stable Hospitalist [facility] Advance Care Plan I have confirmed that the patient's Advanced Care Plan is present, code status is documented, or surrogate decision maker is listed in patient medical record.: Yes Medication Reconciliation I have utilized all available resources to obtain, update and review the patients current medications (includes all prescriptions, OTC, herbals, cannabis, and nutritional supplements).: Yes Heart Failure (Exclusion) Patient has history of Heart Transplant or Left Ventricular Assistive Device?: No IF YES, STOP HERE Heart Failure (Qualifier) Patient has current or prior documentation of LVEF less than or equal to 40%, or mod/servere depressed LVSF?: No IF NO, STOP HERE
== END 2025-06-09 17:10 | disposition home or self-care (01) ==
LOC: ANHED 17:07 → ANH2MED 18:40
PROVIDERS: Registered Nurse; Admitting Provider Internal Medicine; Emergency Provider Physician Assistant; PCP Internal Medicine; Visit Provider Internal Medicine
DX: H53.2 Diplopia (principal); G52.9 Cranial nerve disorder, unspecified; I71.20 Thoracic aortic aneurysm, without rupture, unspecified; E11.9 Type 2 diabetes mellitus without complications; I10 Essential (primary) hypertension; J44.9 Chronic obstructive pulmonary disease, unspecified; E03.9 Hypothyroidism, unspecified; G47.33 Obstructive sleep apnea (adult) (pediatric); Z79.84 Long term (current) use of oral hypoglycemic drugs
CPT/HCPCS: 36415; 70553; 80053; 82948; 85025; 85610; 85730; 99285; A9270; A9577; G0378

== ENCOUNTER 2025-07-10 00:19 | Day surgery (SDC) | payer MEDICARE, SELFPAY ==
--- OUTSIDE RECORDS SUMMARY | 2013-03-03 08:35 | XMS_ITS | Continuity of Care Document ---
Author Organization [facility] Address [address] [facility] [address] [place] [address] Phone Care Team Providers Care Commercial Counsel Name Role Phone Arcadio Zepeda MD Unavailable Unavailable Allergies, Adverse Reactions, Alerts Substance Reaction Status Criticality Penicillins Active No Information Medications Medication Instructions Dosage Effective Dates (start - stop) Status Comments ATENOLOL (unknown strength) Not Available - Active LISINOPRIL (unknown strength) Not Available - Active METFORMIN HCL (unknown strength) Not Available - Active Procedures Procedure Date MU Reporting OFFICE/OUTPATIENT VISIT EST MU Reporting OFFICE/OUTPATIENT VISIT EST Advance Directives Directive Yes / No Effective Date File Name Resuscitation Not Answered N/A N/A Life Support Not Answered N/A N/A Intubation Not Answered N/A N/A Antibiotics Not Answered N/A N/A IV Fluid Support Not Answered N/A N/A Tube Feed Not Answered N/A N/A Other Directive N/A N/A WARNING:The information contained in this section is historical and is provided for information only and does not constitute a legal document or any assurance that the information is still accurate. Please verify the information with the reza of the legal document before using it for clinical purposes. Encounters Encounter Description Practice Location Reason(s) For Visit Diagnoses Date Provider Providers Copied on Encounter OFFICE/OUTPAT IENT VISIT EST [facility] , [address] [facility] [address], [place], [address], tel:[phone] [facility] right knee (chief complaint) Knee joint replacement Feb-2 2-201 3 Katelyn Ervin. [address] [facility] [address] [place], [place], [id number] . tel:[phone] Referring Provider: Oscar Oconnell, [address], [place], [address] . tel:[phone] OFFICE/OUTPAT IENT VISIT EST [facility] , [address] [facility] [address], [place], [address], [place] [phone] [facility] bilateral knee (chief complaint) Hypertension, UnspecifiedOs teoarthrosis, unspecified whether generalized or localized, involving lower legKnee joint replacement 2 Katelyn Ervin. [address], [place], [place], [id number] . tel: [phone] Family History Family Member Type Diagnosis Age At Onset Problem (finding) Family history of Cance r Payers Payer name Insurance type Covered alliance party ID Authoriza tion(s) No Information Social History Type Description Quantity Date Captured Comments Alcohol Use Details Unknown Caffeine Use Details Unknown Tobacco Use Status No Information Smoking Status No Information Sex Male Chief Complaint And Reason For Visit From encounter dated '03/03/2013 13:35'. right knee (chief complaint) Reason For Referral Reason For Referral No Information Plan Of Treatment Date Type Action Status Referral Ordered: JAEL HAINES COMPL 4/MORE VIEWS RT ordered History Of Present Illness Encounter Date Complaint History Of Prese nt Illness No Information Functional Status Date Functional Assessmen t No Information Instructions Date Instruction Additional Infor mation Reviewed medications Activity as tolerated Physical activity counseling Rel ated to Dietary surveillance counseling Dietary counseling Related to Di etary surveillance counseling Physical activity counseling Rel ated to Dietary surveillance counseling Assessments Type Assessment Date No Information Patient Care Teams Name Effective Dates (start - stop) Status Members No Information
[2025-06-24 11:12] VITALS: BMI 31.1
--- NOTE | 2025-06-24 11:23 | PC.NURSE ---
Report to the Outpatient Waiting Room, entrance under the green pavilion located off [facility], at time ___0600am____ on date ___07/10/25____. Planned Procedure Time: _0730am .? Time changes happen often and if your time is changed the preop area will call you the afternoon before. - You and your visitor will be asked to self-screen and do not enter if you have any COVID symptoms. Please call surgeon if you need to reschedule. - A mask is optional within the hospital at this time. Patients may have clear liquids (water, carbonated beverages, clear teas, apple juice) until 3 hours prior to surgery with a maximum of 20 ounces. - No food from midnight until time of surgery and no smoking, or chewing tobacco (or any form of nicotine). No chewing gum, candy or mints. (0430am) Take only the following medications with a SIP of water on the morning of surgery: ___Amlodipine, Metoprolol, Levothyroxine, and Inhaler if needed DO NOT STOP ANY OF YOUR OTHER PRESCRIPTION MEDICATIONS PRIOR TO SURGERY EXCEPT THE FOLLOWING Hold all vitamins and supplements for 3 days per anesthesiologist. Medications to discontinue per physician NONE Date to take last dose NONE Please no make-up, nail welsh, hairspray, perfume, deodorant, or body powder the day of surgery.? No jewelry (including any body piercings) or valuables the day of surgery, leave them at home.? Please take a shower or bath the night before, or the morning of, surgery with an antibacterial soap.? Wear comfortable, loose fitting clothing.? - Jewelry must be removed prior to entering the operating room.? Rings and piercings that are not removed may be cut off. - The hospital will not accept responsibility for valuables.? - Please leave all valuables, including medications, at home the day of surgery. If you are going home after surgery, a licensed diesel pile driver operator must drive you home.? - NO public transportation without another adult if you receive anesthesia. - We recommend that an adult stay with you for 24 hours following discharge. - We also recommend that you do not drive, make important decision, drink alcoholic beverages, or take any drugs that were not prescribed by your health care provider for at least 24 hours after your discharge time. Follow any additional instructions given to you from your surgeon. Telephone instructions given to ___Patient and asked if any additional questions and then verbalized understanding. Patient advised to call surgeon office or pre surgery nurse liaison [phone] if any additional questions.
[2025-07-10] VITALS (18 sets, daily range): BP systolic 115–150; BP diastolic 62–82; PULSE 48–73; RESP 12–16; TEMP 36.1–36.3; O2SAT 92–100
--- OUTSIDE RECORDS SUMMARY | 2025-07-10 00:22 | XMS_ITS | Encounter Summary ---
Author Organization [facility] Address [address] [place] [address] Phone Care Team Providers Care School Office Assistant Name Role Phone Unknown, Notinfile Primary Care Provider Unavail able Liza Haynes MD Primary Care Provider [phone] Encounter Details Date Type Department Care Team (Latest Contact Info) Description 11/17/2020 Orders Only [facility] Scanning, Provider Social History Tobacco Use Types Packs/Day Years Used Date Smoking Tobacco: Never Assessed Sex and Gender Information Value Date Recorded Sex Assigned at Not on file Legal 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 Patient classified as Low Risk for COVID-19 and has one negative COVID-19 test. Patient meets criteria for COVID-19 isolation discontinuation Maribell Marmolejo RN 11/24/2020 11/22/2020 11/22/2020 11/24/2020 7:39 AM GEAR CODING MACHINE OPERATOR documented as of this encounter Care Teams School Office Assistant Relationship Specialty Start Date End Date Unknown, Notinfile PCP - General 11/21/20 03/14/21 Liza Haynes MD [address] [place] [address] PCP - General 03/15/21 documented as of this encounter
--- OUTSIDE RECORDS SUMMARY | 2025-07-10 00:22 | XMS_ITS | Encounter Summary ---
Author Organization [facility] Address [address] [place] [address] Phone Care Team Providers Care Outside Energy Sales Representatives Name Role Phone Unknown, Notinfile Primary Care Provider Unavail able Liza Haynes MD Primary Care Provider [phone] Encounter Details Date Type Department Care Team (Latest Contact Info) Description 12/10/2018 Orders Only [facility] Scanning, Provider Social History Tobacco Use Types Packs/Day Years Used Date Smoking Tobacco: Never Assessed Sex and Gender Information Value Date Recorded Sex Assigned at Not on file 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 Patient classified as Low Risk for COVID-19 and has one negative COVID-19 test. Patient meets criteria for COVID-19 isolation discontinuation Maribell Marmolejo RN 11/24/2020 11/22/2020 11/22/2020 11/24/2020 7:39 AM TRACTOR TRAILER MECHANIC documented as of this encounter Care Teams Outside Energy Sales Representatives Relationship Specialty Start Date End Date Unknown, Notinfile PCP - General 11/21/20 03/14/21 Liza Haynes MD [address] [place] [address] PCP - General 03/15/21 documented as of this encounter
--- OUTSIDE RECORDS SUMMARY | 2025-07-10 00:22 | XMS_ITS | Encounter Summary ---
Author Organization 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 Patient classified as Low Risk for COVID-19 and has one negative COVID-19 test. Patient meets criteria for COVID-19 isolation discontinuation Maribell Marmolejo RN 11/24/2020 11/22/2020 11/22/2020 11/24/2020 7:39 AM MOVE COORDINATOR documented as of this encounter Care Teams Composing Room Supervisor Relationship Specialty Start Date End Date Unknown, Notinfile PCP - General 11/21/20 03/14/21 Liza Haynes MD [address] [place] [address] PCP - General 03/15/21 documented as of this encounter
--- OUTSIDE RECORDS SUMMARY | 2025-07-10 00:22 | XMS_ITS | Encounter Summary ---
Author Organization [facility] Address [address] [place] [address] Phone Care Team Providers Care Ice Cream Scooper Name Role Phone Unknown, Notinfile Primary Care Provider Unavail able Liza Haynes MD Primary Care Provider [phone] Encounter Details Date Type Department Care Team (Latest Contact Info) Description 05/10/2016 Orders Only [facility] Scanning, Provider Social History Tobacco Use Types Packs/Day Years Used Date Smoking Tobacco: Never Assessed Sex and Gender Information Value Date Recorded Sex Assigned at Not on file Legal Sex Male 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 Patient classified as Low Risk for COVID-19 and has one negative COVID-19 test. Patient meets criteria for COVID-19 isolation discontinuation Maribell Marmolejo RN 11/24/2020 11/22/2020 11/22/2020 11/24/2020 7:39 AM MANAGER CORE documented as of this encounter Care Teams Ice Cream Scooper Relationship Specialty Start Date End Date Unknown, Notinfile PCP - General 11/21/20 03/14/21 Liza Haynes MD [address] [place] [address] PCP - General 03/15/21 documented as of this encounter
--- OUTSIDE RECORDS SUMMARY | 2025-07-10 00:22 | XMS_ITS | Encounter Summary ---
Author Organization [facility] Address [address] [place] [address] Phone Care Team Providers Care Track Grinder Operator Name Role Phone Unknown, Notinfile Primary Care Provider Unavail able Liza Haynes MD Primary Care Provider [phone] Encounter Details Date Type Department Care Team (Latest Contact Info) Description 11/03/2019 Orders Only [facility] Scanning, Provider Social History Tobacco Use Types Packs/Day Years Used Date Smoking Tobacco: Never Assessed Sex and Gender Information Value Date Recorded Sex Assigned at Not on file 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 Patient classified as Low Risk for COVID-19 and has one negative COVID-19 test. Patient meets criteria for COVID-19 isolation discontinuation Maribell Marmolejo RN 11/24/2020 11/22/2020 11/22/2020 11/24/2020 7:39 AM FARM EQUIPMENT SERVICE TECHNICIAN documented as of this encounter Care Teams Track Grinder Operator Relationship Specialty Start Date End Date Unknown, Notinfile PCP - General 11/21/20 03/14/21 Liza Haynes MD [address] [place] [address] PCP - General 03/15/21 documented as of this encounter
--- OUTSIDE RECORDS SUMMARY | 2025-07-10 00:22 | XMS_ITS | Clinical Summary ---
Author Organization [facility] Address [address] [place] [address] Care Team Providers Care Meteorological Equipment Repairer Name Role Phone Liza Haynes MD Primary Care Provider [phone] Allergies Active Allergy Reactions Criticality Noted Date [...] mcg tablet Take 50 mcg by mouth placing judge before breakfast Active Active Problems Problem Noted Date Diagnosed Date Atelectasis 03/08/2021 Surgical History Surgery Date Site/Laterality Comments ABDOMINAL SURGERY COLON SURGERY HERNIA REPAIR umbilical JOINT REPLACEMENT right knee Medical History Medical History Date Comments AAA (abdominal aortic aneurysm) Diabetes mellitus (HCC) Hypertension COPD (chronic obstructive pulmonary disease) Cancer (HCC) left leg Thyroid disease Sleep [...] on file 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
--- OUTSIDE RECORDS SUMMARY | 2025-07-10 00:22 | XMS_ITS | Encounter Summary ---
Author Organization [facility] Address [address] [place] [address] Phone Care Team Providers Care Compactor Driver Name Role Phone Unknown, Notinfile Primary Care Provider Unavail able Liza Haynes MD Primary Care Provider [phone] Encounter Details Date Type Department Care Team (Latest Contact Info) Description 08/22/2019 Orders Only [facility] Scanning, Provider Social History Tobacco Use Types Packs/Day Years Used Date Smoking Tobacco: Never Assessed Sex and Gender Information Value Date Recorded Sex Assigned at Not on file 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 Patient classified as Low Risk for COVID-19 and has one negative COVID-19 test. Patient meets criteria for COVID-19 isolation discontinuation Maribell Marmolejo RN 11/24/2020 11/22/2020 11/22/2020 11/24/2020 7:39 AM ADAPTIVE PHYSICAL EDUCATION SPECIALIST documented as of this encounter Care Teams Compactor Driver Relationship Specialty Start Date End Date Unknown, Notinfile PCP - General 11/21/20 03/14/21 Liza Haynes MD [address] [place] [place] [address] PCP - General 03/15/21 documented as of this encounter
--- OUTSIDE RECORDS SUMMARY | 2025-07-10 00:22 | XMS_ITS | Encounter Summary ---
Author Organization [facility] Address [address] [place] [address] Phone Care Team Providers Care Manifold Builder Name Role Phone Unknown, Notinfile Primary Care Provider Unavail able Liza Haynes MD Primary Care Provider [phone] Encounter Details Date Type Department Care Team (Latest Contact Info) Description 01/25/2021 Orders Only [facility] Scanning, Provider Social History Tobacco Use Types Packs/Day Years Used Date Smoking Tobacco: Former Sex and Gender Information Value Date Recorded Sex Assigned at Not on file 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
--- OUTSIDE RECORDS SUMMARY | 2025-07-10 00:23 | XMS_ITS | Encounter Summary ---
Author Organization [facility] Address [address] [place] [address] Phone Care Team Providers Care Speaker Mounter Name Role Phone Unknown, Notinfile Primary Care Provider Unavail able Liza Haynes MD Primary Care Provider [phone] Encounter Details Date Type Department Care Team (Latest Contact Info) Description 11/26/2020 Orders Only [facility] Scanning, Provider Social History Tobacco Use Types Packs/Day Years Used Date Smoking Tobacco: Former Sex and Gender Information Value Date Recorded Sex Assigned at Not on file 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
--- NOTE | 2025-07-10 06:50 | WPDANESEPPF ---
Anes - Initial Pre Proc Eval Procedure: Operation Date: 07/10/25 07:30 Proposed Procedures p Right Tympanoplasty Type 1 with Tragus Graft - Александр Richard MD Date/Time: 07/10/25 06:50 Surgeon: Александр Richard MD Pre Op Diagnosis: Ear Problem, hearing loss-unspecified Patient Data Age: 75 Gender: M Height: 1.65 m Weight: 84.8 kg Allergies Allergy/AdvReac Type Severity Reaction Status Date / Time Penicillins Allergy Unknown Skin Verified 06/24/25 11:02 Reaction lisinopril AdvReac Intermediate cough Verified 06/24/25 11:02 morphine AdvReac Intermediate Nausea and Verified 06/24/25 11:02 Vomiting Home Medications ?Medication ?Instructions ?Recorded ?Confirmed ?Type blood-glucose meter #1 ea 05/18/20 06/24/25 Rx ipratropium 0.5 mg-albuterol 3 mg 3 ml inhalation Q6H PRN shortness 06/12/23 06/24/25 Rx (2.5 mg base)/3 mL nebulization of breath or wheezing #180 mL soln potassium chloride 20 mEq 20 meq PO BID #180 tabs 10/27/24 06/24/25 Rx tablet,extended release(part/cryst) (Klor-Con M) pravastatin 20 mg tablet 20 mg PO DAILY #90 tabs 11/03/24 06/24/25 Rx glipizide 5 mg tablet, extended See Rx Instructions .Route 02/10/25 06/24/25 Rx release 24 hr .COMPLEX #90 tabs amlodipine 10 mg tablet See Rx Instructions .Route 03/02/25 06/24/25 Rx .COMPLEX #90 tabs irbesartan 300 mg tablet See Rx Instructions .Route 03/02/25 06/24/25 Rx .COMPLEX #90 tabs spironolactone 25 mg tablet See Rx Instructions .Route 03/09/25 06/24/25 Rx .COMPLEX #90 tabs metoprolol tartrate 25 mg tablet 25 mg PO DAILY #180 tabs 04/20/25 06/24/25 Rx fluticasone propionate 50 1 spray intranasal DAILY 30 days 05/18/25 06/24/25 Rx mcg/actuation nasal #16 grams spray,suspension levothyroxine 50 mcg tablet See Rx Instructions .Route 06/01/25 06/24/25 Rx .COMPLEX #90 tabs glipizide 2.5 mg tablet, extended 2.5 mg PO PRN Increased Glucose 06/08/25 06/24/25 History release 24 hr hydrochlorothiazide 25 mg tablet 25 mg PO DAILY 06/24/25 06/24/25 History meclizine 12.5 mg tablet 12.5 mg PO BID PRN dizziness 06/24/25 06/24/25 History budesonide-formoterol HFA 160 2 inh inhalation Q12H #10.2 grams 06/29/25 Rx mcg-4.5 mcg/actuation aerosol inhaler (Symbicort) blood sugar diagnostic (OneTouch See Rx Instructions .Route 07/02/25 Rx Verio test strips) .COMPLEX #200 strips lancets 30 gauge (OneTouch Delica See Rx Instructions .Route 07/02/25 Rx Plus Lancet) .COMPLEX #200 ea Patient hx anesthesia problems: none Family hx anesthesia problems: none Results Review: All pre-operative results and documents have been reviewed as part of the pre-operative evaluation. [facility] Past Medical History Medical History Thoracic aortic aneurysm Palsy Chronic sinusitis Nodule of lower lobe of left lung Collapsed lung CTS (carpal tunnel syndrome) COPD with asthma Essential (primary) hypertension Hypothyroidism (acquired) Obstructive sleep apnea (adult) (pediatric) Type 2 diabetes mellitus with unspecified complications Surgical History Surgical History Hx of cholecystectomy History of carpal tunnel release H/O hernia repair H/O arthroscopic knee surgery History of knee replacement H/O partial resection of colon History of cardiac cath Family History Family History Father Hypertension Family history of throat cancer, Onset Age: 67 Patient's father is , Onset Age: 67 Sibling , recovered from throat cancer Hypertension, Onset Age: 39 Family history of primary malignant neoplasm of liver Family history of malignant neoplasm of breast in first degree relative, Onset Age: 47 Family history of throat cancer, Onset Age: 52 Family history of malignant neoplasm of breast Mother Hypertension Social History Social History Social History: . Lives at home with . Monica. Smoking packs per day: 1.5 Smoking cigarettes per day: 30.0 Years smoked: 30 Smoking pack-years: 45.00 Smoking status: Former smoker Tobacco type: cigarettes Smoking end date: 11/12/97 Alcohol intake: never Substance use: never Substance use type: does not use Lack of Transportation: No Lack of Food: Never True Current Housing: I Have Housing Concerned About Future Housing: No Difficulty Paying Gas/Electric Bills: No Difficulty Paying for Meds: No Currently Unemployed: No Education: Grade School Difficulty w/ Childcare or Family Care: No Living arrangements: with family Additional living arrangements comments: Occupation/Education: retired Spiritual care concerns: No Anes - Eval Final PreProcedure Day of Procedure 07/10/25 06:50 Patient weight: overweight Heart: regular rate and rhythm Lungs: decreased breath sounds Airway: Mallampati scale class III Neurological: alert and oriented Last oral intake: >/= 8 hours ASA classification: IV Emergent: no Anesthetic plan: proceed Anesthesia type and monitoring: general LMA and ETT and standard monitoring Results Review: All pre-operative results and documents have been reviewed as part of the pre-operative evaluation. Informed Consent: The patient's anesthetic plan and its attendant risks and benefits were discussed with the patient/family/POA. Questions were solicited and answers provided to the satisfaction of the patient/family/POA.
[2025-07-10] MEDS: LACTATED RINGERS 1,000 ML 30 ML IV CONT ×2 (06:52→09:54)
--- NOTE | 2025-07-10 06:58 | P.HP_ITS ---
H&P: HPI History of Present Illness Date/Time: 07/10/25 06:58 Chief Complaint: right ear drum preforation Narrative: A 75-year-old male presents with right-sided otorrhea due to a large tympanic membrane perforation, for which he desires surgical repair. He describes years of recurrent ear drainage (yellow to green) despite diligent dry ear precautions. He previously underwent an unsuccessful in-office patch myringoplasty. Additionally, he reports right-sided hearing difficulty and is here to discuss the findings of his recent audiogram. Review of Systems Review of Systems: All systems reviewed & are unremarkable except as noted in HPI and below Constitutional: Constitutional: Reports as per HPI ENT: Reports as per HPI PMFSH Past Medical History Medical History Thoracic aortic aneurysm Palsy Chronic sinusitis Nodule of lower lobe of left lung Collapsed lung CTS (carpal tunnel syndrome) COPD with asthma Essential (primary) hypertension Hypothyroidism (acquired) Obstructive sleep apnea (adult) (pediatric) Type 2 diabetes mellitus with unspecified complications Surgical History Surgical History Hx of cholecystectomy History of carpal tunnel release H/O hernia repair H/O arthroscopic knee surgery History of knee replacement H/O partial resection of colon History of cardiac cath Family History Family History Father Hypertension Family history of throat cancer, Onset Age: 67 Patient's father is , Onset Age: 67 Sibling , recovered from throat cancer Hypertension, Onset Age: 39 Family history of primary malignant neoplasm of liver Family history of malignant neoplasm of breast in first degree relative, Onset Age: 47 Family history of throat cancer, Onset Age: 52 Family history of malignant neoplasm of breast Mother Hypertension Social History Social History Social History: . Lives at home with Cesar Anderson. Smoking packs per day: 1.5 Smoking cigarettes per day: 30.0 Years smoked: 30 Smoking pack-years: 45.00 Smoking status: Former smoker Tobacco type: cigarettes Smoking end date: 11/12/97 Alcohol intake: never Substance use: never Substance use type: does not use Lack of Transportation: No Lack of Food: Never True Current Housing: I Have Housing Concerned About Future Housing: No Difficulty Paying Gas/Electric Bills: No Difficulty Paying for Meds: No Currently Unemployed: No Education: Grade School Difficulty w/ Childcare or Family Care: No Living arrangements: with family Additional living arrangements comments: Occupation/Education: retired Spiritual care concerns: No Meds Home Medications and Allergies Home Medications ?Medication ?Instructions ?Recorded ?Confirmed ?Type blood-glucose meter #1 ea 05/18/20 06/24/25 Rx ipratropium 0.5 mg-albuterol 3 mg 3 ml inhalation Q6H PRN shortness 06/12/23 06/24/25 Rx (2.5 mg base)/3 mL nebulization of breath or wheezing #180 mL soln potassium chloride 20 mEq 20 meq PO BID #180 tabs 10/1206/24/25 Rx tablet,extended release(part/cryst) (Klor-Con M) pravastatin 20 mg tablet 20 mg PO DAILY #90 tabs 10/1306/24/25 Rx glipizide 5 mg tablet, extended See Rx Instructions .R oute 02/10/25 06/24/25 Rx release 24 hr .COMPLEX #90 tabs amlodipine 10 mg tablet See Rx Instructions .Route 0 03/02/25 06/24/25 Rx .COMPLEX #90 tabs irbesartan 300 mg tablet See Rx Instructions .Route 0 03/02/25 06/24/25 Rx .COMPLEX #90 tabs spironolactone 25 mg tablet See Rx Instructions .Route 03/09/25 06/24/25 Rx .COMPLEX #90 tabs metoprolol tartrate 25 mg tablet 25 mg PO DAILY #180 t abs 04/20/25 06/24/25 Rx fluticasone propionate 50 1 spray intranasal DAILY 30 days 05/18/25 06/24/25 Rx mcg/actuation nasal #16 grams spray,suspension levothyroxine 50 mcg tablet See Rx Instructions .Route 06/01/25 06/24/25 Rx .COMPLEX #90 tabs glipizide 2.5 mg tablet, extended 2.5 mg PO PRN Increa sed Glucose 06/08/25 06/24/25 History release 24 hr hydrochlorothiazide 25 mg tablet 25 mg PO DAILY 06/24/25 History meclizine 12.5 mg tablet 12.5 mg PO BID PRN dizziness 06/24/25 06/24/25 History budesonide-formoterol HFA 160 2 inh inhalation Q12H #1 0.2 grams 06/29/25 Rx mcg-4.5 mcg/actuation aerosol inhaler (Symbicort) blood sugar diagnostic (OneTouch See Rx Instructions . Route 07/02/25 Rx Verio test strips) .COMPLEX #200 strips lancets 30 gauge (ExactCostTouch DelCO2Stats See Rx Instructions .Route 07/02/25 Rx Plus Lancet) .COMPLEX #200 ea Allergies Allergy/AdvReac Type Severity Reaction Status Date / Time Penicillins Allergy Unknown Skin Verified 06/24/25 11:02 Reaction lisinopril AdvReac Intermediate cough Verified 06/24/25 11:02 morphine AdvReac Intermediate Nausea and Verified 06/24/25 11:02 Vomiting Exam Const: General: cooperative, healthy appearing, comfortable, no acute distress, well developed, alert, awake and Physically active Orientation/consciousness: oriented to person, oriented to place, oriented to time and patient oriented x3 HENMT: Head: normocephalic and atraumatic Ears: external ears normal and EAC's normal Face/Nose/Sinus: Normal external nose present and Normal nares present Mouth: Yes Normal oral and palatal mucosa present, Yes lip normal and Yes tongue normal Other: Middle sized posterior central dried right tympanic membrane perforation, no mucopurulent secretions could be seen Hypertrophy of nasal turbinates Eyes: General: appearance normal, both eyes and all related structures Neck: Neck: normal visual inspection, full ROM and trachea midline Resp: Effort & Inspection: normal respiratory effort and able to speak in complete sentences Cardio: Rate: regular rate Neuro: General: oriented to person, oriented to place, oriented to time and patient oriented x3 Assessment and Plan Assessment and plan (1) Central perforation of tympanic membrane, right ear: Code(s): H72.01 - Central perforation of tympanic membrane, right ear Status: Acute Plan Assessment & Plan (1) Ear Problem: Code(s): H93.90 - Unspecified disorder of ear, unspecified ear Qualifiers: Laterality: right Qualified Code(s): H93.91 - Unspecified disorder of right ear (2) Central perforation of tympanic membrane, right ear: Code(s): H72.01 - Central perforation of tympanic membrane, right ear Category: Medical (3) Tympanic membrane rupture: Code(s): H72.90 - Unspecified perforation of tympanic membrane, unspecified ear Category: Medical Qualifiers: Laterality: right Qualified Code(s): H72.91 - Unspecified perforation of tympanic membrane, right ear (4) Mixed hearing loss of right ear: Code(s): H90.71 - Mixed conductive and sensorineural hearing loss, unilateral, right ear, with unrestricted hearing on the contralateral side Qualifiers: Contralateral hearing status: restricted hearing on contralateral side Qualified Code(s): H90.A31 - Mixed conductive and sensorineural hearing loss, unilateral, right ear with restricted hearing on the contralateral side (5) Sensorineural hearing loss of left ear: Code(s): H90.5 - Unspecified sensorineural hearing loss Qualifiers: Contralateral hearing status: restricted hearing on contralateral side Qualified Code(s): H90.A22 - Sensorineural hearing loss, unilateral, left ear, with restricted hearing on the contralateral side Plan 75 yo M with right large tympanic membrane perforation ,right mixed hearing loss , and right-sided otorrhea Audiogram (03/20/25):result was discussed with the patient Tympanometry : Type A ,Type A AD Audiometry: AD: moderate to severe dropping to profound mixed hearing loss :moderate to profound SNHL WRS :excellent AU Nasal endoscopy was done to rule out any nasopharyngeal pathology causing the persistence of right-sided ear perforation and drainage I have discussed the results of hearing test as well as clinical exam I have discussed with the patient surgical options alternatives benefits and risks for right tympanoplasty At this point the patient prefers to go ahead and do surgery Specific Risks of Myringoplasty: Graft Failure: The tissue graft used to repair the eardrum may not heal properly, requiring additional surgery. Hearing Loss: While hearing may improve after surgery, there is a small risk of permanent hearing loss, in some cases severe or total in the operated ear. Tinnitus: Ringing or buzzing in the ears may develop or worsen. Dizziness (Vertigo): Temporary or, in rare cases, prolonged dizziness can occur. Facial Nerve Damage: Extremely rare, but the facial nerve near the eardrum could be affected, leading to temporary or permanent facial weakness or paralysis. Altered Taste: A nerve affecting taste sensation may be damaged, causing a metallic or unusual taste, typically temporary. Recurrent Perforation: The hole in the eardrum may reoccur. Cholesteatoma: Abnormal skin growth behind the eardrum.
--- NOTE | 2025-07-10 07:01 | WPDHPUPDATE1 ---
History and Physical Update Update Date/Time: 07/10/25 07:01 History and Physical has been reviewed, including an updated exam of the patient. There are NO changes in the patient's condition. Risks, benefits, and alternatives have been discussed and questions answered. Patient agrees to proceed with procedure.
[2025-07-10] MEDS: ceFAZolin 2 GM in SODIUM CHLORIDE 0.9% IV 50 ML 100 ML IVPB (07:28)
[2025-07-10] MEDS: LIDO 1%/EPINEPHRINE 1:100,000 50 ML VIAL INFILTRATE (08:11)
[2025-07-10] MEDS: EPINEPHrine HCL INJ 1 MG/ML AMPUL IRRIGATION (08:13)
[2025-07-10] MEDS: NEOMYCIN/POLYMYXIN B/PRAMOXINE 15 GM CREAM 1 APPLIC TOPICAL (09:46)
--- NOTE | 2025-07-10 09:53 | W.PM.PROC2 ---
Procedure Note - Detailed Date of Procedure 07/10/25 Pre-op Diagnosis Right-sided perforated eardrum Post-op Diagnosis Same Procedure Performed Right-sided tympanoplasty Surgeon Александр Richard MD Anesthesia General Indications with history of right-sided perforated eardrum. He presents today for aforementioned procedure. The risks, benefits, alternatives of the surgery, as well as the expected postoperative course were discussed with the patient and family.? They were provided ample time to discuss their questions and concerns.? They have provided informed consent. Description of Procedure After being identified in the preoperative area, the patient was brought to the operating room. Anesthesia was induced, and the patient was positioned supine. The right auricle and surrounding skin were prepped and draped. Using a transcanal approach, the right ear was examined under a binocular microscope. A central perforation, covering approximately 40% of the tympanic membrane, was identified. The edges of the perforation were freshened with a pick, and a tympanomeatal flap was carefully raised to expose the middle ear cavity. A perichondrial graft was then harvested from the right tragus, and the tragal incision was closed with 04 chromic sutures. The graft was then trimmed into a round shape. After moistened Gelfoam was placed in the middle ear space, the graft was placed in an underlay technique beneath the tympanomeatal flap. The flap was laid back into place, and small pieces of Gelfoam were used to cover the graft and the surrounding tympanic membrane. The ear canal was filled with antibiotic ointment, and two cottonoids were placed at the entrance. The procedure concluded, and the patient was allowed to awaken and was transported to the recovery room in stable condition. Estimated Blood Loss 5 (ml) Drains No Packing No Pathology None sent Complications No immediate complications Condition Stable Disposition PACU [facility] Billing Surgery - Charge Forward: Surgery Billing
[2025-07-10] MEDS: fentaNYL CITRATE INJ (*CRX) 100 MCG/2 ML VIAL 25 MCG IV PUSH ×5 (10:50→12:48)
[2025-07-10] MEDS: oxyCODONE HCL (*CRX) 5 MG TAB IR PO (11:37)
[2025-07-10] MEDS: TRANEXAMIC ACID 1,000MG/ISO100 1,000 MG/100 ML BAG 200 MG IVPB (14:25)
== END 2025-07-10 16:08 | disposition home or self-care (01) ==
PROVIDERS: PCP Internal Medicine; Visit Provider Otolaryngology Otolaryngology/Facial Plastic Surgery
PROC: (CPT 69610; principal; 2025-07-10 07:30)
DX: H72.01 Central perforation of tympanic membrane, right ear (principal); E11.9 Type 2 diabetes mellitus without complications
CPT/HCPCS: 69610; 21235; 82948; J0690; A9270; J0166; J1100; J2004; J2704; J3010; J7120

== ENCOUNTER 2025-10-28 10:44 | Outpatient (CLI) | payer MEDICARE, SELFPAY ==
--- NOTE | ~2025-10-28 | XR_ITS ---
EXAMINATION: XR knee LT 3V, 10/28/2025 10:46 ENGINEERING TECHNOLOGIST HISTORY: Lt knee pain/swelling x 3 days w/o injury COMPARISON: No comparisons available. Findings: No acute fracture or malalignment. Severe tricompartmental degenerative changes. Soft tissues unremarkable. Impression: No acute fracture or malalignment. Reviewed, dictated and finalized at location P. NEERING TECHNOLOGIST Impression: No acute fracture or malalignment.
== END 2025-10-28 10:45 | disposition home or self-care (01) ==
LOC: GOSHIMG 10:44
PROVIDERS: PCP Internal Medicine
DX: M25.562 Pain in left knee (principal)
CPT/HCPCS: 73562

== ENCOUNTER 2025-10-29 10:50 | Outpatient (CLI) | payer MEDICARE, SELFPAY ==
--- OUTSIDE RECORDS SUMMARY | 2025-10-29 11:58 | XMS_ITS | Encounter Summary ---
Author Organization [facility] Address [address] [place] [address] Phone Care Team Providers Care Glass Etcher Name Role Phone Unknown, Notinfile Primary Care Provider Unavail able Liza Haynes MD Primary Care Provider [phone] Encounter Details Date Type Department Care Team (Latest Contact Info) Description 11/19/2019 Orders Only [facility] Scanning, Provider Social History Tobacco Use Types Packs/Day Years Used Date Smoking Tobacco: Never Assessed Sex and Gender Information Value Date Recorded Sex Assigned at Not on file Legal Sex Male 11:16 AM CASING FINISHER AND STUFFER Gender Identity Not on file Sexual Orientation [...] COVID: Suspected 11/21/2020 11/21/2020 11/22/2020 2:21 AM CASING FINISHER AND STUFFER Respiratory Infection (BONI), contact + droplet Comment:Automatically added due to negative COVID-19 result. Patient classified as Low Risk for COVID-19 and has one negative COVID-19 test. Patient meets criteria for COVID-19 isolation discontinuation Maribell Marmolejo RN 11/24/2020 11/22/2020 11/22/2020 11/24/2020 7:39 AM CASING FINISHER AND STUFFER documented as of this encounter Care Teams Glass Etcher Relationship Specialty Start Date End Date Unknown, Notinfile PCP - General 11/21/20 03/14/21 Liza Haynes MD [address] [place] [address] PCP - General 03/15/21 documented as of this encounter
--- OUTSIDE RECORDS SUMMARY | 2025-10-29 11:58 | XMS_ITS | Encounter Summary ---
Author Organization [facility] Address [address] [place] [address] Phone Care Team Providers Care Route Delivery Service Driver Name Role Phone Unknown, Notinfile Primary Care Provider Unavail able Liza Haynes MD Primary Care Provider [phone] Encounter Details Date Type Department Care Team (Latest Contact Info) Description 08/22/2019 Orders Only [facility] Scanning, Provider Social History Tobacco Use Types Packs/Day Years Used Date Smoking Tobacco: Never Assessed Sex and Gender Information Value Date Recorded Sex Assigned at Not on file Legal Sex Male 11:16 AM ORTHOPEDICS NURSE Gender Identity Not on file Sexual Orientation [...] COVID: Suspected 11/21/2020 11/21/2020 11/22/2020 2:21 AM ORTHOPEDICS NURSE Respiratory Infection (BONI), contact + droplet Comment:Automatically added due to negative COVID-19 result. Patient classified as Low Risk for COVID-19 and has one negative COVID-19 test. Patient meets criteria for COVID-19 isolation discontinuation Maribell Marmolejo RN 11/24/2020 11/22/2020 11/22/2020 11/24/2020 7:39 AM ORTHOPEDICS NURSE documented as of this encounter Care Teams Route Delivery Service Driver Relationship Specialty Start Date End Date Unknown, Notinfile PCP - General 11/21/20 03/14/21 Liza Haynes MD [address] [place] [address] PCP - General 03/15/21 documented as of this encounter
--- OUTSIDE RECORDS SUMMARY | 2025-10-29 11:58 | XMS_ITS | Encounter Summary ---
Author Organization [facility] Address [address] [place] [address] Phone Care Team Providers Care Web Analytics Developer Name Role Phone Unknown, Notinfile Primary Care Provider Unavail able Liza Haynes MD Primary Care Provider [phone] Encounter Details Date Type Department Care Team (Latest Contact Info) Description 12/23/2020 Orders Only [facility] Scanning, Provider Social History Tobacco Use Types Packs/Day Years Used Date Smoking Tobacco: Former Sex and Gender Information Value Date Recorded Sex Assigned at Not on file Legal Sex Male 11:16 AM FUNERAL SERVICE LICENSEE Gender Identity Not on file Sexual Orientation [...] on filedocumented in this encounter Care Teams Web Analytics Developer Relationship Specialty Start Date End Date Unknown, Notinfsreekanth PCP - General 11/21/20 03/14/21 Liza Haynes MD [address] [place] [address] PCP - General 03/15/21 documented as of this encounter
--- OUTSIDE RECORDS SUMMARY | 2025-10-29 11:58 | XMS_ITS | Encounter Summary ---
Author Organization [facility] Address [address] [place] [address] Phone Care Team Providers Care School Photographer Name Role Phone Unknown, Notinfile Primary Care Provider Unavail able Liza Haynes MD Primary Care Provider [phone] Encounter Details Date Type Department Care Team (Latest Contact Info) Description 05/10/2016 Orders Only [facility] Scanning, Provider Social History Tobacco Use Types Packs/Day Years Used Date Smoking Tobacco: Never Assessed Sex and Gender Information Value Date Recorded Sex Assigned at Not on file Legal Sex Male 11:16 AM SUB ACUTE CARE NURSE Gender Identity Not on file Sexual [...] COVID: Suspected 11/21/2020 11/21/2020 11/22/2020 2:21 AM SUB ACUTE CARE NURSE Respiratory Infection (BONI), contact + droplet Comment:Automatically added due to negative COVID-19 result. Patient classified as Low Risk for COVID-19 and has one negative COVID-19 test. Patient meets criteria for COVID-19 isolation discontinuation Maribell Marmolejo RN 11/24/2020 11/22/2020 11/22/2020 11/24/2020 7:39 AM SUB ACUTE CARE NURSE documented as of this encounter Care Teams School Photographer Relationship Specialty Start Date End Date Unknown, Notinfile PCP - General 11/21/20 03/14/21 Lzia Haynes MD [address] [place] [address] PCP - General 03/15/21 documented as of this encounter
--- OUTSIDE RECORDS SUMMARY | 2025-10-29 11:58 | XMS_ITS | Encounter Summary ---
Author Organization [facility] Address [address] [place] [address] Phone Care Team Providers Care Grant Administrator Name Role Phone Unknown, Notinfile Primary Care Provider Unavail able Liza Haynes MD Primary Care Provider [phone] Encounter Details Date Type Department Care Team (Latest Contact Info) Description 11/17/2020 Orders Only [facility] Scanning, Provider Social History Tobacco Use Types Packs/Day Years Used Date Smoking Tobacco: Never Assessed Sex and Gender Information Value Date Recorded Sex Assigned at Not on file Legal Sex Male 11:16 AM GREEN CHAIN OFFBEARER Gender Identity Not on file Sexual Orientation [...] COVID: Suspected 11/21/2020 11/21/2020 11/22/2020 2:21 AM GREEN CHAIN OFFBEARER Respiratory Infection (BONI), contact + droplet Comment:Automatically added due to negative COVID-19 result. Patient classified as Low Risk for COVID-19 and has one negative COVID-19 test. Patient meets criteria for COVID-19 isolation discontinuation Maribell Marmolejo RN 11/24/2020 11/22/2020 11/22/2020 11/24/2020 7:39 AM GREEN CHAIN OFFBEARER documented as of this encounter Care Teams Grant Administrator Relationship Specialty Start Date End Date Unknown, Notinfile PCP - General 11/21/20 03/14/21 Liza Haynes MD [address] [place] [address] PCP - General 03/15/21 documented as of this encounter
--- OUTSIDE RECORDS SUMMARY | 2025-10-29 11:58 | XMS_ITS | Encounter Summary ---
Author Organization [facility] Address [address] [place] [address] Phone Care Team Providers Care Chair Frame Builder Name Role Phone Unknown, Notinfile Primary Care Provider Unavail able Liza Haynes MD Primary Care Provider [phone] Encounter Details Date Type Department Care Team (Latest Contact Info) Description 01/25/2021 Orders Only [facility] Scanning, Provider Social History Tobacco Use Types Packs/Day Years Used Date Smoking Tobacco: Former Sex and Gender Information Value Date Recorded Sex Assigned at Not on file Legal Sex Male 11:16 AM ACCOUNTS PAYABLE ACCOUNTANT Gender Identity Not on file Sexual Orientation [...] on filedocumented in this encounter Care Teams Chair Frame Builder Relationship Specialty Start Date End Date Unknown, Notinfsreekanth PCP - General 11/21/20 03/14/21 Liza Haynes MD [address] [place] [address] PCP - General 03/15/21 documented as of this encounter
--- OUTSIDE RECORDS SUMMARY | 2025-10-29 11:58 | XMS_ITS | Encounter Summary ---
Author Organization [facility] Address [address] [place] [address] Phone Care Team Providers Care Granite Chip Terrazzo Finisher Name Role Phone Unknown, Notinfile Primary Care Provider Unavail able Liza Haynes MD Primary Care Provider [phone] Encounter Details Date Type Department Care Team (Latest Contact Info) Description 11/03/2019 Orders Only [facility] Scanning, Provider Social History Tobacco Use Types Packs/Day Years Used Date Smoking Tobacco: Never Assessed Sex and Gender Information Value Date Recorded Sex Assigned at Not on file Legal Sex Male 11:16 AM IMPORT AND EXPORT CLERK Gender Identity Not on file Sexual [...] COVID: Suspected 11/21/2020 11/21/2020 11/22/2020 2:21 AM IMPORT AND EXPORT CLERK Respiratory Infection (BONI), contact + droplet Comment:Automatically added due to negative COVID-19 result. Patient classified as Low Risk for COVID-19 and has one negative COVID-19 test. Patient meets criteria for COVID-19 isolation discontinuation Maribell Marmolejo RN 11/24/2020 11/22/2020 11/22/2020 11/24/2020 7:39 AM IMPORT AND EXPORT CLERK documented as of this encounter Care Teams Granite Chip Terrazzo Finisher Relationship Specialty Start Date End Date Unknown, Notinfile PCP - General 11/21/20 03/14/21 Liza Haynes MD [address] [place] [address] PCP - General 03/15/21 documented as of this encounter
--- OUTSIDE RECORDS SUMMARY | 2025-10-29 11:58 | XMS_ITS | Clinical Summary ---
Author Organization [facility] Address [address] [place] [address] Care Team Providers Care Automotive Product Specialist Name Role Phone Liza Haynes MD Primary Care Provider [phone] Allergies Active Allergy Reactions Criticality Noted Date [...] mcg tablet Take 50 mcg by mouth nursing education consultant before breakfast Active Active Problems Problem Noted Date Diagnosed Date Atelectasis 03/08/2021 Surgical History Surgery Date Site/Laterality Comments ABDOMINAL SURGERY COLON SURGERY HERNIA REPAIR umbilical JOINT REPLACEMENT right knee Medical History Medical History Date Comments AAA (abdominal aortic aneurysm) Diabetes mellitus Hypertension COPD (chronic obstructive pulmonary disease) Cancer [...] on file Legal Sex Male 11:16 AM COMPUTER SYSTEMS DESIGNER Gender Identity Not on file Sexual Orientation [...] on file Insurance [employer] HMO [facility] MEDICARE Address: [facility] [address] [place] [address] Care Teams Automotive Product Specialist Relationship Specialty Start Date End Date Liza Haynes MD [address] [place] [address] PCP - General 03/15/21
--- OUTSIDE RECORDS SUMMARY | 2025-10-29 11:58 | XMS_ITS | Encounter Summary ---
Author Organization [facility] Address [address] [place] [address] Phone Care Team Providers Care Locator Specialist Name Role Phone Unknown, Notinfile Primary Care Provider Unavail able Liza Haynes MD Primary Care Provider [phone] Encounter Details Date Type Department Care Team (Latest Contact Info) Description 11/26/2020 Orders Only [facility] Scanning, Provider Social History Tobacco Use Types Packs/Day Years Used Date Smoking Tobacco: Former Sex and Gender Information Value Date Recorded Sex Assigned at Not on file Legal Sex Male 11:16 AM SENIOR INVESTIGATOR Gender Identity Not on file Sexual Orientation [...] on filedocumented in this encounter Care Teams Locator Specialist Relationship Specialty Start Date End Date Unknown, Notinisha PCP - General 11/21/20 03/14/21 Liza Haynes MD [address] [place] [address] PCP - General 03/15/21 documented as of this encounter
--- OUTSIDE RECORDS SUMMARY | 2025-10-29 11:58 | XMS_ITS | Encounter Summary ---
Author Organization [facility] Address [address] [place] [address] Phone Care Team Providers Care Harness Builder Name Role Phone Unknown, Notinfile Primary Care Provider Unavail able Liza Haynes MD Primary Care Provider [phone] Encounter Details Date Type Department Care Team (Latest Contact Info) Description 12/10/2018 Orders Only [facility] Scanning, Provider Social History Tobacco Use Types Packs/Day Years Used Date Smoking Tobacco: Never Assessed Sex and Gender Information Value Date Recorded Sex Assigned at Not on file Legal Sex Male 11:16 AM NETWORK SECURITY ANALYST Gender Identity Not on file Sexual [...] COVID: Suspected 11/21/2020 11/21/2020 11/22/2020 2:21 AM NETWORK SECURITY ANALYST Respiratory Infection (BONI), contact + droplet Comment:Automatically added due to negative COVID-19 result. Patient classified as Low Risk for COVID-19 and has one negative COVID-19 test. Patient meets criteria for COVID-19 isolation discontinuation Maribell Marmolejo RN 11/24/2020 11/22/2020 11/22/2020 11/24/2020 7:39 AM NETWORK SECURITY ANALYST documented as of this encounter Care Teams Harness Builder Relationship Specialty Start Date End Date Unknown, Notinfile PCP - General 11/21/20 03/14/21 Liza Haynes MD [address] [place] [address] PCP - General 03/15/21 documented as of this encounter
== END 2025-10-29 10:51 | disposition home or self-care (01) ==
LOC: ANHAUDIO 10:51
PROVIDERS: PCP Internal Medicine; Visit Provider Otolaryngology Otolaryngology/Facial Plastic Surgery
DX: H90.42 Sensorineural hearing loss, unilateral, left ear, with unrestricted hearing on the contralateral side (principal); H90.11 Conductive hearing loss, unilateral, right ear, with unrestricted hearing on the contralateral side; H74.8X1 Other specified disorders of right middle ear and mastoid
CPT/HCPCS: 92557; 92567